=== PATIENT | female | born 1970 | race Two or more races ===

== ENCOUNTER 2022-11-01 13:39 | Outpatient (REF) | payer MEDICAID, SELFPAY ==
[2022-11-01 14:39] LABS: MANUAL DIFF FLAG NO
[2022-11-01 15:02] LABS: Basophils Percent Auto 0.6 % (0-2); Eosinophils Absolute Auto 0.1 X10*3/uL (0.0-0.4); Eosinophils Percent Auto 2.6 % (0-4); Hematocrit 37.8 % (37.0-47.0); Hemoglobin 11.5 g/dl (12.0-16.0); Imm Gran Abs Auto 0.02 X10*3/uL (0.00-0.03); Imm Gran Pct Auto 0.4 % (0.0-0.4); Lymphocytes Absolute Auto 1.9 X10*3/uL (1.2-4.9); Lymphocytes Percent Auto 35.4 % (20-40); Mean Corpuscular HGB Conc 30.4 g/dl (31.0-35.0); Mean Corpuscular Hemoglobin 26.3 pg (27.0-33.0); Mean Corpuscular Volume 86.3 fL (80.0-98.0); Mean Platelet Volume 10.5 fL (9.4-12.3); Monocytes Absolute Auto 0.3 X10*3/uL (0.1-1.2); Platelet Count 256 X10*3/uL (160-400); Red Blood Count 4.38 X10*6/uL (4.20-5.50); Red Cell Distribution Width 14.9 % (11.0-16.0); White Blood Count 5.4 X10*3/uL (4.8-10.8)
[2022-11-01 15:54] LABS: Alanine Aminotransferase 14 U/L (0-31); Albumin Level 3.7 g/dL (3.5-5.0); Alkaline Phosphatase 109 U/L (39-117); Aspartate Amino Transferase 13 U/L (5-31); Bilirubin Direct 0.2 mg/dL (0.0-0.5); Bilirubin Total 0.5 mg/dL (0.0-1.0); Free T4 (Free Thyroxine) 1.01 ng/dL (0.71-1.85); Thyroid Stimulating Hormone 1.59 uIU/mL (0.32-4.0); Total Protein 7.8 g/dL (6.5-8.0)
[2022-11-02 22:43] LABS: Triiodothyronine T3 Free 2.9 pg/mL (2.3-4.2)
[2022-11-09 13:14] LABS: Thyrotropin Receptor Antibody <1.00 IU/L (<=2.00)
== END 2022-11-01 13:40 | disposition home or self-care (01) ==
LOC: HO.LAB 13:39
PROVIDERS: PCP Internal Medicine Geriatric Medicine; Visit Provider Internal Medicine Endocrinology, Diabetes & Metabolism
DX: E05.90 Thyrotoxicosis, unspecified without thyrotoxic crisis or storm (principal)
CPT/HCPCS: 36415; 80076; 83520; 84439; 84443; 84481; 85025; 99202

== ENCOUNTER 2022-12-11 13:19 | Outpatient (REF) | payer MEDICAID, SELFPAY ==
[2022-12-11 14:44] LABS: Thyroid Stimulating Hormone 1.01 uIU/mL (0.32-4.0)
[2022-12-12 22:28] LABS: Triiodothyronine T3 Free 2.5 pg/mL (2.3-4.2)
== END 2022-12-11 13:20 | disposition home or self-care (01) ==
LOC: HO.LAB 13:19
PROVIDERS: PCP Internal Medicine Geriatric Medicine; Visit Provider Internal Medicine Endocrinology, Diabetes & Metabolism
DX: E05.90 Thyrotoxicosis, unspecified without thyrotoxic crisis or storm (principal)
CPT/HCPCS: 36415; 84439; 84443; 84481; 99211

== ENCOUNTER → 2023-03-05 14:38 | Outpatient (BNVA) | payer MEDICAID, SELFPAY | PROVIDERS: PCP Internal Medicine Geriatric Medicine; Visit Provider Internal Medicine Endocrinology, Diabetes & Metabolism | DX: E05.90 Thyrotoxicosis, unspecified without thyrotoxic crisis or storm (principal) | CPT/HCPCS: 99212 ==

== ENCOUNTER → 2023-03-06 10:30 | Outpatient (BNVA) | payer MEDICAID, SELFPAY | PROVIDERS: PCP Internal Medicine Geriatric Medicine; Visit Provider Physician Assistant | DX: E66.01 Morbid (severe) obesity due to excess calories (principal); G47.30 Sleep apnea, unspecified; E05.90 Thyrotoxicosis, unspecified without thyrotoxic crisis or storm; Z98.84 Bariatric surgery status; Z68.43 Body mass index [BMI] 50.0-59.9, adult | CPT/HCPCS: 99202 ==

== ENCOUNTER → 2023-04-04 13:00 | Outpatient (BNVA) | payer OTHER, MEDICAID, SELFPAY | PROVIDERS: PCP Internal Medicine Geriatric Medicine; Visit Provider Counselor Mental Health ==

== ENCOUNTER 2023-04-16 09:40 | Outpatient (REF) | payer MEDICAID, SELFPAY ==
[2023-04-16 09:53] LABS: MANUAL DIFF FLAG NO
[2023-04-16 10:03] LABS: Basophils Percent Auto 0.6 % (0-2); Eosinophils Absolute Auto 0.1 X10*3/uL (0.0-0.4); Eosinophils Percent Auto 2.7 % (0-4); Hematocrit 41.2 % (37.0-47.0); Hemoglobin 12.3 g/dl (12.0-16.0); Imm Gran Abs Auto 0.01 X10*3/uL (0.00-0.03); Imm Gran Pct Auto 0.2 % (0.0-0.4); Lymphocytes Absolute Auto 1.7 X10*3/uL (1.2-4.9); Lymphocytes Percent Auto 33.2 % (20-40); Mean Corpuscular HGB Conc 29.9 g/dl (31.0-35.0); Mean Corpuscular Volume 83.7 fL (80.0-98.0); Mean Platelet Volume 10.9 fL (9.4-12.3); Monocytes Absolute Auto 0.3 X10*3/uL (0.1-1.2); Monocytes Percent Auto 5.6 % (2-11); Neutrophils Percent Auto 57.7 % (45-73); Platelet Count 216 X10*3/uL (160-400); Red Blood Count 4.92 X10*6/uL (4.20-5.50); Red Cell Distribution Width 16.1 % (11.0-16.0); White Blood Count 5.2 X10*3/uL (4.8-10.8)
[2023-04-16 10:10] LABS: Estimated Average Glucose 117 mg/dL; Hemoglobin A1c % 5.7 %
[2023-04-16 10:36] LABS: Alanine Aminotransferase 27 U/L (0-31); Albumin Level 3.7 g/dL (3.5-5.0); Alkaline Phosphatase 119 U/L (39-117); Anion Gap 10 (12-20); Aspartate Amino Transferase 19 U/L (5-31); Bilirubin Total 0.7 mg/dL (0.0-1.0); Blood Urea Nitrogen 14 mg/dL (9-16); C Reactive Protein 1.98 mg/dL (< or = 0.50); Calcium 9.4 mg/dL (8.4-10.2); Carbon Dioxide 30 mmol/L (22-29); Chloride 105 mmol/L (96-108); Cholesterol 175 mg/dL; Estimated Glomerular Filt Rate > 60; Glucose Random 96 mg/dL (60-115); HDL Cholesterol 49 mg/dL; Iron 36 mcg/dL (30-160); LDL Cholesterol Calculated 112 mg/dl; Percent Iron Saturation 11 % (15-50); Sodium 141 mmol/L (135-145); Total Iron Binding Capacity 340 mcg/dL (228-428); Total Protein 8.3 g/dL (6.5-8.0); Triglycerides 71 mg/dL; Unsaturated Iron Binding 304 ug/dL
[2023-04-16 10:52] LABS: Ferritin 17 ng/mL (10-250); Insulin 12 uU/mL (2-29); Vitamin D 25-OH Total 37.4 ng/mL (>30)
[2023-04-16 11:03] LABS: Folate 7.7 ng/mL (> or = 4.0); Free T4 (Free Thyroxine) 1.05 ng/dL (0.71-1.85); Thyroid Stimulating Hormone 0.83 uIU/mL (0.32-4.0); Vitamin B12 297 pg/mL (200-900)
[2023-04-17 13:04] LABS: PTHI 62 pg/mL (16-77)
[2023-04-17 22:13] LABS: Triiodothyronine T3 Free 3.1 pg/mL (2.3-4.2)
[2023-04-20 01:43] LABS: Zinc 61 mcg/dL (60-130)
[2023-04-20 15:29] LABS: Vitamin A 36 mcg/dL (38-98)
[2023-04-21 06:49] LABS: Vitamin B1 <6 nmol/L (8-30)
== END 2023-04-16 09:41 | disposition home or self-care (01) ==
LOC: HO.LAB 09:40
PROVIDERS: Physician Assistant; PCP Internal Medicine Geriatric Medicine; Visit Provider Internal Medicine Endocrinology, Diabetes & Metabolism
DX: Z01.818 Encounter for other preprocedural examination (principal); E66.01 Morbid (severe) obesity due to excess calories; E05.90 Thyrotoxicosis, unspecified without thyrotoxic crisis or storm; G47.30 Sleep apnea, unspecified; Z98.84 Bariatric surgery status
CPT/HCPCS: 36415; 80053; 80061; 82306; 82607; 82728; 82746; 83036; 83525; 83540; 83970; 84425; 84439; 84443; 84481; 84590; 84630; 85025; 86140; 99212

== ENCOUNTER → 2023-04-30 09:37 | Outpatient (BNVA) | payer MEDICAID, SELFPAY | PROVIDERS: PCP Internal Medicine Geriatric Medicine; Visit Provider Physician Assistant | DX: Z11.0 Encounter for screening for intestinal infectious diseases (principal) | CPT/HCPCS: 99211 ==

== ENCOUNTER 2023-05-01 09:07 | Outpatient (REF) | payer MEDICAID, SELFPAY ==
[2023-05-03 16:58] LABS: H Pylori Breath Test Negative (Negative)
== END 2023-05-01 09:08 | disposition home or self-care (01) ==
LOC: HO.LNP 09:07
PROVIDERS: Visit Provider Physician Assistant
DX: Z01.818 Encounter for other preprocedural examination (principal); E66.01 Morbid (severe) obesity due to excess calories; G47.30 Sleep apnea, unspecified; Z98.84 Bariatric surgery status
CPT/HCPCS: 83013

== ENCOUNTER 2023-05-02 07:34 | Outpatient (REF) | payer MEDICAID, SELFPAY ==
--- NOTE | ~2023-05-02 | FL_ITS ---
EXAMINATION: XR FL UPPER GI WITH AIR CLINICAL INFORMATION: Morbid obesity. COMPARISON: None available. TECHNIQUE: Air-contrast upper GI examination. FINDINGS: There is normal apposition of the vocal cords while saying E. There is normal elevation of the soft palate while saying candy. Patient swallowed thin and thick barium and half-inch diameter barium tablet without difficulty. No nasopharyngeal reflux or tracheal aspiration identified. The esophagus had normal distensibility without mucosal abnormality. No persistent stricture identified. No hiatal hernia. No gastroesophageal reflux elicited including with water siphon test. Patient appears to be status post previous gastric surgery. There is a region of diminished distensibility within the proximal body with some mucosal irregularity and possible ulceration or mass cannot be excluded on this examination. The antrum appears unremarkable. There was no delay in gastric emptying. The duodenal bulb and sweep appeared unremarkable. FLUOROSCOPY TIME: 2.8 minutes. DOSE AREA PRODUCT: 46.624 Gy-cm2 (lopez-centimeter squared). FL/FL upper GI w air IMPRESSION: Status post previous gastric surgery with some irregularity about the proximal body which may be postsurgical in nature. However, possible ulcer or mass cannot be excluded on this study.
--- NOTE | ~2023-05-02 | US_ITS ---
EXAMINATION: US COMPLETE ABDOMEN WITH LIVER ELASTOGRAPHY CLINICAL INFORMATION: Obesity COMPARISON: None available. TECHNIQUE: Real-time imaging of the abdominal viscera. Noninvasive ultrasound liver fibrosis assessment is performed using Malick ElastPQ point quantification shear wave elastography (2D-SWE) with a C5-2 MHz transducer. Multiple elastography samples are obtained. FINDINGS: PANCREAS: Body and tail the pancreas are normal. The head of the pancreas is not well visualized due to bowel gas. ABDOMINAL AORTA: The proximal, middle, and distal aortic segments are normal in caliber. INFERIOR VENA CAVA: Visualized portions are normal. LIVER: Liver echotexture is slightly increased. The liver is normal in size and contour. No focal liver lesion or layering duct dilatation. The right lobe measures 16.7 cm in length. The left lobe measures 11 cm in length. Portal flow is normal/hepatopedal Shear wave liver elastography median stiffness is 1.5 m/s (reference: normal median stiffness is 1.3 m/s or less). IQR/median stiffness to assess sampling precision is 0.14 (reference: good quality data set is IQR/median stiffness of 0.15 or less). GALLBLADDER: Wall echo shadow complex suggestive of gallbladder filled with gallstones. COMMON BILE DUCT: Normal in caliber measuring 0.1 cm in diameter. RIGHT KIDNEY: Normal. No hydronephrosis. No renal calculi or focal parenchymal lesions. The kidney measures 11 cm in maximum dimension. LEFT KIDNEY: Normal. No hydronephrosis. No renal calculi or focal parenchymal lesions. The kidney measures 12 cm in maximum dimension. SPLEEN: Normal. The spleen measures 9 cm in maximum dimension. FREE FLUID: None. US/US abdomen comp w elastography IMPRESSION: 1. Impression: Slightly echogenic liver probably representing mild fatty infiltration. Wall echo shadow complex suggestive of gallbladder filled with gallstones. Limited visualization of the pancreas. 2. Liver elastography: Adequate liver sampling. In the absence of other known clinical signs, rules out compensated advanced chronic liver disease. REFERENCE: Society of Radiologists in Ultrasound Liver Stiffness Thresholds (2020): LIVER STIFFNESS THRESHOLDS: *Liver Stiffness equal or less than 1.3 m/s: High probability of being normal. *Liver Stiffness less than 1.7 m/s: In the absence of other known clinical signs, rules out compensated advanced chronic liver disease. *Liver Stiffness 1.7-2.1 m/s: Suggestive of compensated advanced chronic liver disease but need further test for confirmation. *Liver Stiffness over 2.1 m/s: Rules in compensated advanced chronic liver disease. *Liver Stiffness over 2.4 m/s: Suggestive of clinically significant portal hypertension. QUALITY OF DATA SET: *IQR/Median value equal or less than 0.15 implies a quality data set. *IQR/Median value over 0.15 implies a poor quality data set. SIGNIFICANT CHANGE FROM PRIOR EXAM: Significant change if liver stiffness measurement is 10% or greater from prior exam. OTHER CONSIDERATIONS: The stage of liver fibrosis may be overestimated in the setting of acute hepatitis, liver inflammation, elevated liver function tests, hepatic vascular congestion, obstructive cholestasis, non-fasting state, and infiltrative diseases such as amyloidosis and lymphoma. In some patients with NAFLD, the liver stiffness thresholds for compensated advanced chronic liver disease may be lower. In causes other than viral hepatitis and NAFLD, liver stiffness thresholds are not well established.
== END 2023-05-02 07:35 | disposition home or self-care (01) ==
LOC: HO.US 07:34
PROVIDERS: PCP Internal Medicine Geriatric Medicine; Visit Provider Physician Assistant
DX: Z01.818 Encounter for other preprocedural examination (principal); G47.30 Sleep apnea, unspecified; E66.01 Morbid (severe) obesity due to excess calories; Z98.84 Bariatric surgery status
CPT/HCPCS: 71046; 74246; 76705; 76981

== ENCOUNTER → 2023-05-07 13:13 | Outpatient (BNVA) | payer MEDICAID, SELFPAY | PROVIDERS: PCP Internal Medicine Geriatric Medicine; Visit Provider Dietitian, Registered | DX: E66.01 Morbid (severe) obesity due to excess calories (principal); Z71.3 Dietary counseling and surveillance | CPT/HCPCS: 97802 ==

== ENCOUNTER → 2023-05-15 12:00 | Outpatient (BNVA) | payer MEDICAID, SELFPAY | PROVIDERS: PCP Internal Medicine Geriatric Medicine; Visit Provider Physician Assistant ==

== ENCOUNTER 2023-05-23 13:24 | Emergency (ER) | payer MEDICAID, SELFPAY ==
--- NOTE | ~2023-05-23 | US_ITS ---
EXAMINATION: US ABDOMEN LIMITED, gallbladder and common bile duct CLINICAL INFORMATION: Right upper quadrant pain. COMPARISON: May 02, 2023 TECHNIQUE: Real-time imaging of the gallbladder and common bile duct. FINDINGS: GALLBLADDER: The region of the gallbladder there is seen to be an echogenic rim with significant distal sound shadowing consistent with a contracted gallbladder around calculi. Evaluation is limited. The gallbladder wall appears to be approximately 2 mm in diameter without definite pericholecystic fluid or fluid within the gallbladder wall. There was tenderness to palpation over this region. COMMON BILE DUCT: The common bile duct is not well evaluated and in the region of the common bile duct there is a 5 mm structure likely representing common bile duct. No definite dilated common bile duct is seen. US/US abdomen limited IMPRESSION: In region of gallbladder there is an echogenic curvilinear line with dense distal sound shadowing consistent with contracted gallbladder around calculi. No definite pericholecystic fluid or fluid within the gallbladder wall is appreciated. Common bile duct not well seen but does not appear to be dilated.
--- NOTE | 2023-05-23 13:38 | ED_ITS ---
HPI - General Adult General Chief complaint: Back Pain/Injury Stated complaint: abd chest and back pain Time Seen by Provider: 05/23/23 17:32 Source: patient Mode of arrival: ambulatory Limitations: no limitations History of Present Illness HPI narrative: 52-year-old female came in for evaluation abdominal pain and chest pain. Patient been having mid chest pain radiating to her back for the past 8 months describes the pain as intermittent mid chest pain with no radiation, pain is associated with upper abdominal pain and nausea with no vomiting, patient also been having nonbloody watery diarrhea for the past 2-3 days, no clear aggravating factor, no clear exacerbating factor, no clear relieving factor. Patient had a history of sleeve gastrectomy 6 years ago in the process of revision of the surgery had a recent cardiac workup that was unremarkable, patient also had gallbladder ultrasound that showed gallbladder stones. Related Data Home Medications Medication Instructions Recorded Confirmed epinephrine 0.3 mg/0.3 mL IM DIRECTED 11/01/22 04/16/23 injection, auto-injector lorazepam 1 mg tablet 1 mg PO DAILY PRN anxiety 11/01/22 04/16/23 montelukast 10 mg tablet 10 mg PO DAILY 11/01/22 04/16/23 omeprazole 40 mg capsule,delayed 40 mg PO DAILY 11/01/22 04/16/23 release pravastatin 20 mg tablet 20 mg PO BEDTIME 11/01/22 04/16/23 prazosin 1 mg capsule 1 mg PO BEDTIME 11/01/22 04/16/23 buspirone 15 mg tablet 7.5 mg PO Q12H 03/06/23 04/16/23 cariprazine 1.5 mg capsule 1.5 mg PO DAILY 03/06/23 04/16/23 (Vraylar) fluticasone propionate 50 2 inh inhalation BID 03/06/23 04/16/23 mcg/actuation blister powder for inhalation (Flovent Diskus) ketotifen fumarate 0.025 % (0.035 1 drp ophthalmic (eye) BID 03/06/23 04/16/23 %) eye drops cetirizine 10 mg tablet 0 mg PO 04/16/23 04/16/23 Previous Rx's Medication Instructions Recorded thiamine HCl (vitamin B1) 50 mg 50 mg PO DAILY #30 tabs 04/22/23 tablet vitamin A palmitate 3,000 mcg 3,000 mcg PO DAILY #14 caps 04/22/23 (10,000 unit) capsule Allergies Allergy/AdvReac Type Severity Reaction Status Date / Time grape Allergy other Verified 04/30/23 09:52 latex Allergy Unknown Verified 05/23/23 13:40 celecoxib AdvReac Severe Anaphylaxis Verified 04/30/23 09:52 shellfish derived AdvReac Severe Anaphylaxis Verified 04/30/23 09:52 Iodinated Contrast Media AdvReac other Verified 04/30/23 09:52 Review of Systems Review of Systems: All other systems are reviewed and are negative Constitutional: Reports as per HPI and Reports no additional constitutional comp laints Eyes: Reports as per HPI and Reports no additional eye complaints Reports system reviewed and no additional complaints, except as documented Cardiovascular: Reports as per HPI and Reports no additional cardiovascular complaints Respiratory: Reports as per HPI and Reports no additional respiratory complaints Gastrointestinal: Reports as per HPI and Reports no additional gastrointestinal complaints Genitourinary: Reports no additional female genitourinary complaints Musculoskeletal: Reports no additional musculoskeletal complaints Skin/Breast: Reports system reviewed and no additional complaints, except as docu Psychiatric: Reports no additional psychiatric complaints Endocrine: Reports no additional endocrine complaints Hematologic/Lymphatic: Reports no additional hematologic/lymphatic complaints Allergic/Immunologic: Reports no additional allergic/immunologic complaints Reports system reviewed and no additional complaints, except as documented and Reports Abnormal speech present [facility] Past Medical History Medical History Hyperthyroidism Surgical History History of partial hysterectomy History of surgery Hx of section Hx of mastectomy Family History Family History Mother No problems noted. Father No known health problems Maternal Grandmother Diabetes Other Cancer Social History Social History Household Members: Spouse Alcohol intake: current Alcohol intake frequency: other Alcohol type: wine Patient Tobacco Use Status: Former Tobacco user Quit Date: >17 years ago Physical Exam ED Vital Signs: Vital Signs - 24 hr 05/23/23 13:41 05/23/23 18:09 Temperature 98.0 F 99.2 F Pulse Rate 71 53 Respiratory Rate 20 16 Blood Pressure 152/86 H 137/73 Pulse Oximetry 98 98 Oxygen Delivery Method Room Air Room Air BMI result Body Mass Index 47.0 Vital signs have been reviewed as appeared to be correct. Blood pressure normal. Heart rate normal. Respiration rate normal. Temperature normal. Oxygen saturation normal. Appearance: Alert. Oriented X3. No acute distress. Head: Normal external exam. Normocephalic. Atraumatic. No Roe signs noted. No raccoon eyes noted Eyes: PERRLA. EOMI. Conjunctiva and sclera normal. Eyelids normal. ENT: TM's Normal. Pharynx normal. Uvula midline. Moist mucous membranes. No trismus noted. No drooling noted. No muffled voice noted. Neck: Normal inspection. Neck supple. FROM. No adenopathy. Thyroid Normal. No meningeal signs. No neck mass noted. CVS: Normal heart rate and rhythm. Heart sound normal. No murmurs noted. Pulses normal throughout. Respiratory: No respiratory distress. Painless inspiration. Breath sounds normal. No wheezes/rales/rhonchi noted. Chest nontender. No accessory muscle usage noted or decreased air movement noted. Abdomen: Soft, mild epigastric tenderness, no rebound tenderness, no guarding. Bowel sounds normal in all 4 quadrants. No distention noted. No organomegaly noted. No visible injury noted. Back: No CVA tenderness. Full range of motion noted. Skin: Skin warm and dry. Normal skin color. Normal skin turgor. No rashes/lesions/lacerations noted. Extremities: No lower extremity edema. Extremities exhibit normal range of motion. Extremities nontender. Neuro: Oriented X 3. Cranial nerve exam: II-XII are grossly intact No motor deficit. No sensory deficit. Reflexes normal. Course Course Course Narrative: This is a rapid medical exam: Additional HPI, ROS, PE not included below will be deferred to primary provider. Patient is a 52-year-old female with history of hyperthyroid presenting to the emergency department with complaint of chest pain, abdominal pain, and back pain intermittently for 8 months. 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 After further evaluation she was found to have gallstones. Reports today pain was worse, had nausea, vomiting, diarrhea. Plan: EKG, labs, RUQ U/S Reevaluation(s) Reevaluation #1: A 52-year-old female follow-up with Dr. Mansfield for possible revision of sleeve gastrectomy, came in with abdominal pain and chest pain patient had outpatient Cardiology clearance, gallbladder is showing possible cholelithiasis without evidence of acute cholecystitis normal WBCs, normal LFTs. To follow-up with Dr. Mansfield. Time: 18:59 Medications Administered Discontinued Medications Generic Name Dose Route Start Last Admin Trade Name Freq PRN Reason Stop Dose Admin Acetaminophen 650 mg 05/23/23 15:40 05/23/23 16:15 Acetaminophen 325 Mg Tablet PO 05/23/23 15:41 650 mg ONCE ONE Administration Ondansetron HCl 4 mg 05/23/23 17:09 05/23/23 17:51 Ondansetron Odt 4 Mg Tab.Rapdis TRANSLINGU 05/23/23 17:10 4 mg ONCE ONE Administration Medical Decision Making Differential Diagnosis Differential Diagnoses: The differential diagnosis associated with the presentation includes (ACS, cholelithiasis, acute cholecystitis, pancreatitis, electrolyte abnormality, severe anemia.) Admission/Observation Consideration of admission/observation: Escalation of care including admission/observation considered Lab Data MDM Lab Attestation statement: I reviewed the patient's lab results. 05/23/23 13:55 05/23/23 13:55 Labs: Lab Results 05/23/23 05/23/23 05/23/23 Range/Units 13:55 13:55 13:55 WBC 5.0 (4.8-10.8) X10*3/uL RBC 5.18 (4.20-5.50) X10*6/uL Hgb 13.4 (12.0-16.0) g/dl Hct 44.4 (37.0-47.0) % MCV 85.7 (80.0-98.0) fL MCH 25.9 L (27.0-33.0) pg MCHC 30.2 L (31.0-35.0) g/dl RDW 16.3 H (11.0-16.0) % Plt Count 194 (160-400) X10*3/uL MPV 11.5 (9.4-12.3) fL Immature Gran % (Auto) 0.0 (0.0-0.4) % Neut % (Auto) 59.9 (45-73) % Lymph % (Auto) 31.7 (20-40) % Aurora % (Auto) 5.6 (2-11) % Eos % (Auto) 2.2 (0-4) % Baso % (Auto) 0.6 (0-2) % Lymph # (Auto) 1.6 (1.2-4.9) X10*3/uL Aurora # (Auto) 0.3 (0.1-1.2) X10*3/uL Eos # (Auto) 0.1 (0.0-0.4) X10*3/uL Baso # (Auto) 0.0 (0.0-0.2) X10*3/uL Abs Immat Gran (auto) 0.00 (0.00-0.03) X10*3/uL Absolute Neuts (auto) 3.0 (2.0-8.3) x10*3/uL Absolute Nucleated RBC 0.000 (0.0-0.012) X10*3/uL Nucleated RBC % (auto) 0.0 (0.0-0.2) /100WBC Sodium 141 (135-145) mmol/L Potassium 3.9 (3.3-5.1) mmol/L Chloride 106 (96-108) mmol/L Carbon Dioxide 26 (22-29) mmol/L Anion Gap 13 (12-20) BUN 11 (9-16) mg/dL Creatinine 0.84 (0.5-1.4) mg/dL Estim Creat Clear Calc 138.9 Estimated GFR > 60 Random Glucose 87 (60-115) mg/dL Calcium 9.7 (8.4-10.2) mg/dL Total Bilirubin 0.8 (0.0-1.0) mg/dL AST 20 (5-31) U/L ALT 24 (0-31) U/L Alkaline Phosphatase 118 H (39-117) U/L Troponin I High Sens < 2.7 (<3.5-17.0) ng/L Total Protein 8.4 H (6.5-8.0) g/dL Albumin 3.7 (3.5-5.0) g/dL Independent Interpretation I performed an independent interpretation of an: EKG (Normal sinus rhythm at 70 beats per minute, normal axis deviation, normal intervals, no ST-T changes.) and Ultrasound (Gallbladder:In region of gallbladder there is an echogenic cu rvilinear line with dense distal sound shadowing consistent with contracted gallbladder around calculi. No definite pericholecystic fluid or fluid within the gallbladder wall is appreciated. Common bile duct not well seen but does not appe) Radiology Impression Discussion of test interpretation with radiology: I have reviewed the radiologist's reading. Discharge Plan Discharge Clinical Impression: Chest pain, Cholelithiasis Patient Disposition: Home, Self-Care Instructions: Gallstones (ED) Prescriptions: No Action vitamin A palmitate 3,000 mcg (10,000 unit) capsule 3,000 mcg PO DAILY Qty: 14 0RF thiamine HCl (vitamin B1) 50 mg tablet 50 mg PO DAILY Qty: 30 4RF montelukast 10 mg tablet 10 mg PO DAILY lorazepam 1 mg tablet 1 mg PO DAILY PRN (Reason: anxiety) prazosin 1 mg capsule 1 mg PO BEDTIME pravastatin 20 mg tablet 20 mg PO BEDTIME omeprazole 40 mg capsule,delayed release(DR/EC) 40 mg PO DAILY epinephrine 0.3 mg/0.3 mL auto-injector IM DIRECTED ketotifen fumarate 0.025 % (0.035 %) drops 1 drp ophthalmic (eye) BID buspirone 15 mg tablet 7.5 mg PO Q12H Vraylar 1.5 mg capsule 1.5 mg PO DAILY Flovent Diskus 50 mcg/actuation blister with device 2 inh inhalation BID cetirizine 10 mg tablet 0 mg PO Referrals: Name,MD Kayden [Primary Care Provider] - Jeff Mansfield MD [Physician] -
--- NOTE | 2023-05-23 13:38 | ECG_ITS ---
Test Reason : cp Blood Pressure : / mmHG Vent. Rate : 070 BPM Atrial Rate : 070 BPM P-R Int : 172 ms QRS Dur : 076 ms QT Int : 404 ms P-R-T Axes : 057 025 051 degrees QTc Int : 436 ms Normal sinus rhythm Normal ECG No previous ECGs available Referred By: Mariah Guerra Electronically Signed By:JOHNNY GAUTAM MD
[2023-05-23 13:41] VITALS: BP 152/86; PULSE 71; RESP 20; TEMP 36.7; O2SAT 98; BMI 47.0
[2023-05-23 14:19] LABS: MANUAL DIFF FLAG NO
[2023-05-23 14:26] LABS: Basophils Percent Auto 0.6 % (0-2); Eosinophils Absolute Auto 0.1 X10*3/uL (0.0-0.4); Eosinophils Percent Auto 2.2 % (0-4); Hematocrit 44.4 % (37.0-47.0); Hemoglobin 13.4 g/dl (12.0-16.0); Lymphocytes Absolute Auto 1.6 X10*3/uL (1.2-4.9); Lymphocytes Percent Auto 31.7 % (20-40); Mean Corpuscular HGB Conc 30.2 g/dl (31.0-35.0); Mean Corpuscular Hemoglobin 25.9 pg (27.0-33.0); Mean Corpuscular Volume 85.7 fL (80.0-98.0); Mean Platelet Volume 11.5 fL (9.4-12.3); Monocytes Absolute Auto 0.3 X10*3/uL (0.1-1.2); Monocytes Percent Auto 5.6 % (2-11); Neutrophils Percent Auto 59.9 % (45-73); Platelet Count 194 X10*3/uL (160-400); Red Blood Count 5.18 X10*6/uL (4.20-5.50); Red Cell Distribution Width 16.3 % (11.0-16.0)
[2023-05-23 14:35] LABS: Alanine Aminotransferase 24 U/L (0-31); Albumin Level 3.7 g/dL (3.5-5.0); Alkaline Phosphatase 118 U/L (39-117); Anion Gap 13 (12-20); Aspartate Amino Transferase 20 U/L (5-31); Bilirubin Total 0.8 mg/dL (0.0-1.0); Blood Urea Nitrogen 11 mg/dL (9-16); Calcium 9.7 mg/dL (8.4-10.2); Carbon Dioxide 26 mmol/L (22-29); Chloride 106 mmol/L (96-108); Creatinine Clr Calc Pharmacy 138.9; Estimated Glomerular Filt Rate > 60; Glucose Random 87 mg/dL (60-115); Potassium 3.9 mmol/L (3.3-5.1); Sodium 141 mmol/L (135-145); Total Protein 8.4 g/dL (6.5-8.0)
[2023-05-23 14:45] LABS: Troponin-I High Sensitivity < 2.7 ng/L (<3.5-17.0)
[2023-05-23] MEDS: Acetaminophen 325 MG TABLET 650 MG PO (16:15)
[2023-05-23] MEDS: Ondansetron ODT 4 MG TAB.RAPDIS TRANSLINGU (17:51)
[2023-05-23 18:09] VITALS: BP 137/73; PULSE 53; RESP 16; TEMP 37.3; O2SAT 98
--- NOTE | 2023-05-23 18:14 | PC.NURSE ---
pt alert and oriented, vss, pt states that she's had pain for the past 8 months due to gallstones, pt states the pain level decreased post tylenol administration.
[2023-05-23 19:08] LABS: Appearance Urine Clear; Color Urine Yellow; Glucose Urine UA Negative (Negative); Leukocyte Esterase Urine Negative (Negative); Nitrite Urine Negative (Negative); PH 5.5 (5.0-9.0); Specific Gravity - Urine >= 1.030 (1.005-1.025); Urine Blood Negative (Negative); Urine Ketones Negative (Negative); Urine Protein Trace mg/dL (Neg-Trace)
== END 2023-05-23 19:43 | disposition home or self-care (01) ==
PROVIDERS: Registered Nurse Emergency; Emergency Provider Emergency Medicine; PCP Internal Medicine Geriatric Medicine
DX: M54.50 Low back pain, unspecified (principal); R10.2 Pelvic and perineal pain; K80.20 Calculus of gallbladder without cholecystitis without obstruction; R07.89 Other chest pain; R10.11 Right upper quadrant pain; Z79.899 Other long term (current) drug therapy
CPT/HCPCS: 36415; 76705; 80053; 81003; 84484; 85025; 93005; 99284; 99285

== ENCOUNTER → 2023-05-23 13:38 | Outpatient (BNV) | payer MEDICAID, SELFPAY | PROVIDERS: Emergency Provider Emergency Medicine; PCP Internal Medicine Geriatric Medicine; Visit Provider Internal Medicine Cardiovascular Disease | DX: R07.9 Chest pain, unspecified (principal) | CPT/HCPCS: 93010 ==

== ENCOUNTER 2023-06-03 10:39 | Outpatient (AMB) | payer MEDICAID, SELFPAY ==
--- NOTE | 2023-06-03 10:42 | A.OFFVIS_ITS ---
Intake Vital Signs 06/03/23 10:46 Height 6 ft 1 in BP 124/72 Blood Pressure Location Rt brachial Position Sitting Pulse 79 Intake Visit Reasons: gallstones Intake Note: [place] [facility] [place]. Patient c/o; chest and back pain onset of symptoms, experienced nausea and vomiting this past week, diarrhea. Region Manager Required: No Accompanied by: Self / Same As Patient Allergies grape Allergy (Verified 06/03/23 10:47) other latex Allergy (Verified 06/03/23 10:47) Unknown celecoxib Adverse Reaction (Severe, Verified 06/03/23 10:47) Anaphylaxis shellfish derived Adverse Reaction (Severe, Verified 06/03/23 10:47) Anaphylaxis Iodinated Contrast Media Adverse Reaction (Verified 06/03/23 10:47) other Medication List - Last Reconciled 06/03/23 by Jimi Gordon MD buspirone 7.5 mg PO Q12H cariprazine (Vraylar) 1.5 mg PO DAILY cetirizine 0 mg PO epinephrine IM DIRECTED fluticasone propionate 50 mcg/actuation (Flovent Diskus) 2 inhalations inhalation BID ketotifen fumarate 0.025%(0.035%) 1 drp ophthalmic (eye) BID lorazepam 1 mg PO DAILY PRN montelukast 10 mg PO DAILY omeprazole 40 mg PO DAILY ondansetron 4 mg PO Q8-12H PRN pravastatin 20 mg PO BEDTIME prazosin 1 mg PO BEDTIME thiamine HCl (vitamin B1) 50 mg PO DAILY vitamin A palmitate 3,000 mcg PO DAILY HPI gallstones HPI Details 52-year-old female with morbid obesity, referred for gallstones. She went to the ER last May 27, 2023 because of right-sided abdominal pain. She was noted to have gallstones on ultrasound. She does state that she has has had some episodic pain abdomen for about a year now. She had a liver elastographyas part of her workup for repeat sleeve gastrectomy last 06/01/2023 and this had shown gallstones as well. She is being followed by the Bariatric Department because of her morbid obesity. She had as sleeve gastrectomy about 6 years ago in [facility]. She says she is scheduled to have repeat bariatric surgery because of her current weight. She otherwise has good oral intake. [facility] Medical History (Updated 06/12/23 @ 09:52 by Sarai Tubbs PA-C) Gallstones Hyperthyroidism Surgical History History of partial hysterectomy History of surgery Hx of section Hx of mastectomy Family History Mother No problems noted. Father No known health problems Maternal Grandmother Diabetes Other Cancer Social History Household Members: Spouse Alcohol intake: current Alcohol intake frequency: other Alcohol type: wine Patient Tobacco Use Status: Former Tobacco user Quit Date: >17 years ago Review of Systems Const Denies chills and Denies fever(s) Card Denies chest pain, Denies dyspnea and Denies dyspnea on exertion Resp Denies cough, Denies dyspnea and Denies dyspnea on exertion GI Denies hematochezia and Denies change in bowel habits Denies hematuria Musc Denies back pain and Denies limited range of motion Neuro Denies focal weakness and Denies convulsions Psych Denies depression and Denies mood swings Physical Exam Vital Signs: Last Vital Signs Pulse 79 06/03/23 10:46 BP 124/72 06/03/23 10:46 Const Other: morbidly obese General: comfortable and no acute distress Orientation/consciousness: patient oriented x3 Neck Neck: Yes no lymphadenopathy Resp Auscultation: clear to auscultation bilaterally Cardio Rhythm: regular rhythm GI Palpation (GI): Soft to palpation, nontender and no guarding Neuro General: patient oriented x3 Assessment & Plan Assessment & Plan (1) Gallstones: Code(s): K80.20 - Calculus of gallbladder without cholecystitis without obstruction Plan: She has gallstones which seem to be symptomatic. I did explain to her the option of proceeding with laparosopic choleycstectomy. She does have a high BMI and her perioperative risks may be higher becuse of this. I explained the technique of laparoscopic cholecystectomy poss. open, and the risks of bleeding, infections, injury to other organs ( liver, bile duct, intestines) bile leak, retained stones, inherent risks of anesthesia, as well as the benefits and altnernatives. I did explain that this can be done at the same time as the laparoscopic sleeve gastrectomy and she stated that she was aware of this and that she had preferred her cholecystectomy to be done during her sleeve gastrectomy. She says that she was not scheduled to have her sleeve gastrectomy until November and that she had wanted this to be done much earlier than that. I will reach out to the Bariatric Service with regards to the above. (2) Morbid obesity: Code(s): E66.01 - Morbid (severe) obesity due to excess calories Coding Level of Care Code New Pt Level 3 (52630) Diagnoses Gallstones K80.20 Morbid obesity E66.01
[2023-06-03 10:46] VITALS: BP 124/72; PULSE 79
== END 2023-06-03 11:16 | disposition home or self-care (01) ==
PROVIDERS: PCP Internal Medicine Geriatric Medicine; Visit Provider Surgery
DX: K80.20 Calculus of gallbladder without cholecystitis without obstruction (principal); E66.01 Morbid (severe) obesity due to excess calories
CPT/HCPCS: 99203

== ENCOUNTER → 2023-06-03 10:39 | Outpatient (BNVA) | payer MEDICAID, SELFPAY | PROVIDERS: PCP Internal Medicine Geriatric Medicine; Visit Provider Surgery | DX: K80.20 Calculus of gallbladder without cholecystitis without obstruction (principal); E66.01 Morbid (severe) obesity due to excess calories | CPT/HCPCS: 99202 ==

== ENCOUNTER 2023-06-12 09:52 | Outpatient (AMB) | payer MEDICAID, SELFPAY ==
--- NOTE | 2023-06-12 09:28 | A.OFFVIS_ITS ---
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 TBWL 28 lbs or 8%. Pthas been seen in ED twice in May for abdomianl pain had RUQ ULS which showed mild acute cholecystitis, she continues with RUQ and back pain, nausea with ocassional emesis about 3d/ week - symptoms all after she eats any of her meals. She saw Dr Gordon in Ed who suggested she wait and have lap cristiano concurrent with LSG. Pt states she is in continued pain and does not want to wait for LSG. She has already stated she wants LSG in September after she returns from her cruise vacation. Has CT chest scheduled for 06/17 due to lung nodule found on CXR. Meal plan: 9am - shake 12pm - shake 3pm - yogurt 5pm - meal of vegetable sand meat or has 2 eggs. 8pm -protein bar Exercise - limited due to RUQ pain. Pre op work up completed as follows: SWL classes - 06/18 appts? - cleared? ? ? RD appts? - missed initial, needs reschedule, next on 06/13 H pylori - negative Labs- vitamin defic, no anemia CXR - 1.8 cm left lung nodule - CT chest ordered- scheduled for 06/17 ECG - 05/23 (ED) - normal ULS - mild steatosis UGI - 05/02 - patient was not aware. Status post previous gastric surgery with some irregularity about the proximal body which may be postsurgical in nature. However, possible ulcer or mass cannot be excluded on this study.? [facility] Medical History (Updated 06/12/23 @ 09:52 by Sarai Tubbs PA-C) Gallstones Hyperthyroidism Surgical History History of partial hysterectomy History of surgery Hx of section Hx of mastectomy Family History Mother No problems noted. Father No known health problems Maternal Grandmother Diabetes Other Cancer Social History Household Members: Spouse Alcohol intake: current Alcohol intake frequency: other Alcohol type: wine Patient Tobacco Use Status: Former Tobacco user Quit Date: >17 years ago Assessment & Plan Assessment & Plan (1) Morbid obesity: Code(s): E66.01 - Morbid (severe) obesity due to excess calories Plan: SWL program for revision of previous LSG. TBWL 24 lbs or 8%. Pt has beeen progressing slowly due to not wanting to have her revison surgery until September. She will continue with current meal plan, has appt with Altagracia tomorrow. Has completed all other pre operative wrok up. Exercise - is limited due to gall bladder pain. Next appt with me in 3 weeks. Patient is still morbidly obese and is not considered stable at this time. I spent 30 minutes in total speaking with the patient via video conference counseling , reviewing records and charting in patients chart. . (2) Cholecystitis: Code(s): K81.9 - Cholecystitis, unspecified Plan: Patient will be scheduled to see Dr Moser this week to discuss surgical treatment for RUQ pain. (3) Lung nodule seen on imaging study: Code(s): R91.1 - Solitary pulmonary nodule Plan: Patient has CT chest scheduled for . (4) S/P laparoscopic sleeve gastrectomy: Comment: 2014 [facility] Code(s): Z98.84 - Bariatric surgery status Telehealth Telehealth Location of provider rendering services: practice address Location of patient: address on file Patient Identification confirmed using: Name, : Yes Telehealth method: video Patient verbally consented to treatment: Yes Patient verbally consented to billing insurance company: Yes Patient informed of any privacy concerns related to visit: Yes Coding Level of Care Code Tele Est Pt Level 4 (62828) Diagnoses Morbid obesity E66.01 Cholecystitis K81.9 Lung nodule seen on imaging study R91.1 S/P laparoscopic sleeve gastrectomy Z98.84
[2023-06-12 09:36] VITALS: BMI 47.1
== END 2023-06-12 09:55 | disposition home or self-care (01) ==
LOC: HO.HBS 09:52
PROVIDERS: PCP Internal Medicine Geriatric Medicine; Visit Provider Physician Assistant
DX: E66.01 Morbid (severe) obesity due to excess calories (principal); K81.9 Cholecystitis, unspecified; R91.1 Solitary pulmonary nodule; Z98.84 Bariatric surgery status
CPT/HCPCS: 99214

== ENCOUNTER → 2023-06-12 09:52 | Outpatient (BNVA) | payer MEDICAID, SELFPAY | PROVIDERS: PCP Internal Medicine Geriatric Medicine; Visit Provider Physician Assistant | DX: E66.01 Morbid (severe) obesity due to excess calories (principal); R91.1 Solitary pulmonary nodule; Z98.84 Bariatric surgery status ==

== ENCOUNTER 2023-06-13 13:05 | Outpatient (AMB) | payer MEDICAID, SELFPAY ==
--- NOTE | 2023-06-13 13:16 | A.OFFVIS_ITS ---
Intake VS Expanded 06/13/23 13:17 Height 5 ft 10 in Weight 346 lb 2.012 oz BMI 49.7 BP 128/64 Blood Pressure Location Lt brachial Blood Pressure Position Sitting Pulse 72 Pulse Source Pulse Oximeter Temp 97.2 F Temperature Source Tympanic Intake Visit Reasons: (OV) Cholecystitis (RANDI) Intake Note: Pt c/o: upper right quadruant pain radiates to chest and around to back x 3 yrs Senior Staff Consultant Required: No Avionic Technician: Avionic Technician offered & declined Accompanied by: Self / Same As Patient Allergies grape Allergy (Verified 06/13/23 13:21) other latex Allergy (Verified 06/13/23 13:21) Unknown celecoxib Adverse Reaction (Severe, Verified 06/13/23 13:21) Anaphylaxis shellfish derived Adverse Reaction (Severe, Verified 06/13/23 13:21) Anaphylaxis Iodinated Contrast Media Adverse Reaction (Verified 06/13/23 13:21) other Medication List - Last Reconciled 06/13/23 by Omega Moser MD buspirone 7.5 mg PO Q12H cariprazine (Vraylar) 1.5 mg PO DAILY cetirizine 0 mg PO epinephrine IM DIRECTED fluticasone propionate 50 mcg/actuation (Flovent Diskus) 2 inhalations inhal ation BID ketotifen fumarate 0.025%(0.035%) 1 drp ophthalmic (eye) BID lorazepam 1 mg PO DAILY PRN montelukast 10 mg PO DAILY omeprazole 40 mg PO DAILY ondansetron 4 mg PO Q8-12H PRN pravastatin 20 mg PO BEDTIME thiamine HCl (vitamin B1) 50 mg PO DAILY vitamin A palmitate 3,000 mcg PO DAILY HPI HPI Comments History of Present Illness Details The patient is a 52-year-old woman who is BRCA1 positive status post bilateral mastectomies and oophorectomy who has a history of a previous laparoscopic sleeve gastrectomy done at [facility]. She is enrolled in the surgical weight loss program here for revision surgery and has suffered several episodes of biliary colic, the last 05/23/23 in the ER note here at [facility] is reviewed. The patient is been reporting fairly typical biliary colic and some diarrhea over the past 8 months. Patient was seen by Dr. Gordon who deferred cholecystectomy until the time of sleeve gastrectomy. I was asked to evaluate the patient and help facilitate her care. Today she reports epigastric and right upper quadrant pain that is cramping shortly after eating. She gets nauseated and denies any vomiting. She reports this squeezing that tends to resolve in several hours involving her lower chest and upper abdomen. GERD 9 SONYA 2 QOL 100 ESS 7 Per hospital record, the patient underwent sleeve gastrectomy previously at [facility] June, and reports her heaviest weight was 489 lb. She lost weight down to 399 lb and then regained weight and is being considered and evaluated for revision with Dr. Mansfield. THE PATIENT NOTES THAT SHE IS A JUDAISM AND REFUSES BLOOD TRANSFUSION The patient also notes some issues with constipation on her current diet. We reviewed the use of stool softeners and plan to follow-up to be sure that this is being addressed. PFSH Medical History Gallstones Hyperthyroidism Surgical History History of partial hysterectomy History of surgery Hx of section Hx of mastectomy Family History Mother No problems noted. Father No known health problems Maternal Grandmother Diabetes Other Cancer Social History Household Members: Spouse Alcohol intake: current Alcohol intake frequency: other Alcohol type: wine Patient Tobacco Use Status: Former Tobacco user Quit Date: >17 years ago Review of Systems Const All systems reviewed & are unremarkable except as noted in HPI and below Reports as per HPI Physical Exam On exam, she is nontoxic Mallampati class 4 She is anicteric Her heart is regular, normal S1-S2 Lungs are clear and equal anteriorly Abd obese & NT Results Reviewed Results Reviewed: Abd U/S 05/23/23 + cholelithiasis; NAFLD, ?CBD ill-defined, it appears to be 0.5cm with no intrahepatic ductal dilation Labs from 05/23/2023 White blood cell count 5.0 with normal differential; hemoglobin 13.4 with normal indices; platelet count 194k Alkaline phosphatase elevated at 118, LFTs otherwise normal BUN 11, creatinine 0.84, electrolytes within normal parameters Prior bariatric workup included a chest x-ray that demonstrated some nodularity and a chest CT is scheduled for 06/17/2023 Assessment & Plan Assessment & Plan (1) Cholecystitis: Code(s): K81.9 - Cholecystitis, unspecified (2) Gallstones: Code(s): K80.20 - Calculus of gallbladder without cholecystitis without obstruction (3) S/P laparoscopic sleeve gastrectomy: Comment: 2014 [facility] Code(s): Z98.84 - Bariatric surgery status (4) Morbid obesity: Code(s): E66.01 - Morbid (severe) obesity due to excess calories (5) Hyperthyroidism: Code(s): E05.90 - Thyrotoxicosis, unspecified without thyrotoxic crisis or storm (6) Sleep apnea: Code(s): G47.30 - Sleep apnea, unspecified Plan Using a teaching delivery mgr, I reviewed typical symptoms of biliary colic in the patient confirmed that she is experiencing these symptoms. The quicker onset of pain from eating after sleeve gastrectomy is fairly typical due to increased emptying of the stomach and stimulation of the gallbladder. I have recommended cholecystectomy and explained to the patient that the preponderance of bariatric data do not support cholecystectomy and revision bariatric surgery at the same time. Patient can discuss this with Dr. Mansfield, since he will review performing her revision surgery, but she declined and stated that she is having pain often enough that she would prefer to do that he operation sooner rather than later. I reviewed the option of continued observation and 2nd opinion which was declined. I also reviewed the inherent risks to surgery which include, but are not limited to: Bleeding that could require another operation or blood transfusion--THE PATIENT NOTES SHE IS A JUDAISM AND REFUSES TRANSFUSION, the possible need for conversion to open surgery was reviewed, the unlikely but possible issue of bile leak or retained common duct stone that could require an ERCP, the risk of common bile duct injury roughly 11/999 cases which would require transfer to a larger institution for another operation. Patient seemed to understand her options, declined an legal administrative assistant or 2nd opinion and wants to proceed. Instructions regarding diet and activity reviewed and apparently understood. The patient is advised to avoid rich fatty foods postoperatively to avoid GI distres s/diarrhea and advised to not lift more than 20 lb for medical reasons to minimize the risk of hernia postoperatively. I recommended that she discuss these restrictions with her employer and that she is not disabled during this time frame but can perform light duty. The patient's questions seemed to be satisfactorily answered. It regarding the patient's constipation, I wrote out instructions to take docusate, 100 mg, 2 tablets in the morning and 2 tablets with her evening meal or evening snack and that it will take roughly 3-7 days for this medication to address her constipation. If she has diarrhea or problems, she will reach out to me. Patient is advised to go to the emergency room if she has another episode before surgery; I should be notified if this occurs. Patient will void her urinary bladder client development consultant, have SCDs in place and received Ancef, 3 g IV on-call. She will make arrangements regarding transportation. The possible need for postoperative narcotic and the related constipation was also reviewed and apparently understood. Patient's questions seemed to be satisfactorily answered. Coding Level of Care Code Est Pt Level 4 (53744) Diagnoses Cholecystitis K81.9 Gallstones K80.20 S/P laparoscopic sleeve gastrectomy Z98.84 Morbid obesity E66.01 Hyperthyroidism E05.90 Sleep apnea G47.30
[2023-06-13 13:17] VITALS: BP 128/64; PULSE 72; TEMP 36.2; BMI 49.7
== END 2023-06-13 14:07 | disposition home or self-care (01) ==
PROVIDERS: PCP Internal Medicine Geriatric Medicine; Visit Provider Surgery
DX: K81.9 Cholecystitis, unspecified (principal); Z98.84 Bariatric surgery status; E66.01 Morbid (severe) obesity due to excess calories; E05.90 Thyrotoxicosis, unspecified without thyrotoxic crisis or storm; G47.30 Sleep apnea, unspecified
CPT/HCPCS: 99214

== ENCOUNTER → 2023-06-13 13:05 | Outpatient (BNVA) | payer MEDICAID, SELFPAY | PROVIDERS: PCP Internal Medicine Geriatric Medicine; Visit Provider Surgery | DX: E66.01 Morbid (severe) obesity due to excess calories (principal); K81.9 Cholecystitis, unspecified; K80.20 Calculus of gallbladder without cholecystitis without obstruction; E05.90 Thyrotoxicosis, unspecified without thyrotoxic crisis or storm; G47.30 Sleep apnea, unspecified; Z98.84 Bariatric surgery status; Z68.42 Body mass index [BMI] 45.0-49.9, adult | CPT/HCPCS: 99212 ==

== ENCOUNTER 2023-06-19 06:24 | Day surgery (SDC) | payer MEDICAID, SELFPAY ==
[2023-06-14 12:51] VITALS: BMI 47.3
--- NOTE | 2023-06-18 09:59 | HO.ANESPROP2 ---
Documented by User: Halle Rae NP 06/18/23 10:06 HPI - Anesthesia Eval Consult details Narrative: 52yo F for Cholecystectomy Laparoscopic PMFSH Active Problems Active Problems: All Active Problems (Updated 06/14/23 @ 12:37 by Laurel Levy RN) Morbid obesity (Acute) S/P laparoscopic sleeve gastrectomy (Acute) Pre-op evaluation (Acute) Sleep apnea (Acute) Post traumatic stress disorder (PTSD) (Acute) Lung nodule seen on imaging study (Acute) Cholecystitis (Acute) Gallstones (Acute) Hyperthyroidism (Acute) Past Medical History Medical History Anxiety Bipolar 1 disorder Depression Fibromyalgia Gallstones GERD (gastroesophageal reflux disease) Hyperthyroidism PTSD (post-traumatic stress disorder) Rheumatoid arthritis Sleep apnea Family History Family History Mother No problems noted. Father No known health problems Maternal Grandmother Diabetes Other Cancer Surgical History Surgical History H/O colonoscopy History of partial hysterectomy History of surgery Hx of bariatric surgery Hx of section Hx of mastectomy Social History Social History Household Members: Spouse Are you a primary certified social workers in health care to a significant other at home: Yes Do you presently have visiting nurse or other home services: Yes (THROUGH OPERATOR) Alcohol intake: current Alcohol intake frequency: a few times a month Alcohol type: wine Patient Tobacco Use Status: Former Tobacco user Quit Date: 2004 Use of substances other than those prescribed or required for medical reasons: No Have you been hit, kicked, punched, or otherwise hurt by someone within the past year? If so, by whom?: No Advance Directives: No Advance Directives Information Provided: Yes Advance Directives on File: No Recently lost weight without trying: No Eating poorly because of decreased appetite: No Nutrition Risks: No Nutritional Risk Patient : No : No Poor oral hygiene: Yes (bridge) Meds Allergies Allergy/AdvReac Type Severity Reaction Status Date / Time grape Allergy other Verified 06/13/23 13:21 latex Allergy Unknown Verified 06/13/23 13:21 celecoxib AdvReac Severe Anaphylaxis Verified 06/13/23 13:21 shellfish derived AdvReac Severe Anaphylaxis Verified 06/13/23 13:21 Iodinated Contrast Media AdvReac other Verified 06/13/23 13:21 Home Medications Medication Instructions Recorded Confirmed Last Taken Type epinephrine 0.3 mg/0.3 mL IM DIRECTED 11/01/22 06/13/23 Unknown History injection, auto-injector lorazepam 1 mg tablet 1 mg PO DAILY PRN anxiety 11/01/22 06/14/23 Unknown History montelukast 10 mg tablet 10 mg PO BEDTIME 11/01/22 06/14/23 Unknown History omeprazole 40 mg capsule,delayed 40 mg PO DAILY 11/01/22 06/14/23 Unknown History release buspirone 15 mg tablet 7.5 mg PO Q12H 03/06/23 06/14/23 Unknown History cariprazine 1.5 mg capsule 1.5 mg PO DAILY 03/06/23 06/14/23 Unknown History (Vraylar) fluticasone propionate 50 2 inh inhalation BID 03/06/23 06/14/23 Unknown History mcg/actuation blister powder for inhalation (Flovent Diskus) ketotifen fumarate 0.025 % (0.035 1 drp ophthalmic (eye) BID 03/06/23 06/14/23 Unknown History %) eye drops cetirizine 10 mg tablet 10 mg PO BID 04/16/23 06/14/23 Unknown History albuterol sulfate 0.63 mg/3 mL 0.63 mg inhalation Q6H PRN dyspnea 06/14/23 06/14/23 Unknown History solution for nebulization fluticasone propionate 115 2 puff inhalation BID PRN 06/14/23 06/14/23 Unknown History mcg-salmeterol 21 mcg/actuation Shortness Of Breath HFA inhaler (Advair HFA) Exam Exam Date and Time: June 18, 2023 0959 Height,Weight and Vital Signs: Height 6 ft Weight 158.304 kg Pertinent Lab Results Pertinent Lab Results: Laboratory Tests 05/23/23 05/23/23 13:55 13:55 WBC 5.0 Hgb 13.4 Hct 44.4 Plt Count 194 Sodium 141 Potassium 3.9 Chloride 106 Carbon Dioxide 26 BUN 11 Creatinine 0.84 Narrative Narrative: EKG 05/2023 Vent. Rate : 070 BPM ? ? Atrial Rate : 070 BPM ?? P-R Int : 172 ms? QRS Dur : 076 ms ? ? QT Int : 404 ms ? ? ? P-R-T Axes : 057 025 051 degrees ?? QTc Int : 436 ms ? Normal sinus rhythm Normal ECG No previous ECGs available Assessment and Plan Assessment Anesthesia Assessment: Chart Reviewed Documented by User: Criss Angela MD 06/19/23 07:40 PMFSH Past Medical History Medical History Anxiety Bipolar 1 disorder Depression Fibromyalgia Gallstones GERD (gastroesophageal reflux disease) Hyperthyroidism PTSD (post-traumatic stress disorder) Rheumatoid arthritis Sleep apnea Family History Family History Mother No problems noted. Father No known health problems Maternal Grandmother Diabetes Other Cancer Family history of problems with anesthesia: No Surgical History Surgical History H/O colonoscopy History of partial hysterectomy History of surgery Hx of bariatric surgery Hx of section Hx of mastectomy History of Problems with Anesthesia: No Social History Social History Household Members: Spouse Are you a primary certified social workers in health care to a significant other at home: Yes Do you presently have visiting nurse or other home services: Yes (THROUGH OPERATOR) Alcohol intake: current Alcohol intake frequency: a few times a month Alcohol type: wine Patient Tobacco Use Status: Former Tobacco user Quit Date: 2004 Use of substances other than those prescribed or required for medical reasons: No Have you been hit, kicked, punched, or otherwise hurt by someone within the past year? If so, by whom?: No Advance Directives: No Advance Directives Information Provided: Yes Advance Directives on File: No Recently lost weight without trying: No Eating poorly because of decreased appetite: No Nutrition Risks: No Nutritional Risk Patient : No : No Poor oral hygiene: Yes (bridge) Meds Allergies Allergy/AdvReac Type Severity Reaction Status Date / Time grape Allergy other Verified 06/13/23 13:21 latex Allergy Unknown Verified 06/13/23 13:21 celecoxib AdvReac Severe Anaphylaxis Verified 06/13/23 13:21 shellfish derived AdvReac Severe Anaphylaxis Verified 06/13/23 13:21 Iodinated Contrast Media AdvReac other Verified 06/13/23 13:21 Home Medications Medication Instructions Recorded Confirmed Last Taken Type epinephrine 0.3 mg/0.3 mL IM DIRECTED 11/01/22 06/13/23 Unknown History injection, auto-injector lorazepam 1 mg tablet 1 mg PO DAILY PRN anxiety 11/01/22 06/14/23 Unknown History montelukast 10 mg tablet 10 mg PO BEDTIME 11/01/22 06/14/23 Unknown History omeprazole 40 mg capsule,delayed 40 mg PO DAILY 11/01/22 06/14/23 Unknown History release buspirone 15 mg tablet 7.5 mg PO Q12H 03/06/23 06/14/23 Unknown History cariprazine 1.5 mg capsule 1.5 mg PO DAILY 03/06/23 06/14/23 Unknown History (Vraylar) fluticasone propionate 50 2 inh inhalation BID 03/06/23 06/14/23 Unknown History mcg/actuation blister powder for inhalation (Flovent Diskus) ketotifen fumarate 0.025 % (0.035 1 drp ophthalmic (eye) BID 03/06/23 06/14/23 Unknown History %) eye drops cetirizine 10 mg tablet 10 mg PO BID 04/16/23 06/14/23 Unknown History albuterol sulfate 0.63 mg/3 mL 0.63 mg inhalation Q6H PRN dyspnea 06/14/23 06/14/23 Unknown History solution for nebulization fluticasone propionate 115 2 puff inhalation BID PRN 06/14/23 06/14/23 Unknown History mcg-salmeterol 21 mcg/actuation Shortness Of Breath HFA inhaler (Advair HFA) Exam Airway Mallampati Class: III TM Dist: >3cm Neck ROM: Limited Partial: Upper Heart: rrr Lungs: cta Assessment and Plan Assessment Anesthesia Assessment: Anesthesia Plan Discussed Final Anesthetic Review Family History of Problems with Anesthesia: No History of Problems with Anesthesia: No NPO: Yes ASA Class: III Final Preanesthetic Review: No Changes in Pt Med Stat, Meds/Allgs Chart Reviewed, Consent Obtained/Reviewed and Anes Risks/Benef Reviewed Patient Risk: Intermediate Procedure Risk: Intermediate Anesthetic Plan Anesthetic Plan: GA Disposition: Standard PACU
--- NOTE | 2023-06-18 16:12 | MHC.SHP ---
Pre-Procedural Eval Section A Date of Service: 06/18/23 The patient is an INPATIENT: No The History & Physical has been completed within 30 days and I have reviewed it.: Yes Section B Chief Complaint: Cholecystitis, unspecified Allergies: Allergies Allergy/AdvReac Type Severity Reaction Status Date / Time grape Allergy other Verified 06/13/23 13:21 latex Allergy Unknown Verified 06/13/23 13:21 celecoxib AdvReac Severe Anaphylaxis Verified 06/13/23 13:21 shellfish derived AdvReac Severe Anaphylaxis Verified 06/13/23 13:21 Iodinated Contrast Media AdvReac other Verified 06/13/23 13:21 Plan I have reviewed the history and physical and performed a pertinent physical examination on my patient. No changes have occurred unless specified. Time Spent With Patient Time: Total time managing care of this patient today ____ minutes.
[2023-06-19] VITALS (11 sets, daily range): BP systolic 111–156; BP diastolic 75–100; PULSE 59–84; RESP 14–21; TEMP 36.3–36.7; O2SAT 97–100
[2023-06-19] MEDS: Lactated Ringers 1,000 ML 100 ML IVCONT (07:23)
--- NOTE | 2023-06-19 07:35 | W.PM.OPN ---
Operative Note Operative Note Date of Service: 06/19/23 Narrative: Preop diagnosis: [Biliary colic] Postop diagnosis: [Same, intra-abdominal adhesions] Procedure: [Laparoscopic cholecystectomy with lysis of adhesions for 31 minute] Surgeon: Omega Moser MD Assist: [Sarai Tubbs PA-C] Anesthesia: [GET] Estimated blood loss: [10cc] Specimen: [Gallbladder with contents] Intraoperative findings: [Cystic duct was 5 mm containing some gallstones; cystic artery was in the usual location in 3 mm in size. Adhesions of the omentum to the fundus and neck of the gallbladder as well as duodenum to the neck of the gallbladder were encountered; omentum to anterior abdominal wall adhesions were noted from the patient's prior operation and required laparoscopic lysis of adhesions.] Indications: [The patient is a 52-year-old woman enrolled in the surgical weight loss program who has known gallstones and symptoms consistent with biliary colic and chronic calculous cholecystitis. She has presented twice with symptoms to the emergency department and would like to have these symptoms addressed before bariatric surgery. We discussed the data confirming the increased risk of cholecystectomy with any bariatric procedure and the patient would like the procedures done separately. The patient was offered interpretive services and declined. I explained the symptoms of biliary colic and recommended laparoscopic cholecystectomy. I reviewed the option of continued observation and 2nd opinion which was declined. I also reviewed the inherent risks to surgery which include, but are not limited to: Bleeding that could require another operation or blood transfusion, the need for open surgery, the unlikely but possible issue of bile leak that could require an ERCP, the risk of retained common duct stones that could require an ERCP, the risk of common bile duct injury which would require transfer to a larger institution for another operation. Patient seemed to understand her options. The patient also acknowledged that she is a Zoroastrianism. We did discuss the unlikely issue regarding postoperative bleeding which would be addressed aggressively with reoperation rather than transfusion.] Procedure: [The patient was identified in preoperative holding and again in the operating room and placed supine on the table. An appropriate time-out was performed and preemptive local used at all trocar insertion sites. I began at the patient's supraumbilical midline and placed a Veress needle through a transverse supraumbilical incision. An appropriate drop test was performed, but opening pressures varied between 6-20 mmHg, suggesting needle was in the omentum. I again attempted via the left upper quadrant and had the same issue with pressures, consequently, on Jason 12mm open technique was used in the supraumbilical midline. pneumoperitoneum of 15 mmHg was then obtained using carbon dioxide. After the laparoscoped was inserted, it became apparent that multiple drapes of the patient's omentum were adherent and the periumbilical and upper abdomen area. I accessed the patient's left upper quadrant and infraumbilical abdomen through the supraumbilical midline incision using a 5 mm Optiview trocar and 30 degree/5 mm laparoscopic without incident. Next a a 5 mm epigastric and two 5 mm right subcostal ports were placed with preemptive analgesia under direct laparoscopic vision without incident and the supraumbilical trocar upsized to a 12 mm trocar under direct laparoscopic vision. In examining both the omentum and underlying bowel, there was no evidence of injury and a lysis of adhesions requiring 31 minutes was required. The gallbladder was clearly identified and grasped by its fundus and additional adhesions of the omentum and duodenum to the fundus and neck of the gallbladder or identified. This also required additional careful dissection taking care to preserve the duodenum, liver and then the gallbladder was retracted cranially and anteriorly and dissection began in the lateral cystic triangle. The cystic duct was identified at its junction on the gallbladder and dissection carried medially, then circumferentially using the [place] dissector and hook. The cystic artery was then carefully identified and circumferentially dissected. Once dissection of both structures was complete and the critical view of safety demonstrated, the duct and artery were double clipped proximally and once distally and sharply divided. Electrocautery was used to remove the gallbladder from its fossa on the liver. Liver bed was inspected for hemostasis and the clips were noted to be on the respective structures. The gallbladder was placed in an Endo-Catch bag and delivered through the umbilicus under direct laparoscopic vision. The abdomen was again inspected with the laparoscoped and a abdomen deflated to assess for hemostasis. The patient was returned to neutral position, the abdomen deflated and the fascia of the supraumbilical incision closed with interrupted Vicryl sutures. Skin was closed with 4-0 Monocryl subcuticular sutures. Mastisol and Steri-Strips were applied followed by Band-Aids. The patient tolerated the procedure well and was extubated recovered in stable condition. All sponge instrument counts were correct. At the patient's request I called [place] at [[phone]] and apprised her of the operation and post-op plan, activity restrictions, pain management & bowel regime. Questions seemed to be satisfactorily answered.]
[2023-06-19] MEDS: ondansetron HCL 4 MG/2 ML VIAL IVPUSH (10:22)
[2023-06-19] MEDS: oxyCODONE HCl Immed Release 5 MG TABLET PO (10:22)
[2023-06-19] MEDS: fentaNYL citrate/PF 100 MCG/2 ML VIAL 25 MCG IVPUSH ×4 (10:23→10:55)
== END 2023-06-19 11:57 | disposition home or self-care (01) ==
LOC: HO.SSS 06:25
PROVIDERS: PCP Internal Medicine Geriatric Medicine; Visit Provider Surgery
PROC: 0FT44ZZ Resection of Gallbladder, Percutaneous Endoscopic Approach (ICD-10-PCS; CPT 47562; principal; 2023-06-19 08:20)
DX: K80.10 Calculus of gallbladder with chronic cholecystitis without obstruction (principal); K82.8 Other specified diseases of gallbladder; K66.0 Peritoneal adhesions (postprocedural) (postinfection); G47.30 Sleep apnea, unspecified; E05.90 Thyrotoxicosis, unspecified without thyrotoxic crisis or storm; E66.01 Morbid (severe) obesity due to excess calories; Z68.42 Body mass index [BMI] 45.0-49.9, adult; Z79.51 Long term (current) use of inhaled steroids; Z79.899 Other long term (current) drug therapy; Z91.040 Latex allergy status; Z91.041 Radiographic dye allergy status; Z88.8 Allergy status to other drugs, medicaments and biological substances; Z98.84 Bariatric surgery status; Z98.890 Other specified postprocedural states; Z87.891 Personal history of nicotine dependence
CPT/HCPCS: 47562; 49329; 88304; C1713; J0690; J1100; J2250; J2371; J2405; J2795; J3010

== ENCOUNTER → 2023-06-19 06:24 | Outpatient (BNV) | payer MEDICAID, SELFPAY | PROVIDERS: PCP Internal Medicine Geriatric Medicine; Visit Provider Surgery | DX: K80.51 Calculus of bile duct without cholangitis or cholecystitis with obstruction (principal) | CPT/HCPCS: 47562 ==

== ENCOUNTER 2023-06-26 07:59 | Outpatient (AMB) | payer MEDICAID, SELFPAY ==
--- NOTE | 2023-06-26 08:14 | MHC.OFFVIS ---
Intake Vital Signs 06/26/23 08:18 Height 6 ft Weight 343 lb 7.683 oz BMI 46.6 BP 128/69 Blood Pressure Location Lt brachial Position Sitting Pulse 80 Intake Visit Reasons: s/p Lap Trudy 06/20/23 Intake Note: Patient is seen in office for post op assessment post laparoscopic cholecystectomy. 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 Required: No Accompanied by: Self / Same As Patient Allergies grape Allergy (Verified 06/26/23 08:22) other latex Allergy (Verified 06/26/23 08:22) Unknown celecoxib Adverse Reaction (Severe, Verified 06/26/23 08:22) Anaphylaxis shellfish derived Adverse Reaction (Severe, Verified 06/26/23 08:22) Anaphylaxis Iodinated Contrast Media Adverse Reaction (Verified 06/26/23 08:22) other Medication List - Last Reconciled 06/26/23 by Omega Moser MD albuterol sulfate 0.63 mg inhalation Q6H PRN buspirone 7.5 mg PO Q12H cariprazine (Vraylar) 1.5 mg PO DAILY cetirizine 10 mg PO BID diphenhydramine HCl (Allergy (diphenhydramine)) 50 mg (2 x 25 mg) PO Q6H epinephrine IM DIRECTED fluticasone propion-salmeterol 115-21 mcg/actuation (Advair HFA) 2 puffs inhalation BID PRN fluticasone propionate 50 mcg/actuation (Flovent Diskus) 2 inhalations inhalation BID ketotifen fumarate 0.025%(0.035%) 1 drp ophthalmic (eye) BID lorazepam 1 mg PO DAILY PRN montelukast 10 mg PO BEDTIME omeprazole 40 mg PO DAILY ondansetron 4 mg PO Q8-12H PRN ondansetron HCl 4 mg PO Q6H PRN oxycodone 5 mg PO Q4H PRN prednisone 50 mg PO Q6H 3 doses thiamine HCl (vitamin B1) 50 mg PO DAILY vitamin A palmitate 3,000 mcg PO DAILY HPI HPI Comments History of Present Illness Details Patient returns for routine follow-up after a laparoscopic cholecystectomy for chronic calculous cholecystitis. Intraoperatively, she had a surprising amount of adhesions suggestive of prior attacks of biliary colic and pathology confirmed the diagnosis. Patient continues to report left upper quadrant pain and has an EGD scheduled with Dr. Mansfield before a revision of her gastric sleeve. Patient has a personal history of BRCA1 and is status post bilateral prophylactic mastectomy and bilateral oophorectomy; during her workup for revision surgery, she was noted to have an abnormal chest x-ray that requires CT of the chest with IV contrast. The patient notes that approximately 25 years ago in [place] she had an anaphylactic reaction to IV contrast. The option of discussion with Dr. Mansfield verses premedication with prednisone and Benadryl per radiology protocol verses MR of the chest with IV gadolinium was discussed at length. Patient notes that she is extremely apprehensive about an MRI and ultimately decided that she would prefer to be premedicated and have the CT of the chest with IV contrast; premedication of prednisone, 50 mg x3 doses as directed and Benadryl, 50 mg, 1 hour before the procedure/IV contrast was ordered at to her pharmacy. [facility] Medical History Anxiety Bipolar 1 disorder Depression Fibromyalgia Gallstones GERD (gastroesophageal reflux disease) Hyperthyroidism PTSD (post-traumatic stress disorder) Rheumatoid arthritis Sleep apnea Surgical History H/O colonoscopy History of partial hysterectomy History of surgery Hx of bariatric surgery Hx of section Hx of mastectomy Family History Mother No problems noted. 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) Alcohol intake: current Alcohol intake frequency: a few times a month Alcohol type: wine Patient Tobacco Use Status: Former Tobacco user Quit Date: 2004 Review of Systems Const All systems reviewed & are unremarkable except as noted in HPI and below Physical Exam Vital Signs: Last Vital Signs Pulse 80 06/26/23 08:18 BP 128/69 06/26/23 08:18 BMI result Body Mass Index 46.6 On exam, the patient is anicteric and nontoxic She is in no acute respiratory distress Her abdomen is obese, her incisions are healing well with expected ecchymosis surrounding them but no evidence of infection nor early hernia. She does endorse some localized left upper quadrant discomfort with no peritoneal sign Results Reviewed Results Reviewed: Pathology was reviewed with the patient which demonstrated chronic calculous cholecystitis. Assessment & Plan Assessment & Plan (1) Lung nodule seen on imaging study: Code(s): R91.1 - Solitary pulmonary nodule (2) BRCA1 gene mutation positive: Code(s): Z15.01 - Genetic susceptibility to malignant neoplasm of breast; Z15.09 - Genetic susceptibility to other malignant neoplasm (3) Morbid obesity: Code(s): E66.01 - Morbid (severe) obesity due to excess calories (4) S/P laparoscopic sleeve gastrectomy: Comment: 2014 [facility] Code(s): Z98.84 - Bariatric surgery status (5) Sleep apnea: Code(s): G47.30 - Sleep apnea, unspecified (6) Post traumatic stress disorder (PTSD): Code(s): F43.10 - Post-traumatic stress disorder, unspecified Plan Regarding the laparoscopic cholecystectomy: Instructions regarding diet and activity reviewed and apparently understood. The patient will refrain from lifting more than 20 lb or core tightening exercises for the next month. She is also advised to avoid high fat foods for both bariatric reasons and due to GI distress post cholecystectomy. Patient has an EGD scheduled for next week with Dr. Mansfield to assess her prior sleeve gastrectomy in revision surgery. Her history of BRCA1 positive and abnormal chest x-ray was discussed at length and the options of discussion with Dr. Mansfield, premedicated CT with IV contrast verses MRI with gadolinium was discussed and the patient requested that I proceed with a CT of the chest with IV contrast. Prednisone, 50 mg was ordered as per ACR guidelines and [facility] [place] LCM143.35 with diphenhydramine, 50mg PO 1 hour pre-CT. The patient will contact us if there are any questions, otherwise she will follow-up with the surgical weight loss program. Orders: Orders CT chest w IV con Today R91.1 - Solitary pulmonary nodule, Z15.01 - Genetic susceptibility to malignant neoplasm of breast, Z15.09 - Genetic susceptibility to other malignant neoplasm Medications: New prednisone administer 13 hr, 7 hr, and 1 hr before time of procedure 50 mg PO Q6H [address] contrast reaction diphenhydramine HCl (Allergy (diphenhydramine)) Take 2 tablets [address] scan 50 mg (2 x 25 mg) PO Q6H [address] premedication Coding Level of Care Code Global (99203) Diagnoses Lung nodule seen on imaging study R91.1 BRCA1 gene mutation positive Z15.01; Z15.09 Morbid obesity E66.01 S/P laparoscopic sleeve gastrectomy Z98.84 Sleep apnea G47.30 Post traumatic stress disorder (PTSD) F43.10
[2023-06-26 08:18] VITALS: BP 128/69; PULSE 80; BMI 46.6
== END 2023-06-26 08:58 | disposition home or self-care (01) ==
PROVIDERS: PCP Internal Medicine Geriatric Medicine; Visit Provider Surgery
DX: K80.51 Calculus of bile duct without cholangitis or cholecystitis with obstruction (principal); E66.01 Morbid (severe) obesity due to excess calories; Z68.42 Body mass index [BMI] 45.0-49.9, adult; Z98.84 Bariatric surgery status; F43.10 Post-traumatic stress disorder, unspecified; R91.1 Solitary pulmonary nodule; Z15.01 Genetic susceptibility to malignant neoplasm of breast; Z15.09 Genetic susceptibility to other malignant neoplasm; G47.30 Sleep apnea, unspecified
CPT/HCPCS: 99024

== ENCOUNTER → 2023-06-26 07:59 | Outpatient (BNVA) | payer MEDICAID, SELFPAY | PROVIDERS: PCP Internal Medicine Geriatric Medicine; Visit Provider Surgery ==

== ENCOUNTER 2023-07-02 06:00 | Day surgery (SDC) | payer MEDICAID, SELFPAY ==
--- NOTE | 2023-06-28 21:44 | MHC.SHP ---
Pre-Procedural Eval Section A Date of Service: 06/28/23 The patient is an INPATIENT: No The History & Physical has been completed within 30 days and I have reviewed it.: Yes Section B Chief Complaint: GERD Relevant Social History: None Present Medications: None Medical History: No relevant PMH History of Previous Operations: Relevant previous surgery/procedure and date(s) (laparoscopic sleeve gastrectomy) Allergies: Allergies Allergy/AdvReac Type Severity Reaction Status Date / Time grape Allergy other Verified 06/26/23 08:22 latex Allergy Unknown Verified 06/26/23 08:22 celecoxib AdvReac Severe Anaphylaxis Verified 06/26/23 08:22 shellfish derived AdvReac Severe Anaphylaxis Verified 06/26/23 08:22 Iodinated Contrast Media AdvReac other Verified 06/26/23 08:22 Review of Systems Sugical H&P ROS: Negative: Constitution, Cardiovascular, Respiratory, Neurological, Psychiatric, Hem-Onc, Allergic/Immunologic, Gastrointestinal, Genitourinary, Musculoskeletal, Integumentary, Endocrine and Eyes/Ears/Nose/Throat Exam Surgical H&P Exam: Normal: HEENT, Normal: Heart, Normal: Lungs, Normal: Extremities, Normal: Abdomen, Normal: Skin and Normal: Neurological Plan Diagnosis/Plan: Unchanged (EGD to assess for esphagitis. Risks for perforation and bleeding were discussed with patient. She is in agreement with the plan) I have reviewed the history and physical and performed a pertinent physical examination on my patient. No changes have occurred unless specified. Time Spent With Patient Time: Total time managing care of this patient today ____ minutes.
--- NOTE | 2023-07-01 17:40 | HO.ANESPROP2 ---
HPI - Anesthesia Eval Consult details Narrative: egd PMFSH Active Problems Active Problems: All Active Problems (Updated 06/27/23 @ 14:10 by Sarai Tubbs PA-C) Pre-procedure lab exam (Acute) BRCA1 gene mutation positive (Acute) Morbid obesity (Acute) S/P laparoscopic sleeve gastrectomy (Acute) Pre-op evaluation (Acute) Sleep apnea (Acute) Post traumatic stress disorder (PTSD) (Acute) Lung nodule seen on imaging study (Acute) Cholecystitis (Acute) Gallstones (Acute) Hyperthyroidism (Acute) Past Medical History Medical History Anxiety Bipolar 1 disorder Depression Fibromyalgia Gallstones GERD (gastroesophageal reflux disease) Hyperthyroidism PTSD (post-traumatic stress disorder) Rheumatoid arthritis Sleep apnea Family History Family History Mother No problems noted. 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) Alcohol intake: current Alcohol intake frequency: a few times a month Alcohol type: wine Patient Tobacco Use Status: Former Tobacco user Quit Date: 2004 Use of substances other than those prescribed or required for medical reasons: No Are you DNR?: No Advance Directives: No Advance Directives Information Provided: Yes Meds Allergies Allergy/AdvReac Type Severity Reaction Status Date / Time grape Allergy Severe Anaphylaxis Verified 07/02/23 06:23 latex Allergy Severe Anaphylaxis Verified 07/02/23 06:22 celecoxib AdvReac Severe Anaphylaxis Verified 06/26/23 08:22 Iodinated Contrast Media AdvReac Severe Anaphylaxis Verified 07/02/23 06:23 shellfish derived AdvReac Severe Anaphylaxis Verified 06/26/23 08:22 Home Medications Medication Instructions Recorded Confirmed Last Taken Type epinephrine 0.3 mg/0.3 mL IM DIRECTED 11/01/22 06/26/23 Unknown History injection, auto-injector lorazepam 1 mg tablet 1 mg PO DAILY PRN anxiety 11/01/22 06/26/23 Unknown History montelukast 10 mg tablet 10 mg PO BEDTIME 11/01/22 06/26/23 Unknown History omeprazole 40 mg capsule,delayed 40 mg PO DAILY 11/01/22 07/02/23 07/02/23 History release buspirone 15 mg tablet 7.5 mg PO Q12H 03/06/23 06/26/23 Unknown History cariprazine 1.5 mg capsule 1.5 mg PO DAILY 03/06/23 06/26/23 Unknown History (Vraylar) fluticasone propionate 50 2 inh inhalation BID 03/06/23 06/26/23 Unknown History mcg/actuation blister powder for inhalation (Flovent Diskus) ketotifen fumarate 0.025 % (0.035 1 drp ophthalmic (eye) BID 03/06/23 06/26/23 Unknown History %) eye drops cetirizine 10 mg tablet 10 mg PO BID 04/16/23 06/26/23 Unknown History albuterol sulfate 0.63 mg/3 mL 0.63 mg inhalation Q6H PRN dyspnea 06/14/23 06/26/23 Unknown History solution for nebulization fluticasone propionate 115 2 puff inhalation BID PRN 06/14/23 06/26/23 Unknown History mcg-salmeterol 21 mcg/actuation Shortness Of Breath HFA inhaler (Advair HFA) Exam Exam Date and Time: July 01, [id number] Airway Mallampati Class: II TM Dist: >3cm Neck ROM: Full Heart: rrr Lungs: cta Assessment and Plan Assessment Anesthesia Assessment: Anesthesia Plan Discussed and Chart Reviewed Final Anesthetic Review Family History of Problems with Anesthesia: No History of Problems with Anesthesia: No NPO: Yes ASA Class: III Final Preanesthetic Review: No Changes in Pt Med Stat, Meds/Allgs Chart Reviewed, Consent Obtained/Reviewed and Anes Risks/Benef Reviewed Patient Risk: Intermediate Procedure Risk: Intermediate Anesthetic Plan Anesthetic Plan: MAC: Disposition: Standard PACU
[2023-07-02 06:23] VITALS: BMI 46.8
[2023-07-02 06:29] VITALS: BP 112/60; PULSE 73; RESP 16; TEMP 36.4; O2SAT 100
[2023-07-02] MEDS: Lactated Ringers 1,000 ML 80 ML IVCONT (06:43)
--- NOTE | 2023-07-02 07:50 | P.BOP_ITS ---
Brief Operative Note Date of Service: 07/02/23 Pre-op diagnosis: GERD, s/p sleeve gastrectomy Post-op diagnosis: same (& redundant proximal sleeve) Procedure: PROCEDURE DATE: 07/02/2023 PREOPERATIVE DIAGNOSIS: GERD, s/p sleeve gastrectomy POSTOPERATIVE DIAGNOSIS: ?Same as above. 1) redundant proximal sleeve, 2) tortuous sleeve PROCEDURE: [id number] with biopsies Surgeon: ?Jb Mansfield M.D.. Ph.D. Sap Payroll Consultant: None ? Anesthesia: IV sedation Estimated blood loss: ?Minimal FINDINGS AND PROCEDURE: ? OPERATIVE INDICATIONS: ?The patient is a 52 year old female who underwent a laparoscopic sleeve gastrectomy elsewhere. The patient had inadequate weight loss so far and has persistent GERD.? Based on this information I recommended an upper endoscopy to evaluate the patient's symptoms. Risks and complications of the surgery were discussed with the patient in advance particularly the possibility of perforation or bleeding that may require surgical intervention. The patient understood the risks and was in agreement with the plan. ? PROCEDURE: After informed consent was obtained by the patient, the patient was ?transferred to the Operating Room and was placed in the supine position.? After successful induction of IV sedation, a mouth block was inserted and the patient was placed in the left lateral decubitus position. An upper endoscopy was performed next, the oropharynx and esophagus appeared within the normal limits. There was no hiatal hernia. The z-line was smooth. Two biopsies were obtained from the distal esohagus 2-3 cm proximal to the GE junction and two additional biopsies from the GE junction. The sleeve was entered. There was retained food in the proximal sleeve. There was mild to moderate redundancy of the proximal sleeve suggestive of incomplete fundal resection at the original operation. The sleeve was very tortuous with sharp turns and its caliber was larger than expected throughout. There was no stricture or ulcer. Biopsies were obtained from the proximal sleeve as well as the distal antrum. No significant bleeding was noted from any of the biopsy sites. The scope was then advanced into the duodenum which appeared to be normal as well. At that point the duodenum ?and the sleeve were decompressed and the scope was withdrawn from the patient's mouth. The patient was awaken and was transferred in stable condition to the Recovery Room for further care. I was present and performed all steps of the procedure. There were no residents to assist with this case. Jb Mansfield M.D., Ph.D. Surgeon: Jeff Mansfield MD Anesthesia: MAC Was an Sap Payroll Consultant used for this Procedure?: No Estimated blood loss (mL): 0 IV fluids (mL): 400 Urine output (mL): 0 (No Jackson to record output) Pathology: other (1) antrum x1, 2) proximal sleeve/gastric fundus x1, 3) EGJ x2, 4) distal esophagus x2) Condition: stable Disposition: PACU
[2023-07-02 07:54] VITALS: BP 136/80; PULSE 72; RESP 16; TEMP 36.1; O2SAT 99
[2023-07-02 08:09] VITALS: BP 114/67; PULSE 68; RESP 20; TEMP 36.2; O2SAT 100
== END 2023-07-02 08:15 | disposition home or self-care (01) ==
PROVIDERS: PCP Internal Medicine Geriatric Medicine; Visit Provider Surgery
PROC: 0DJ08ZZ Inspection of Upper Intestinal Tract, Via Natural or Artificial Opening Endoscopic (ICD-10-PCS; CPT 43235; principal; 2023-07-02 07:30)
DX: K95.89 Other complications of other bariatric procedure (principal); K21.9 Gastro-esophageal reflux disease without esophagitis; K29.50 Unspecified chronic gastritis without bleeding; Z90.3 Acquired absence of stomach [part of]; Z98.84 Bariatric surgery status; G47.33 Obstructive sleep apnea (adult) (pediatric)
CPT/HCPCS: 43239; 88305; 88342; J2250; J3010

== ENCOUNTER → 2023-07-02 06:00 | Outpatient (BNV) | payer MEDICAID, SELFPAY | PROVIDERS: PCP Internal Medicine Geriatric Medicine; Visit Provider Surgery | DX: K21.9 Gastro-esophageal reflux disease without esophagitis (principal); Z90.3 Acquired absence of stomach [part of]; Z98.84 Bariatric surgery status | CPT/HCPCS: 43239 ==

== ENCOUNTER 2023-07-22 10:27 | Outpatient (REF) | payer MEDICAID, SELFPAY ==
--- NOTE | ~2023-07-22 | CT_ITS ---
EXAMINATION: CT CHEST WITH CONTRAST CLINICAL INFORMATION: Solitary pulmonary nodule. COMPARISON: 05/02/2023 chest radiograph or a TECHNIQUE: Multidetector volumetric CT imaging of the chest was obtained after the administration of 65 mL of Omnipaque 350 intravenous contrast without immediate adverse reactions. Patient was premedicated with 50 mg prednisone her IV contrast premedication policy. Axial MIP volume rendering provided. Sagittal and coronal reformatted images were obtained. This CT examination was performed using dose optimization techniques as appropriate, variously including the following: *Automated exposure control *Adjustment of mA and/or kV according to patient size (this includes techniques or standardized protocols for targeted exams where dose is matched to indication/reason for exam; i.e. 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 Dependent bilateral lower lobe atelectasis, right greater than left. Multiple varying sized bilateral pulmonary nodules. Largest on the right, in the lower lobe, measures 6 mm, 4:29, largest in the right apex measuring 4 mm has slightly irregular borders, 4:9. Largest pulmonary nodule in the left lower lobe measures 6 mm, 4:33, largest in the left apex measures 6 mm with slightly irregular borders. 4 mm left upper lobe granuloma. MEDIASTINUM: Thyroid nodule visualized. 1.8 cm calcified focus identified in the anterior mediastinum. No pathologic mediastinal or hilar lymphadenopathy. Nonenlarged heart. No pericardial effusion. Degree of coronary calcifications: None. Nonaneurysmal aorta. Nonenlarged pulmonary arteries. PLEURA: There is no pleural effusion. No pleural mass or thickening. AXILLA AND SOFT TISSUES: Multiple bilateral axillary lymph nodes, largest on the left measures 1.8 cm. Absent breast shadows with surgical clips right chest wall UPPER ABDOMEN: Diffuse hypoattenuation to liver parenchyma. Status post cholecystectomy. Post gastric bypass. OSSEOUS STRUCTURES: No suspicious osseous lesions. Probable benign mid thoracic bone island. CT/CT chest w IV con IMPRESSION: 1.8 cm anterior mediastinal/right focus, question lymph node. Multiple bilateral pulmonary nodules, largest measuring 6 mm. Per Fleischner criteria, 3-[address] follow-up recommended. In low-risk patient, consider CT follow-up in 18-24 months. In unknown and high risk patients, CT follow-up in 06/30/2024 months recommended thereafter. Hepatic steatosis. Axillary lymph nodes. Patient with apparent bilateral mastectomies. Clinical correlation advised.
[2023-07-22] MEDS: iohexoL 350 MG/ML 100 ML INFUS..BTL 65 ML IV (11:07)
[2023-07-22 13:28] LABS: Creatinine POC 0.6 mg/dL (0.5-1.4); GFR POC > 60
== END 2023-07-22 10:28 | disposition home or self-care (01) ==
LOC: HO.CT 10:27
PROVIDERS: PCP Internal Medicine Geriatric Medicine; Visit Provider Physician Assistant
DX: R91.1 Solitary pulmonary nodule (principal); Z15.01 Genetic susceptibility to malignant neoplasm of breast; Z15.09 Genetic susceptibility to other malignant neoplasm
CPT/HCPCS: 71260; 82565; Q9967

== ENCOUNTER 2023-07-29 13:00 | Outpatient (AMB) | payer MEDICAID, SELFPAY ==
--- NOTE | 2023-07-29 13:09 | A.OFFVIS_ITS ---
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 Meal plan - 2 shakes, 1 meal an d 1 yogurt and 1 b ar per day. Exerc ise - can not when humidity high aff ects her asthma. 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 PT states h as cancer DR sterling , Dr Mera on Aug 26 CT chest - ------ cc: Name,Omar dang MD; Jeff Barahona MD; Omega Gerard MD~ EXAMINATION: CT C HEST WITH CONTRAST CLINICAL INFORMA TION: Solitary pu lmonary nodule. COMPARISON: chest radi ograph or a TECHN IQUE: Multidetect or volumetric CT i maging of the ches t was obtained aft er the administrat ion of 65 mL of Om nipaque 350 intrav enous contrast wit hout immediate adv erse reactions. Tae tovar was premedic ated with 50 mg pr ednisone her IV co ntrast premedicati on policy. Axial M IP volume renderin g provided. Sagitt al and coronal ref ormatted images we re obtained. This CT examination wa s performed using dose optimization techniques as appr opriate, variously including the fol lowing: *Automated exposure control *Adjustment of mA and/or kV accordin g to patient size (this includes braydon hniques or standar dized protocols fo r targeted exams w here dose is match ed to indication/r diann for exam; i. e. 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 Dependen t bilateral lower lobe atelectasis, right greater than left. Multiple va rying sized bilate ral pulmonary nodu les. Largest on th e right, in the lo wer lobe, measures 6 mm, 4:29, large st in the right ap ex measuring 4 mm has slightly irreg ular borders, 4:9. Largest pulmonary nodule in the lef t lower lobe measu res 6 mm, 4:33, la rgest in the left apex measures 6 mm with slightly irr egular borders. 4 mm left upper lob e granuloma. MED IASTINUM: Thyroid nodule visualized. 1.8 cm calcified focus identified i n the anterior med iastinum. No patho logic mediastinal or hilar lymphaden opathy. Nonenlarge d heart. No perica rdial effusion. De gree of coronary c alcifications: Non e. Nonaneurysmal aorta. Nonenlarged pulmonary arterie s. PLEURA: There is no pleural eff usion. No pleural mass or thickening . AXILLA AND SO FT TISSUES: Multip le bilateral axill jimena lymph nodes, l argest on the left measures 1.8 cm. Absent breast shad ows with surgical clips right chest wall UPPER ABDOME N: Diffuse hypoatt enuation to liver parenchyma. Status post cholecystect nanette. Post gastric bypass. OSSEOUS S TRUCTURES: No susp icious osseous les ions. Probable erik ign mid thoracic b [place]. ORD ER #: [id number] CT /CT chest w IV con IMPRESSION: 1.8 cm anterior media stinal/right focus , question lymph n ode. Multiple bila teral pulmonary no dules, largest nimco suring 6 mm. Per Fleischner criteri a, 3-[address] fo llow-up recommende d. In low-risk pa tient, consider CT follow-up in 18-2 4 months. In unkno wn and high risk p atients, CT follow -up in 06/30/2024 months recommended thereafter. Hepat ic steatosis. Axil ryan lymph nodes. Patient with appar ent bilateral mast ectomies. Clinical correlation advis ed. Pre op work up completed as fo llows: SWL classes - 06/18 appts? - cleared? ? ? RD a ppts? - missed ini tial, needs resche dule, next on 06/13 H pylori - negativ e Labs- vitamin de fic, no anemia CXR - 1.8 cm left konrad g nodule - CT ches t ordered- schedul ed for 06/17 ECG - (ED) - normal ULS - mild steatos is UGI - 05/02 - pa tient was not awar e. Status post pre vious gastric surg fer with some irre gularity about the proximal body whi ch may be postsurg ical in nature. Ho wever, possible ul cer or mass cannot be excluded on is study.? PFSH Medical History Anxiety Bipolar 1 disorder Depression Fibromyalgia Gallstones GERD (gastroesophageal reflux disease) Hyperthyroidism PTSD (post-traumatic stress disorder) Rheumatoid arthritis Sleep apnea Surgical History H/O colonoscopy History of partial hysterectomy History of surgery Hx of bariatric surgery Hx of section Hx of mastectomy Family History Mother No problems noted. 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 Dr Moser has reviewed her CT and will call her today with recommendations. (2) Morbid obesity: Code(s): E66.01 - Morbid (severe) obesity due to excess calories Plan: Patient wants to continue her meal and exercise plans for now, but understands that she is putting revision bariatric surgery on hold while her lung nodules are being evaluated and treated. She will follow up with Dr Mera and her PCP Dr Muller - per Dr Moser's conversation with her. No appt with us has been made for follow up at this time. I will contact her Sanjuanita dent for this. Patient is still morbidly obese and is not considered stable at this time. I spent 20 minutes in total speaking with the patient via video conference counseling , reviewing records and charting in patients chart. . (3) BRCA1 gene mutation positive: Code(s): Z15.01 - Genetic susceptibility to malignant neoplasm of breast; Z15.09 - Genetic susceptibility to other malignant neoplasm Telehealth Telehealth Location of provider rendering services: practice address Location of patient: address on file Patient Identification confirmed using: Name, : Yes Telehealth method: video Patient verbally consented to treatment: Yes Patient verbally consented to billing insurance company: Yes Patient informed of any privacy concerns related to visit: Yes Coding Level of Care Code Tele Est Pt Level 3 (86409) Diagnoses Pulmonary nodules/lesions, multiple R91.8 Morbid obesity E66.01 BRCA1 gene mutation positive Z15.01; Z15.09
[2023-07-29 13:11] VITALS: BMI 46.2
== END 2023-07-29 13:30 | disposition home or self-care (01) ==
LOC: HO.HBS 14:32
PROVIDERS: PCP Internal Medicine Geriatric Medicine; Visit Provider Physician Assistant
DX: R91.8 Other nonspecific abnormal finding of lung field (principal); E66.01 Morbid (severe) obesity due to excess calories; Z15.01 Genetic susceptibility to malignant neoplasm of breast; Z15.09 Genetic susceptibility to other malignant neoplasm
CPT/HCPCS: 99024

== ENCOUNTER → 2023-07-29 13:00 | Outpatient (BNVA) | payer MEDICAID, SELFPAY | PROVIDERS: PCP Internal Medicine Geriatric Medicine; Visit Provider Physician Assistant | DX: R91.8 Other nonspecific abnormal finding of lung field (principal); E66.01 Morbid (severe) obesity due to excess calories; Z15.01 Genetic susceptibility to malignant neoplasm of breast; Z15.09 Genetic susceptibility to other malignant neoplasm; Z68.42 Body mass index [BMI] 45.0-49.9, adult | CPT/HCPCS: 99212 ==

== ENCOUNTER 2023-10-22 12:32 | Outpatient (AMB) | payer MEDICAID, SELFPAY ==
--- NOTE | 2023-10-22 13:08 | A.OFFVIS_ITS ---
Intake Vital Signs 10/22/23 13:19 Height 6 ft Weight 349 lb 2 oz BMI 47.3 BP 186/95 H Blood Pressure Location Lt brachial Position Sitting Pulse 77 Intake Visit Reasons: Axillary Lymphadenopathy-HX jerome mast-BRCA (+) Intake Note: Patient is seen in office for evaluation and treatment of axillary lymphadenopathy. 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: No Accompanied by: Self / Same As Patient Allergies grape Allergy (Severe, Verified 10/22/23 13:17) Anaphylaxis latex Allergy (Severe, Verified 10/22/23 13:17) Anaphylaxis celecoxib Adverse Reaction (Severe, Verified 10/22/23 13:17) Anaphylaxis Iodinated Contrast Media Adverse Reaction (Severe, Verified 10/22/23 13:17) Anaphylaxis shellfish derived Adverse Reaction (Severe, Verified 10/22/23 13:17) Anaphylaxis Medication List - Last Reconciled 10/22/23 by Iban Mendez MD albuterol sulfate 0.63 mg inhalation Q6H PRN buspirone 7.5 mg PO Q12H cariprazine (Vraylar) 1.5 mg PO DAILY cetirizine 10 mg PO BID diphenhydramine HCl (Allergy (diphenhydramine)) 50 mg (2 x 25 mg) PO Q6H epinephrine IM DIRECTED fluticasone propion-salmeterol 115-21 mcg/actuation (Advair HFA) 2 puffs inhalation BID PRN fluticasone propionate 50 mcg/actuation (Flovent Diskus) 2 inhalations inhalation BID ketotifen fumarate 0.025%(0.035%) 1 drp ophthalmic (eye) BID lorazepam 1 mg PO DAILY PRN montelukast 10 mg PO BEDTIME omeprazole 40 mg PO DAILY ondansetron 4 mg PO Q8-12H PRN ondansetron HCl 4 mg PO Q6H PRN thiamine HCl (vitamin B1) 50 mg PO DAILY vitamin A palmitate 3,000 mcg PO DAILY HPI HPI Comments History of Present Illness Details 52-year-old female patient presenting for evaluation of bilateral axillary lymphadenopathy. She reports a strong family history of cancer and was determined to be BRCA positive approximately 5 years ago she subsequently underwent bilateral prophylactic mastectomies [facility] 5 years ago. She was also found to have a nodule in the chest which is being followed with chest CT. A recent chest CT performed on 07/22/2023 revealed increased lymphadenopathy in the axilla left greater than right. She presents today to discuss possible biopsy. She denies any palpable mass in the chest wall or axilla. She denies any symptoms in the arm or chest. [facility] Medical History GERD (gastroesophageal reflux disease) Anxiety Bipolar 1 disorder PTSD (post-traumatic stress disorder) Depression Rheumatoid arthritis Fibromyalgia Sleep apnea Gallstones Hyperthyroidism Surgical History Hx of bariatric surgery H/O colonoscopy History of surgery History of partial hysterectomy Hx of mastectomy Hx of section Family History Mother No problems noted. 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) Alcohol intake: current Alcohol intake frequency: a few times a month Alcohol type: wine Patient Tobacco Use Status: Former Tobacco user Quit Date: 2004 Review of Systems Const All systems reviewed & are unremarkable except as noted in HPI and below Denies chills, Denies fever(s), Denies headache(s), Denies poor appetite and Denies weakness ENT Denies headache(s) Card Denies chest pain, Denies irregular heart rhythm, Denies palpitations and Denies dyspnea Resp Denies cough, Denies excessive phlegm production and Denies dyspnea GI Denies abdominal pain, Denies bloating, Denies change in bowel habits, Denies constipation, Denies heartburn, Denies diarrhea, Denies nausea and Denies vomiting Denies urinary frequency Musc Denies back pain, Denies muscle weakness and Denies numbness Skin/Breast Denies changing lesions and Denies unusual bruising Neuro Denies headache(s), Denies numbness, Denies paresthesias and Denies weakness Psych Denies anxiety and Denies depression Endo Denies palpitations Haider/Lymph Denies lymphadenopathy Physical Exam Vital Signs: Last Vital Signs Pulse 77 10/22/23 13:19 BP 186/95 H 10/22/23 13:19 BMI result Body Mass Index 47.3 Const General: cooperative and no acute distress Nutritional Appearance: well nourished Orientation/consciousness: patient oriented x3 Limitations: no limitations HEENT Head: Yes normocephalic and Yes atraumatic Ears: hearing grossly normal bilaterally Chest Other: Bilateral mastectomy Incisions. Examination of the bilateral axilla however reveals no definite enlarged lymph nodes a no tenderness to palpation. No chest wall lesions are appreciated as well. Resp Effort & Inspection: normal respiratory effort, no audible wheezes, no cough and no respiratory distress Cardio Jugular venous distension: no JVD GI Inspection: Yes normal to inspection Skin Other: Warm, dry, no rash Neuro General: patient oriented x3 Extrem General: Yes no clubbing, cyanosis or edema Assessment & Plan Assessment & Plan (1) BRCA1 gene mutation positive: Code(s): Z15.01 - Genetic susceptibility to malignant neoplasm of breast; Z15.09 - Genetic susceptibility to other malignant neoplasm (2) Axillary lymphadenopathy: Code(s): R59.0 - Localized enlarged lymph nodes Plan 52-year-old female patient with strong family history of breast cancer and a genetic susceptibility to breast cancer found to have enlarged axillary lymph nodes on recent chest CT. Examination today reveals no definite palpable lymphadenopathy on either side. I therefore suggested obtaining an ultrasound- guided core biopsy of the axillary lymphadenopathy. I explained the procedure and discussed possible next steps after the biopsy. She will return to the office approximately 1 week following the procedure to discuss treatment options. She expressed understanding and agrees with the plan. Orders: Orders US biopsy lymph node Today R59.0 - Localized enlarged lymph nodes, Z15.01 - Genetic susceptibility to malignant neoplasm of breast, Z15.09 - Genetic susceptibility to other malignant neoplasm Coding Level of Care Code New Pt Level 4 (05994) Diagnoses BRCA1 gene mutation positive Z15.01; Z15.09 Axillary lymphadenopathy R59.0
[2023-10-22 13:19] VITALS: BP 186/95; PULSE 77; BMI 47.3
== END 2023-10-22 13:31 | disposition home or self-care (01) ==
PROVIDERS: PCP Internal Medicine Geriatric Medicine; Referring Provider Internal Medicine Geriatric Medicine; Visit Provider Surgery
DX: R59.0 Localized enlarged lymph nodes (principal); Z15.01 Genetic susceptibility to malignant neoplasm of breast; Z15.09 Genetic susceptibility to other malignant neoplasm
CPT/HCPCS: 99204

== ENCOUNTER → 2023-10-22 12:32 | Outpatient (BNVA) | payer MEDICAID, SELFPAY | PROVIDERS: PCP Internal Medicine Geriatric Medicine; Referring Provider Internal Medicine Geriatric Medicine; Visit Provider Surgery | DX: Z15.01 Genetic susceptibility to malignant neoplasm of breast (principal); Z15.09 Genetic susceptibility to other malignant neoplasm; R59.0 Localized enlarged lymph nodes | CPT/HCPCS: 99202 ==

== ENCOUNTER 2023-11-12 08:25 | Outpatient (REF) | payer MEDICAID, SELFPAY ==
[2023-11-12 09:56] LABS: Anion Gap 10 (12-20); Blood Urea Nitrogen 8 mg/dL (9-16); Calcium 9.4 mg/dL (8.4-10.2); Carbon Dioxide 32 mmol/L (22-29); Chloride 106 mmol/L (96-108); Estimated Glomerular Filt Rate > 60; Glucose Random 95 mg/dL (60-115); Potassium 3.8 mmol/L (3.3-5.1); Sodium 144 mmol/L (135-145)
[2023-11-12 09:58] LABS: Cholesterol 186 mg/dL (<200); HDL Cholesterol 57 mg/dL (>40); LDL Cholesterol Calculated 113 mg/dL (<100); Triglycerides 82 mg/dL (<150)
[2023-11-12 10:14] LABS: TSH reflex Free T4 0.37 uIU/mL (0.32-4.0)
[2023-11-12 11:37] LABS: Reflex LDLD? No
== END 2023-11-12 08:26 | disposition home or self-care (01) ==
LOC: HO.LAB 08:25
PROVIDERS: PCP Internal Medicine; Visit Provider Internal Medicine
DX: I10 Essential (primary) hypertension (principal)
CPT/HCPCS: 36415; 80048; 80061; 84443

== ENCOUNTER → 2023-11-14 19:30 | Outpatient (REF) | payer MEDICAID, SELFPAY | LOC: HO.SL 19:30 | PROVIDERS: PCP Internal Medicine Geriatric Medicine; Visit Provider Internal Medicine | DX: Z13.89 Encounter for screening for other disorder (principal) ==

== ENCOUNTER 2023-11-19 07:38 | Outpatient (REF) | payer MEDICAID, SELFPAY ==
--- NOTE | ~2023-11-19 | US_ITS ---
PROCEDURE: US GUIDED AXILLARY LYMPH NODE BIOPSY, LEFT CLINICAL INFORMATION: 53-year-old female with BRCA1 mutation, strong family history of breast CA, status post bilateral mastectomies, with mildly prominent bilateral axillary lymph nodes observed on CT chest 07/22/2023, and also observed on 11/19/2023 diagnostic ultrasound. Lymph nodes demonstrated normal morphology, with preserved fatty angelica, however thickened cortex up to 4-5 mm on both sides. Recommended for sampling/biopsy by Dr. Mendez. COMPARISON: As above. PROCEDURAL DETAILS: The details of the procedure, as well as the risks, benefits, and alternatives to the procedure were explained to the patient in detail and all of her questions were answered, after which written informed consent was obtained. Site and side were confirmed. Prior to the procedure, sonography revealed a left axillary lymph node with cortex thickened up to 5 mm. A time-out was performed, the lesion intended for biopsy was targeted, and the skin of the left axilla was then marked, prepped and draped in the usual sterile fashion. Using sonographic guidance, sterile technique, and 1% lidocaine without epinephrine for local anesthesia, multiple core biopsies were obtained through the inferior margin of the lymph node with a 14G spring loaded Tasqeera core biopsy device. There was real-time confirmation of appropriate needle passage. Sampling was documented. At the completion of tissue sampling, a single butterfly-shaped metallic clip was deposited at the biopsy site. There was no evidence of immediate complication. SPECIMEN: An appropriate sample was obtained. Core sample was also sent for flow cytometry. Postprocedure mammography was not necessary due to axillary position of the clip. The patient tolerated the procedure well and, after assuring adequate hemostasis, was discharged in good condition after reviewing postbiopsy care instructions. Final pathology results are pending. US/US biopsy lymph node IMPRESSION: 1. No immediate complication from ultrasound-guided percutaneous biopsy LEFT axillary lymph node. 2. Ultrasound was used to localize and guide marker clip placement. Butterfly shaped clip was placed within the lower pole of the biopsied lymph node. 3. Postprocedure mammography was not performed. 4. Final pathology results are pending. A separate report with final recommendations will be issued once these results are made available.
--- NOTE | ~2023-11-19 | US_ITS ---
PROCEDURE: US GUIDED AXILLARY LYMPH NODE BIOPSY, RIGHT CLINICAL INFORMATION: 53-year-old female with BRCA1 mutation, strong family history of breast CA, status post bilateral mastectomies, with mildly prominent bilateral axillary lymph nodes observed on CT chest 07/22/2023, and also observed on 11/19/2023 diagnostic ultrasound. Lymph nodes demonstrated normal morphology, with preserved fatty angelica, however thickened cortex up to 4-5 mm on both sides. Recommended for sampling/biopsy by Dr. Mendez. COMPARISON: As above. PROCEDURAL DETAILS: The details of the procedure, as well as the risks, benefits, and alternatives to the procedure were explained to the patient in detail and all of her questions were answered, after which written informed consent was obtained. Site and side were confirmed. Prior to the procedure, sonography revealed a right axillary lymph node with cortex thickened up to 5 mm. A time-out was performed, the lesion intended for biopsy was targeted, and the skin of the right axilla was then marked, prepped and draped in the usual sterile fashion. Using sonographic guidance, sterile technique, and 1% lidocaine without epinephrine for local anesthesia, multiple core biopsies were obtained through the inferior margin of the lymph node with a 14G spring loaded Heckylera core biopsy device. There was real-time confirmation of appropriate needle passage. Sampling was documented. At the completion of tissue sampling, a single open coil-shaped metallic clip was deposited at the biopsy site. There was no evidence of immediate complication. SPECIMEN: An appropriate sample was obtained. Core sample was also sent for flow cytometry. Postprocedure mammography was not necessary due to axillary position of the clip. The patient tolerated the procedure well and, after assuring adequate hemostasis, was discharged in good condition after reviewing postbiopsy care instructions. Final pathology results are pending. US/US biopsy lymph node IMPRESSION: 1. No immediate complication from ultrasound-guided percutaneous biopsy right axillary lymph node. 2. Ultrasound was used to localize and guide marker clip placement. Open coil clip was placed within the lower pole of the biopsied lymph node. 3. Postprocedure mammography was not performed. 4. Final pathology results are pending. A separate report with final recommendations will be issued once these results are made available.
--- NOTE | ~2023-11-19 | US_ITS ---
EXAMINATION: US DIAGNOSTIC ULTRASOUND BREAST, BILATERAL CLINICAL INFORMATION: 53-year-old female with BRCA1 mutation, strong family history of breast CA, status post bilateral mastectomies, with mildly prominent bilateral axillary lymph nodes observed on CT chest 07/22/2023. Evaluate lymph nodes in both axillary regions. COMPARISON: No prior ultrasound. CT chest 07/22/2023 TECHNIQUE: Ultrasound of the right and left axilla was performed with real-time lopez scale imaging and color Doppler. FINDINGS: RIGHT AXILLA: -There is a mid axillary lymph node measuring 0.8 x 0.8 x 1.3 cm, with borderline thickened cortex of 4 mm, however preserved fatty central hilum, and normal normal morphology. There is normal color Doppler flow within the hilum. -There is a slightly lower axillary lymph node measuring 1.5 x 0.7 cm with a cortex measuring 0.4 cm. There is preserved central fatty hilum, and normal leland morphology. There is normal color Doppler flow within the hilum. LEFT AXILLA: -There is a mid axillary lymph node present measuring 1.4 x 0.9 x 1.8 cm, with borderline thickened cortex 4 mm, however preserved central fatty hilum and normal leland morphology. There is normal color Doppler flow within the hilum. -There is a second slightly lower axillary node measuring 0.9 x 0.7 x 1.0 cm, with borderline thickened cortex 4 mm, however preserved central fatty hilum and normal leland morphology. There is normal color Doppler flow within the hilum. US/US breast BI limited mamm only IMPRESSION: Bilateral axillary lymph nodes with mildly thickened cortices, however otherwise normal morphology and preserved fatty angelica. See above for details. Patient's surgeon requests biopsy bilaterally. ASSESSMENT: BI-RADS 4: Suspicious RECOMMENDATION: Ultrasound-guided biopsy bilateral lymph nodes. This patient's information was entered into a reminder system with a target due date for their next mammogram.
[2023-11-19] MEDS: Lidocaine HCl 1 % 20 ML VIAL 18 ML SUBCUT (10:15)
[2023-11-19] MEDS: Sodium Bicarbonate 8.4% 50 MEQ/50 ML VIAL SUBCUT (10:16)
== END 2023-11-19 07:39 | disposition home or self-care (01) ==
LOC: HO.MAMMO 07:38
PROVIDERS: Radiology Diagnostic Radiology; PCP Internal Medicine Geriatric Medicine; Visit Provider Surgery
DX: R59.0 Localized enlarged lymph nodes (principal); Z90.13 Acquired absence of bilateral breasts and nipples; Z80.3 Family history of malignant neoplasm of breast; Z15.01 Genetic susceptibility to malignant neoplasm of breast; Z15.09 Genetic susceptibility to other malignant neoplasm
CPT/HCPCS: 36415; 38505; 76642; 76942; 88184; 88185; 88300; 88305; A4648; C1894

== ENCOUNTER → 2023-11-19 08:00 | Outpatient (BNV) | payer MEDICAID, SELFPAY | PROVIDERS: PCP Internal Medicine Geriatric Medicine; Visit Provider Radiology Diagnostic Radiology | DX: R59.0 Localized enlarged lymph nodes (principal); Z15.01 Genetic susceptibility to malignant neoplasm of breast; Z90.13 Acquired absence of bilateral breasts and nipples | CPT/HCPCS: 19285; 38505; 76642; 76882; 76942 ==

== ENCOUNTER 2024-02-17 09:50 | Outpatient (REF) | payer MEDICAID, SELFPAY ==
[2024-02-17 11:37] LABS: MANUAL DIFF FLAG NO
[2024-02-17 11:49] LABS: Basophils Percent Auto 0.3 % (0-2); Eosinophils Absolute Auto 0.2 X10*3/uL (0.0-0.4); Hematocrit 39.9 % (37.0-47.0); Hemoglobin 12.4 g/dl (12.0-16.0); Imm Gran Abs Auto 0.01 X10*3/uL (0.00-0.03); Imm Gran Pct Auto 0.2 % (0.0-0.4); Lymphocytes Absolute Auto 2.1 X10*3/uL (1.2-4.9); Mean Corpuscular HGB Conc 31.1 g/dl (31.0-35.0); Mean Corpuscular Hemoglobin 26.2 pg (27.0-33.0); Mean Corpuscular Volume 84.2 fL (80.0-98.0); Mean Platelet Volume 10.7 fL (9.4-12.3); Monocytes Absolute Auto 0.4 X10*3/uL (0.1-1.2); Monocytes Percent Auto 6.2 % (2-11); Neutrophils Percent Auto 52.3 % (45-73); Platelet Count 260 X10*3/uL (160-400); Red Blood Count 4.74 X10*6/uL (4.20-5.50); Red Cell Distribution Width 15.5 % (11.0-16.0); White Blood Count 5.8 X10*3/uL (4.8-10.8)
[2024-02-17 12:33] LABS: Alanine Aminotransferase 16 U/L (0-31); Albumin Level 3.8 g/dL (3.5-5.0); Alkaline Phosphatase 112 U/L (39-117); Anion Gap 9 (12-20); Aspartate Amino Transferase 18 U/L (5-31); Bilirubin Total 0.4 mg/dL (0.0-1.0); Blood Urea Nitrogen 9 mg/dL (9-16); Calcium 9.3 mg/dL (8.4-10.2); Carbon Dioxide 33 mmol/L (22-29); Chloride 104 mmol/L (96-108); Estimated Glomerular Filt Rate > 60; Glucose Random 94 mg/dL (60-115); Lipase 13 U/L (8-78); Potassium 4.1 mmol/L (3.3-5.1); Sodium 142 mmol/L (135-145); Total Protein 8.8 g/dL (6.5-8.0)
== END 2024-02-17 09:51 | disposition home or self-care (01) ==
LOC: HO.10HDLNP 09:50
PROVIDERS: Visit Provider Internal Medicine Geriatric Medicine
DX: R10.13 Epigastric pain (principal)
CPT/HCPCS: 80053; 83690; 85025

== ENCOUNTER 2024-02-27 07:39 | Outpatient (REF) | payer MEDICAID, SELFPAY ==
--- NOTE | ~2024-02-27 | US_ITS ---
EXAMINATION: US ABDOMEN COMPLETE CLINICAL INFORMATION: Intermittent epigastric pain radiating to the back of 3 months' duration. COMPARISON: Ultrasound abdomen limited 05/23/2023. TECHNIQUE: Real-time imaging of the abdominal viscera. FINDINGS: PANCREAS: Normal. ABDOMINAL AORTA: The proximal and distal segments are normal in caliber. The mid segment is obscured by overlapping bowel gas. INFERIOR VENA CAVA: Visualized portions are normal. LIVER: Normal. The liver is normal in size. The liver contour is normal. Parenchymal echogenicity is normal. No focal hepatic lesion. There is no intrahepatic biliary duct dilatation seen. GALLBLADDER: Surgically absent. COMMON BILE DUCT: Normal in caliber measuring 0.3 cm in diameter. RIGHT KIDNEY: Normal. No hydronephrosis. No renal calculi or focal parenchymal lesions. The kidney measures 12.2 cm in maximum dimension. LEFT KIDNEY: Normal. No hydronephrosis. No renal calculi or focal parenchymal lesions. The kidney measures 11.4 cm in maximum dimension. SPLEEN: Normal. The spleen measures 9.7 cm in maximum dimension. FREE FLUID: None. US/US abdomen complete IMPRESSION: Unremarkable examination, with imaging of the abdominal great vessels technically limited.
== END 2024-02-27 07:40 | disposition home or self-care (01) ==
LOC: HO.US 07:39
PROVIDERS: PCP Internal Medicine Geriatric Medicine; Visit Provider Internal Medicine Geriatric Medicine
DX: R10.13 Epigastric pain (principal)
CPT/HCPCS: 76700

== ENCOUNTER 2024-05-05 07:48 | Outpatient (REF) | payer MEDICAID, SELFPAY ==
[2024-05-05 17:57] LABS: Bacterial Vaginosis PCR NEGATIVE (Negative); Candida Group PCR DETECTED (Not Detect); Candida glab krusei PCR NOT DETECTED (Not Detect); Trichomonas vaginalis PCR NOT DETECTED (Not Detect)
== END 2024-05-05 07:49 | disposition home or self-care (01) ==
LOC: HO.LNP 07:48
PROVIDERS: PCP Internal Medicine Geriatric Medicine; Visit Provider Obstetrics & Gynecology
DX: L29.2 Pruritus vulvae (principal)
CPT/HCPCS: 0352U; 99202

== ENCOUNTER 2024-05-05 07:48 | Outpatient (AMB) | payer MEDICAID, SELFPAY ==
[2024-05-05 07:54] VITALS: BP 122/74; BMI 49.5
--- NOTE | 2024-05-05 07:54 | MHC.OFFVIS ---
Vital Signs 05/05/24 07:54 Height 6 ft Weight 365 lb BMI 49.5 BP 122/74 Intake Visit Reasons: lichen sclerosus vulva/referral Waxer Floor Required: No Information Interpreted: non-clinical & clinical Rf Test Engineer: Rf Test Engineer Present (Tory Ayden SALINAS) Accompanied by: Self / Same As Patient Allergies grape Allergy (Severe, Verified 05/05/24 07:58) Anaphylaxis latex Allergy (Severe, Verified 05/05/24 07:58) Anaphylaxis celecoxib Adverse Reaction (Severe, Verified 05/05/24 07:58) Anaphylaxis Iodinated Contrast Media Adverse Reaction (Severe, Verified 05/05/24 07:58) Anaphylaxis shellfish derived Adverse Reaction (Severe, Verified 05/05/24 07:58) Anaphylaxis Post menopausal: Yes HPI Comments Details: Presenting complaining of bilateral vulvar itching associated with vaginal discharge and no foul odor. The patient had bilateral laparoscopic oophorectomy with mastectomy for BRCA1 positive. PFS Medical History GERD (gastroesophageal reflux disease) Anxiety Bipolar 1 disorder PTSD (post-traumatic stress disorder) Depression Rheumatoid arthritis Fibromyalgia Sleep apnea Gallstones Hyperthyroidism Surgical History Hx of bariatric surgery H/O colonoscopy History of surgery History of partial hysterectomy Hx of mastectomy Hx of section Family History Mother No problems noted. Father Cancer Maternal Grandmother Diabetes Social History Household Members: Spouse Are you a primary care nurse rn to a significant other at home: Yes Do you presently have visiting nurse or other home services: Yes (ANSWERING SERVICE AGENT) Alcohol intake: current Alcohol intake frequency: a few times a month Alcohol type: wine Patient Tobacco Use Status: Former Tobacco user Female Reproductive History Menstrual Menopause type: surgical Total pregnancies: 4 Full term: 3 Number of Living Children: 0 Ab spontaneous: 1 Review of Systems Const All systems reviewed & are unremarkable except as noted in HPI and below Reports as per HPI Physical Exam Vital Signs: Last Vital Signs BP 122/74 05/05/24 07:54 BMI result Body Mass Index 49.5 Const General: cooperative, healthy appearing and comfortable General: Yes bladder normal to palpation External Female Exam: No normal external appearance (Eczematous changes bilaterally , no leukoplakia) and No lesion Speculum Exam - Vagina: normal appearance of the vagina, normal vaginal discharge and not erythematous Speculum Exam - Cervix: Cervix absent Bimanual exam- vagina & uterus: bladder normal to palpation and uterus absent Bimanual Exam- Adnexa, other: Other (No masses detected) Assessment & Plan Assessment & Plan (1) Vulvar itching: Code(s): L29.2 - Pruritus vulvae Category: Medical Plan: GC/CT, Bacterial Vaginosis panel taken, Terazol 0.8% q.h.s. for 3 days was sent to the patient's pharmacy. The patient was instructed to call if symptoms don't improve in 48 hours and to schedule a 2 week follow-up appointment if vulvar skin changes are not improved will proceed with vulvar biopsy . Medications: New terconazole 0.8% 1 appful vaginal BEDTIME 3 days 20 grams 0RF Coding Level of Care Code New Pt Level 3 (39225) Diagnoses Vulvar itching L29.2
== END 2024-05-05 08:21 | disposition home or self-care (01) ==
PROVIDERS: PCP Internal Medicine Geriatric Medicine; Referring Provider Internal Medicine Geriatric Medicine; Visit Provider Obstetrics & Gynecology
DX: L29.2 Pruritus vulvae (principal)
CPT/HCPCS: 99203

== ENCOUNTER 2024-05-27 07:58 | Outpatient (AMB) | payer MEDICAID, SELFPAY ==
[2024-05-27 08:51] VITALS: BMI 49.3
--- NOTE | 2024-05-27 08:51 | A.OFFVIS_ITS ---
Vital Signs 05/27/24 08:51 Height 6 ft Weight 363 lb 12.203 oz BMI 49.3 Intake Visit Reasons: Vulva Biopsy Supply Chain Consultant Required: Yes Supply Chain Consultant Language: Contract Loader Services: Supply Chain Consultant Present (in person) Supply Chain Consultant Name: Tory SALINAS Information Interpreted: non-clinical & clinical It Operations Specialist: It Operations Specialist Present (Tory SALINAS) Accompanied by: Self / Same As Patient Allergies grape Allergy (Severe, Verified 05/27/24 08:53) Anaphylaxis latex Allergy (Severe, Verified 05/27/24 08:53) Anaphylaxis celecoxib Adverse Reaction (Severe, Verified 05/27/24 08:53) Anaphylaxis Iodinated Contrast Media Adverse Reaction (Severe, Verified 05/27/24 08:53) Anaphylaxis shellfish derived Adverse Reaction (Severe, Verified 05/27/24 08:53) Anaphylaxis Post menopausal: Yes HPI Comments Details: Presenting for follow-up for vulvovaginal candidiasis, the patient took Terazol 0.8% q.h.s. with Lotrisone b.i.d. for 5 days has improved markedly since then her symptoms have resolved PFSH Medical History GERD (gastroesophageal reflux disease) Anxiety Bipolar 1 disorder PTSD (post-traumatic stress disorder) Depression Rheumatoid arthritis Fibromyalgia Sleep apnea Gallstones Hyperthyroidism Surgical History Hx of bariatric surgery H/O colonoscopy History of surgery History of partial hysterectomy Hx of mastectomy Hx of section Family History Mother No problems noted. Father Cancer Maternal Grandmother Diabetes Social History Household Members: Spouse Are you a primary skin care specialist to a significant other at home: Yes Do you presently have visiting nurse or other home services: Yes (EARLY CHILDHOOD EDUCATION SPECIALIST) Alcohol intake: current Alcohol intake frequency: a few times a month Alcohol type: wine Patient Tobacco Use Status: Former Tobacco user Review of Systems Const All systems reviewed & are unremarkable except as noted in HPI and below Physical Exam Vital Signs: BMI result Body Mass Index 49.3 General: Yes no CVA tenderness External Female Exam: normal external appearance and normal appearance of the urethra Speculum Exam - Vagina: normal appearance of the vagina, normal palpation, no lesions and no masses Speculum Exam - Cervix: normal appearance of the cervix, normal palpation, no lesions, no masses and nontender Bimanual exam- vagina & uterus: normal bimanual exam, normal palpation, uterine size normal, normal palpation, uterine shape normal, No Cervical tenderness present and non-tender Bimanual Exam- Adnexa, other: normal adnexae Back/Spine/Pelvis Back: no CVA tenderness Assessment & Plan Assessment & Plan (1) Vulvar itching: Code(s): L29.2 - Pruritus vulvae Category: Medical Plan: Discussed with the patient the normal finding on pelvic exam with no evidence of any abnormalities on the bilateral labia, no leukoplakia. Instructions given the patient to call in case of recurrence of her vulvovaginal itching will treat accordingly. All questions answered, the patient verbalized understanding Coding Level of Care Code Est Pt Level 3 (14963) Diagnoses Vulvar itching L29.2
== END 2024-05-27 09:45 | disposition home or self-care (01) ==
PROVIDERS: PCP Internal Medicine Geriatric Medicine; Visit Provider Obstetrics & Gynecology
DX: L29.2 Pruritus vulvae (principal)
CPT/HCPCS: 99213

== ENCOUNTER → 2024-05-27 07:58 | Outpatient (BNVA) | payer MEDICAID, SELFPAY | PROVIDERS: PCP Internal Medicine Geriatric Medicine; Visit Provider Obstetrics & Gynecology | DX: L29.2 Pruritus vulvae (principal) | CPT/HCPCS: 99212 ==

== ENCOUNTER 2024-10-14 09:03 | Outpatient (REF) | payer MEDICAID, SELFPAY ==
[2024-10-14 14:49] LABS: Bacterial Vaginosis PCR NEGATIVE (Negative); Candida Group PCR DETECTED (Not Detect); Candida glab krusei PCR NOT DETECTED (Not Detect); Trichomonas vaginalis PCR NOT DETECTED (Not Detect)
== END 2024-10-14 09:04 | disposition home or self-care (01) ==
LOC: HO.LNP 09:03
PROVIDERS: PCP Internal Medicine Geriatric Medicine; Visit Provider Obstetrics & Gynecology
DX: N76.0 Acute vaginitis (principal)
CPT/HCPCS: 0352U; 56605; 88304; 88305; 99212

== ENCOUNTER 2024-10-14 09:53 | Outpatient (AMB) | payer MEDICAID, SELFPAY ==
[2024-10-14 09:13] VITALS: BP 124/76; BMI 48.8
--- NOTE | 2024-10-14 09:13 | A.OFFVIS_ITS ---
Vital Signs 10/14/24 09:13 Height 6 ft Weight 360 lb BMI 48.8 BP 124/76 Intake Visit Reasons: annual/DO NOT RS Fitness Supervisor Required: Yes Fitness Supervisor Language: Complex Case Manager Services: Fitness Supervisor Present (in person) Fitness Supervisor Name: Tory SALINAS Information Interpreted: non-clinical & clinical Spray Painter: Spray Painter Present (Tory SALINAS) Accompanied by: Self / Same As Patient Allergies grape Allergy (Severe, Verified 10/14/24 09:26) Anaphylaxis latex Allergy (Severe, Verified 10/14/24 09:26) Anaphylaxis celecoxib Adverse Reaction (Severe, Verified 10/14/24 09:26) Anaphylaxis Iodinated Contrast Media Adverse Reaction (Severe, Verified 10/14/24 09:26) Anaphylaxis shellfish derived Adverse Reaction (Severe, Verified 10/14/24 09:26) Anaphylaxis Post menopausal: Yes HPI Comments Details: Presenting complaining of vulvovaginal itching and a right vulvar lesion that is tender no associated vulvovaginal discharge or foul odor PFSH Medical History GERD (gastroesophageal reflux disease) Anxiety Bipolar 1 disorder PTSD (post-traumatic stress disorder) Depression Rheumatoid arthritis Fibromyalgia Sleep apnea Gallstones Hyperthyroidism Surgical History Hx of bariatric surgery H/O colonoscopy History of surgery History of partial hysterectomy Hx of mastectomy Hx of section Family History Mother No problems noted. Father Cancer Maternal Grandmother Diabetes Social History Household Members: Spouse Are you a primary healthcare economics consultant to a significant other at home: Yes Do you presently have visiting nurse or other home services: Yes (TROLLEY COLLECTOR) Alcohol intake: current Alcohol intake frequency: a few times a month Alcohol type: wine Patient Tobacco Use Status: Former Tobacco user Review of Systems Const All systems reviewed & are unremarkable except as noted in HPI and below Card Reports as per HPI and Reports no additional complaints Resp Reports as per HPI and Reports no additional complaints GI Reports as per HPI and Reports no additional complaints Reports as per HPI Physical Exam Vital Signs: Last Vital Signs BP 124/76 10/14/24 09:13 BMI result Body Mass Index 48.8 Const General: cooperative, healthy appearing and comfortable External Female Exam: lesion (Right labia minora lesion 0.5 cm) Speculum Exam - Vagina: normal appearance of the vagina, normal vaginal discharge and not erythematous Bimanual Exam- Adnexa, other: Other (No masses detected) Office Procedures RESIDENTIAL INTERIOR DESIGNER Biopsy Before the procedure was started d/w patient the procedure, alternatives ( do nothing, medical rx), & all the risks associated with the procedure ( bleeding , infection, vulvar scarring, painful intercourse, injury to vessels, possible need for transfusion with all its risks) then patient signed the consent. Preop dx: Right labia minora lesion 0.5 cm Op: Right labia minora lesion excision Post op: Same Anesthesia: Lidocaine 1% 3cc used Procedure: Using betadine the area was scrubbed and draped in the usual manner. 3 cc of lidocaine was used for anesthesia at the Right labia minora lesion area ; using scissors and pickup the Right labia minora lesionwas excised, Vicryl was used to approximate the edges. Pressure was used for hemostasis. The patient tolerated the procedure well. Discharge Instructions: The patient was instructed to schedule an appointment in 2 weeks for follow-up and to call if temp>100.4, area of the biopsy redness or pain, nausea/vomiting. This note was generated with a voice recognition program. Some errors may have been overlooked during the review of this note. Sometimes these errors may affect the content or meaning of a given sentence. 59283-Vedpiv of Vulva/Perineum Procedure code (CPT) selection complete Assessment & Plan Assessment & Plan (1) Vulvovaginitis: Code(s): N76.0 - Acute vaginitis Category: Medical Plan: GC/CT, Bacterial Vaginosis panel taken, Terazol 0.8% q.h.s. for 3 days was sent to the patient's pharmacy. The patient was instructed to call if symptoms don't improve in 48 hours. (2) Vulvar lesion: Comment: Right labia minora Code(s): N90.89 - Other specified noninflammatory disorders of vulva and perineum Category: Medical Plan: Discussed with the patient the finding on pelvic exam right labia minora dark lesion 0.5 cm, recommended excisional biopsy, the patient verbalized agreed with the plan, procedure done, see procedure note Orders: Orders AMB RESIDENTIAL INTERIOR DESIGNER Biopsy Today N90.89 - Other specified noninflammatory disorders of vulva and perineum Medications: New terconazole 0.8% 1 appful vaginal BEDTIME 3 days 20 grams 0RF Coding Level of Care Code Est Pt Level 3 (65807) Procedure Only Diagnoses Vulvovaginitis N76.0 Vulvar lesion N90.89 CPT Codes RESIDENTIAL INTERIOR DESIGNER Biopsy - CPT: 02384-Dqdosv of Vulva/Perineum ([id number])
== END 2024-10-14 10:18 | disposition home or self-care (01) ==
PROVIDERS: PCP Internal Medicine Geriatric Medicine; Visit Provider Obstetrics & Gynecology
DX: N90.89 Other specified noninflammatory disorders of vulva and perineum (principal)
CPT/HCPCS: 56605; 99213

== ENCOUNTER 2024-11-12 13:03 | Outpatient (AMB) | payer MEDICAID, SELFPAY ==
--- NOTE | 2024-11-12 13:04 | A.OFFVIS_ITS ---
Intake Visit Reasons: TV Biopsy results Account Retention Representative Required: Yes Account Retention Representative Language: Kiln Firer Services: Account Retention Representative Present (in person) Account Retention Representative Name: Tory SALINAS Information Interpreted: non-clinical & clinical Allergies grape Allergy (Severe, Verified 10/14/24 09:26) Anaphylaxis latex Allergy (Severe, Verified 10/14/24 09:26) Anaphylaxis celecoxib Adverse Reaction (Severe, Verified 10/14/24 09:26) Anaphylaxis Iodinated Contrast Media Adverse Reaction (Severe, Verified 10/14/24 09:26) Anaphylaxis shellfish derived Adverse Reaction (Severe, Verified 10/14/24 09:26) Anaphylaxis HPI Comments Details: The patient is scheduled telehealth visit after vulvar biopsy. Doing well with no complaints. The pathology showed the following: Cellular blue nevus, extending to tissue edge; negative for malignancy PFSH Medical History GERD (gastroesophageal reflux disease) Anxiety Bipolar 1 disorder PTSD (post-traumatic stress disorder) Depression Rheumatoid arthritis Fibromyalgia Sleep apnea Gallstones Hyperthyroidism Surgical History Hx of bariatric surgery H/O colonoscopy History of surgery History of partial hysterectomy Hx of mastectomy Hx of section Family History Mother No problems noted. Father Cancer Maternal Grandmother Diabetes Social History Household Members: Spouse Are you a primary lawn care professional to a significant other at home: Yes Do you presently have visiting nurse or other home services: Yes (TAIL END RIDER) Alcohol intake: current Alcohol intake frequency: a few times a month Alcohol type: wine Patient Tobacco Use Status: Former Tobacco user Review of Systems Const All systems reviewed & are unremarkable except as noted in HPI and below Reports as per HPI and Reports no additional complaints GI Reports no additional complaints Reports no additional complaints Telehealth Telehealth Telehealth Platform: Telephone Location of provider rendering services: practice address Location of patient: address on file Patient Identification confirmed using: Name, : Yes Telehealth method: video Patient verbally consented to treatment: Yes Patient verbally consented to billing insurance company: Yes Patient informed of any privacy concerns related to visit: Yes Assessment & Plan Assessment & Plan (1) Vulvar lesion: Comment: Right labia minora Code(s): N90.89 - Other specified noninflammatory disorders of vulva and perineum Category: Medical Plan: Discussed with the patient the results the pathology, positive margins. Its sensitivity, specificity, false-positive and false-negative rate of detecting malignancy/atypia were discussed with the patient. Instructions given the patient to call in case of recurrence of the lesion, current as of hard areas or nonhealing ulcers. All questions answered, the patient verbalized understanding. I spent a total of 20 minutes reviewing the chart, talking to the patient via video and documenting in the medical record. Coding Level of Care Code Tele Est Pt Level 3 (81424) Diagnoses Vulvar lesion N90.89
== END 2024-11-12 13:09 | disposition home or self-care (01) ==
LOC: HO.HWS 13:03
PROVIDERS: PCP Internal Medicine Geriatric Medicine; Visit Provider Obstetrics & Gynecology
DX: N90.89 Other specified noninflammatory disorders of vulva and perineum (principal)
CPT/HCPCS: 99213

== ENCOUNTER 2024-12-23 08:36 | Outpatient (REF) | payer MEDICAID, SELFPAY ==
--- OUTSIDE RECORDS SUMMARY | 2024-12-23 09:21 | XMS_ITS | Encounter Summary ---
[facility] Address [address] [place] [address] Care Team Providers Care Plant Anatomy Teacher Name Role Phone Aaron Steele MD Primary Care Provider [phone] Anupama, Pcp Primary Care Provider Unavailabl e Encounter Details Date Type Department Care Team Description 01/15/2021 Refill Adult Medicine [address] [address] Alexus Del Toro PA-C [id number] [place] [address] Social History Tobacco Use Types Packs/Day Years Used Date Smoking Tobacco: Former Cigarettes 1 6 - 2004 Smokeless Tobacco: Never Comments:quit 15 years ago Alcohol Use Standard Drinks/Week Comments Yes 0 (1 standard drink = 0.6 oz pur e alcohol) social Sex Assigned at Date Recorded Not on file Job Start Date Occupation Industry Not on file Not on file Not on file documented as of this encounter Plan of Treatment Not on file documented as of this encounter Visit Diagnoses Not on filedocumented in this encounter Care Teams Plant Anatomy Teacher Relationship Specialty Start Date End Date Aaron Steele MD [address] [place] [address] PCP - General Internal Medicine 08/27/19 03/18/23 Claire Altman [address] [place] [id number] PCP - General Internal Medicine 03/19/23 documented as of this encounter
--- OUTSIDE RECORDS SUMMARY | 2024-12-23 09:21 | XMS_ITS | Encounter Summary ---
Author Organization [facility] Address [facility] [place] [address] Care Team Providers Care Vendor Quality Supervisor Name Role Phone Aaron Steele MD Primary Care Provider [phone] [facility], Pcp Primary Care Provider [facility] Encounter Details Date Type Department Care Team Description 04/11/2021 [facility] [address] [place] [address] Abstract, Provider Social History Tobacco Use Types Packs/Day Years Used Date Smoking Tobacco: Former Cigarettes 2004 Smokeless Tobacco: Never Comments:quit 15 years ago Alcohol Use Standard Drinks/Week Comments Yes 0 (1 standard drink = 0.6 oz pur e alcohol) social Sex Assigned at Date Recorded Not on file Job Start Date Occupation Industry Not on file Not on file Not on file COVID-19 Exposure Response Date Recorded In the last month, have you been in contact with someone who was confirmed or suspected to have Coronavirus / COVID-19? No / Unsure 04/04/2021 12:45 PM EDT documented as of this encounter Plan of Treatment Not on file documented as of this encounter Visit Diagnoses Not on filedocumented in this encounter Care Teams Vendor Quality Supervisor Relationship Specialty Start Date End Date Aaron Steele MD [address] [place] [id number] PCP - General Internal Medicine 08/27/19 03/18/23 [facility], Pcp [address] [place] [id number] PCP - General Internal Medicine 03/19/23 documented as of this encounter
--- OUTSIDE RECORDS SUMMARY | 2024-12-23 09:22 | XMS_ITS | Encounter Summary ---
Author Organization [employer] Address [address] [place] [address] 7 [place] [address] Care Team Providers Care Recreational Counselor Name Role Phone Name, Kayden MONDRAGON Primary Care Provider [phone] Pritesh Torres Unavailable Unavailable Reason for Visit * Reason Comments Follow-up Encounter Details Date Type Department Care Team ([facility] st Contact Info) Description 12/16/2024 11:15 AM EST Office Visit [facility] MEDICINE [address] [place], [place] [phone] Name, MD Kayden [address] [place] [address] Hypertension, unspecified type (Primary Dx); History of COVID-19 Social History Tobacco Use Types Packs/Day Years Used Date Smoking Tobacco: Never Smokeless Tobacco: Never Alcohol Use Standard Drinks/Week Comments Not Currently 0 (1 standard drink = 0.6 oz pur e alcohol) occassional Depression Answer Date Recorded Patient Health Questionnaire-9 Score 10 03/05/2024 Patient Health Questionnaire-9 Score 10 03/05/2024 Last PHQ-9: Questionnaire Data Not on file 0 03/05/2024 Housing Stability Answer Date Recorded What is your housing situation today? I have cristiano lloyd 02/17/[address] you li ve. Do you have problems with any of the following? None of the above 02/17/2024 Food Insecurity Answer Date Recorded Within the past 12 months, y ou worried that your food would run out before you got money to buy more: Never True 02/17/2024 Within the past 12 months,th e food you bought just didn't last and you didn't have enough money to get more: Never True 06/2024 Transportation Answer Date Recorded In the past 12 months, has l ack of transportation kept you from medical appts, meetings, work or from getting things needed for daily living? No 02/17/2024 Utilities Answer Date Recorded In the past 12 months, has t he electric, gas, oil or water company threatened to shut off services in your home? No 02/17/2024 Depression Answer Date Recorded Patient Health Questionnaire-2 Score 0 03/05/2024 Comments Unknown Sex and Gender Information Value Date Recorded Sex Assigned at Female 09/10/2022 10:32 AM EDT Legal Sex Female 10:32 AM EDT Gender Identity Female 09/10/2022 10:32 AM EDT Sexual Orientation Straight 09/10/2022 10 :32 AM EDT documented as of this encounter Last Filed Vital Signs Vital Sign Reading Time Taken Comments Blood Pressure 144/93 12/16/2024 11:41 AM EST Pulse 82 12/16/2024 11:41 AM EST Temperature 36.8 ??C (98.2 ??F) 12/16/2024 11:[address] Respiratory Rate 20 12/16/2024 11:41 AM EST Oxygen Saturation 98% 12/16/2024 11:41 AM EST Inhaled Oxygen Concentration - - Weight 167 kg (367 lb 9.6 oz) 12/16/2024 11:41 A M EST Height 185.4 cm (6' 1 ) 12/16/2024 11:41 AM EST Body Mass Index 48.5 12/16/2024 11:41 AM EST documented in this encounter Progress Notes * Kayden Muller MD - 12/16/2024 11:15 AM EST Subjective Patient ID: Saritha Healy is a 54 y.o. female who presents for Follow-up. Patient comes for a follow-up visit. She tells me she had COVID last month. She tells me she does not feel 100% healthy still. She describes sensation of shortness of breath. Today her respiratory rate is normal, oxygen saturation is normal, she speaks in full sentences, she is not coughing or wheezing. Blood pressure is elevated today. The patient is anxious and she did not use her HCTZ. She describes anxiety because her has been anxious lately. Review of Systems Constitutional: Negative for chills and fever. HENT: Negative for sore throat. Respiratory: Negative for cough, shortness of breath and wheezing. Cardiovascular: Negative for chest pain, palpitations and leg swelling. Gastrointestinal: Negative for abdominal pain. Visit Vitals BP (!) 144/93 (BP Location: Left arm, Patient Position: Sitting, BP Cuff Size: Large adult) Pulse 82 Temp 98.2 ??F (36.8 ??C) (Oral) Resp 20 Ht 6' 1 (1.854 m) Wt 367 lb 9.6 oz (167 kg) SpO2 98% BMI 48.50 kg/m?? Smoking Status Never BSA 2.93 m?? Objective Physical Exam Constitutional: Appearance: Normal appearance. Cardiovascular: Rate and Rhythm: Normal rate and regular rhythm. Heart sounds: No murmur heard. No gallop. Pulmonary: Effort: Pulmonary effort is normal. No respiratory distress. Breath sounds: Normal breath sounds. No wheezing. Musculoskeletal: Right lower leg: No edema. Left lower leg: No edema. Neurological: Mental Status: She is alert. Current Outpatient Medications on File Prior to Visit Medication Sig Dispense Refill Acetaminophen Extra Strength 500 MG tablet TAKE 1 TABLET BY MOUTH EVERY 8 HOURS IF NEEDED FOR MODERATE PAIN. 90 tablet 0 albuterol 0.63 MG/3ML nebulizer solution Take 3 mL (0.63 mg) by nebulization every 6 (six) hours ifneeded for shortness of breath. 75 mL 3 albuterol 108 (90 Base) MCG/ACT inhaler Inhale 2 puffs every 4 (four) hours. 18 g 3 busPIRone (Buspar) 15 MG tablet Take 0.5 tablets (7.5 mg) by mouth every 12 (twelve) hours. 90 tablet 3 Cariprazine HCl (Vraylar) 1.5 MG capsule Take 1 capsule by mouth Once per day. 90 capsule 3 cetirizine (ZyrTEC) 10 MG tablet Take 1 tablet (10 mg) by mouth Once per day. 30 tablet 11 clobetasol (Temovate) 0.05 % ointment Apply a small amount to affected area each night for 4 weeks.Then apply every other night for 4 week. Then 2 nights a week for 4 weeks. 45 g 0 EPINEPHrine (Epipen) 0.3 MG/0.3ML injection syringe Inject 0.3 mL into the shoulder, thigh, or buttocks. ferrous sulfate 324 MG EC tablet Take 324 mg by mouth. fluticasone (Flovent) 110 MCG/ACT inhaler Inhale 1 puff every 12 (twelve) hours. fluticasone (Flovent) 110 MCG/ACT inhaler Inhale 1 puff in the morning and at bedtime. Rinse mouth with water after use to reduce aftertaste and incidence of candidiasis. Do not swallow. gabapentin (Neurontin) 100 MG capsule Take 1 capsule by mouth every 8 (eight) hours. hydroCHLOROthiazide 12.5 MG tablet Take 1 tablet (12.5 mg) by mouth Once per day. TAKE 1 TABLET BY MOUTH EVERY DAY IN THE MORNING (12.5 MG) 90 tablet 3 lactulose (Chronulac) 10 GM/15ML solution TAKE 15 ML BY MOUTH EVERY MORNING 473 mL 3 lidocaine (Lidoderm) 5 % patch apply 1 patch by transdermal route every day (May wear up to 12hours.) - as needed for back pain LORazepam (Ativan) 1 MG tablet Take 1 tablet (1 mg) by mouth if needed each day for anxiety for up to 28 days. 28 tablet 0 montelukast (Singulair) 10 MG tablet Take 1 tablet (10 mg) by mouth at bedtime. 30 tablet 11 omeprazole (PriLOSEC) [address] capsule TAKE 1 CAPSULE (40 MG) BY MOUTH BEFORE BREAKFAST 90 capsule 1 prazosin (Minipress) 1 MG capsule Take 1 capsule (1 mg) by mouth at bedtime. 90 capsule 3 [DISCONTINUED] hydroCHLOROthiazide 12.5 MG tablet Take 1 tablet (12.5 mg) by mouth Once per day. TAKE 1 TABLET BY MOUTH EVERY DAY IN THE MORNING (12.5 MG) 90 tablet 3 [DISCONTINUED] LORazepam (Ativan) 1 MG tablet Take 1 tablet (1 mg) by mouth if needed each day for anxiety for up to 28 days. 28 tablet 0 No current facility-administered medications on file prior to visit. Assessment/Plan Diagnoses and all orders for this visit: Hypertension, unspecified type Comments: I recommended to use HCTZ daily, check blood pressure at home, follow-up televisit with team nursesin about a week, check fasting blood work listed below. Orders: - Comprehensive Metabolic Panel; Future - Lipid Panel, Standard; Future - Albumin, Random Urine W/Creatinine; Future History of COVID-19 Comments: I suspect he has some residual symptoms of COVID. Lungs are clear to auscultation and oxygen is normal. I did not recommend any specific intervention just observation for now. * Kat Swanson RN - 12/16/2024 11:15 AM EST Outgoing fax sent to [facility] Medical Records Department requesting colonoscopy resultsbe faxed to [phone] ATTN: Blue Team Nurses / . documented in this encounter Plan of Treatment Upcoming Encounters Date Type Department Care Team (Late st Contact Info) Description 12/29/2024 10:00 AM EST Telemedicine [facility] MEDICINE [address] [place] [address] Scheduled Orders Name Type Priority Associated Diagnoses Orde r Schedule Comprehensive Metabolic Panel Lab Routine Hypertension, unspecified type Expected: 12/16/2024 (Approximate), Expires: 12/16/2025 Lipid Panel, Standard Lab Routine Hypertension, unspecified type Expected: 12/16/2024 (Approximate), Expires: 12/16/2025 Albumin, Random Urine W/Creatinine Lab Routine Hypertension, unspecified type Expected: 12/16/2024 (Approximate), Expires: 12/16/2025 documented as of this encounter Visit Diagnoses Diagnosis Hypertension, unspecified type- Primary History of COVID-19 documented in this encounter Additional Health Concerns Assessment Noted Time PHQ-9 Depression Total Score: 10 024 3:44 PM EDT documented as of this encounter Care Teams Recreational Counselor Relationship Specialty Start Date End Date Name, MD Kayden [address] [place] [address] PCP - General Family Medicine 02/02/22 Pritesh Torres FNP [address] [place] [address] Nurse Practitioner Family Medicine 10/15/23 documented as of this encounter
--- OUTSIDE RECORDS SUMMARY | 2024-12-23 09:22 | XMS_ITS | Encounter Summary ---
Author Organization [facility] Address [address] [place] [address] Care Team Providers Care Forest Firefighter Name Role Phone Aaron Steele MD Primary Care Provider Count Includes [facility], [facility] Encounter Details Date Type Department Care Team Description 12/31/2020 Pt. Non Urgent Medical Question Rheumatology - [address] [address] Grant Hooker PA Social History Tobacco Use Types Packs/Day Years [...] have Coronavirus / COVID-19? No / Unsure 12/08/2020 8:52 AM EST documented as of this encounter Miscellaneous Notes * Telephone Encounter - Christy Dean L.P.N. - 01/02/2021 8:43 AM EST From: Saritha Healy To: Grant Hooker PA-C Sent: 12/31/2020 10:30 PM EST Subject: vaccine thinks I should get the covid 19 vaccine documented in this encounter Plan of Treatment Not on file documented as of this encounter Visit Diagnoses Not on filedocumented in this encounter Care Teams Forest Firefighter Relationship Specialty Start Date End Date Aaron Steele MD [address] [place] [address] PCP - General Internal Medicine 08/27/19 03/18/23 Count Includes [facility], [facility] [address] [place] [address] PCP - General Internal Medicine 03/19/23 documented as of this encounter
--- OUTSIDE RECORDS SUMMARY | 2024-12-23 09:22 | XMS_ITS | Encounter Summary ---
Author Organization [employer] Address [address] [facility] 7t [place] [address] Care Team Providers Care Net Application Architect Name Role Phone Name, Kayden MONDRAGON Primary Care Provider [phone] Pritesh Torres Unavailable Unavailable Encounter Details Date Type Department Care Team (Latest Contact Info) Description 12/14/2024 Travel Social History Tobacco Use Types Packs/Day Years [...] AM EDT documented as of this encounter Plan of Treatment Upcoming Encounters Date Type Department Care Team (Late st Contact Info) Description 12/29/2024 10:00 AM EST Telemedicine [facility] MEDICINE [address] [place] [address] documented as of this encounter Visit Diagnoses Not on filedocumented in this encounter Additional Health Concerns Assessment Noted Time PHQ-9 Depression Total Score: 10 024 3:44 PM EDT documented as of this encounter Care Teams Net Application Architect Relationship Specialty Start Date End Date Name, MD Kayden [address] [place] [address] PCP - General Family Medicine 02/02/22 Pritesh Torres FNP [address] [place] [address] Nurse Practitioner Family Medicine 10/15/23 documented as of this encounter
--- OUTSIDE RECORDS SUMMARY | 2024-12-23 09:22 | XMS_ITS | Encounter Summary ---
Author Organization [facility] Address [facility] [place] [address] Care Team Providers Care Induction Heating Equipment Setter Name Role Phone Alanna Go MD Primary Care Provider Un available Aaron Steele MD Primary Care Provider [phone] [facility], Pcp Primary Care Provider Unavailabl e Encounter Details Date Type Department Care Team Description 05/08/2019 [facility] Medical Records [address] [place] [address] Abstract, Provider Social History Tobacco Use Types Packs/Day Years Used Date Smoking Tobacco: Former Cigarettes 1 986 - 2004 Smokeless Tobacco: Never Comments:quit 15 [...] on filedocumented in this encounter Care Teams Induction Heating Equipment Setter Relationship Specialty Start Date End Date Alanna Go MD PCP - General Internal Medicine 06/13/1808/26 Aaron Steele MD [address] [place] [address] PCP - General Internal Medicine 08/27/19 03/18/23 [facility], Pcp [address] [place] [address] PCP - General Internal Medicine 03/19/23 documented as of this encounter
--- OUTSIDE RECORDS SUMMARY | 2024-12-23 09:22 | XMS_ITS | Encounter Summary ---
Author Organization [facility] Address [facility] [place] [address] Care Team Providers Care Advertising Columnist Name Role Phone Aaron Steele MD Primary Care Provider [phone] [facility], [facility] Primary Care Provider Unavailabl e Reason for Visit * Reason Onset Date Comments Mychart Rx Refill 09/12/2020 Encounter Details Date Type Department Care Team Description 09/12/2020 Refill Adult Medicine [address] [address] Alanna Go MD Mychart Rx Refill Social History Tobacco Use Types Packs/Day Years [...] have Coronavirus / COVID-19? No / Unsure 08/24/2020 12:33 PM EDT documented as of this encounter Miscellaneous Notes * Telephone Encounter - Aaron Steele MD - 09/14/2020 8:20 AM EST pls schedule appt with Endocrinology since meds were refused due to no follow up * Telephone Encounter - Robe Garcia MD - 09/13/2020 1:01 PM EST No follow-up with me defer to PCP * Telephone Encounter - Karo Jesus PA-C - 09/13/2020 8:54 AM EST Never seen patient. Please send to Dr. Garcia. She needs follow up * Telephone Encounter - Janeen Rao M.A. - 09/12/2020 2:33 PM EST Last office visit 08.17.20 Lab Results Component Value Date TSH 1.46 08/18/2020 documented in this encounter Plan of Treatment Not on file documented as of this encounter Visit Diagnoses Not on filedocumented in this encounter Care Teams Advertising Columnist Relationship Specialty Start Date End Date Aaron Steele MD [address] [place] [address] PCP - General Internal Medicine 08/27/19 03/18/23 [facility], Pcp [address] [place] [address] PCP - General Internal Medicine 03/19/23 documented as of this encounter
--- OUTSIDE RECORDS SUMMARY | 2024-12-23 09:22 | XMS_ITS | Encounter Summary ---
Author Organization [facility] Address [facility] [place] [address] Care Team Providers Care Nurse Companion Name Role Phone Aaron Steele MD Primary Care Provider [phone] [facility], Pcp [facility] Encounter Details Date Type Department Care Team Description 08/30/2020 [facility] Medical Records [address] [place] [address] Abstract, Provider Social History Tobacco Use Types [...] on filedocumented in this encounter Care Teams Nurse Companion Relationship Specialty Start Date End Date Aaron Steele MD [address] [place] [address] PCP - General Internal Medicine 08/27/19 03/18/23 [facility], Pcp [address] [place] [address] PCP - General Internal Medicine 03/19/23 documented as of this encounter
--- OUTSIDE RECORDS SUMMARY | 2024-12-23 09:22 | XMS_ITS | Encounter Summary ---
Author Organization [facility] Address [facility] [place] [address] Care Team Providers Care Woods Laborer Name Role Phone Alanna Go MD Primary Care Provider Un available Aaron Steele MD Primary Care Provider [phone] [facility], Pcp Primary Care Provider Unavailabl e Encounter Details Date Type Department Care Team Description 06/18/2018 Release of Information Medical Records [address] [place] [address] Abstract, Provider Social History Tobacco Use Types Packs/Day Years Used Date Smoking Tobacco: Never Smokeless Tobacco: Never Sex Assigned at Date Recorded Not on file Job Start Date Occupation Industry Not on file Not on file Not on file documented as of this encounter Plan of Treatment Not on file documented as of this encounter Visit Diagnoses Not on filedocumented in this encounter Care Teams Woods Laborer Relationship Specialty Start Date End Date Alanna Go MD PCP - General Internal Medicine 06/13/1808/26 Aaron Steele MD [address] [place] [address] PCP - General Internal Medicine 08/27/19 03/18/23 Claire Altman [address] [place] [address] PCP - General Internal Medicine 03/19/23 documented as of this encounter
--- OUTSIDE RECORDS SUMMARY | 2024-12-23 09:22 | XMS_ITS | Encounter Summary ---
Author Organization [employer] Address [address] [place] [address] 7 [place] [address] Care Team Providers Care Engineer And Geologist Name Role Phone Name, Kayden MONDRAGON Primary Care Provider [phone] Pritesh Torres Unavailable Unavailable Reason for Visit * Reason Onset Date Comments Med Refill 12/12/2024 Encounter Details Date Type Department Care Team (Late st Contact Info) Description 12/12/2024 Refill [facility] MEDICINE [address] [place], [place] [phone] Name, MD Kayden [address] [place] [address] Posttraumatic stress disorder Social History Tobacco Use Types Packs/Day Years [...] Info) Description 12/29/2024 10:00 AM EST Telemedicine [facility] MEDICINE [address] [place] [address] documented as of this encounter Visit Diagnoses Diagnosis Posttraumatic stress disorder documented in this encounter Additional Health Concerns Assessment Noted Time PHQ-9 Depression Total Score: 10 024 3:44 PM EDT documented as of this encounter Care Teams Engineer And Geologist Relationship Specialty Start Date End Date Name, MD Kayden [address] [place] [address] PCP - General Family Medicine 02/02/22 Pritesh Torres FNP [address] [place] [address] Nurse Practitioner Family Medicine 10/15/23 documented as of this encounter
--- OUTSIDE RECORDS SUMMARY | 2024-12-23 09:22 | XMS_ITS | Encounter Summary ---
Author Organization [employer] Address [address] [facility] 7t [place] [address] Care Team Providers Care Parts Washer Name Role Phone Name, Kayden MONDRAGON Primary Care Provider [phone] Pritesh Torres Unavailable Unavailable Encounter Details Date Type Department Care Team ([facility] Contact Info) Description 12/16/2024 Telephone [facility] MEDICINE [address] [place], [place] [id number] Kat Swanson, [place] Social History Tobacco Use Types Packs/Day Years [...] AM EDT documented as of this encounter Miscellaneous Notes * Telephone Encounter - Kat Swanson RN - 12/16/2024 2:05 PM EST Outgoing fax sent to [facility] Department (FAX: [phone]) requesting results from colonoscopy in 2020 be faxed to [phone] ATTN: Satnam Chicas Nurses / . Received an E-2 Dimitris-3 error message for a response. TC placed to [facility] Department to get accurate fax number. Staff provided fax number for [facility] Medical Records: [phone]. Confirmation received and placed in medical records bin. documented in this encounter Plan of Treatment Upcoming Encounters Date Type Department Care Team (Late st Contact Info) Description 12/29/2024 10:00 AM EST Telemedicine [facility] MEDICINE [address] [place] [address] documented as of this encounter Visit Diagnoses Not on filedocumented in this encounter Additional Health Concerns Assessment Noted Time PHQ-9 Depression Total Score: 10 024 3:44 PM EDT documented as of this encounter Care Teams Parts Washer Relationship Specialty Start Date End Date Name, MD Kayden [address] [place] [address] PCP - General Family Medicine 02/02/22 Pritesh Torres FNP [address] [place] [address] Nurse Practitioner Family Medicine 10/15/23 documented as of this encounter
--- OUTSIDE RECORDS SUMMARY | 2024-12-23 09:22 | XMS_ITS | Encounter Summary ---
Author Organization [employer] Address [address] [place] [address] 7 [place] [address] Care Team Providers Care Warehouse Receiving Supervisor Name Role Phone Name, Kayden MONDRAGON Primary Care Provider [phone] Pritesh Torres Unavailable Unavailable Reason for Visit * Reason Comments Med Refill Encounter Details Date Type Department Care Team ([facility] st Contact Info) Description 12/21/2024 Refill [facility] MEDICINE [address] [place], [place] [phone] Name, MD Kayden [address] [place] [address] Social History Tobacco Use Types Packs/Day Years [...] Info) Description 12/29/2024 10:00 AM EST Telemedicine [facility] MEDICINE [address] [place] [address] documented as of this encounter Visit Diagnoses Not on filedocumented in this encounter Additional Health Concerns Assessment Noted Time PHQ-9 Depression Total Score: 10 024 3:44 PM EDT documented as of this encounter Care Teams Warehouse Receiving Supervisor Relationship Specialty Start Date End Date Name, MD Kayden [address] [place] [address] PCP - General Family Medicine 02/02/22 Pritesh Torres FNP [address] [place] [address] Nurse Practitioner Family Medicine 10/15/23 documented as of this encounter
--- OUTSIDE RECORDS SUMMARY | 2024-12-23 09:22 | XMS_ITS | Encounter Summary ---
Author Organization [facility] Address [facility] [place] [address] Care Team Providers Care Customer Support Consultant Name Role Phone Aaron Steele MD Primary Care Provider [phone] [facility], Pcp Primary Care Provider [facility] e Encounter Details Date Type Department Care Team Description 09/26/2020 [facility] Medical Records [address] [place] [address] Abstract, Provider Social History Tobacco Use Types [...] on filedocumented in this encounter Care Teams Customer Support Consultant Relationship Specialty Start Date End Date Aaron Steele MD [address] [place] [address] PCP - General Internal Medicine 08/27/19 03/18/23 [facility], Pcp [address] [place] [address] PCP - General Internal Medicine 03/19/23 documented as of this encounter
--- OUTSIDE RECORDS SUMMARY | 2024-12-23 09:22 | XMS_ITS | Encounter Summary ---
Author Organization [employer] Address [address] [facility] 7t [place] [address] Care Team Providers Care On Site Services Specialist Name Role Phone Name, Kayden MONDRAGON Primary Care Provider [phone] Pritesh Torres Unavailable Unavailable Encounter Details Date Type Department Care Team (Late st Contact Info) Description 12/22/2024 Orders Only [facility] [address] [place], [place] [phone] ProviderUvaldo MD Social History Tobacco Use Types Packs/Day Years [...] Info) Description 12/29/2024 10:00 AM EST Telemedicine [facility] MED[facility]INE [address] [place] [address] documented as of this encounter Procedures Procedure Name Priority Date/Time Associated Diagnosis Comments COLONOSCOPY Routine 09/14/2021 3:30 PM EDT documented in this encounter Results * Colonoscopy (09/14/2021 3:30 PM EDT) Anatomical Region Laterality Modality Endoscopy us Historical Provider ENDOSCOPY PROCEDURE ORDER KAYLYN Final Result documented in this encounter Visit Diagnoses Not on filedocumented in this encounter Additional Health Concerns Assessment Noted Time PHQ-9 Depression Total Score: 10 024 3:44 PM EDT documented as of this encounter Care Teams On Site Services Specialist Relationship Specialty Start Date End Date Name, MD Kayden [address] [place] [address] PCP - General Family Medicine 02/02/22 Pritesh Torres FNP [address] [place] [address] Nurse Practitioner Family Medicine 10/15/23 documented as of this encounter
--- OUTSIDE RECORDS SUMMARY | 2024-12-23 09:22 | XMS_ITS | Encounter Summary ---
Author Organization [employer] Address [address] [place] [address] 7 [place] [address] Care Team Providers Care Elementary School Professional Name Role Phone Name, Kayden MONDRAGON Primary Care Provider [phone] Pritesh Torres Unavailable Unavailable Reason for Visit * Reason Onset Date Comments Med Refill 12/12/2024 Encounter Details Date Type Department Care Team (Late st Contact Info) Description 12/12/2024 Refill [facility] [address] [place], [place] [phone] Name, MD Kayden [address] [place] [address] Primary hypertension Social History Tobacco Use Types Packs/Day Years [...] Info) Description 12/29/2024 10:00 AM EST Telemedicine [facility]INE [address] [place] [address] documented as of this encounter Visit Diagnoses Diagnosis Primary hypertension Unspecified essential hypertension documented in this encounter Additional Health Concerns Assessment Noted Time PHQ-9 Depression Total Score: 10 024 3:44 PM EDT documented as of this encounter Care Teams Elementary School Professional Relationship Specialty Start Date End Date Name, MD Kayden [address] [place] [address] PCP - General Family Medicine 02/02/22 Pritesh Torres FNP [address] [place] [address] Nurse Practitioner Family Medicine 10/15/23 documented as of this encounter
--- OUTSIDE RECORDS SUMMARY | 2024-12-23 09:22 | XMS_ITS | Encounter Summary ---
Author Organization [facility] Address [address] [place] [address] Care Team Providers Care Print Inspector Name Role Phone Community, Pcp Primary Care Provider Unavaildagoberto e Alanna Go MD Primary Care Provider Un available Aaron Steele MD Primary Care Provider [phone] [facility], Pcp Primary Care Provider Unavaildagoberto e Encounter Details Date Type Department Care Team Description 01/30/2018 Release of Information Medical Records [address] [place] [address] Abstract, Provider Social History Tobacco Use Types Packs/Day Years Used Date Smoking Tobacco: Never Assessed Sex Assigned at Date Recorded Not on file Job Start Date Occupation Industry Not on file Not on file Not on file documented as of this encounter Plan of Treatment Not on file documented as of this encounter Visit Diagnoses Not on filedocumented in this encounter Care Teams Print Inspector Relationship Specialty Start Date End Date Community, Pcp PCP - General Internal Medicine 12/16/17 06/12/18 Alanna Go MD PCP - General Internal Medicine 06/13/1808/26 Aaron Steele MD [address] [place] [address] PCP - General Internal Medicine 08/27/19 03/18/23 [facility], Pcp PCP - General Internal Medicine 03/19/23 documented as of this encounter
--- OUTSIDE RECORDS SUMMARY | 2024-12-23 09:22 | XMS_ITS | Encounter Summary ---
Author Organization [employer] Address [address] [facility] 7t [place] [address] Care Team Providers Care Instrument Adjuster Name Role Phone Name, Kayden MONDRAGON Primary Care Provider [phone] Pritesh Torres Unavailable Unavailable Encounter Details Date Type Department Care Team (Latest Contact Info) Description 12/16/2024 Travel Social History Tobacco Use Types Packs/Day [...] Info) Description 12/29/2024 10:00 AM EST Telemedicine [facility] MEDICINE [address] [place] [address] documented as of this encounter Visit Diagnoses Not on filedocumented in this encounter Additional Health Concerns Assessment Noted Time PHQ-9 Depression Total Score: 10 024 3:44 PM EDT documented as of this encounter Care Teams Instrument Adjuster Relationship Specialty Start Date End Date Name, MD Kayden [address] [place] [address] PCP - General Family Medicine 02/02/22 Pritesh Torres FNP [address] [place] [address] Nurse Practitioner Family Medicine 10/15/23 documented as of this encounter
--- OUTSIDE RECORDS SUMMARY | 2024-12-23 09:23 | XMS_ITS | Encounter Summary ---
Author Organization [facility] Address [address] [place] [address] Care Team Providers Care Fulfillment Mail Clerk Name Role Phone Alanna Go MD Primary Care Provider Un available Aaron Steele MD Primary Care Provider [phone] Community, Pcp Primary Care Provider Unavailabl e Encounter Details Date Type Department Care Team Description 04/15/2019 Home Health Certification Medical Records [address] [place] [address] Home, [facility] [address] [place] [address] Social History Tobacco Use Types Packs/Day Years Used Date Smoking Tobacco: Former Cigarettes 1 2004 Smokeless Tobacco: Never Comments:quit 15 years [...] on filedocumented in this encounter Care Teams Fulfillment Mail Clerk Relationship Specialty Start Date End Date Alanna Go MD PCP - General Internal Medicine 06/13/1808/26 Aaron Steele MD [address] [place] [address] PCP - General Internal Medicine 08/27/19 03/18/23 Community, [address] [address] PCP - General Internal Medicine 03/19/23 documented as of this encounter
--- OUTSIDE RECORDS SUMMARY | 2024-12-23 09:23 | XMS_ITS | Encounter Summary ---
Author Organization [facility] Address [address] [place] [address] Care Team Providers Care Short Order Fry Cook Name Role Phone Alanna Go MD Primary Care Provider Un available Aaron Steele MD Primary Care Provider [phone] [facility], Pcp Primary Care Provider Unavailabl e Reason for Visit * Reason Onset Date Comments Faxed Order 04/14/2019 [facility] Encounter Details Date Type Department Care Team Description 04/14/2019 Telephone Adult Medicine [address] [address] Alanna Go MD Faxed Order ([facility]) Social History Tobacco Use Types Packs/Day Years [...] on file documented as of this encounter Miscellaneous Notes * Telephone Encounter - Sandra Rodriguez - 04/30/2019 11:55 AM EDT Faxed order received from [facility] please sign , date and fax back to [phone] * Telephone Encounter - Alix De La O - 04/24/2019 2:55 PM EDT Faxed order received from [facility] please sign , date and fax back to [phone] * Telephone Encounter - Mago Dolankatiana - 04/14/2019 10:33 AM EDT Faxed order received from [facility]. Please review, sign, and fax back to [phone]. documented in this encounter Plan of Treatment Not on file documented as of this encounter Visit Diagnoses Not on filedocumented in this encounter Care Teams Short Order Fry Cook Relationship Specialty Start Date End Date Alanna Go MD PCP - General Internal Medicine 06/13/1808/26 Aaron Steele MD [address] [place] [address] PCP - General Internal Medicine 08/27/19 03/18/23 [facility], Pcp [address] [place] [address] PCP - General Internal Medicine 03/19/23 documented as of this encounter
--- OUTSIDE RECORDS SUMMARY | 2024-12-23 09:23 | XMS_ITS | Encounter Summary ---
Author Organization [employer] Address [address] [place] [address] 7 [place] [address] Care Team Providers Care Supervising Editor Trailer Name Role Phone Name, Kayden MONDRAGON Primary Care Provider [phone] Pritesh Torres Unavailable Unavailable Reason for Visit * Reason Onset Date Comments Med Refill 04/16/2024 Encounter Details Date Type Department Care Team (Late st Contact Info) Description 04/16/2024 Refill [facility] MEDICINE [address] [place], [place] [phone] Name, MD Kayden [address] [place] [address] Gastroesophageal reflux disease, unspecified whether esophagitis present Social History Tobacco Use Types Packs/Day Years [...] Info) Description 12/29/2024 10:00 AM EST Telemedicine [facility] MEDICINE [address] [place] [address] documented as of this encounter Visit Diagnoses Diagnosis Gastroesophageal reflux disease, unspecified whether esophagitis present documented in this encounter Additional Health Concerns Assessment Noted Time PHQ-9 Depression Total Score: 10 024 3:44 PM EDT documented as of this encounter Care Teams Supervising Editor Trailer Relationship Specialty Start Date End Date Name, MD Kayden [address] [place] [address] PCP - General Family Medicine 02/02/22 Pritesh Torres FNP [address] [place] [address] Nurse Practitioner Family Medicine 10/15/23 documented as of this encounter
--- OUTSIDE RECORDS SUMMARY | 2024-12-23 09:23 | XMS_ITS | Encounter Summary ---
Author Organization [facility] Address [facility] [place] [address] Care Team Providers Care Construction Executive Name Role Phone Alanna Go MD Primary Care Provider Un available Aaron Steele MD Primary Care Provider [phone] [facility], Pcp Primary Care Provider Unavailabl e Encounter Details Date Type Department Care Team Description 04/28/2019 Rigging Engineer Report Medical Records [address] [place] [address] Social History Tobacco Use Types Packs/Day Years [...] on filedocumented in this encounter Care Teams Construction Executive Relationship Specialty Start Date End Date Alanna Go MD PCP - General Internal Medicine 06/13/1808/26 Aaron Steele MD [address] [place] [address] PCP - General Internal Medicine 08/27/19 03/18/23 [facility], Pcp [address] [place] [address] PCP - General Internal Medicine 03/19/23 documented as of this encounter
--- OUTSIDE RECORDS SUMMARY | 2024-12-23 09:24 | XMS_ITS | Encounter Summary ---
Author Organization [facility] Address [address] [place] [address] Care Team Providers Care Retirement Plan Specialist Name Role Phone Alanna Go MD Primary Care Provider Un available Aaron Steele MD Primary Care Provider [phone] [facility], Pcp Primary Care Provider Unavailabl e Encounter Details Date Type Department Care Team Description 12/24/2018 Telephone Adult Medicine [address] [address] Robe Garcia MD Social History Tobacco Use Types Packs/Day [...] encounter Miscellaneous Notes * Telephone Encounter - Robe Garcia MD - 12/31/2018 9:40 AM EST Spoke with pt. Now takes methimazole on an empty stomach & feels mech better- stay on meds, rechk labs 3 months documented in this encounter Plan of Treatment Not on file documented as of this encounter Results * TRIDOTHYRONINE,FREE (FT-3) (08/04/2019 9:55 AM EDT) FREE T3 280 230 - 420 pg/dl 08/04/2019 1:55 PM EDT [facility] 08/04/2019 9:55 AM EDT 08/04/2019 9:56 AM EDT Robe Garcia MD LAB Performing Organization Address [facility] Co de Phone Number [facility] * FREE THYROXINE (T4) (08/04/2019 9:55 AM EDT) FREE T4 (FREE THYROXINE) 1.00 0.70 - 1.80 ng/dL 08/04/2019 1:52 PM EDT [facility] 08/04/2019 9:55 AM EDT 08/04/2019 9:56 AM EDT Robe Garcia MD LAB Performing Organization Address [facility] de Phone Number [facility] * TSH (08/04/2019 9:55 AM EDT) TSH 0.71 0.40 - 4.00 uIU/ml 08/04/2019 1:52 PM EDT [facility] 08/04/2019 9:55 AM EDT 08/04/2019 9:56 AM EDT Robe Garcia MD LAB Performing Organization Address [facility] Co de Phone Number [facility] documented in this encounter Visit Diagnoses Diagnosis Graves disease- Primary Toxic diffuse goiter without mention of thyrotoxic crisis or storm documented in this encounter Care Teams Retirement Plan Specialist Relationship Specialty Start Date End Date Alanna Go MD PCP - General Internal Medicine 06/13/1808/26 Aaron Steele MD [address] [place] [address] PCP - General Internal Medicine 08/27/19 03/18/23 [facility], Pcp [address] [place] [address] PCP - General Internal Medicine 03/19/23 documented as of this encounter
--- OUTSIDE RECORDS SUMMARY | 2024-12-23 09:24 | XMS_ITS | Encounter Summary ---
Author Organization [facility] Address [address] [place] [address] Care Team Providers Care Flying Ii Instructor Name Role Phone Alanna Go MD Primary Care Provider Un available Aaron Steele MD Primary Care Provider [phone] [facility], Pcp Primary Care Provider Unavailabl e Encounter Details Date Type Department Care Team Description 12/29/2018 Pt. Non Urgent Medical Question Adult Urgent Care - [address] [address] Robe Garcia MD Social History Tobacco Use Types Packs/Day Years Used Date Smoking Tobacco: Former Cigarettes - 2004 Smokeless Tobacco: Never Comments:quit 15 years ago Alcohol Use Standard Drinks/Week Comments Yes 0 (1 standard drink = 0.6 oz pur e alcohol) social Sex Assigned at Date Recorded Not on file Job Start Date Occupation Industry Not on file Not on file Not on file documented as of this encounter Progress Notes * Edelmira Landeros M.A. - 12/30/2018 8:45 AM ESTFrom: Saritha Healy To: Robe Garcia MD Sent: 12/29/2018 8:16 PM EST Subject: medication Hi DrNancy I wanted to say that since I am taking the medicine Tapazole I have upset stomach and a lot of headache tell me if I should continue taking the medication or if it is possible to change it thanks documented in this encounter Plan of Treatment Not on file documented as of this encounter Visit Diagnoses Not on filedocumented in this encounter Care Teams Flying Ii Instructor Relationship Specialty Start Date End Date Alanna Go MD PCP - General Internal Medicine 06/13/1808/26 Aaron Steele MD [address] [place] [address] PCP - General Internal Medicine 08/27/19 03/18/23 [facility], [address] [address] PCP - General Internal Medicine 03/19/23 documented as of this encounter
--- OUTSIDE RECORDS SUMMARY | 2024-12-23 09:24 | XMS_ITS | Encounter Summary ---
Author Organization [facility] Address [facility] [place] [address] Care Team Providers Care Cement Finishing Supervisor Name Role Phone Alanna Go MD Primary Care Provider Un available Aaron Steele MD Primary Care Provider [phone] [facility], Pcp Primary Care Provider Unavailabl e Reason for Visit * Reason Onset Date Comments Advice 12/29/2018 Encounter Details Date Type Department Care Team Description 12/29/2018 Pt. Non Urgent Medical Question Adult Urgent Care - [address] [address] Robe Garcia MD Social History Tobacco Use Types Packs/Day Years Used Date Smoking Tobacco: Former Cigarettes 1 - 2004 Smokeless Tobacco: Never Comments:quit 15 [...] Healy To: Robe Garcia MD Sent: 12/29/2018 8:14 PM EST Subject: me medication Hi I wanted to say that since I [...] on filedocumented in this encounter Care Teams Cement Finishing Supervisor Relationship Specialty Start Date End Date Alanna Go MD PCP - General Internal Medicine 06/13/1808/26 Aaron Steele MD [address] [place] [address] PCP - General Internal Medicine 08/27/19 03/18/[address] [address] PCP - General Internal Medicine 03/19/23 documented as of this encounter
--- OUTSIDE RECORDS SUMMARY | 2024-12-23 09:24 | XMS_ITS | Encounter Summary ---
Author Organization [facility] Address [facility] [place] [address] Care Team Providers Care Freezer Unloader Name Role Phone Alanna Go MD Primary Care Provider Un available Aaron Steele MD Primary Care Provider [facility], Pcp Primary Care Provider Unavailabl e Encounter Details Date Type Department Care Team Description 02/17/2019 Release of Information Medical Records [address] [place] [address] Abstract, Provider Social History Tobacco Use Types [...] on filedocumented in this encounter Care Teams Freezer Unloader Relationship Specialty Start Date End Date Alanna Go MD PCP - General Internal Medicine 06/13/1808/26 Aaron Steele MD [address] [place] [address] PCP - General Internal Medicine 08/27/19 03/18/23 [facility], Pcp [address] [place] [address] PCP - General Internal Medicine 03/19/23 documented as of this encounter
--- OUTSIDE RECORDS SUMMARY | 2024-12-23 09:24 | XMS_ITS | Encounter Summary ---
Author Organization [employer] [facility] Address [address] [place] [address] [address], [place] [address] Care Team Providers Care Rn Trauma Name Role Phone Name, Kayden MONDRAGON Primary Care Provider [phone] Pritesh Torres Unavailable Unavailable Reason for Visit * Reason Comments Med Refill Encounter Details Date Type Department Care Team (Late st Contact Info) Description 02/17/2023 Refill [facility] MEDICINE [address] [place] [phone] Name, MD Kayden [address] [place] [address] Gastroesophageal reflux disease, unspecified whether esophagitis present Social History Tobacco Use Types Packs/Day Years Used Date Smoking Tobacco: Never Smokeless Tobacco: Never Comments Unknown Sex and Gender Information Value Date Recorded Sex Assigned at Female 09/10/2022 10:32 AM EDT Legal Sex Female 10:32 AM EDT Gender Identity Female 09/10/2022 10:32 AM EDT Sexual Orientation Straight 09/10/2022 10 :32 AM EDT COVID-19 Exposure Response Date Recorded In the last 10 days, have yo u been in contact with someone who was confirmed or suspected to have Coronavirus/COVID-19? No / Unsure 02/18/2023 1:24 PM EDT documented as of this encounter Plan of Treatment Upcoming Encounters Date Type Department Care Team (Late st Contact Info) Description 12/29/2024 10:00 AM EST Telemedicine [facility] MEDICINE [address] [place] [phone] documented as of this encounter Visit Diagnoses Diagnosis Gastroesophageal reflux disease, unspecified whether esophagitis present documented in this encounter Additional Health Concerns Assessment Noted Time PHQ-9 Depression Total Score: 7 02/08/20 23 9:28 AM EDT documented as of this encounter Care Teams Rn Trauma Relationship Specialty Start Date End Date Name, MD Kayden [address] [place] [address] PCP - General Family Medicine 02/02/22 Pritesh Torres FNP [address] [place] [address] Nurse Practitioner Family Medicine 10/15/23 documented as of this encounter
--- OUTSIDE RECORDS SUMMARY | 2024-12-23 09:24 | XMS_ITS | Encounter Summary ---
Author Organization [facility] Address [facility] [place] [address] Care Team Providers Care Sport Internship Name Role Phone Alanna Go MD Primary Care Provider Un available Aaron Steele MD Primary Care Provider [phone] [facility], Pcp Primary Care Provider Unavailabl e Encounter Details Date Type Department Care Team Description 03/14/2019 Night Triage Doc Medical Records [address] [place] [address] Abstract, Provider Social History Tobacco Use Types [...] on filedocumented in this encounter Care Teams Sport Internship Relationship Specialty Start Date End Date Alanna Go MD PCP - General Internal Medicine 06/13/1808/26 Aaron Steele MD [address] [place] [address] PCP - General Internal Medicine 08/27/19 03/18/23 Community, Pcp [address] [place] [address] PCP - General Internal Medicine 03/19/23 documented as of this encounter
--- OUTSIDE RECORDS SUMMARY | 2024-12-23 09:24 | XMS_ITS | Encounter Summary ---
Author Organization [facility] Address [address] [place] [address] Care Team Providers Care Mapping Supervisor Name Role Phone Aaron Steele MD Primary Care Provider [phone] [facility], Pcp Primary Care Provider Unavailabl e Encounter Details Date Type Department Care Team Description 02/01/2020 Pt. Non Urgent Medical Question Adult Medicine [address] [address] Aaron Steele MD [address] [place] [address] Social History Tobacco Use Types Packs/Day Years [...] as of this encounter Progress Notes * Sole Howell M.A. - 02/01/2020 11:05 AM EDTFrom: Saritha Healy To: Aaron Steele MD Sent: 02/01/2020 4:04 AM EDT Subject: medicine Albuterol for me machine documented in this encounter Plan of Treatment Not on file documented as of this encounter Visit Diagnoses Not on filedocumented in this encounter Care Teams Mapping Supervisor Relationship Specialty Start Date End Date Aaron Steele MD [address] [place] [address] PCP - General Internal Medicine 08/27/19 03/18/23 [facility], Pcp [address] [place] [address] PCP - General Internal Medicine 03/19/23 documented as of this encounter
--- OUTSIDE RECORDS SUMMARY | 2024-12-23 09:24 | XMS_ITS | Encounter Summary ---
Author Organization [facility] Address [address] [place] [address] Care Team Providers Care Leasing Professional Name Role Phone Alanna Go MD Primary Care Provider Un available Aaron Steele MD Primary Care Provider [phone] [facility], Pcp Primary Care Provider Unavailabl e Encounter Details Date Type Department Care Team Description 02/04/2019 Pt. Non Urgent Medic al Question Adult Medicine [address] [address] Alanna Go MD Social History Tobacco Use Types Packs/Day [...] as of this encounter Progress Notes * Elisa Roldan M.A. - 02/04/2019 2:44 PM EDTFrom: Saritha Healy To: Alanna Go MD Sent: 02/04/2019 1:11 PM EDT Subject: Cirug??a Wisam Bridgette. Nesecito hugh carta para q me den mas horas d PASSENGER CAR INSPECTOR pues las necesito por mi cirugia adem??scomo usted ya sabe mi esposo es ciego y nesecito que la persona que nos ayuda katiana m??s tiempo puessolo tengo hugh hora al marie cassandra por shelley atenci??n Hello Dr. I need a letter to give me more hours PASSENGER CAR INSPECTOR because I need them for my surgery as well as you know my is blind and I need the person who helps us this longer because I only have one hour a day thanks for your Attention documented in this encounter Plan of Treatment Not on file documented as of this encounter Visit Diagnoses Not on filedocumented in this encounter Care Teams Leasing Professional Relationship Specialty Start Date End Date Alanna Go MD PCP - General Internal Medicine 06/13/1808/26 Aaron Steele MD [address] [place] [address] PCP - General Internal Medicine 08/27/19 03/18/23 [facility], [address] [address] PCP - General Internal Medicine 03/19/23 documented as of this encounter
--- OUTSIDE RECORDS SUMMARY | 2024-12-23 09:24 | XMS_ITS | Encounter Summary ---
Author Organization [employer] Address [address] [place] [address] 7 [place] [address] Care Team Providers Care Rn Discharge Name Role Phone Name, Kayden MONDRAGON Primary Care Provider [phone] Pritesh Torres Unavailable Unavailable Reason for Visit * Reason Onset Date Comments Appointment Request 12/03/2022 [employer]PLE MEAT CUT[employer] Hours 12/03/2022 The patient is r equesting a letter, so that her TEMPLE MEAT CUTTER hours could be increased. She currently receives 14.5 hours a week through [employer]. She stated that she needs assistance with bathing, getting dressed, housekeeping, and laundry. She stated that 14.5 hours a week is not enough time, for the TEMPLE MEAT CUTTER to do everything that needs to be done during the week. She also stated that she is , but her is blind, therefore, he is unable to help her. Encounter Details Date Type Department Care Team (Late st Contact Info) Description 12/03/2022 Telephone [facility] [address] [place] [address] Name, MD Kayden [address] [place] [address] Appointment Request; TEMPLE ME[employer] CUTTER Hours (The patient is requesting a letter, so that her TEMPLE MEAT CUTTER hours could be increased. She currently receives 14.5 hours a week through [facility]. She stated that she needs assistance with bathing, getting dressed, housekeeping, and laundry. She stated that 14.5 hours a week is not enough time, for the TEMPLE MEAT CUTTER to do everything that needs to be done during the week. She also stated that she is , but her is blind, therefore, he is unable to help her.) Social History Tobacco Use Types Packs/Day Years Used Date Smoking Tobacco: Never Assessed Depression Answer Date Recorded Patient Health Questionnaire-9 [...] suspected to have Coronavirus/COVID-19? No / Unsure 05/16/2023 8:31 AM EDT documented as of this encounter Miscellaneous Notes * Telephone Encounter - Timoteo Babb - 12/03/2022 9:44 AM EST Tc from pt requesting to schedule RECALL appt for December, Tanker Serviceman attempted to schedule however zero availability, pt is upset and stated they can not wait until January too see PCP due to being scheduled for oncology and stated needs to discuss with PCP urgently , no other details given. Please contact at [phone] documented in this encounter Plan of Treatment Upcoming Encounters Date Type Department Care Team (Late st Contact Info) Description 12/29/2024 10:00 AM EST Telemedicine [facility] [address] [place] [address] documented as of this encounter Visit Diagnoses Not on filedocumented in this encounter Care Teams Rn Discharge Relationship Specialty Start Date End Date Name, MD Kayden [address] [place] [address] PCP - General Family Medicine 02/02/22 Pritesh Torres FNP [address] [place] [address] Nurse Practitioner Family Medicine 10/15/23 documented as of this encounter
--- OUTSIDE RECORDS SUMMARY | 2024-12-23 09:24 | XMS_ITS | Encounter Summary ---
Author Organization [facility] Address [address] [place] [address] Care Team Providers Care Boat Pilot Name Role Phone Aaron Steele MD Primary Care Provider [phone] [facility] Primary Care Provider Unavailabl e Reason for Visit * Reason Onset Date Comments refill request 08/13/2020 Encounter Details Date Type Department Care Team Description 08/13/2020 Refill Adult Medicine [facility] [address] [place] [address] Alexus Del Toro PA-C [facility] [address] [place] [address] refill request Social History Tobacco Use Types Packs/Day Years [...] have Coronavirus / COVID-19? No / Unsure 08/08/2020 10:05 AM EDT documented as of this encounter Miscellaneous Notes * Telephone Encounter - Alexus Del Toro PA-C - 08/16/2020 4:37 PM EDT Approved * Telephone Encounter - Diana Dangelo C.M.A. - 08/15/2020 4:51 PM EDT Pt mesha for appt for 08/17/[address] john CHURCH * Telephone Encounter - Alexus Del Toro PA-C - 08/15/2020 4:38 PM EDT Patient needs a face to face appt prior to further refills. * Telephone Encounter - Edelmira Landeros M.A. - 08/15/2020 9:26 AM EDT Date of last office visit was 02/18/20. Pt has not scheduled a follow up. Lab Results Component Value Date NA 140 02/18/2020 K 3.5 02/18/2020 CO2 33 02/18/2020 CL 102 02/18/2020 BUN 4 02/18/2020 CREAT 1.00 02/18/2020 GLU 98 02/18/2020 CA 9.7 02/18/2020 GFR 59 02/18/2020 documented in this encounter Plan of Treatment Not on file documented as of this encounter Visit Diagnoses Not on filedocumented in this encounter Care Teams Boat Pilot Relationship Specialty Start Date End Date Aaron Steele MD [address] [place] [address] PCP - General Internal Medicine 08/27/19 03/18/23 [facility], Pcp [address] [place] [address] PCP - General Internal Medicine 03/19/23 documented as of this encounter
--- OUTSIDE RECORDS SUMMARY | 2024-12-23 09:24 | XMS_ITS | Encounter Summary ---
Author Organization [facility] Address [facility] [place] [address] Care Team Providers Care Windmill Mechanic Name Role Phone Aaron Steele MD Primary Care Provider [phone] [facility], Pcp [facility] Encounter Details Date Type Department Care Team Description 04/26/2020 [facility] Medical Records [address] [place] [address] Abstract, Provider Social History Tobacco Use Types [...] on filedocumented in this encounter Care Teams Windmill Mechanic Relationship Specialty Start Date End Date Aaron Steele MD [address] [place] [address] PCP - General Internal Medicine 08/27/19 03/18/23 [facility], Pcp [address] [place] [address] PCP - General Internal Medicine 03/19/23 documented as of this encounter
--- OUTSIDE RECORDS SUMMARY | 2024-12-23 09:24 | XMS_ITS | Encounter Summary ---
Author Organization [facility] Address [address] [place] [address] Care Team Providers Care Concrete Worker Name Role Phone Alanna Go MD Primary Care Provider Un available Aaron Steele MD Primary Care Provider [phone] [facility], Pcp [facility] Encounter Details Date Type Department Care Team Description 03/10/2019 Orders Only Medical Records [address] [place] [address] Trell Hart MD [address] [place] [address] Social History Tobacco Use Types Packs/Day Years [...] on file documented as of this encounter Procedures Procedure Name Priority Date/Time Associated Diagnosis Comments OUTSIDE PATHOLOGY Routine 03/06/2019 documented in this encounter Results * OUTSIDE PATHOLOGY (03/06/2019) Trell Hart MD OUTSIDE LAB documented in this encounter Visit Diagnoses Not on filedocumented in this encounter Care Teams Concrete Worker Relationship Specialty Start Date End Date Alanna Go MD PCP - General Internal Medicine 06/13/1808/26 Aaron Steele MD [address] [place] [address] PCP - General Internal Medicine 08/27/19 03/18/23 [facility], Pcp [address] [place] [address] PCP - General Internal Medicine 03/19/23 documented as of this encounter
--- OUTSIDE RECORDS SUMMARY | 2024-12-23 09:24 | XMS_ITS | Encounter Summary ---
Author Organization [facility] Address [address] [place] [address] Care Team Providers Care Cap Parts Cutter Name Role Phone Aaron Steele MD Primary Care Provider [phone] [facility], [facility], Pcp Primary Care Provider Unavailabl e Reason for Visit * Reason Onset Date Comments Faxed Refill 05/31/2020 Triamcinolone 0. 1% Ointment Encounter Details Date Type Department Care Team Description 05/31/2020 Refill Dermatology - [address] [phone] Chrissy Swartz PA-C Faxed Refill (Triamcinolone 0.1% Ointment) Social History Tobacco Use Types Packs/Day Years [...] encounter Miscellaneous Notes * Telephone Encounter - hCrissy Swartz - 05/31/2020 11:06 AM EDT Approved refill triamcinolone cream 0.1%/CeraVe mix * Telephone Encounter - Matilde Kumar M.A. - 05/31/2020 8:57 AM EDT TANO 12/03/19 No follow up * Telephone Encounter - Chrissy العلي - 05/31/2020 8:46 AM EDT Patient would like script to be: E-PRESCRIBED/FAXED TO PHARMACY WHEN WAS THE PATIENT'S LAST APPOINTMENT IN ADULT MEDICINE? 12/03/2019 WHEN WAS THE LAST TIME THE PATIENT SAW THEIR PCP? Same as above Does patient have an upcoming appointment? No (THE MEDICATION REQUESTED IS ON THE MED LIST ABOVE) All of the medications requested were on the CURRENT MEDS list Did you check the Pharmacy information above?: YES Patient wants: 30 -day supply Is this a mail order prescription request ? NO If the refill is from a FAXED refill request what is the RX # listed on the fax? N/A Patients current insurance carrier is: Payor: [employer] / Plan: [employer] [facility] / Product Type: MEDICAID RISK documented in this encounter Plan of Treatment Not on file documented as of this encounter Visit Diagnoses Not on filedocumented in this encounter Care Teams Cap Parts Cutter Relationship Specialty Start Date End Date Aaron Steele MD [address] [place] [address] PCP - General Internal Medicine 08/27/19 03/18/[address] [address] PCP - General Internal Medicine 03/19/23 documented as of this encounter
--- OUTSIDE RECORDS SUMMARY | 2024-12-23 09:24 | XMS_ITS | Encounter Summary ---
Author Organization [facility] Address [address] [place] [address] Care Team Providers Care Automatic Presser Name Role Phone Alanna Go MD Primary Care Provider Un available Aaron Steele MD Primary Care Provider [phone] [facility], Pcp Primary Care Provider Unavailabl e Encounter Details Date Type Department Care Team Description 03/07/2019 Hospital Medical Records [address] [place] [address] Morris Stephenson MD [address] [place] [phone] Social History Tobacco Use Types Packs/Day Years Used Date Smoking Tobacco: Former Cigarettes - 2004 Smokeless Tobacco: Never Comments:quit 15 years ago Alcohol Use Standard Drinks/Week Comments Not Currently 0 (1 standard drink = 0.6 oz pur e alcohol) Sex Assigned at Date Recorded Not on file Job Start Date Occupation Industry Not on file Not on file Not on file documented as of this encounter Plan of Treatment Not on file documented as of this encounter Visit Diagnoses Not on filedocumented in this encounter Care Teams Automatic Presser Relationship Specialty Start Date End Date Alanna Go MD PCP - General Internal Medicine 06/13/1808/26 Aaron Steele MD [address] [place] [address] PCP - General Internal Medicine 08/27/19 03/18/23 [facility], Pcp [address] [place] [address] PCP - General Internal Medicine 03/19/23 documented as of this encounter
--- OUTSIDE RECORDS SUMMARY | 2024-12-23 09:24 | XMS_ITS | Encounter Summary ---
Author Organization [facility] Address [facility] [place] [address] Care Team Providers Care Machine Woodworking Sander Name Role Phone Aaron Steele MD Primary Care Provider [phone] [facility], Pcp Primary Care Provider Unavailabl e Reason for Visit * Reason Onset Date Comments refill request 04/21/2020 Encounter Details Date Type Department Care Team Description 04/21/2020 Refill Respiratory and Diabetes Medicaid/[employer] Pharmacist [address] [place] [address] Alanna Go MD refill request Social History Tobacco Use Types [...] Encounter - Alexus Del Toro PA-C - 04/21/2020 11:04 AM EDT Approved * Telephone Encounter - Edelmira Landeros M.A. - 04/21/2020 10:54 AM EDT Date of last office visit was 02/18/20 Lab Results Component Value Date NA 140 02/18/2020 K 3.5 02/18/2020 CO2 33 02/18/2020 CL 102 02/18/2020 BUN 4 02/18/2020 CREAT 1.00 02/18/2020 GLU 98 02/18/2020 CA 9.7 02/18/2020 GFR 59 02/18/2020 documented in this encounter Plan of Treatment Not on file documented as of this encounter Visit Diagnoses Not on filedocumented in this encounter Care Teams Machine Woodworking Sander Relationship Specialty Start Date End Date Aaron Steele MD [address] [place] [address] PCP - General Internal Medicine 08/27/19 03/18/23 [facility], Pcp [address] [place] [address] PCP - General Internal Medicine 03/19/23 documented as of this encounter
--- OUTSIDE RECORDS SUMMARY | 2024-12-23 09:24 | XMS_ITS | Encounter Summary ---
Author Organization [facility] Address [address] [place] [address] Care Team Providers Care Fashion Photographer Name Role Phone Alanna Go MD Primary Care Provider Un available Aaron Steele MD Primary Care Provider [phone] [facility], Pcp Primary Care Provider [facility] Encounter Details Date Type Department Care Team Description 04/09/2019 Inspector Pawnshop Detail Report Medical Records [address] [place] [address] Rehab., [place] Social History Tobacco Use Types Packs/Day Years [...] on filedocumented in this encounter Care Teams Fashion Photographer Relationship Specialty Start Date End Date Alanna Go MD PCP - General Internal Medicine 06/13/1808/26 Aaron Steele MD [address] [place] [address] PCP - General Internal Medicine 08/27/19 03/18/23 [facility], Pcp [address] [place] [address] PCP - General Internal Medicine 03/19/23 documented as of this encounter
--- OUTSIDE RECORDS SUMMARY | 2024-12-23 09:24 | XMS_ITS | Encounter Summary ---
Author Organization [facility] Address [address] [place] [address] Care Team Providers Care Data Processing Specialist Name Role Phone Alanna Go MD Primary Care Provider Un available Aarno Steele MD Primary Care Provider [phone] [facility], Pcp Primary Care Provider Unavailabl e Encounter Details Date Type Department Care Team Description 03/06/2019 Hospital Medical Records [address] [place] [address] Trell Hart MD [address] [place] [address] Social History Tobacco Use Types Packs/Day Years [...] on filedocumented in this encounter Care Teams Data Processing Specialist Relationship Specialty Start Date End Date Alanna Go MD PCP - General Internal Medicine 06/13/1808/26 Aaron Steele MD [address] [place] [address] PCP - General Internal Medicine 08/27/19 03/18/23 [facility], [address] [address] PCP - General Internal Medicine 03/19/23 documented as of this encounter
--- OUTSIDE RECORDS SUMMARY | 2024-12-23 09:24 | XMS_ITS | Encounter Summary ---
Author Organization [facility] Address [facility] [place] [address] Care Team Providers Care Health Companion Name Role Phone Alanna Go MD Primary Care Provider Un available Aaron Steele MD Primary Care Provider [phone] [facility], Pcp Primary Care Provider Unavailabl e Encounter Details Date Type Department Care Team Description 12/25/2018 Transfer Records Medical Records [address] [place] [id number] Abstract, Provider Social History Tobacco Use Types [...] on filedocumented in this encounter Care Teams Health Companion Relationship Specialty Start Date End Date Alanna Go MD PCP - General Internal Medicine 06/13/1808/26 Aaron Steele MD [address] [place] [address] PCP - General Internal Medicine 08/27/19 03/18/23 [facility], Pcp [address] [place] [address] PCP - General Internal Medicine 03/19/23 documented as of this encounter
--- OUTSIDE RECORDS SUMMARY | 2024-12-23 09:24 | XMS_ITS | Encounter Summary ---
Author Organization [facility] Address [address] [place] [address] Care Team Providers Care Swimming Teacher Name Role Phone Aaron Steele MD Primary Care Provider [phone] [facility], Pcp Primary Care Provider Unavailabl e Encounter Details Date Type Department Care Team Description 04/19/2020 Orders Only Medical Records [address] [place] [address] Brandon Uribe MD [address] [place] [address] Social History Tobacco Use Types Packs/Day Years [...] as of this encounter Progress Notes * Barndon Uribe MD - 04/20/2020 4:49 PM EDT I reviewed findings with Ms. Lozano Which showed benign tissue with chronic endometritis and antibiotic therapy for this is controversial. We will monitor her symptoms. She is currently just experiencing light bleeding but was expecting her cycle. She has a diagnosis of BRCA1 and will proceed with a BSO. I will place an order to havethis procedure scheduled. 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 The option would be to complete a hysterectomy BSO at this time . She desires to proceed with BSO as previously planned. documented in this encounter Plan of Treatment Not on file documented as of this encounter Procedures Procedure Name Priority Date/Time Associated Diagnosis Comments OUTSIDE PATHOLOGY Routine 04/15/2020 documented in this encounter Results * OUTSIDE PATHOLOGY (04/15/2020) Brandon Uribe MD OUTSIDE LAB documented in this encounter Visit Diagnoses Not on filedocumented in this encounter Care Teams Swimming Teacher Relationship Specialty Start Date End Date Aaron Steele MD [address] [place] [address] PCP - General Internal Medicine 08/27/19 03/18/23 [facility], [address] [address] PCP - General Internal Medicine 03/19/23 documented as of this encounter
--- OUTSIDE RECORDS SUMMARY | 2024-12-23 09:24 | XMS_ITS | Encounter Summary ---
Author Organization [facility] Address [address] [place] [address] Care Team Providers Care Apartment House Manager Name Role Phone Aaron Steele MD Primary Care Provider [phone] [facility], [facility] Primary Care Provider Unavailabl e Encounter Details Date Type Department Care Team Description 06/13/2020 Telephone OBGYN - [facility] [address] [place], [place] [phone] Brandon Uribe MD [address] [place], [place] [id number] Social History Tobacco Use Types Packs/Day Years [...] encounter Miscellaneous Notes * Telephone Encounter - Jessica Dhillon - 08/05/2020 10:59 AM EDT Laparoscopic bilateral salpingo-oophorectomy has been scheduled on 09/09/2020 at [facility] with Dr. Uribe. Patient has been notified by phone and a letter has been sent to her. calendar has been updated and schedulers have been notified. AM * Telephone Encounter - Jessica Dhillon - 06/13/2020 2:53 PM EDT Pt wants to R. S her surgery from June till August. I offer a surgical date of 09/09/2020. Pt accepted. Will forward info to Leigh. AM documented in this encounter Plan of Treatment Not on file documented as of this encounter Visit Diagnoses Not on filedocumented in this encounter Care Teams Apartment House Manager Relationship Specialty Start Date End Date Aaron Steele MD [address] [place] [address] PCP - General Internal Medicine 08/27/19 03/18/23 [facility], [address] [address] PCP - General Internal Medicine 03/19/23 documented as of this encounter
--- OUTSIDE RECORDS SUMMARY | 2024-12-23 09:25 | XMS_ITS | Encounter Summary ---
Author Organization [facility] Address [address] [place] [address] Care Team Providers Care Drug Department Worker Name Role Phone Aaron Steele MD Primary Care Provider [phone] [facility], [facility] Primary Care Provider Unavailabl e Reason for Visit * Reason Onset Date Comments Medication 01/05/2020 Encounter Details Date Type Department Care Team Description 01/05/2020 Telephone Adult Medicine [address] [address] Aaron Steele MD [address] [place] [address] Medication Social History Tobacco Use Types Packs/Day Years [...] encounter Miscellaneous Notes * Telephone Encounter - Sole Howell M.A. - 01/05/2020 10:55 AM EST Spoke with pt, she shows me a prescription bottle dated yesterday, given by her dentist for #8 hydrocodone 5/325mg. Pt is doing a UDS today for contracted lorazepam and wanted to make pcp aware of the added medication due to dental problems. * Telephone Encounter - Mayte Marhs M.A - 01/05/2020 10:51 AM EST fyi to pcp * Telephone Encounter - Simi Graf - 01/05/2020 10:42 AM EST Patient in office now for drug test to receive lorazepam refill. Patient said had surgery and is currently taking Percocet. Questioning if that will cause issues? documented in this encounter Plan of Treatment Not on file documented as of this encounter Visit Diagnoses Not on filedocumented in this encounter Care Teams Drug Department Worker Relationship Specialty Start Date End Date Aaron Steele MD [address] [place] [address] PCP - General Internal Medicine 08/27/19 03/18/23 [facility], [address] [address] PCP - General Internal Medicine 03/19/23 documented as of this encounter
--- OUTSIDE RECORDS SUMMARY | 2024-12-23 09:25 | XMS_ITS | Encounter Summary ---
Author Organization [facility] Address [address] [place] [address] [address] [place] [address] Care Team Providers Care Call Center Manager Name Role Phone Name, Kayden MONDRAGON Primary Care Provider [phone] Pritesh Torres Unavailable Unavailable Encounter Details Date Type Department Care Team ([facility] Contact Info) Description 10/08/2022 Abstract [facility] MEDICINE [address] [place] [address] [phone] Provider, MD Uvaldo Social History Tobacco Use Types Packs/Day Years Used Date Smoking Tobacco: Never Assessed Comments Unknown Sex and Gender Information Value [...] suspected to have Coronavirus/COVID-19? No / Unsure 10/11/2022 10:21 AM EST documented as of this encounter Plan of Treatment Upcoming Encounters Date Type Department Care Team (Late st Contact Info) Description 12/29/2024 10:00 AM EST Telemedicine [facility] MEDICINE [address] [place] [address] [phone] documented as of this encounter Visit Diagnoses Not on filedocumented in this encounter Care Teams Call Center Manager Relationship Specialty Start Date End Date Name, MD Kayden [address] [place] [address] PCP - General Family Medicine 02/02/22 Pritesh Torres FNP [address] [place] [address] Nurse Practitioner Family Medicine 10/15/23 documented as of this encounter
--- OUTSIDE RECORDS SUMMARY | 2024-12-23 09:26 | XMS_ITS | Encounter Summary ---
Author Organization [facility] Address [address] [place] [address] Care Team Providers Care Cad Cam Programmer Name Role Phone Aaron Steele MD Primary Care Provider [phone] [facility], [facility] Primary Care Provider Unavailabl e Reason for Visit * Reason Comments E-prescribe Rx Request Encounter Details Date Type Department Care Team Description 02/06/2022 Refill Endocrinology - [address] [address] Karo Jesus PA-C [address] [place] [address] E-prescribe Rx Request Social History Tobacco Use Types Packs/Day Years [...] encounter Miscellaneous Notes * Telephone Encounter - Karo Jesus PA-C - 02/06/2022 5:01 PM EDT I will not refill this medication any further. Have never seen patient. I provided her a month refill already and stated that she needed to follow-up. Seems she canceled the appointment twice. * Telephone Encounter - Edelmira Landeros M.A. - 02/06/2022 2:51 PM EDT Date of last office visit was 09/30/[address] Garcia. Pt cx appt with endo for 01/15/22 Lab Results Component Value Date TSH 0.53 01/23/2021 * Telephone Encounter - Edelmira Landeros M.A. - 02/06/2022 2:37 PM EDT Patient would like script to be: E-PRESCRIBED/FAXED TO PHARMACY WHEN WAS THE PATIENT'S LAST APPOINTMENT IN ADULT MEDICINE? 09/30/20 with endo WHEN WAS THE LAST TIME THE PATIENT SAW THEIR PCP? 06/30/21 Does patient have an upcoming appointment? no (THE MEDICATION REQUESTED IS ON THE MED [...] N/A Patients current insurance carrier is: Payor: [place] / Plan: MEDICAID PCC / Product Type: MEDICAID [id number] documented in this encounter Plan of Treatment Not on file documented as of this encounter Visit Diagnoses Not on filedocumented in this encounter Care Teams Cad Cam Programmer Relationship Specialty Start Date End Date Aaron Steele MD [address] [place] [address] PCP - General Internal Medicine 08/27/19 03/18/23 [facility], Pcp [address] [place] [address] PCP - General Internal Medicine 03/19/23 documented as of this encounter
--- OUTSIDE RECORDS SUMMARY | 2024-12-23 09:26 | XMS_ITS | Encounter Summary ---
Author Organization [facility] Address [address] [place] [address] Care Team Providers Care Aquatic Life Laborer Name Role Phone Aaron Steele MD Primary Care Provider [phone] [facility], Pcp [facility] En[facility] Details Date Type Department Care Team Description 12/02/2019 Pt. Non Urgent Medical Question Rheumatology - [address] [address] Trell Deshpande MD Social History Tobacco Use Types Packs/Day [...] on filedocumented in this encounter Care Teams Aquatic Life Laborer Relationship Specialty Start Date End Date Aaron Steele MD [address] [place] [id number] PCP - General Internal Medicine 08/27/19 03/18/23 [facility] Pcp [address] [place] [id number] PCP - General Internal Medicine 03/19/23 documented as of this encounter
--- OUTSIDE RECORDS SUMMARY | 2024-12-23 09:26 | XMS_ITS | Encounter Summary ---
Author Organization [facility] Address [address] [place] [address] Care Team Providers Care Ammonium Nitrate Crystallizer Name Role Phone Aaron Steele MD Primary Care Provider [phone] [facility], [facility] Primary Care Provider Unavailabl e Reason for Visit * Reason Comments E-prescribe Rx Request Encounter Details Date Type Department Care Team Description 12/26/2021 Refill Adult Urgent Care - [address] [address] Booker Jesus PA-C [address] [place] [address] E-prescribe Rx Request Social History Tobacco Use [...] encounter Miscellaneous Notes * Telephone Encounter - Constance Clarke - 12/27/2021 4:13 PM EST PATIENT HAS APPOINTMENT ON 01/15/2022 AT 2:45 PM WITH BOOKER JESUS.. * Telephone Encounter - Booker Jesus PA-C - 12/26/2021 2:01 PM EST I have never seen this patient. Patient will need appointment before prescription. Please see if primary care will give her a 1 month supply in the meantime. * Telephone Encounter - Aaron Steele MD - 12/26/2021 12:26 PM EST This medication is managed by [facility] * Telephone Encounter - Katie MelgozaP.N. - 12/26/2021 11:56 AM EST Last office visit 06/30/21 Patient was sent a My Chart request to set up an appointment as they are due. Lab Results Component Value Date TSH 0.53 01/23/2021 * Telephone Encounter - Angelina Way - 12/26/2021 11:11 AM EST Patient would like script to be: E-PRESCRIBED/FAXED TO PHARMACY WHEN WAS THE PATIENT'S LAST APPOINTMENT IN ADULT MEDICINE? 06/30/21 WHEN WAS THE LAST TIME THE PATIENT SAW THEIR PCP? Same as above Does patient have an upcoming appointment? Patient was sent a My Chart request to set up an appointment as they are due. (THE MEDICATION REQUESTED IS ON THE MED [...] N/A Patients current insurance carrier is: Payor: [employer] FFS / Plan: [employer]IANCE / Product Type: MEDICAID [id number] documented in this encounter Plan of Treatment Not on file documented as of this encounter Visit Diagnoses Not on filedocumented in this encounter Care Teams Ammonium Nitrate Crystallizer Relationship Specialty Start Date End Date Aaron Steele MD [address] [place] [id number] PCP - General Internal Medicine 08/27/19 03/18/23 [facility], [address] [address] PCP - General Internal Medicine 03/19/23 documented as of this encounter
--- OUTSIDE RECORDS SUMMARY | 2024-12-23 09:26 | XMS_ITS | Encounter Summary ---
Author Organization [facility] Address [facility] [place] [address] Care Team Providers Care Bioinformatics Associate Name Role Phone Alanna Go MD Primary Care Provider Un available Aaron Steele MD Primary Care Provider [phone] [facility], Pcp Primary Care Provider Unavailabl e Encounter Details Date Type Department Care Team Description 10/11/2018 Release of Information Medical Records [address] [place] [id number] Abstract, Provider Social History Tobacco Use Types [...] on filedocumented in this encounter Care Teams Bioinformatics Associate Relationship Specialty Start Date End Date Alanna Go MD PCP - General Internal Medicine 06/13/1808/26 Aaron Steele MD [address] [place] [address] PCP - General Internal Medicine 08/27/19 03/18/23 [facility], Pcp [address] [place] [address] PCP - General Internal Medicine 03/19/23 documented as of this encounter
--- OUTSIDE RECORDS SUMMARY | 2024-12-23 09:26 | XMS_ITS | Encounter Summary ---
Author Organization [facility] [facility] Address [address] [place] [address] 7 [place] [address] Care Team Providers Care Sampling Theory Teacher Name Role Phone Name, Kayden MONDRAGON Primary Care Provider [phone] Pritesh Torres Unavailable Unavailable Reason for Visit * Reason Comments Med Refill Encounter Details Date Type Department Care Team ([facility] st Contact Info) Description 07/27/2024 Refill [facility] [address] [place], [place] [phone] Nahomi Magana, ANP [address] [place] [address] Gastroesophageal reflux disease, unspecified whether esophagitis present [...] Info) Description 12/29/2024 10:00 AM EST Telemedicine [facility] [address] [place] [address] documented as of this encounter Visit Diagnoses Diagnosis Gastroesophageal reflux disease, unspecified whether esophagitis present documented in this encounter Additional Health Concerns Assessment Noted Time PHQ-9 Depression Total Score: 10 024 3:44 PM EDT documented as of this encounter Care Teams Sampling Theory Teacher Relationship Specialty Start Date End Date Name, MD Kayden [address] [place] [address] PCP - General Family Medicine 02/02/22 Pritesh Torres FNP [address] [place] [address] Nurse Practitioner Family Medicine 10/15/23 documented as of this encounter
--- OUTSIDE RECORDS SUMMARY | 2024-12-23 09:26 | XMS_ITS | Encounter Summary ---
Author Organization [employer] Address [address] [place] [address] 7 [place] [address] Care Team Providers Care Design Coordinator Name Role Phone Name, Kayden MONDRAGON Primary Care Provider [phone] Pritesh Torres Unavailable Unavailable Reason for Visit * Reason Onset Date Comments Med Refill 10/13/2024 Encounter Details Date Type Department Care Team (Late st Contact Info) Description 10/13/2024 Refill [facility] [address] [place], [place] [phone] Nahomi Magana, ANP [address] [place], [place] [phone] Gastroesophageal reflux disease, unspecified whether esophagitis present [...] Info) Description 12/29/2024 10:00 AM EST Telemedicine [facility] [address] [place] [address] documented as of this encounter Visit Diagnoses Diagnosis Gastroesophageal reflux disease, unspecified whether esophagitis present documented in this encounter Additional Health Concerns Assessment Noted Time PHQ-9 Depression Total Score: 10 024 3:44 PM EDT documented as of this encounter Care Teams Design Coordinator Relationship Specialty Start Date End Date Name, MD Kayden [address] [place] [address] PCP - General Family Medicine 02/02/22 Pritesh Torres FNP [address] [place] [address] Nurse Practitioner Family Medicine 10/15/23 documented as of this encounter
--- OUTSIDE RECORDS SUMMARY | 2024-12-23 09:26 | XMS_ITS | Clinical Summary ---
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 Action Suggested: > 8.0 %Note: Hemoglobin A1c results are invalid for patients with abnormal amounts of HbF. Blood transfusions may impact the HbA1c concentration in the patient sample. Estimated Average Glucose 117 mg/dL [facility] Comment:eAG = Estimated ave rage glucose which is %A1C expressed asaverage glucose, using the formula of the E8H-CswfxrdYebtikn Glucose study (ADAG), Diabetes Care, Vol.31,#8,Jun. 2007 04/16/2023 9:50 AM EDT 04/16/2023 9:52 AM EDT [facility] External Provider LAB BLO OD ORDERABLES Final Result [facility] [address] [place] [address] [phone] * HEPATITIS C AB W/REFL TO HCV RNA, QN, PCR (07/09/2022 8:40 AM EDT) HEPATITIS C ANTIBODY NON-REACT [facility] NON-REACT [facility] INDEX 0.27 <1.00 [facility] Comment: ?? HCV antibody was non-reactive. There is no laboratory ?? evidence of HCV infection. ?? In most cases, no further action is required. However, if recent HCV exposure is suspected, a test for HCV RNA (test code 65521) is suggested. ?? For additional information please refer to http://education.Ignite100/faq/IBI72l5 (This link is being provided for informational/ educational purposes only.) ?? 07/09/2022 8:40 AM EDT Cherie Wilde BOOKKEEPING CLERKS SUPERVISOR HISTORICAL/NON ORDERABLE LABS Final Result Performing Organization Address [facility] Co de Phone Number [facility] [address] [place] [address], * HIV 1/2 ANTIGEN/ANTIBODY,FOURTH GENERATION W/RFL (07/09/2022 8:40 AM EDT) HIV-1/2 ANTIGEN AND ANTIBODIES, 4TH GENERATION W/ REFLEX NON-REACT ROS[facility] NON-REACT ROSENDO [facility] Comment: HIV-1 antigen and HIV-1/HIV-2 antibodies were not detected. There is no laboratory evidence of HIV infection. ?? PLEASE NOTE: This information has been disclosed to you from records whose confidentiality may be protected by state law. ??If your state requires such protection, then the state law prohibits you from making any further disclosure of the information without the specific written consent of the person to whom it pertains, or as otherwise permitted by law. A general authorization for the release of medical or other information is NOT sufficient for this purpose. ? For additional information please refer to http://education.Ignite100/faq/OKJ811 (This link is being provided for informational/ educational purposes only.) ? The performance of this assay has not been clinically validated in patients less than 2 years old. ?? 07/09/2022 8:40 AM EDT Cherie Wilde BOOKKEEPING CLERKS SUPERVISOR LAB BLOOD ORDERABLES Final Res ult Performing Organization Address [facility] Co de Phone Number [facility] [address] [place] [address], * THINPREP TIS PAP AND HPV mRNA E6/E7 WITH REFLEX TO HPV 16,18/45 (05/17/2022 10:46 AM EDT) Clinical Information: None given [facility] COMMENT SEE COMMENT [facility] Comment: EXPLANATORY NOTE: ? The Pap is a screening test for cervical cancer. It is ?? not a diagnostic test and is subject to false negative ?? and false positive results. It is most reliable when a ?? satisfactory sample, regularly obtained, is submitted ?? with relevant clinical findings and history, and when ?? the Pap result is evaluated along with historic and ?? current clinical information. ?? COMMENT: This Pap test has been evaluated with computer assisted technology. [facility] Cytotechnologis t: SEE COMMENT [facility] Comment: ROYA, CT(ASCP) CT screening location: [address] ??[id number] HPV nRNA E6/E7 Not Detected Not Detected [facility] Comment: Methodology: Tour Driver-Mediated Amplification This assay detects E6/E7 viral messenger RNA (mRNA) from 14 high-risk HPV types (16,18,31,33,35,39,45,51,52,56,58,59,66,68). ? Cervical sources are required for HPV testing. If a vaginal source from a patient who has had a total hysterectomy with removal of cervix was ?? submitted, please contact the testing laboratory for alternative testing options. ?? For additional information, please refer to http://education.Ignite100/faq/HZM769s8 (This link if provided for information/ educational purposes only.) Interpretation/ Result: Negative for intraepithelial lesion or malignancy. [facility] LMP: ??? 2020 [facility] Prev. BX: NONE GIVEN [facility] Prev. PAP: 3Y NIL [facility] SOURCE: None given [facility] Statement Of Adequacy: SEE COMMENT [facility] Comment: Satisfactory for evaluation. Endocervical/transformation zone component absent. 05/17/2022 10:4 6 AM EDT Lina Haynes CNM LAB PATHOLOGY ORDERABLES Final Result [facility] [address] * Colonoscopy (09/14/2021 3:30 PM EDT) Anatomical Region Laterality Modality Endoscopy us Historical Provider MD ENDOSCOPY PROCEDURE ORDER KAYLYN Final Result from Last 3 Months or Most Recently Relevant to Health Maintenance Insurance [facility] C3 Care Teams Experimental Rocketsled Mechanic Relationship Specialty Start Date End Date Name, MD Kayden [address] [place] [address] PCP - General Family Medicine 02/02/22 Pritesh Torres FNP [address] [place] [address] Nurse Practitioner Family Medicine 10/15/23
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
--- OUTSIDE RECORDS SUMMARY | 2024-12-23 09:26 | XMS_ITS | Encounter Summary ---
Author Organization [facility] Address [address] [place] [address] Care Team Providers Care 3Rd Mate Name Role Phone Aaron Steele MD Primary Care Provider [phone] [facility], Pcp Primary Care Provider Unavailabl e Encounter Details Date Type Department Care Team Description 12/01/2019 Pt. Non Urgent Medical Question Adult Medicine - [address] [address] Aaron Steele MD [address] [place] [phone] Social History Tobacco Use Types Packs/Day Years [...] on filedocumented in this encounter Care Teams 3Rd Mate Relationship Specialty Start Date End Date Aaron Steele MD [address] [place] [address] PCP - General Internal Medicine 08/27/19 03/18/23 [facility], Pcp [address] [place] [address] PCP - General Internal Medicine 03/19/23 documented as of this encounter
--- OUTSIDE RECORDS SUMMARY | 2024-12-23 09:26 | XMS_ITS | Encounter Summary ---
Author Organization [facility] Address [facility] [place] [address] Care Team Providers Care Campaign Consultant Name Role Phone Aaron Steele MD Primary Care Provider [phone] [facility], Pcp [facility] En[facility] Details Date Type Department Care Team Description 12/08/2019 Release of Information Medical Records [address] [place] [address] Abstract, Provider Social History Tobacco Use Types [...] on file documented as of this encounter Nursing Notes * Pam Buckley - 12/08/2019 9:50 AM EST AUTHORIZATION TO OBTAIN RECORDS FAXED TO [facility]. documented in this encounter Plan of Treatment Not on file documented as of this encounter Visit Diagnoses Not on filedocumented in this encounter Care Teams Campaign Consultant Relationship Specialty Start Date End Date Aaron Steele MD [address] [place] [address] PCP - General Internal Medicine 08/27/19 03/18/23 [facility], Pcp [address] [place] [address] PCP - General Internal Medicine 03/19/23 documented as of this encounter
--- OUTSIDE RECORDS SUMMARY | 2024-12-23 09:26 | XMS_ITS | Encounter Summary ---
Author Organization [employer] Address [address] [place] [address] [address] [place] [address] Care Team Providers Care Medical Physics Professor Name Role Phone Name, Kayden MONDRAGON Primary Care Provider [phone] Pritesh Torres Unavailable Unavailable Reason for Visit * Reason Comments Med Refill Encounter Details Date Type Department Care Team ([facility] st Contact Info) Description 08/24/2024 Refill [facility] [address] [place], [place] [phone] Name, MD Kayden [address] [place] [address] Lichen sclerosus of vulva Social History Tobacco Use Types Packs/Day Years [...] Info) Description 12/29/2024 10:00 AM EST Telemedicine [facility] [address] [place] [address] documented as of this encounter Visit Diagnoses Diagnosis Lichen sclerosus of vulva documented in this encounter Additional Health Concerns Assessment Noted Time PHQ-9 Depression Total Score: 10 024 3:44 PM EDT documented as of this encounter Care Teams Medical Physics Professor Relationship Specialty Start Date End Date Name, MD Kayden [address] [place] [address] PCP - General Family Medicine 02/02/22 Pritesh Torres FNP [address] [place] [address] Nurse Practitioner Family Medicine 10/15/23 documented as of this encounter
--- OUTSIDE RECORDS SUMMARY | 2024-12-23 09:26 | XMS_ITS | Encounter Summary ---
Author Organization [facility] Address [facility] [place] [address] Care Team Providers Care Dry End Operator Name Role Phone Alanna Go MD Primary Care Provider Un available Aaron Steele MD Primary Care Provider [facility], Pcp Primary Care Provider Unavailabl e Reason for Visit * Reason Onset Date Comments APPOINTMENT 07/30/2019 Encounter Details Date Type Department Care Team Description 07/30/2019 Pt. Non Urgent Medic al Question Adult Medicine [address] [address] Alanna Go MD Social History Tobacco Use [...] encounter Miscellaneous Notes * Telephone Encounter - Bailey Wan M.A. - 07/30/2019 7:49 AM EDTFrom: Saritha Healy To: Alanna Go MD Sent: 07/30/2019 7:49 AM EDT Subject: Appointment I need the appointment at soon is possible documented in this encounter Plan of Treatment Not on file documented as of this encounter Visit Diagnoses Not on filedocumented in this encounter Care Teams Dry End Operator Relationship Specialty Start Date End Date Alanna Go MD PCP - General Internal Medicine 06/13/1808/26 Aaron Steele MD [address] [place] [address] PCP - General Internal Medicine 08/27/19 03/18/23 [facility], [address] [address] PCP - General Internal Medicine 03/19/23 documented as of this encounter
--- OUTSIDE RECORDS SUMMARY | 2024-12-23 09:27 | XMS_ITS | Encounter Summary ---
Author Organization [facility] Address [address] [place] [address] Care Team Providers Care Mortuary Beautician Name Role Phone Aaron Steele MD Primary Care Provider [phone] [facility], [facility] Primary Care Provider Unavailabl e Encounter Details Date Type Department Care Team Description 07/31/2021 Pt. Non Urgent Medical Question Adult Medicine - [address] [address] Tracee Coe PA-C [address] [place] [address] Social History Tobacco Use Types Packs/Day Years [...] have Coronavirus / COVID-19? No / Unsure 07/25/2021 7:06 AM EDT documented as of this encounter Plan of Treatment Not on file documented as of this encounter Visit Diagnoses Not on filedocumented in this encounter Care Teams Mortuary Beautician Relationship Specialty Start Date End Date Aaron Steele MD [address] [place] [id number] PCP - General Internal Medicine 08/27/19 03/18/23 [facility], Pcp [address] [place] [address] PCP - General Internal Medicine 03/19/23 documented as of this encounter
--- OUTSIDE RECORDS SUMMARY | 2024-12-23 09:27 | XMS_ITS | Encounter Summary ---
Author Organization [facility] Address [address] [place] [address] Care Team Providers Care Planned Giving Officer Name Role Phone Aaron Steele MD Primary Care Provider [phone] [facility] Primary Care Provider Unavailabl e Reason for Visit * Reason Onset Date Comments Orders Call 06/16/2021 mri testing. Encounter Details Date Type Department Care Team Description 06/16/2021 Telephone Adult Medicine - [place] [address] [place] [address] Tracee Coe PA-C [address] [place] [address] Orders Call (mri testing.) Social History Tobacco Use Types Packs/Day Years Used Date Smoking Tobacco: Former Cigarettes 1 986 - 2005 Smokeless Tobacco: Never Comments:quit 15 years ago [...] have Coronavirus / COVID-19? No / Unsure 06/15/2021 10:17 AM EDT documented as of this encounter Miscellaneous Notes * Telephone Encounter - Tracee Coe PA-C - 06/19/2021 9:42 AM EDT Order signed though signed for without contrast only as patient has documented contrast dye allergy * Telephone Encounter - Jaky Hamilton M.A. - 06/19/2021 9:32 AM EDT Please see pended External referral for MRI for your review and update per message request below, thank you. * Telephone Encounter - Jr Cornelius - 06/19/2021 9:[address] external mri brain order for Saritha Healy to have her test at [facility]. Thanks you. * Telephone Encounter - Tracee Coe PA-C - 06/19/2021 9:07 AM EDT Order signed. It looks like patient is on CSC for lorazepam through previous PCP (upcoming appointment with PCP (Ivette) on 06/30), she can trial taking medication before her imaging. As stated below, would need transportation to and from appointment if taking medication prior. * Telephone Encounter - Aaron Steele MD - 06/16/2021 2:32 PM EDT Its ok to wait for Saturday * Telephone Encounter - Chelsi Sotelo M.A. - 06/16/2021 1:03 PM EDT Tracee is off today, forward to PCP, order pended. Last seen 06/08/21 * Telephone Encounter - Jr Cornelius - 06/16/2021 11:[address] external mri brain order for Saritha Healy to have her test at [facility], she won't fit in the mri sanner here in [place]. Thanks. Jr, Mri Department. * Telephone Encounter - Deena Parr - 06/16/2021 10:32 AM EDT Left message for pt to call office back. Ext [phone] or route to B side. * Telephone Encounter - Deena Parr - 06/16/2021 10:32 AM EDT ----- Message from Tracee Coe PA-C sent at 06/16/2021 10:27 AM EDT ----- Can provide medication to use before imaging to help relax her, would require someone to drive her to/from appointment given medication causes drowsiness. If not, would recommend consult with Neurology given reported symptoms at visit and CT results. documented in this encounter Plan of Treatment Not on file documented as of this encounter Visit Diagnoses Diagnosis Dizziness- Primary Dizziness and giddiness documented in this encounter Care Teams Planned Giving Officer Relationship Specialty Start Date End Date Aaron Steele MD [address] [place] [address] PCP - General Internal Medicine 08/27/19 03/18/23 [facility] [address] [address] PCP - General Internal Medicine 03/19/23 documented as of this encounter
--- OUTSIDE RECORDS SUMMARY | 2024-12-23 09:27 | XMS_ITS | Encounter Summary ---
Author Organization [facility] Address [facility] [place] [address] Care Team Providers Care Substation Electrician Supervisor Name Role Phone Aaron Steele MD Primary Care Provider [phone] [facility], Pcp Primary Care Provider [facility] Encounter Details Date Type Department Care Team Description 07/11/2021 Mate Fourth Report Medical Records [address] [place] [address] Abstract, Provider Social History Tobacco Use Types [...] have Coronavirus / COVID-19? No / Unsure 07/06/2021 1:04 PM EDT documented as of this encounter Plan of Treatment Not on file documented as of this encounter Visit Diagnoses Not on filedocumented in this encounter Care Teams Substation Electrician Supervisor Relationship Specialty Start Date End Date Aaron Steele MD [address] [place] [address] PCP - General Internal Medicine 08/27/19 03/18/23 [facility], Pcp [address] [place] [address] PCP - General Internal Medicine 03/19/23 documented as of this encounter
[2024-12-24 14:42] LABS: Alanine Aminotransferase 15 U/L (0-31); Albumin Level 3.7 g/dL (3.5-5.0); Alkaline Phosphatase 93 U/L (39-117); Anion Gap 11 (12-20); Aspartate Amino Transferase 20 U/L (5-31); Bilirubin Total 0.6 mg/dL (0.0-1.0); Blood Urea Nitrogen 8 mg/dL (9-16); Calcium 9.2 mg/dL (8.4-10.2); Carbon Dioxide 33 mmol/L (22-29); Chloride 100 mmol/L (96-108); Cholesterol 219 mg/dL (<200); Estimated Glomerular Filt Rate > 60; Glucose Random 87 mg/dL (60-115); HDL Cholesterol 51 mg/dL (>40); LDL Cholesterol Calculated 142 mg/dL (<100); Potassium 3.5 mmol/L (3.3-5.1); Sodium 140 mmol/L (135-145); Triglycerides 130 mg/dL (<150)
[2024-12-24 14:48] LABS: Creatinine Urine 313.85 mg/dL; Microalbum/Creatinine Ratio Ur 2.8 ug/mg cr (<30)
== END 2024-12-23 08:37 | disposition home or self-care (01) ==
LOC: HO.CHCLDS 08:36
PROVIDERS: Visit Provider Internal Medicine Geriatric Medicine
DX: I10 Essential (primary) hypertension (principal)
CPT/HCPCS: 36415; 80053; 80061; 82043; 82570

== ENCOUNTER 2025-01-08 07:59 | Outpatient (AMB) | payer MEDICAID, SELFPAY ==
--- NOTE | 2025-01-08 08:03 | A.OFFVIS_ITS ---
Vital Signs 01/08/25 08:06 Height 6 ft Weight 360 lb BMI 48.8 Intake Visit Reasons: vaginal cyst Floriculture Professor Required: Yes Floriculture Professor Language: Medical Staff Assistant Services: Floriculture Professor Present (in person) Floriculture Professor Name: Tory SALINAS Information Interpreted: non-clinical & clinical Legal Aide: Legal Aide Present (Tory SALINAS) Accompanied by: Self / Same As Patient Allergies grape Allergy (Severe, Verified 01/08/25 08:07) Anaphylaxis latex Allergy (Severe, Verified 01/08/25 08:07) Anaphylaxis celecoxib Adverse Reaction (Severe, Verified 01/08/25 08:07) Anaphylaxis Iodinated Contrast Media Adverse Reaction (Severe, Verified 01/08/25 08:07) Anaphylaxis shellfish derived Adverse Reaction (Severe, Verified 01/08/25 08:07) Anaphylaxis Post menopausal: Yes HPI Comments Details: Presenting complaining of right vulvar swelling and discharge that started 2 days ago PFSH Medical History GERD (gastroesophageal reflux disease) Anxiety Bipolar 1 disorder PTSD (post-traumatic stress disorder) Depression Rheumatoid arthritis Fibromyalgia Sleep apnea Gallstones Hyperthyroidism Surgical History Hx of bariatric surgery H/O colonoscopy History of surgery History of partial hysterectomy Hx of mastectomy Hx of section Family History Mother No problems noted. Father Cancer Maternal Grandmother Diabetes Social History Household Members: Spouse Are you a primary patient care coordinator to a significant other at home: Yes Do you presently have visiting nurse or other home services: Yes (SUPERCHARGE REPAIR SUPERVISOR) Alcohol intake: current Alcohol intake frequency: a few times a month Alcohol type: wine Patient Tobacco Use Status: Former Tobacco user Review of Systems Const All systems reviewed & are unremarkable except as noted in HPI and below Physical Exam Vital Signs: BMI result Body Mass Index 48.8 General: Yes no CVA tenderness External Female Exam: normal appearance of the urethra and other (Right vulvar abscess 1 cm no cellulitis) Speculum Exam - Vagina: normal appearance of the vagina, normal palpation, no lesions and no masses Speculum Exam - Cervix: normal appearance of the cervix, normal palpation, no lesions, no masses and nontender Bimanual exam- vagina & uterus: normal bimanual exam, normal palpation, uterine size normal, normal palpation, uterine shape normal, No Cervical tenderness present and non-tender Bimanual Exam- Adnexa, other: normal adnexae Back/Spine/Pelvis Back: no CVA tenderness Office Procedures Incision/Drainage ELEVATOR EXAMINER Incision/Drainage ELEVATOR EXAMINER Details: Before the procedure was started d/w patient the procedure, alternatives (do nothing, medical rx), & all the risks associated with the procedure ( bleeding , infection, vulvar scarring, painful intercourse, injury to vessels, possible need for transfusion with all its risks) then patient signed the consent. Preoperative diagnosis: Right Vulvar Abscess. Operation: Right Vulvar I & D Post-operative diagnosis: Same Anesthesia: Lidocaine 1% 3cc used Procedure: The skin was prepped with Betadine, palpation was used for guidance, 11-blade was used to incise the skin contiguous with the abscess cavity. This yielded 5 cc of purulent fluid & substantially decompressed the swelling, a clean dressing was used at the end. Culture sent. The patient tolerated the procedure well. The patient was sent home in stable condition. Discharge Instructions: The patient was instructed to call if temp>100.4, abdominal pain, nausea/vomiting. This note was generated with a voice recognition program. Some errors may have been overlooked during the review of this note. Sometimes these errors may affect the content or meaning of a given sentence. 37735-L&D of vulva/perineum All charges added?: Procedure code (CPT) selection complete Assessment & Plan Assessment & Plan (1) Vulvar abscess: Comment: Right sided Code(s): N76.4 - Abscess of vulva Category: Medical Plan: Discussed with the patient the finding on pelvic exam showing right labia majora abscess with no evidence of cellulitis, recommended I&D. I&D done, see procedure Orders: Orders Incision & Drainage ELEVATOR EXAMINER Today N76.4 - Abscess of vulva Coding Level of Care Code Procedure Only Diagnoses Vulvar abscess N76.4 CPT Codes Incision/Drainage ELEVATOR EXAMINER - IDGYN 1: 50104-W&D of vulva/perineum ([id number])
--- OUTSIDE RECORDS SUMMARY | 2025-01-08 08:03 | XMS_ITS | Encounter Summary ---
Author Organization [facility] Address [address] [place] [address] Care Team Providers Care Glass Loading Equipment Tender Name Role Phone Aaron Steele MD Primary Care Provider [phone] [facility], Pcp Primary Care Provider Unavailabl e Encounter Details Date Type Department Care Team Description 09/19/2020 Orders Only Medical Records [address] [place] [address] Brandon Dyer MD [address] [place] [address] Social History Tobacco Use Types Packs/Day Years [...] PM EDT documented as of this encounter Progress Notes * Brandon Dyer MD - 09/20/2020 9:21 AM EST I reviewed the pathology with her via telephone, she states that she is doing well, she is not having any pain incisions are healing well. She denies any vaginal bleeding, she is tolerating p.o. ambulating, voiding and having normal bowel movements. Precautions were discussed and she is aware she may follow-up with me for postop visit with any further concerns. Bleeding precautions have been discussed she is aware that she no longer should be experiencing menstrual cycles and if she does have any irregular vaginal bleeding she needs to follow- up with us immediately. Brandon Dyer MD documented in this encounter Plan of Treatment Not on file documented as of this encounter Procedures Procedure Name Priority Date/Time Associated Diagnosis Comments OUTSIDE PATHOLOGY Routine 09/09/2020 documented in this encounter Results * OUTSIDE PATHOLOGY (09/09/2020) Brandon Dyer MD OUTSIDE LAB documented in this encounter Visit Diagnoses Not on filedocumented in this encounter Care Teams Glass Loading Equipment Tender Relationship Specialty Start Date End Date Aaron Steele MD [address] [place] [address] PCP - General Internal Medicine 08/27/19 03/18/23 [facility], [address] [address] PCP - General Internal Medicine 03/19/23 documented as of this encounter
--- OUTSIDE RECORDS SUMMARY | 2025-01-08 08:03 | XMS_ITS | Encounter Summary ---
Author Organization [facility] Address [facility] [place] [address] Care Team Providers Care Test Baker Name Role Phone Aaron Steele MD Primary Care Provider [phone] [facility], Pcp Primary Care Provider [facility] Encounter Details Date Type Department Care Team Description 09/26/2020 [facility] Medical Records [address] [place] [address] Abstract, Provider Social History Tobacco Use Types [...] on filedocumented in this encounter Care Teams Test Baker Relationship Specialty Start Date End Date Aaron Steele MD [address] [place] [address] PCP - General Internal Medicine 08/27/19 03/18/23 [facility], Pcp [address] [place] [address] PCP - General Internal Medicine 03/19/23 documented as of this encounter
--- OUTSIDE RECORDS SUMMARY | 2025-01-08 08:03 | XMS_ITS | Encounter Summary ---
Author Organization [facility] Address [address] [place] [address] Care Team Providers Care Shirrer Name Role Phone Alanna Go MD Primary Care Provider Un available Aaron Steele MD Primary Care Provider [phone] [facility], Pcp Primary Care Provider Unavailabl e Encounter Details Date Type Department Care Team Description 05/06/2019 Refill Adult Medicine [facility] [address] [place] [address] Nithin [place] MD [address] [place] [address] Social History Tobacco Use Types Packs/Day Years [...] encounter Miscellaneous Notes * Telephone Encounter - Elisa Roldan M.A. - 05/06/2019 11:22 AM EDT Last office visit 02/20/19 Lab Results Component Value Date NA 139 12/23/2018 K 3.8 12/23/2018 CO2 32 12/23/2018 CL 102 12/23/2018 BUN 12 12/23/2018 CREAT 0.84 12/23/2018 GLU 83 12/23/2018 CA 8.9 12/23/2018 GFR > 60 12/23/2018 * Telephone Encounter - Elisa Roldan M.A. - 05/06/2019 11:22 AM EDTFrom: Saritha Healy To: Nithin [place] MD Sent: 05/06/2019 11:15 AM EDT Subject: Medication Renewal Request Original authorizing provider: MD Saritha Rizo would like a refill of the following medications: hydrochlorothiazide (HYDRODIURIL) 12.5 MG tablet [Nithin [place] MD] Preferred pharmacy: [id number] [place], [place] - [address] [place] [address]. AT [facility] Comment: Medication renewals requested in this message routed to other providers: sulfaSALAzine (AZULFIDINE) 500 MG EC tablet [Trell Deshpande MD] Artificial Tear Ointment (REFRESH LACRI-LUBE) Ointment [Trell Deshpande MD] montelukast (SINGULAIR) 10 MG tablet [Alanna Go MD] psyllium (METAMUCIL) 58.6 % powder [Alanna Go MD] ferrous sulfate 325 (65 FE) MG tablet [Alanna Go MD] omeprazole (PRILOSEC) 40 MG capsule [Alanna Go MD] lorazepam (ATIVAN) 1 MG tablet [Alanna Go MD] fluticasone 50 MCG/ACT nasal spray [Alanna Go MD] documented in this encounter Plan of Treatment Not on file documented as of this encounter Visit Diagnoses Not on filedocumented in this encounter Care Teams Shirrer Relationship Specialty Start Date End Date Alanna Go MD PCP - General Internal Medicine 06/13/1808/26 Aaron Steele MD [address] [place] [address] PCP - General Internal Medicine 08/27/19 03/18/23 [facility], Pcp [address] [place] [address] PCP - General Internal Medicine 03/19/23 documented as of this encounter
--- OUTSIDE RECORDS SUMMARY | 2025-01-08 08:03 | XMS_ITS | Encounter Summary ---
Author Organization [employer] Address [address] [place] [address] 7 [place] [address] Care Team Providers Care Research Scholar Name Role Phone Name, Kayden MONDRAGON Primary Care Provider [phone] Pritesh Torres Unavailable Unavailable Reason for Visit * Reason Onset Date Comments Med Refill 04/16/2024 Encounter Details Date Type Department Care Team (Late st Contact Info) Description 04/16/2024 Refill [facility] MEDICINE [address] [place], [place] [phone] Name, MD Kayden [address] [place] [address] Gastroesophageal reflux disease, unspecified whether esophagitis present [...] documented as of this encounter Care Teams Research Scholar Relationship Specialty Start Date End Date Name, MD Kayden [address] [place] [address] PCP - General Family Medicine 02/02/22 Pritesh Torres FNP [address] [place] [address] Nurse Practitioner Family Medicine 10/15/23 documented as of this encounter
--- OUTSIDE RECORDS SUMMARY | 2025-01-08 08:03 | XMS_ITS | Encounter Summary ---
Author Organization [employer] [facility] Address [address] [place] [address] 7 [place] [address] Care Team Providers Care Financial Planning Analyst Name Role Phone Name, Kayden MONDRAGON Primary Care Provider [phone] Pritesh Torres Unavailable Unavailable Reason for Visit * Reason Onset Date Comments Med Refill 12/12/2024 Encounter Details Date Type Department Care Team (Late st Contact Info) Description 12/12/2024 Refill [facility] MEDICINE [address] [place], [place] [phone] Name, MD Kayden [address] [place] [address] Posttraumatic stress disorder Social History Tobacco Use [...] documented as of this encounter Care Teams Financial Planning Analyst Relationship Specialty Start Date End Date Name, MD Kayden [address] [place] [address] PCP - General Family Medicine 02/02/22 Pritesh Torres FNP [address] [place] [address] Nurse Practitioner Family Medicine 10/15/23 documented as of this encounter
--- OUTSIDE RECORDS SUMMARY | 2025-01-08 08:03 | XMS_ITS | Encounter Summary ---
Author Organization [facility] Address [address] [place] [address] Care Team Providers Care Product Line Manager Name Role Phone Aaron Steele MD Primary Care Provider [phone] [facility], Pcp Primary Care Provider Unavailabl e Encounter Details Date Type Department Care Team Description 09/09/2020 Hospital Medical Records [address] [place] [address] Brandon Uribe MD [address] [place] [address] Social History Tobacco Use Types Packs/Day Years [...] on filedocumented in this encounter Care Teams Product Line Manager Relationship Specialty Start Date End Date Aaron Steele MD [address] [place] [address] PCP - General Internal Medicine 08/27/19 03/18/23 [facility], Pcp [address] [place] [address] PCP - General Internal Medicine 03/19/23 documented as of this encounter
--- OUTSIDE RECORDS SUMMARY | 2025-01-08 08:03 | XMS_ITS | Encounter Summary ---
Author Organization [employer] Address [address] [place] [address] 7 [place] [address] Care Team Providers Care Paraplanner Name Role Phone Name, Kayden MONDRAGON Primary Care Provider [phone] Pritesh Torres Unavailable Unavailable Reason for Visit * Reason Comments Med Refill Encounter Details Date Type Department Care Team ([facility] st Contact Info) Description 12/21/2024 Refill [facility] MEDICINE [address] [place], [place] [phone] Name, MD Kayden [address] [place] [address] Social History Tobacco Use Types Packs/Day Years [...] documented as of this encounter Care Teams Paraplanner Relationship Specialty Start Date End Date Name, MD Kayden [address] [place] [address] PCP - General Family Medicine 02/02/22 Pritesh Torres FNP [address] [place] [address] Nurse Practitioner Family Medicine 10/15/23 documented as of this encounter
--- OUTSIDE RECORDS SUMMARY | 2025-01-08 08:03 | XMS_ITS | Encounter Summary ---
Author Organization [facility] Address [address] [place] [address] Care Team Providers Care Desk Assistant Name Role Phone Aaron Steele MD Primary Care Provider [phone] [facility], Pcp Primary Care Provider Unavailabl e Encounter Details Date Type Department Care Team Description 01/15/2021 Refill Adult Medicine [address] [address] Alexus Del Toro PA-C [address] [address] [place] [address] Social History Tobacco Use Types Packs/Day Years [...] on filedocumented in this encounter Care Teams Desk Assistant Relationship Specialty Start Date End Date Aaron Steele MD [address] [place] [address] PCP - General Internal Medicine 08/27/19 03/18/23 Claire Altman [address] [place] [address] PCP - General Internal Medicine 03/19/23 documented as of this encounter
--- OUTSIDE RECORDS SUMMARY | 2025-01-08 08:03 | XMS_ITS | Encounter Summary ---
Author Organization [facility] Address [facility] [place] [address] Care Team Providers Care Cnc Mill Operator Name Role Phone Aaron Steele MD Primary Care Provider [phone] [facility], Pcp Primary Care Provider [facility] e Encounter Details Date Type Department Care Team Description 08/30/2020 [facility] Medical Records [address] [place] [address] Abstract, Provider Social History Tobacco Use Types [...] on filedocumented in this encounter Care Teams Cnc Mill Operator Relationship Specialty Start Date End Date Aaron Steele MD [address] [place] [address] PCP - General Internal Medicine 08/27/19 03/18/23 [facility], Pcp [address] [place] [address] PCP - General Internal Medicine 03/19/23 documented as of this encounter
--- OUTSIDE RECORDS SUMMARY | 2025-01-08 08:03 | XMS_ITS | Encounter Summary ---
Author Organization [employer] Address [address] [facility] 7t [place] [address] Care Team Providers Care Pharmacy Care Coordinator Name Role Phone Name, Kayden MONDRAGON Primary Care Provider [phone] Pritesh Torres Unavailable Unavailable Encounter Details Date [...] documented as of this encounter Care Teams Pharmacy Care Coordinator Relationship Specialty Start Date End Date Name, MD Kayden [address] [place] [address] PCP - General Family Medicine 02/02/22 Pritesh Torres FNP [address] [place] [address] Nurse Practitioner Family Medicine 10/15/23 documented as of this encounter
--- OUTSIDE RECORDS SUMMARY | 2025-01-08 08:03 | XMS_ITS | Encounter Summary ---
Author Organization [facility] Address [address] [place] [address] Care Team Providers Care Nuclear Waste Process Operator Name Role Phone [facility], Pcp Primary Care Provider Unavaildagoberto e Alanna Go MD Primary Care Provider Un available Aaron Steele MD Primary Care Provider [phone] [facility], Pcp Primary Care Provider Unavaildagoberto e Encounter Details Date Type Department Care Team Description 01/30/2018 Release of Information Medical Records [address] [place] [address] Abstract, Provider Social History Tobacco Use Types Packs/Day Years Used Date Smoking Tobacco: Never Assessed Sex Assigned at Date Recorded Not on file Job Start Date Occupation Industry Not on file Not on file Not on file documented as of this encounter Plan of Treatment Not on file documented as of this encounter Visit Diagnoses Not on filedocumented in this encounter Care Teams Nuclear Waste Process Operator Relationship Specialty Start Date End Date [facility], Pcp PCP - General Internal Medicine 12/16/17 06/12/18 Alanna Go MD PCP - General Internal Medicine 06/13/1808/26 Aaron Steele MD [address] [place] [address] PCP - General Internal Medicine 08/27/19 03/18/23 [facility], Pcp PCP - General Internal Medicine 03/19/23 documented as of this encounter
--- OUTSIDE RECORDS SUMMARY | 2025-01-08 08:03 | XMS_ITS | Encounter Summary ---
Author Organization [employer] Address [address] [facility] 7t [place] [address] Care Team Providers Care Pulley Worker Name Role Phone Name, Kayden MONDRAGON Primary Care Provider [phone] Pritesh Torres Unavailable Unavailable Encounter Details Date Type Department Care Team ([facility] st Contact Info) Description 12/23/2024 Orders Only [facility] MEDICINE [address] [place], [place] [phone] Name, MD Kayden [address] [place] [address] Social History Tobacco Use Types Packs/Day Years [...] Procedure Name Priority Date/Time Associated Diagnosis Comments CANCELLED CHEMISTRY Routine 12/23/2024 8 :36 AM EST documented in this encounter Results * Cancelled Chemistry (12/23/2024 8:36 AM EST) Cancelled Chemistry SEE NOTE [facility] Comment:NO SPECIMEN RECEIVED FOR MICRU, CMP, LIPID 12/23/2024 8:36 AM EST 12/23/2024 7:55 PM EST us Kayden Name HISTORICAL/NON ORDERABLE LABS Fi nal Result Performing Organization Address City/State/[facility] Co de Phone Number [facility] [address] [place] [address] [phone] documented in this encounter Visit Diagnoses Not on filedocumented in this encounter Additional Health Concerns Assessment Noted Time PHQ-9 Depression Total Score: 10 024 3:44 PM EDT documented as of this encounter Care Teams Pulley Worker Relationship Specialty Start Date End Date Name, MD Kayden [address] [place] [address] PCP - General Family Medicine 02/02/22 Pritesh Torres FNP [address] [place] [address] Nurse Practitioner Family Medicine 10/15/23 documented as of this encounter
--- OUTSIDE RECORDS SUMMARY | 2025-01-08 08:03 | XMS_ITS | Encounter Summary ---
Author Organization [employer] Address [address] [place] [address] 7 [place] [address] Care Team Providers Care Hand Brush Filler Name Role Phone Name, Kayden MONDRAGON Primary Care Provider [phone] Pritesh Torres Unavailable Unavailable Reason for Visit * Reason Comments Blood Pressure Check Encounter Details Date Type Department Care Team ([facility] st Contact Info) Description 12/29/2024 10:00 AM EST Telemedicine [facility] MEDICINE [address] [place], [place] [phone] Gracie Cohen, YOJANA [address] [place], [place] [phone] Hypertension, unspecified type Social History Tobacco Use Types Packs/Day Years [...] AM EDT documented as of this encounter Progress Notes * Gracie Cohen RN - 12/29/2024 10:00 AM EST S: T/C to pt for nurse televisit for BP Check. Pt reports that she is not exercising currently due to cold weather. Pt states that during nice weather she walks on the track 2-3 times per week. Pt reports that she normally eats rice, beans and meat. Pt states she does not eat canned food. Pt deniessmoking. Pt c/o chronic pain due to fibromyalgia and costochondritis. Pt denies headache, chest pain, sob, dizziness and visual changes today. O: Pt currently rx Hctz 12.5 mg po daily. Pt reports compliance with medication. A: Pt reports the following home BP readings since 12/16/24: 129/94 P 84; 121/86 P 92; 130/87 P 97; 120/87 P 87; 130/86 P 89; 122/90 P 80; 145/87 P 84; 119/83 P 87; 115/80 P 79; 138/85 P 87; 126/85 P 87; 122/83 P 73; 123/83 P 76; 126/88 P 87 (last reading token today). P: Pt advised to take medications as rx. Pt encouraged to adhere to low sodium diet. Pt encouraged to increase amount and frequency of exercise. Encouraged pt to follow up with pcp per recall and to call [facility] prn symptoms. documented in this encounter Plan of Treatment Not on file documented as of this encounter Visit Diagnoses Diagnosis Hypertension, unspecified type documented in this encounter Additional Health Concerns Assessment Noted Time PHQ-9 Depression Total Score: 10 024 3:44 PM EDT documented as of this encounter Care Teams Hand Brush Filler Relationship Specialty Start Date End Date Name, MD Kayden [address] [place] [address] PCP - General Family Medicine 02/02/22 Pritesh Torres FNP [address] [place] [address] Nurse Practitioner Family Medicine 10/15/23 documented as of this encounter
--- OUTSIDE RECORDS SUMMARY | 2025-01-08 08:03 | XMS_ITS | Encounter Summary ---
Author Organization [employer] Address [address] [place] [address] 7 [place] [address] Care Team Providers Care Glaze Wiper Name Role Phone Name, Kayden MONDRAGON Primary Care Provider [phone] Pritesh Torres Unavailable Unavailable Reason for Visit * Reason Onset Date Comments Med Refill 12/12/2024 Encounter Details Date Type Department Care Team (Late st Contact Info) Description 12/12/2024 Refill [facility] MEDICINE [address] [place], [place] [phone] Name, MD Kayden [address] [place] [address] Primary hypertension Social History Tobacco Use Types [...] documented as of this encounter Care Teams Glaze Wiper Relationship Specialty Start Date End Date Name, MD Kayden [address] [place] [address] PCP - General Family Medicine 02/02/22 Pritesh Torres FNP [address] [place] [address] Nurse Practitioner Family Medicine 10/15/23 documented as of this encounter
--- OUTSIDE RECORDS SUMMARY | 2025-01-08 08:03 | XMS_ITS | Encounter Summary ---
Author Organization [facility] Address [address] [place] [address] Care Team Providers Care Loft Worker Apprentice Name Role Phone Alanna Go MD Primary Care Provider Un available Aaron Steele MD Primary Care Provider [phone] [facility], Pcp Primary Care Provider Unavailabl e Encounter Details Date Type Department Care Team Description 04/15/2019 Home Health Certification Medical Records [address] [place] [address] Home, [facility] [address] [facility] [address] [place] [address] Social History Tobacco Use Types Packs/Day Years [...] on filedocumented in this encounter Care Teams Loft Worker Apprentice Relationship Specialty Start Date End Date Alanna Go MD PCP - General Internal Medicine 06/13/1808/26 Aaron Steele MD [address] [place] [address] PCP - General Internal Medicine 08/27/19 03/18/23 Community, [address] [address] PCP - General Internal Medicine 03/19/23 documented as of this encounter
--- OUTSIDE RECORDS SUMMARY | 2025-01-08 08:03 | XMS_ITS | Encounter Summary ---
Author Organization [employer] Address [address] [facility] 7t [place] [address] Care Team Providers Care Loft Worker Head Name Role Phone Name, Kayden MONDRAGON Primary Care Provider [phone] Pritesh Torres Unavailable Unavailable Encounter Details Date Type Department Care Team (Late st Contact Info) Description 12/22/2024 Orders Only [facility] [address] [place], [place] [phone] ProviderUvaldo MD Social History Tobacco Use Types [...] documented as of this encounter Care Teams Loft Worker Head Relationship Specialty Start Date End Date Name, MD Kayden [address] [place] [address] PCP - General Family Medicine 02/02/22 Pritesh Torres FNP [address] [place] [address] Nurse Practitioner Family Medicine 10/15/23 documented as of this encounter
--- OUTSIDE RECORDS SUMMARY | 2025-01-08 08:03 | XMS_ITS | Encounter Summary ---
Author Organization [employer] Address [address] [facility] 7t [place] [address] Care Team Providers Care Marketing Co Op Name Role Phone Name, Kayden MONDRAGON Primary Care Provider [phone] Pritesh Torres Unavailable Unavailable Encounter Details Date Type Department Care Team ([facility] Contact Info) Description 12/16/2024 Telephone [facility] MEDICINE [address] [place], [place] [phone] Kat Swanson, YOJANA Social History Tobacco Use [...] 2:05 PM EST Outgoing fax sent to [facility] Department (FAX: [phone]) requesting results from colonoscopy in 2020 be faxed to [phone] ATTN: Satnam Chicas Nurses / . Received an E-2 Dimitris-3 error message for a response. TC placed to [facility] HIM Department to get accurate fax number. Staff provided fax number for [facility] Medical Records: [phone]. Confirmation received and placed in medical records bin. documented in this encounter Plan of Treatment Not on file documented as of this encounter Visit Diagnoses Not on filedocumented in this encounter Additional Health Concerns Assessment Noted Time PHQ-9 Depression Total Score: 10 024 3:44 PM EDT documented as of this encounter Care Teams Marketing Co Op Relationship Specialty Start Date End Date Name, MD Kayden [address] [place] [address] PCP - General Family Medicine 02/02/22 Pritesh Torres FNP [address] [place] [address] Nurse Practitioner Family Medicine 10/15/23 documented as of this encounter
--- OUTSIDE RECORDS SUMMARY | 2025-01-08 08:03 | XMS_ITS | Encounter Summary ---
Author Organization [facility] Address [address] [place] [address] Care Team Providers Care Armored Car Driver Name Role Phone Alanna Go MD Primary Care Provider Un available Aaron Steele MD Primary Care Provider [phone] [facility], Pcp Primary Care Provider Unavailabl e Reason for Visit * Reason Onset Date Comments Faxed Order 04/14/2019 [facility] Encounter Details Date Type Department Care Team Description 04/14/2019 Telephone Adult Medicine [address] [address] Alanna Go MD Faxed Order ([facility]) Social History Tobacco Use Types Packs/Day Years [...] 11:55 AM EDT Faxed order received from [facility] at Home please sign , date and fax back to [phone] * Telephone Encounter - Alix De La O - 04/24/2019 2:55 PM EDT Faxed order received from [facility] at Home please sign , date and fax back to [phone] * Telephone Encounter - Mago Dolankatiana - 04/14/2019 10:33 AM EDT Faxed order received from [facility]. Please review, sign, and fax back to [phone]. documented in this encounter Plan of Treatment Not on file documented as of this encounter Visit Diagnoses Not on filedocumented in this encounter Care Teams Armored Car Driver Relationship Specialty Start Date End Date Alanna Go MD PCP - General Internal Medicine 06/13/1808/26 Aaron Steele MD [address] [place] [address] PCP - General Internal Medicine 08/27/19 03/18/23 [facility], Pcp [address] [place] [address] PCP - General Internal Medicine 03/19/23 documented as of this encounter
--- OUTSIDE RECORDS SUMMARY | 2025-01-08 08:03 | XMS_ITS | Encounter Summary ---
Author Organization [employer] Address [address] [place] [address] 7 [place] [address] Care Team Providers Care In Classroom Tutor Name Role Phone Name, Kayden MONDRAGON Primary Care Provider [phone] Pritesh Torres Unavailable Unavailable Reason for Visit * Reason Comments Med Refill Encounter Details Date Type Department Care Team ([facility] st Contact Info) Description 12/31/2024 Refill [facility] MEDICINE [address] [place], [place] [phone] Name, MD Kayden [address] [place] [address] Social History Tobacco Use Types Packs/Day Years [...] documented as of this encounter Care Teams In Classroom Tutor Relationship Specialty Start Date End Date Name, MD Kayden [address] [place] [address] PCP - General Family Medicine 02/02/22 Pritesh Torres FNP [address] [place] [address] Nurse Practitioner Family Medicine 10/15/23 documented as of this encounter
--- OUTSIDE RECORDS SUMMARY | 2025-01-08 08:03 | XMS_ITS | Encounter Summary ---
Author Organization [employer] Address [address] 7t [place] [address] Care Team Providers Care Petrophysical Engineer Name Role Phone Name, Kayden MONDRAGON Primary Care Provider [phone] Pritesh Torres Unavailable Unavailable Encounter Details Date [...] documented as of this encounter Care Teams Petrophysical Engineer Relationship Specialty Start Date End Date Name, MD Kayden [address] [place] [address] PCP - General Family Medicine 02/02/22 Pritesh Torres FNP [address] [place] [address] Nurse Practitioner Family Medicine 10/15/23 documented as of this encounter
--- OUTSIDE RECORDS SUMMARY | 2025-01-08 08:03 | XMS_ITS | Encounter Summary ---
Author Organization [employer] Address [address] [place] [address] 7 [place] [address] Care Team Providers Care Edge Burnisher Name Role Phone Name, Kayden MONDRAGON Primary Care Provider [phone] Pritesh Torres Unavailable Unavailable Reason for Visit * Reason Comments Follow-up Encounter Details Date Type Department Care Team ([facility] st Contact Info) Description 12/16/2024 11:15 AM EST Office Visit [facility] MEDICINE [address] [place], [place] [phone] Name, MD Kayden [address] [place] [address] Hypertension, unspecified type (Primary Dx); History of [...] 11:15 AM EST Outgoing fax sent to [facility] Medical Records Department requesting colonoscopy resultsbe faxed to [phone] ATTN: Satnam Team Nurses / . documented in this encounter Plan of Treatment Not on file documented as of this encounter Procedures Procedure Name Priority Date/Time Associated Diagnosis Comments ALBUMIN, RANDOM URINE W/CREATININE Routine 12/23/2024 8:40 AM EST Hypertension, unspecified type LIPID PANEL, STANDARD Routine 12/23/2024 8:40 AM EST Hypertension, unspecified type COMPREHENSIVE METABOLIC PANEL Routine 12/23/2024 8:40 AM EST Hypertension, unspecified type documented in this encounter Results * Albumin, Random Urine W/Creatinine (12/23/2024 8:40 AM EST) Creatinine, Urine 313.85 mg/dL [facility] Microalbumin Urine 9.0 mg/L [facility] Microalbum Creatinine Ratio Ur 2.8 <30 ug/mg cr [facility] Comment:Albumin/Creatinine R atio Reference Ranges: Normal: < 30 ug/mg creatinine Microalbuminuria: 30 - 300 ug/mg creatinineClinical Albuminuria: > 300 ug/mg creatinine Urine (Urine, Random) 12/23/2024 8:40 AM EST 12/24/2024 1:57 PM EST us Kayden Muller MD LAB URINE ORDERABLES Final Resul t [facility] [address] [place] [address] [phone] * (ABNORMAL) Lipid Panel, Standard (12/23/2024 8:40 AM EST) Triglycerides 130 <150 mg/dL [facility] Comment:Desirable Triglyceri de: less than 150 mg/dLBorderline High Triglyceride 150-199 mg/dLHigh Triglyceride: 200-499 mg/dLVery High Triglyceride: greater than or equal to 5OO mg/dL Cholesterol 219(H) <200 mg/dL [facility] Comment:Desirable Cholestero l: less than 200 mg/dLBorderline High Cholesterol: 200-239 mg/dLHigh Cholesterol: greater than 239 mg/dL LDL Cholesterol Calculated 142(H) <100 mg/dL [facility] Comment:Desirable LDL: less than 100 mg/dLNear Optimal/Above Optimal LDL: 110- 129 mg/dLBorderline High LDL: 130-159 mg/dLHigh LDL: 160-189 mg/dLVery High LDL: greater than or equal to 190 mg/dL HDL Cholesterol 51 >40 mg/dL [facility] Comment:Desirable HDL: great er than 40 mg/dL Note: This HDL assay may give artificially low results in patients with liver disease. Blood Venous blood specimen / Unknown 12/23/2024 8:40 AM EST 12/24/2024 2:11 PM EST us Kayden Name LAB BLOOD ORDERABLES Final Resul t [facility] [address] [place] [address] [phone] * (ABNORMAL) Comprehensive Metabolic Panel (12/23/2024 8:40 AM EST) Sodium 140 135 - 145 mmol/L [facility] Potassium 3.5 3.3 - 5.1 mmol/L [facility] Chloride 100 96 - 108 mmol/L [facility] Carbon Dioxide 33(H) 22 - 29 mmol/L [facility] Anion Gap 11(L) 12 - 20 [facility] Urea Nitrogen (BUN) 8(L) 9 - 16 mg/dL [facility] Creatinine, Serum 0.85 0.5 - 1.4 mg/dL [facility] Creatinine Clr Calc Pharmacy TNP [facility] Comment:Unable to calculate eCrCL; all parameters not provided. Estimated Glomerular Filt Rate >60 [facility] Comment:Chronic Kidney Disea se: Estimated GFR < 60 mL/min/1.98r7Zhehhw Kidney Disease: Estimated GFR < 15 mL/min/1.73m2 Glucose 87 60 - 115 mg/dL [facility] Calcium 9.2 8.4 - 10.2 mg/dL [facility] Bilirubin, Total 0.6 0.0 - 1.0 mg/dL [facility] Aspartate Amino Transferase 20 5 - 31 U/L [facility] Alanine Aminotransferase 15 0 - 31 U/L [facility] Total Protein 9.0(H) 6.5 - 8.0 g/dL [facility] Albumin Level 3.7 3.5 - 5.0 g/dL [facility] Alkaline Phosphatase 93 39 - 117 U/L [facility] Blood Venous blood specimen / Unknown 12/23/2024 8:40 AM EST 12/24/2024 2:11 PM EST us Kayden Muller MD LAB BLOOD ORDERABLES Final Resul t [facility] [address] [place] [address] [phone] documented in this encounter Visit Diagnoses Diagnosis Hypertension, unspecified type- Primary History of COVID-19 documented in this encounter Additional Health Concerns Assessment Noted Time PHQ-9 Depression Total Score: 10 024 3:44 PM EDT documented as of this encounter Care Teams Edge Burnisher Relationship Specialty Start Date End Date Name, MD Kayden [address] [place] [address] PCP - General Family Medicine 02/02/22 Pritesh Torres FNP [address] [place] [address] Nurse Practitioner Family Medicine 10/15/23 documented as of this encounter
--- OUTSIDE RECORDS SUMMARY | 2025-01-08 08:04 | XMS_ITS | Encounter Summary ---
Author Organization [facility] Address [address] [place] [address] Care Team Providers Care Ase Certified Technician Name Role Phone Aaron Steele MD Primary Care Provider [facility], [facility] Primary Care [facility] Encounter Details Date Type Department Care Team Description 08/05/2020 Pt. Non Urgent Medical Question Rheumatology - [address] [address] Trell Deshpande MD Social History Tobacco Use [...] on filedocumented in this encounter Care Teams Ase Certified Technician Relationship Specialty Start Date End Date Aaron Steele MD [address] [place] [address] PCP - General Internal Medicine 08/27/19 03/18/23 [facility], [address] [address] PCP - General Internal Medicine 03/19/23 documented as of this encounter
--- OUTSIDE RECORDS SUMMARY | 2025-01-08 08:04 | XMS_ITS | Encounter Summary ---
Author Organization [facility] Address [facility] [place] [address] Care Team Providers Care Apparatus Lineman Name Role Phone Alanna Go MD Primary Care Provider Un available Aaron Steele MD Primary Care Provider [phone] [facility], Pcp Primary Care Provider Unavailabl e Encounter Details Date Type Department Care Team Description 10/11/2018 Release of Information Medical Records [address] [place] [address] Abstract, Provider Social History Tobacco Use Types [...] on filedocumented in this encounter Care Teams Apparatus Lineman Relationship Specialty Start Date End Date Alanna Go MD PCP - General Internal Medicine 06/13/1808/26 Aaron Steele MD [address] [place] [address] PCP - General Internal Medicine 08/27/19 03/18/23 [facility], Pcp [address] [place] [address] PCP - General Internal Medicine 03/19/23 documented as of this encounter
--- OUTSIDE RECORDS SUMMARY | 2025-01-08 08:04 | XMS_ITS | Encounter Summary ---
Author Organization [facility] Address [address] [place] [address] Care Team Providers Care J2Ee Architect Name Role Phone Alanna Go MD Primary Care Provider Un available Aaron Steele MD Primary Care Provider [phone] [facility], Pcp Primary Care Provider Unavailabl e Encounter Details Date Type Department Care Team Description 12/24/2018 Telephone Adult Medicine [address] [address] Robe Garcia MD Social History Tobacco Use [...] Robe Garcia MD LAB Performing Organization Address [facility] Co de Phone Number [facility] * FREE THYROXINE (T4) (08/04/2019 9:55 AM EDT) FREE T4 (FREE THYROXINE) 1.00 0.70 - 1.80 ng/dL 08/04/2019 1:52 PM EDT [facility] 08/04/2019 9:55 AM EDT 08/04/2019 9:56 AM EDT Robe Garcia MD LAB Performing Organization Address [facility] de Phone Number [facility] * TSH (08/04/2019 9:55 AM EDT) TSH 0.71 0.40 - 4.00 uIU/ml 08/04/2019 1:52 PM EDT [facility] 08/04/2019 9:55 AM EDT 08/04/2019 9:56 AM EDT Robe Garcia MD LAB Performing Organization Address [facility] Co de Phone Number [facility] documented in this encounter Visit Diagnoses Diagnosis Graves disease- Primary Toxic diffuse goiter without mention of thyrotoxic crisis or storm documented in this encounter Care Teams J2Ee Architect Relationship Specialty Start Date End Date Alanna Go MD PCP - General Internal Medicine 06/13/1808/26 Aaron Steele MD [address] [place] [address] PCP - General Internal Medicine 08/27/19 03/18/23 [facility], Pcp [address] [place] [address] PCP - General Internal Medicine 03/19/23 documented as of this encounter
--- OUTSIDE RECORDS SUMMARY | 2025-01-08 08:04 | XMS_ITS | Encounter Summary ---
Author Organization [facility] Address [address] [place] [address] Care Team Providers Care Drivematic Machine Operator Name Role Phone Aaron Steele MD Primary Care Provider [phone] [facility], Pcp Primary Care Provider Unavailabl e Encounter Details Date Type Department Care Team Description 04/21/2020 Refill Adult Medicine [address] [address] Alanna Go MD Social History Tobacco Use Types Packs/Day Years Used Date Smoking Tobacco: Former Cigarettes 6 2004 Smokeless Tobacco: Never Comments:quit 15 years [...] - Alexus Del Toro PA-C - 04/21/2020 11:09 AM EDT No, 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 * Telephone Encounter - Elisa Roldan M.A. - 04/21/2020 7:46 AM EDT Last office visit 02/18/20 Has not been filled since 08/04/19 for 90 days, Will you fill? documented in this encounter Plan of Treatment Not on file documented as of this encounter Visit Diagnoses Not on filedocumented in this encounter Care Teams Drivematic Machine Operator Relationship Specialty Start Date End Date Aaron Steele MD [address] [place] [address] PCP - General Internal Medicine 08/27/19 03/18/23 [facility], [address] [address] PCP - General Internal Medicine 03/19/23 documented as of this encounter
--- OUTSIDE RECORDS SUMMARY | 2025-01-08 08:04 | XMS_ITS | Encounter Summary ---
Author Organization [employer] Address [address] [place] [address] 7 [place] [address] Care Team Providers Care Track Broom Operator Name Role Phone Name, Kayden MONDRAGON Primary Care Provider Pritesh Torres Unavailable Unavailable Reason for Visit * Reason Onset Date Comments Med Refill 10/13/2024 Encounter Details Date Type Department Care Team (Late st Contact Info) Description 10/13/2024 Refill [facility] MEDICINE [address] [place], [place] [phone] Nahomi Magana, ANP [address] [place], [place] [phone] Gastroesophageal reflux disease, unspecified whether esophagitis present [...] documented as of this encounter Care Teams Track Broom Operator Relationship Specialty Start Date End Date Name, MD Kayden [address] [place] [address] PCP - General Family Medicine 02/02/22 Pritesh Torres FNP [address] [place] [address] Nurse Practitioner Family Medicine 10/15/23 documented as of this encounter
--- OUTSIDE RECORDS SUMMARY | 2025-01-08 08:04 | XMS_ITS | Encounter Summary ---
Author Organization [facility] Address [address] [place] [address] Care Team Providers Care Pediatric Np Name Role Phone Alanna Go MD Primary Care Provider Un available Aaron Steele MD Primary Care Provider [phone] [facility], Pcp [facility] Encounter Details Date Type Department Care Team Description 03/10/2019 Orders Only Medical Records [address] [place] [address] Trell Hart MD [address] [place] [address] Social History Tobacco Use Types Packs/Day Years [...] on filedocumented in this encounter Care Teams Pediatric Np Relationship Specialty Start Date End Date Alanna Go MD PCP - General Internal Medicine 06/13/1808/26 Aaron Steele MD [address] [place] [address] PCP - General Internal Medicine 08/27/19 03/18/23 [facility], Pcp [address] [place] [address] PCP - General Internal Medicine 03/19/23 documented as of this encounter
--- OUTSIDE RECORDS SUMMARY | 2025-01-08 08:04 | XMS_ITS | Encounter Summary ---
Author Organization [facility] Address [address] [place] [address] Care Team Providers Care Fishing Boat Captain Name Role Phone Aaron Steele MD Primary Care Provider [phone] [facility], Pcp Primary Care Provider Unavailabl e Encounter Details Date Type Department Care Team Description 12/01/2019 Pt. Non Urgent Medical Question Adult Medicine - [address] [address] Aaron Steele MD [address] [place] [address] Social History Tobacco Use Types Packs/Day Years [...] on filedocumented in this encounter Care Teams Fishing Boat Captain Relationship Specialty Start Date End Date Aaron Steele MD [address] [place] [address] PCP - General Internal Medicine 08/27/19 03/18/23 [facility], Pcp [address] [place] [address] PCP - General Internal Medicine 03/19/23 documented as of this encounter
--- OUTSIDE RECORDS SUMMARY | 2025-01-08 08:04 | XMS_ITS | Encounter Summary ---
Author Organization [facility] Address [address] [place] [address] Care Team Providers Care Frit Mixer Name Role Phone Aaron Steele MD Primary Care Provider [phone] [facility], Pcp Primary Care Provider Unavailabl e Encounter Details Date Type Department Care Team Description 12/11/2021 Telephone Adult Medicine [address] [address] Aaron Steele MD [address] [place] [address] Social History Tobacco Use Types Packs/Day Years [...] on filedocumented in this encounter Care Teams Frit Mixer Relationship Specialty Start Date End Date Aaron Steele MD [address] [place] [address] PCP - General Internal Medicine 08/27/19 03/18/23 [facility], Pcp [address] [place] [address] PCP - General Internal Medicine 03/19/23 documented as of this encounter
--- OUTSIDE RECORDS SUMMARY | 2025-01-08 08:04 | XMS_ITS | Encounter Summary ---
Author Organization [employer] Address [address] [place] [address] 7 [place] [address] Care Team Providers Care Solar Tech Name Role Phone Name, Kayden MONDRAGON Primary Care Provider [phone] Pritesh Torres Unavailable Unavailable Reason for Visit * Reason Comments Med Refill Encounter Details Date Type Department Care Team ([facility] st Contact Info) Description 08/24/2024 Refill [facility] MEDICINE [address] [place], [place] [id number] Name, MD Kayden [address] [place] [address] Lichen sclerosus of vulva Social History Tobacco [...] documented as of this encounter Care Teams Solar Tech Relationship Specialty Start Date End Date Name, MD Kayden [address] [place] [address] PCP - General Family Medicine 02/02/22 Pritesh Torres FNP [address] [place] [address] Nurse Practitioner Family Medicine 10/15/23 documented as of this encounter
--- OUTSIDE RECORDS SUMMARY | 2025-01-08 08:04 | XMS_ITS | Encounter Summary ---
Author Organization [facility] Address [address] [place] [address] Care Team Providers Care Wind Energy Technician Name Role Phone Aaron Steele MD Primary Care Provider [phone] [facility], Pcp Primary Care Provider Unavailabl e Reason for Visit * Reason Onset Date Comments Faxed Refill 05/31/2020 Triamcinolone 0. 1% Ointment Encounter Details Date Type Department Care Team Description 05/31/2020 Refill Dermatology - [address] [address] Chrissy Swartz PA-C Faxed Refill (Triamcinolone 0.1% [...] encounter Miscellaneous Notes * Telephone Encounter - Chrissy Swartz - 05/31/2020 11:06 AM EDT Approved [...] N/A Patients current insurance carrier is: Payor: [employer] FFS / Plan: [employer] [facility] [employer] / Product Type: MEDICAID RISK documented in this encounter Plan of Treatment Not on file documented as of this encounter Visit Diagnoses Not on filedocumented in this encounter Care Teams Wind Energy Technician Relationship Specialty Start Date End Date Aaron Steele MD [address] [place] [address] PCP - General Internal Medicine 08/27/19 03/18/[address] [address] PCP - General Internal Medicine 03/19/23 documented as of this encounter
--- OUTSIDE RECORDS SUMMARY | 2025-01-08 08:04 | XMS_ITS | Encounter Summary ---
Author Organization [facility] Address [facility] [place] [address] Care Team Providers Care Plunket Nurse Name Role Phone Aaron Steele MD Primary Care Provider [phone] [facility], Pcp Primary Care [facility] Encounter Details Date Type Department Care Team Description 11/25/2019 Pt. Non Urgent Medical Question Rheumatology - [address] [address] Trell Deshpande MD Social History Tobacco Use [...] Miscellaneous Notes * Telephone Encounter - Sole MelgozaPJose F - 11/25/2019 1:59 PM ESTFrom: Saritha Healy To: Trell Deshpande MD Sent: 11/25/2019 12:51 PM EST Subject: Question regarding THYROID BLOOD TEST (TSH) I have a fibromyalgia documented in this encounter Plan of Treatment Not on file documented as of this encounter Visit Diagnoses Not on filedocumented in this encounter Care Teams Plunket Nurse Relationship Specialty Start Date End Date Aaron Steele MD [address] [place] [address] PCP - General Internal Medicine 08/27/19 03/18/23 [facility], Pcp [address] [place] [address] PCP - General Internal Medicine 03/19/23 documented as of this encounter
--- OUTSIDE RECORDS SUMMARY | 2025-01-08 08:04 | XMS_ITS | Encounter Summary ---
Author Organization [facility] Address [address] [place] [address] Care Team Providers Care Clinical Education Specialist Name Role Phone Alanna Go MD Primary Care Provider Un available Aaron Steele MD Primary Care Provider [phone] [facility], Pcp Primary Care Provider [facility] Encounter Details Date Type Department Care Team Description 08/04/2019 Pt. Non Urgent Medical Question Adult Urgent Care - [address] [address] Robe Garcia MD Social History Tobacco Use [...] as of this encounter Progress Notes * Goldie Montejo - 08/04/2019 4:12 PM EDTFrom: Saritha Healy To: Robe Garcia MD Sent: 08/04/2019 4:07 PM EDT Subject: follow up I need appointment a soon is possible documented in this encounter Plan of Treatment Not on file documented as of this encounter Visit Diagnoses Not on filedocumented in this encounter Care Teams Clinical Education Specialist Relationship Specialty Start Date End Date Alanna Go MD PCP - General Internal Medicine 06/13/1808/26 Aaron Steele MD [address] [place] [address] PCP - General Internal Medicine 08/27/19 03/18/23 [facility], Pcp [address] [place] [address] PCP - General Internal Medicine 03/19/23 documented as of this encounter
--- OUTSIDE RECORDS SUMMARY | 2025-01-08 08:04 | XMS_ITS | Encounter Summary ---
Author Organization [facility] Address [address] [place] [address] Care Team Providers Care Waistline Joiner Overlock Name Role Phone Alanna Go MD Primary Care Provider Un available Aaron Steele MD Primary Care Provider [phone] [facility], Pcp Primary Care Provider Unavailabl e Encounter Details Date Type Department Care Team Description 02/06/2019 Pt. Non Urgent Medic al Question Adult Medicine [address] [address] Alanna Go MD Social History Tobacco Use [...] Progress Notes * Elisa Roldan M.A. - 02/09/2019 8:02 AM EDTFrom: Saritha Healy To: Alanna Go MD Sent: 02/06/2019 8:04 PM EDT Subject: cirug[place] No me has contestado entiendo que no me pueden ayudar cassandra por guerra mal servicio documented in this encounter Plan of Treatment Not on file documented as of this encounter Visit Diagnoses Not on filedocumented in this encounter Care Teams Waistline Joiner Overlock Relationship Specialty Start Date End Date Alanna Go MD PCP - General Internal Medicine 06/13/1808/26 Aaron Steele MD [address] [place] [address] PCP - General Internal Medicine 08/27/19 03/18/23 [facility], [address] [address] PCP - General Internal Medicine 03/19/23 documented as of this encounter
--- OUTSIDE RECORDS SUMMARY | 2025-01-08 08:04 | XMS_ITS | Encounter Summary ---
Author Organization [facility] Address [facility] [place] [address] Care Team Providers Care Dinkey Engine Operator Name Role Phone Alanna Go MD Primary Care Provider Un available Aaron Steele MD Primary Care Provider [phone] [facility], Pcp Primary Care Provider Unavailabl e Reason for Visit * Reason Onset Date Comments Advice 12/29/2018 Encounter Details Date Type Department Care Team Description 12/29/2018 Pt. Non Urgent Medical Question Adult Urgent Care - [address] [address] Robe Garcia MD Social History Tobacco Use [...] on filedocumented in this encounter Care Teams Dinkey Engine Operator Relationship Specialty Start Date End Date Alanna Go MD PCP - General Internal Medicine 06/13/1808/26 Aaron Steele MD [address] [place] [address] PCP - General Internal Medicine 08/27/19 03/18/[address] [address] PCP - General Internal Medicine 03/19/23 documented as of this encounter
--- OUTSIDE RECORDS SUMMARY | 2025-01-08 08:04 | XMS_ITS | Encounter Summary ---
Author Organization [facility] Address [address] [place] [address] Care Team Providers Care Wave Guide Assembler Name Role Phone Alanna Go MD Primary Care Provider Un available Aaron Steele MD Primary Care Provider [phone] [facility], Pcp Primary Care Provider Unavailabl e Encounter Details Date Type Department Care Team Description 09/25/2018 Orders Only Genetic & Disease Counseling - [address] [address] Luda Sarah PA-C Family history of malignant neoplasm of breast; Family history of malignant neoplasm of ovary; Encounter for nonprocreative genetic counseling Social History Tobacco Use Types Packs/Day Years [...] Procedure Name Priority Date/Time Associated Diagnosis Comments BRACANALYSIS Routine 08/19/2018 Family history of malignant neoplasm of breast Family history of malignant neoplasm of ovary Encounter for nonprocreative genetic counseling documented in this encounter Results * BRACANALYSIS (08/19/2018) 08/19/2018 Luda Sarah PA-C LAB documented in this encounter Visit Diagnoses Diagnosis Family history of malignant neoplasm of breast Family history of malignant neoplasm of ovary Encounter for nonprocreative genetic counseling documented in this encounter Care Teams Wave Guide Assembler Relationship Specialty Start Date End Date Alanna Go MD PCP - General Internal Medicine 06/13/1808/26 Aaron Steele MD [address] [place] [address] PCP - General Internal Medicine 08/27/19 03/18/[address] [address] PCP - General Internal Medicine 03/19/23 documented as of this encounter
--- OUTSIDE RECORDS SUMMARY | 2025-01-08 08:04 | XMS_ITS | Encounter Summary ---
Author Organization [facility] Address [address] [place] [address] [address] [place] [address] Care Team Providers Care Commercial Accountant Name Role Phone Name, Kyaden MONDRAGON Primary Care Provider [phone] Pritesh Torres Unavailable Unavailable Encounter Details Date Type Department Care Team ([facility] st Contact Info) Description 10/08/2022 Abstract [facility] MEDICINE [address] [place] [address] Provider, MD Uvaldo Social History Tobacco Use [...] on filedocumented in this encounter Care Teams Commercial Accountant Relationship Specialty Start Date End Date Name, MD Kayden [address] [place] [address] PCP - General Family Medicine 02/02/22 Pritesh Torres FNP [address] [place] [address] Nurse Practitioner Family Medicine 10/15/23 documented as of this encounter
--- OUTSIDE RECORDS SUMMARY | 2025-01-08 08:04 | XMS_ITS | Encounter Summary ---
Author Organization [facility] Address [address] [place] [address] Care Team Providers Care Veterinarian Epidemiologist Name Role Phone Alanna Go MD Primary Care Provider Un available Aaron Steele MD Primary Care Provider [phone] [facility], Pcp Primary Care Provider Unavailabl e Encounter Details Date Type Department Care Team Description 10/17/2018 PNO Controlled Substance Contract Medical Records [address] [place] [address] Abstract, Provider Social History Tobacco Use Types [...] on filedocumented in this encounter Care Teams Veterinarian Epidemiologist Relationship Specialty Start Date End Date Alanna Go MD PCP - General Internal Medicine 06/13/1808/26 Aaron Steele MD [address] [place] [address] PCP - General Internal Medicine 08/27/19 03/18/23 [facility], Pcp [address] [place] [address] PCP - General Internal Medicine 03/19/23 documented as of this encounter
--- OUTSIDE RECORDS SUMMARY | 2025-01-08 08:04 | XMS_ITS | Encounter Summary ---
Author Organization [facility] Address [address] [place] [address] Care Team Providers Care Rn Lvn Name Role Phone Aaron Steele MD Primary Care Provider [phone] [facility], [facility] Primary Care Provider Unavailabl e Reason for Visit * Reason Onset Date Comments Orders Call 06/16/2021 mri testing. Encounter Details Date Type Department Care Team Description 06/16/2021 Telephone Adult Medicine - [place] [address] [place] [address] Tracee Coe PA-C [address] [place] [address] Orders Call (mri testing.) Social History Tobacco [...] Jr Cornelius - 06/19/2021 9:[address] [place] [facility] external mri brain order for Saritha Healy to have her test at [facility]. Thanks you. * Telephone Encounter - Tracee [...] Saritha Healy to have her test at [facility], she won't fit in the mri sanner here in [place]. Thanks. Jr, Mri Department. * Telephone Encounter - Deena Parr - 06/16/2021 10:32 AM EDT Left message for pt to call office back. Ext [phone] or route to B side. * Telephone [...] giddiness documented in this encounter Care Teams Rn Lvn Relationship Specialty Start Date End Date Aaron Steele MD [address] [place] [address] PCP - General Internal Medicine 08/27/19 03/18/23 [facility], [address] [address] PCP - General Internal Medicine 03/19/23 documented as of this encounter
--- OUTSIDE RECORDS SUMMARY | 2025-01-08 08:04 | XMS_ITS | Encounter Summary ---
Author Organization [facility] Address [address] [place] [address] Care Team Providers Care Press Machine Feeder Name Role Phone Aaron Steele MD Primary Care Provider [phone] [facility], Pcp Primary Care Provider Unavailabl e Encounter Details Date Type Department Care Team Description 02/01/2020 Pt. Non Urgent Medical Question Adult Medicine [address] [address] Aaron Steele MD [address] [place] [address] Social History Tobacco Use Types Packs/Day Years [...] on filedocumented in this encounter Care Teams Press Machine Feeder Relationship Specialty Start Date End Date Aaron Steele MD [address] [place] [address] PCP - General Internal Medicine 08/27/19 03/18/23 [facility], Pcp [address] [place] [address] PCP - General Internal Medicine 03/19/23 documented as of this encounter
--- OUTSIDE RECORDS SUMMARY | 2025-01-08 08:04 | XMS_ITS | Encounter Summary ---
Author Organization [facility] Address [facility] [place] [address] Care Team Providers Care Cork Pressing Machine Operator Name Role Phone Alanna Go MD Primary Care Provider Un available Aaron Steele MD Primary Care Provider [phone] [facility], Pcp Primary Care Provider Unavailabl e Reason for Visit * Reason Onset Date Comments Faxed Order 03/20/2019 Encounter Details Date Type Department Care Team Description 03/20/2019 Telephone Adult Medicine [address] [address] Alanna Go MD Faxed Order Social History Tobacco Use Types Packs/Day Years [...] encounter Miscellaneous Notes * Telephone Encounter - Alix De La O - 04/10/2019 1:11 PM EDT Faxed order received from [facility] please sign , date and fax back to [phone] * Telephone Encounter - Irvinsha Henrik - 03/20/2019 2:07 PM EDT Please sign orders for Silvia, placed in Dr. Bassem [place] incoming documented in this encounter Plan of Treatment Not on file documented as of this encounter Visit Diagnoses Not on filedocumented in this encounter Care Teams Cork Pressing Machine Operator Relationship Specialty Start Date End Date Alanna Go MD PCP - General Internal Medicine 06/13/1808/26 Aaron Steele MD [address] [place] [address] PCP - General Internal Medicine 08/27/19 03/18/23 [facility], [address] [address] PCP - General Internal Medicine 03/19/23 documented as of this encounter
--- OUTSIDE RECORDS SUMMARY | 2025-01-08 08:04 | XMS_ITS | Encounter Summary ---
Author Organization [facility] Address [address] [place] [address] Care Team Providers Care Supervisor Capacitor Processing Name Role Phone Aaron Steele MD Primary Care Provider [phone] [facility] Primary Care Provider Unavailabl e Reason for Visit * Reason Comments E-prescribe Rx Request Encounter Details Date Type Department Care Team Description 12/26/2021 Refill Adult Urgent Care - [address] [address] Booker Jesus PA-C [address] [place] [address] E-prescribe Rx Request Social History Tobacco Use [...] Patients current insurance carrier is: Payor: [employer] FFS / Plan: [employer] / Product Type: MEDICAID RISK documented in this encounter Plan of Treatment Not on file documented as of this encounter Visit Diagnoses Not on filedocumented in this encounter Care Teams Supervisor Capacitor Processing Relationship Specialty Start Date End Date Aaron Steele MD [address] [place] [address] PCP - General Internal Medicine 08/27/19 03/18/23 [facility], [address] [address] PCP - General Internal Medicine 03/19/23 documented as of this encounter
--- OUTSIDE RECORDS SUMMARY | 2025-01-08 08:04 | XMS_ITS | Clinical Summary ---
Author Organization [facility] Address [address] [place] [address] 7 [place] [address] Care Team Providers Care Application Software Engineer Name Role Phone Name, Kayden MONDRAGON Primary Care Provider [phone] Pritesh Torres Unavailable Unavailable Allergies Active Allergy [...] mouth Once per day. 90 capsule 3 024 Active busPIRone (Buspar) 15 MG tabletIndicatio ns:Posttraumati c stress disorder Take 0.5 tablets (7.5 mg) by mouth every 12 (twelve) hours. 90 tablet 3 024 Active cetirizine (ZyrTEC) 10 MG tablet Take 1 tablet (10 mg) by mouth Once per day. 30 tablet 11 024 Active montelukast (Singulair) 10 MG tablet Take 1 tablet (10 mg) by mouth at bedtime. 30 tablet 11 024 Active lactulose (Chronulac) 10 GM/15ML solution TAKE 15 ML BY MOUTH EVERY MORNING 473 mL 3 024 Active clobetasol (Temovate) 0.05 % ointmentIndicat ions:Lichen [...] BY MOUTH BEFORE BREAKFAST 90 capsule 1 10/31/2 024 Active LORazepam (Ativan) 1 MG tabletIndicatio ns:Posttraumati [...] NEEDED FOR MODERATE PAIN. 90 tablet Active Ventolin HFA 108 (90 Base) MCG/ACT inhaler INHALE 2 PUFFS EVERY 4 HOURS. 18 g 3 Active albuterol 108 (90 Base) MCG/ACT inhaler Inhale 2 puffs every 4 (four) hours. 18 g 3 024 2024 Discontinued Acetaminophen Extra Strength 500 MG tablet TAKE [...] effects of topical steroid medication -referral to asphalt tile floor layer placed for further evaluation and diagnosis confirmation [...] persistent asthma without complication 07/13 Patient is [place] 03/12/2019 Hyperthyroidism 11/10/2018 Sjogren's syndrome 10/17/2018 Overview (06/24/2023): Dry eyes, dry mouth, positive SSA and SSB antibodies. 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 Call [facility] with any issues or concerns. All her [...] mellitus 12/04/2022 02/18/2023 Bipolar 1 disorder 06/16/2018 Overview (12/04/2022): F/u Gely Encounters Date Type Department Care Team Description 12/31/2024 Refill [facility] [place] [address] Name, MD Kayden 12/29/2024 10:00 AM EST Telemedicine [facility] [address] [place] [address] Gracie Cohen RN Hypertension, unspecified type 12/23/2024 Orders Only [facility] [address] [place] [address] NameKayden MD 12/22/2024 Orders Only [facility] [address] [place] [address] ProviderUvaldo MD 12/21/2024 Refill [facility] [place] [address] Kayden Muller MD 12/16/2024 11:15 AM EST Office Visit [facility] [place] [address] Kayden Muller MD Hypertension, unspecified type (Primary Dx); History of COVID-19 12/16/2024 Telephone [facility] [place] [address] Kat Swanson RN 12/16/2024 Travel 12/14/2024 Travel 12/12/2024 Refill [facility] [address] [place] [address] Kayden Muller MD Primary hypertension 12/12/2024 Refill [facility] [address] [place] [address] NameKayden MD Posttraumatic stress disorder 11/20/2024 Telephone [facility] [address] [place] [address] Kayden Muller MD Covid concerns 11/16/2024 Telephone [facility] [address] [place] [address] Kayden Muller MD Nurse Triage 10/29/2024 2:20 PM EST Office Visit [facility] [address] [place] [address] Faith Bishop NP Acute hemorrhoid (Primary Dx) 10/29/2024 Telephone [facility] [address] [place] [address] Kayden Muller MD Nurse Triage 10/22/2024 Refill [facility] [address] [place] [address] Kayden Muller MD Posttraumatic stress disorder 10/14/2024 Orders Only GENERIC EXTERNAL DATA DEPARTMENT Provider, Generic External Data 10/13/2024 Refill [facility] [address] [place] [address] Nahomi Magana ANP Gastroesophageal reflux disease, unspecified [...] 12/16/2024 11:41 AM EST Plan of Treatment Health Maintenance Due Date Last Done Comments CT Colonography 1972 FIT DNA/Cologuard 1972 FIT 1972 FOBT 1970 Sigmoidoscopy 1970 Family Planning (PISQ) 1987 Diabetes: Hemoglobin A1C 04/16/2024 023, 10/03/2022, 01/26/2022 COVID-19 Vaccine ( season) 2024 08/14/2023, 08/27/2022, 03/28/2022, Additional history exists Depression Monitoring (PHQ-9) 09/04/2024 03/05/2024, 03/05/2024 SDOH Screening 02/16/2025 02/17/2024 Depression Screening 03/05/2025 03/05/2024, 03/05/20 Pap Smear 05/17/2025 05/17/2022 Alcohol/Substance Use Screening 06/01/2025 06/01/2024 Tobacco Screening 12/16/2025 12/16/2024 Cervical Cancer Screening 05/17/2027 HPV/Cotest 05/17/2027 05/17/2022 DTaP/Tdap/Td Vaccines (3 - Td or Tdap) 10/17/2028 10/17/2018, 01/14/2014 Lipid Panel 12/23/2029 12/23/2024, 12/2023, 04/16/2023, Additional history exists Colonoscopy 09/14/2031 09/14/2021 Colorectal [...] 12/23/2024 8:40 AM EST Hypertension, unspecified type CANCELLED CHEMISTRY Routine 12/23/2024 8 :36 AM EST GROSS AND MICROSCOPIC LEVEL 3 Routine 10/14/2024 10:00 AM EST BACTERIAL VAGINOSIS PANEL Routine 10/14/2024 9:03 AM EST HEMOGLOBIN A1C Routine 04/16/2023 9:50 AM EDT [...] Recently Relevant to Health Maintenance Results * Albumin, Random Urine W/Creatinine (12/23/2024 8:40 AM EST) Creatinine, Urine 313.85 mg/dL [facility] Microalbumin Urine 9.0 mg/L [facility] Microalbum Creatinine Ratio Ur 2.8 <30 ug/mg cr [facility] Comment:Albumin/Creatinine R atio Reference Ranges: Normal: < 30 ug/mg creatinine Microalbuminuria: 30 - 300 ug/mg creatinineClinical Albuminuria: > 300 ug/mg creatinine Urine (Urine, Random) 12/23/2024 8:40 AM EST 12/24/2024 1:57 PM EST us Kayden Muller MD LAB URINE ORDERABLES Final Resul t [facility] [address] [place] [phone] * (ABNORMAL) Lipid Panel, Standard (12/23/2024 8:40 AM EST) Triglycerides 130 <150 mg/dL [facility] Comment:Desirable Triglyceri de: less than 150 mg/dLBorderline High Triglyceride 150-199 mg/dLHigh Triglyceride: 200-499 mg/dLVery High Triglyceride: greater than or equal to 5OO mg/dL Cholesterol 219(H) <200 mg/dL [facility] Comment:Desirable Cholestero l: less than 200 mg/dLBorderline High Cholesterol: 200-239 mg/dLHigh Cholesterol: greater than 239 mg/dL LDL Cholesterol Calculated 142(H) <100 mg/dL [facility] Comment:Desirable LDL: less than 100 mg/dLNear Optimal/Above Optimal LDL: 110- 129 mg/dLBorderline High LDL: 130-159 mg/dLHigh LDL: 160-189 mg/dLVery High LDL: greater than or equal to 190 mg/dL HDL Cholesterol 51 >40 mg/dL [facility] Comment:Desirable HDL: great er than 40 mg/dL Note: This HDL assay may give artificially low results in patients with liver disease. Blood Venous blood specimen / Unknown 12/23/2024 8:40 AM EST 12/24/2024 2:11 PM EST us Kayden Name MD LAB BLOOD ORDERABLES Final Resul t [facility] [address] [place] [address] [phone] * (ABNORMAL) Comprehensive Metabolic Panel (12/23/2024 8:40 AM EST) Sodium 140 135 - 145 mmol/L [facility] Potassium 3.5 3.3 - 5.1 mmol/L [facility] Chloride 100 96 - 108 mmol/L [facility] Carbon Dioxide 33(H) 22 - 29 mmol/L [facility] Anion Gap 11(L) 12 - 20 [facility] Urea Nitrogen (BUN) 8(L) 9 - 16 mg/dL [facility] Creatinine, Serum 0.85 0.5 - 1.4 mg/dL [facility] Creatinine Clr Calc Pharmacy TNP [facility] Comment:Unable to calculate eCrCL; all parameters not provided. Estimated Glomerular Filt Rate >60 [facility] Comment:Chronic Kidney Disea se: Estimated GFR < 60 mL/min/1.99y0Cvrfvl Kidney Disease: Estimated GFR < 15 mL/min/1.73m2 Glucose 87 60 - 115 mg/dL [facility] Calcium 9.2 8.4 - 10.2 mg/dL [facility] Bilirubin, Total 0.6 0.0 - 1.0 mg/dL [facility] Aspartate Amino Transferase 20 5 - 31 U/L [facility] Alanine Aminotransferase 15 0 - 31 U/L [facility] Total Protein 9.0(H) 6.5 - 8.0 g/dL [facility] Albumin Level 3.7 3.5 - 5.0 g/dL [facility] Alkaline Phosphatase 93 39 - 117 U/L [facility] Blood Venous blood specimen / Unknown 12/23/2024 8:40 AM EST 12/24/2024 2:11 PM EST us Kayden Muller MD LAB BLOOD ORDERABLES Final Resul t Performing Organization Address City/[facility]/ZIP Co de Phone Number [facility] [address] [place] [phone] * Cancelled Chemistry (12/23/2024 8:36 AM EST) Cancelled Chemistry SEE NOTE [facility] Comment:NO SPECIMEN RECEIVED FOR MICRU, CMP, LIPID 12/23/2024 8:36 AM EST 12/23/2024 7:55 PM EST us Kayden Muller MD HISTORICAL/NON ORDERABLE LABS Fi nal Result Performing Organization Address [facility] Co de Phone Number [facility] [address] [place] [address] [phone] * Gross and Microscopic Level 3 (10/14/2024 10:00 AM EST) 10/14/2024 10:0 0 AM EST 10/14/2024 1:24 PM EST Narrative [facility] - 10/19/2024 5:04 PM EST ----- ------- Name: Saritha Healy ? Age/Sex: 53/F ? : 1970 Unit#: [id number] ?? Attend Dr: Roger Terry MD ?Re10/14/24 ?Status: DEP REF ? Location: HO.LNP ?Disch: ? ----- ------- SPEC : [id number] ? RECD: 10/14/24-1323 ? STATUS: ??SOUT ? REQ NUM: [id number] ? JALEN: 10/14/24-999 ? SUBM DR: Roger Terry MD ? ENTERED: ??10/14/24 ?SP TYPE: Surgical ? OTHR DR: Kayden Muller MD ? ORDERED: ??Gross Micro L3 ? Diagnosis [...] microscopic examination, 2 pieces in cassette A. ??[facility] This case was reviewed intradepartmentally. Copies To: ?? Renzo,Kayden MONDRAGON ?? [address] [facility] ?? [place] [address] ?? [phone] ?? Roger Terry MD ?? [facility] ?? [address] [facility] [address] ?? [place] [address] ?? [phone] ----- ------- Signed (signature on file) Aris Marmolejo MD 10/19/24 1704 ? ----- ------- ? END OF REPORT ? us Generic External Data Provider LAB CYTOLOGY REKHA MCINTOSH Final Result [facility] [address] [place] [phone] * (ABNORMAL) Bacterial Vaginosis (10/14/2024 9:03 AM EST) Pathologist [facility] TRICHOMONAS VAGINALIS DETECTION BY PCR NOT DETECTED Not Detect [facility] BACTERIAL VAGINOSIS DETECTION BY PCR NEGATIVE Negative [facility] Comment:The BV organism targ ets [...] GROUP DETECTION BY PCR DETECTED(A) Not Detect [facility] Ruchi glab krusei PCR NOT DETECTED Not Detect [facility] 10/14/2024 9:03 AM EST 10/14/2024 1:26 PM EST Generic External Data Provider LAB MICROBIOLOGY - GENERAL ORDERABLES Final Result Performing Organization Address [facility] Co de Phone Number [facility] [address] [place] [address] [phone] * Hemoglobin A1c (04/16/2023 9:50 AM EDT) Hemoglobin A1c 5.7 % [facility] Comment:Hemoglobin A1C Refer ence Range Adults: 4.8 - 6.0 % Non diabetic: < 6.0 % Goal: < 7.0 %Additional Action Suggested: > 8.0 %Note: Hemoglobin A1c results are invalid for patients with abnormal amounts of HbF. Blood transfusions may impact the HbA1c concentration in the patient sample. Estimated Average Glucose 117 mg/dL [facility] Comment:eAG = Estimated ave rage glucose which is %A1C expressed asaverage glucose, using the formula of the [id number]-[id number] Glucose study (ADAG), Diabetes Care, Vol.31,#8,Jun. 2007 04/16/2023 9:50 AM EDT 04/16/2023 9:52 AM EDT [facility] External Provider LAB BLO OD ORDERABLES Final Result Performing Organization Address [facility] Co de Phone Number [facility] [address] [place] [phone] * HEPATITIS C AB W/REFL TO [...] a test for HCV RNA (test code 73119) is suggested. ?? For additional information please refer to http://education.BriefMe/faq/BHO48w8 (This link is being provided for informational/ educational purposes only.) ?? 07/09/2022 8:40 AM EDT us Cherie Wilde PRODUCTION MACHINIST HISTORICAL/NON ORDERABLE LABS Final Result Performing Organization Address [facility] de Phone Number [facility] [address] [place] [address], * HIV 1/2 ANTIGEN/ANTIBODY,FOURTH GENERATION W/RFL (07/09/2022 8:40 AM EDT) HIV-1/2 ANTIGEN AND ANTIBODIES, 4TH GENERATION W/ REFLEX NON-REACT ROSENDO NON-REACT ROSENDO [facility] Comment: HIV-1 antigen and HIV-1/HIV-2 [...] ? For additional information please refer to http://education.BriefMe/faq/DTN518 (This link is being provided for informational/ educational purposes only.) ? The performance of this assay has not been clinically validated in patients less than 2 years old. ?? 07/09/2022 8:40 AM EDT Cherie Andry [facility] LAB BLOOD ORDERABLES Final Res ult Performing Organization Address [facility] Co de Phone Number [facility] [address] [place] [address], * THINPREP TIS PAP AND HPV mRNA E6/E7 WITH REFLEX TO HPV 16,18/45 (05/17/2022 10:46 AM EDT) Clinical Information: None given [facility] COMMENT SEE COMMENT [facility] [...] has been evaluated with computer assisted technology. [facility] Cytotechnologis t: SEE COMMENT [facility] Comment: ROYA, CT(ASCP) CT screening location: [address] ??[phone] HPV nRNA E6/E7 Not Detected Not Detected [facility] Comment: Methodology: Paediatric Physiotherapist-Mediated Amplification This assay detects E6/E7 viral messenger RNA (mRNA) from 14 high-risk HPV types (16,18,31,33,35,39,45,51,52,56,58,59,66,68). ? Cervical sources are required for HPV testing. If a vaginal source from a patient who has had a total hysterectomy with removal of cervix was ?? submitted, please contact the testing laboratory for alternative testing options. ?? For additional information, please refer to http://education.BriefMe/faq/QKD326i2 (This link if provided for information/ educational purposes only.) Interpretation/ Result: Negative for intraepithelial lesion or malignancy. [facility] LMP: ??? 2019 [facility] Prev. BX: NONE GIVEN [facility] Prev. PAP: 3Y NIL [facility] SOURCE: None given [facility] Statement Of Adequacy: SEE COMMENT [facility] Comment: Satisfactory for evaluation. Endocervical/transformation zone component absent. 05/17/2022 10:4 6 AM EDT Lina Haynes CNM LAB PATHOLOGY ORDERABLES Final Result [facility] [address] * Colonoscopy (09/14/2021 3:30 PM EDT) Anatomical Region Laterality Modality Endoscopy us Historical Provider MD ENDOSCOPY PROCEDURE ORDER KAYLYN Final Result from Last 3 Months or Most Recently Relevant to Health Maintenance Insurance [facility] C3 Care Teams Application Software Engineer Relationship Specialty Start Date End Date Name, MD Kayden [address] [place] [address] PCP - General Family Medicine 02/02/22 Pritesh Torres FNP [address] [place] [address] Nurse Practitioner Family Medicine 10/15/23
--- OUTSIDE RECORDS SUMMARY | 2025-01-08 08:04 | XMS_ITS | Encounter Summary ---
Author Organization [facility] Address [address] [place] [address] Care Team Providers Care Real Time Operator Name Role Phone Alanna Go MD Primary Care Provider Un available Aaron Steele MD Primary Care Provider [phone] Replaced By [facility], Pcp Primary Care Provider [facility] Encounter Details Date Type Department Care Team Description 01/09/2019 Internal Medicine Physician Assistant Report Medical Records [address] [place] [address] [facility] shawJosh MD Social History Tobacco Use Types Packs/Day [...] on filedocumented in this encounter Care Teams Real Time Operator Relationship Specialty Start Date End Date Alanna Go MD PCP - General Internal Medicine 06/13/1808/26 Aaron Steele MD [address] [place] [address] PCP - General Internal Medicine 08/27/19 03/18/23 Community, Pcp [address] [place] [address] PCP - General Internal Medicine 03/19/23 documented as of this encounter
--- OUTSIDE RECORDS SUMMARY | 2025-01-08 08:04 | XMS_ITS | Encounter Summary ---
Author Organization [facility] Address [address] [place] [address] Care Team Providers Care Center Manager Name Role Phone Aaron Steele MD Primary Care Provider [phone] [facility]ly [facility] Primary Care Provider Unavailabl e Reason for Visit * Reason Comments E-prescribe Rx Request Encounter Details Date Type Department Care Team Description 02/06/2022 Refill Endocrinology - [address] [address] Karo Jesus PA-C [address] [place] [address] E-prescribe Rx Request Social History Tobacco Use [...] N/A Patients current insurance carrier is: Pay[place]: [place] / Plan: MEDICAID PCC / Product Type: MEDICAID [id number] documented in this encounter Plan of Treatment Not on file documented as of this encounter Visit Diagnoses Not on filedocumented in this encounter Care Teams Center Manager Relationship Specialty Start Date End Date Aaron Steele MD [address] [place] [address] PCP - General Internal Medicine 08/27/19 03/18/23 [facility]ly [facility], Pcp [address] [place] [address] PCP - General Internal Medicine 03/19/23 documented as of this encounter
--- OUTSIDE RECORDS SUMMARY | 2025-01-08 08:04 | XMS_ITS | Encounter Summary ---
Author Organization [facility] Address [address] [place] [address] 7 [place] [address] Care Team Providers Care Mill Roll Operator Name Role Phone Name, Kayden MONDRAGON Primary Care Provider [phone] Pritesh Torres Unavailable Unavailable Reason for Visit * Reason Comments Med Refill Encounter Details Date Type Department Care Team ([facility] st Contact Info) Description 07/27/2024 Refill [facility] [address] [place], [place] [phone] Nahomi Magana, ANP [address] [place] [address] Gastroesophageal reflux disease, unspecified whether esophagitis present [...] documented as of this encounter Care Teams Mill Roll Operator Relationship Specialty Start Date End Date Name, MD Kayden [address] [place] [address] PCP - General Family Medicine 02/02/22 Pritesh Torres FNP [address] [place] [address] Nurse Practitioner Family Medicine 10/15/23 documented as of this encounter
--- OUTSIDE RECORDS SUMMARY | 2025-01-08 08:04 | XMS_ITS | Encounter Summary ---
Author Organization [facility] Address [facility] [place] [address] Care Team Providers Care Boat Camp Operator Name Role Phone Alanna Go MD Primary Care Provider Un available Aaron Steele MD Primary Care Provider [phone] [facility]cp Primary Care Provider [facility] e Encounter Details Date Type Department Care Team Description 02/19/2019 Hospital Medical Records [address] [place] [address] Desilets, Josh Gómez MD Social History Tobacco Use Types Packs/Day [...] filedocumented in this encounter Care Teams Boat Camp Operator Relationship Specialty Start Date End Date Alanna Go MD PCP - General Internal Medicine 06/13/1808/26 Aaron Steele MD [address] [place] [address] PCP - General Internal Medicine 08/27/19 03/18/23 Community, Pcp [address] [place] [address] PCP - General Internal Medicine 03/19/23 documented as of this encounter
--- OUTSIDE RECORDS SUMMARY | 2025-01-08 08:04 | XMS_ITS | Encounter Summary ---
Author Organization [facility] Address [facility] [place] [address] Care Team Providers Care Senior Living Advisor Name Role Phone Alanna Go MD Primary Care Provider Un available Aaron Steele MD Primary Care Provider [phone] [facility], Pcp Primary Care Provider Unavailabl e Encounter Details Date Type Department Care Team Description 10/23/2018 [facility] Medical Records [address] [place] [address] Abstract, Provider Social History Tobacco Use Types [...] on filedocumented in this encounter Care Teams Senior Living Advisor Relationship Specialty Start Date End Date Alanna Go MD PCP - General Internal Medicine 06/13/1808/26 Aaron Steele MD [address] [place] [address] PCP - General Internal Medicine 08/27/19 03/18/23 Community, Pcp [address] [place] [address] PCP - General Internal Medicine 03/19/23 documented as of this encounter
--- OUTSIDE RECORDS SUMMARY | 2025-01-08 08:04 | XMS_ITS | Encounter Summary ---
Author Organization [facility] Address [facility] [place] [address] Care Team Providers Care Records Section Supervisor Name Role Phone Alanna Go MD Primary Care Provider Un available Aaron Steele MD Primary Care Provider [phone] [facility], Pcp Primary Care Provider Unavailabl e Encounter Details Date Type Department Care Team Description 01/26/2019 Guitar Technician Report Medical Records [address] [place] [address] Abstract, Provider Social History Tobacco Use Types [...] on filedocumented in this encounter Care Teams Records Section Supervisor Relationship Specialty Start Date End Date Alanna Go MD PCP - General Internal Medicine 06/13/1808/26 Aaron Steele MD [address] [place] [address] PCP - General Internal Medicine 08/27/19 03/18/23 Community, Pcp [address] [place] [address] PCP - General Internal Medicine 03/19/23 documented as of this encounter
--- OUTSIDE RECORDS SUMMARY | 2025-01-08 08:04 | XMS_ITS | Encounter Summary ---
Author Organization [facility] Address [address] [place] [address] Care Team Providers Care Museum Host/Hostess Name Role Phone Aaron Steele MD Primary Care Provider [phone] Replaced By [facility], [facility] Primary Care Provider Unavailabl e Reason for Visit * Reason Onset Date Comments Medication 08/01/2021 Encounter Details Date Type Department Care Team Description 08/01/2021 Refill Gastroenterology [facility] [address] [facility] [address] [place] [phone] Kvng Bravo MD Medication Social History Tobacco Use Types Packs/Day [...] on filedocumented in this encounter Care Teams Museum Host/Hostess Relationship Specialty Start Date End Date Aaron Steele MD [address] [place] [address] PCP - General Internal Medicine 08/27/19 03/18/23 Replaced By [facility], Pcp [address] [place] [address] PCP - General Internal Medicine 03/19/23 documented as of this encounter
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
--- OUTSIDE RECORDS SUMMARY | 2025-01-08 08:04 | XMS_ITS | Encounter Summary ---
Author Organization [facility] Address [facility] [place] [address] Care Team Providers Care Building Construction Estimator Name Role Phone Aaron Steele MD Primary Care Provider [phone] [facility], Pcp Primary Care Provider [facility] e Encounter Details Date Type Department Care Team Description 10/12/2019 Orders Only Medical Records [address] [place] [address] Alanna Go MD Social History Tobacco Use [...] Name Priority Date/Time Associated Diagnosis Comments OUTSIDE SLEEP STUDY Routine 10/06/2019 documented in this encounter Results * OUTSIDE SLEEP STUDY (10/06/2019) Alanna Go MD PULMONOLOGY documented in this encounter Visit Diagnoses Not on filedocumented in this encounter Care Teams Building Construction Estimator Relationship Specialty Start Date End Date Aaron Steele MD [address] [place] [address] PCP - General Internal Medicine 08/27/19 03/18/23 [facility], Pcp [address] [place] [address] PCP - General Internal Medicine 03/19/23 documented as of this encounter
--- OUTSIDE RECORDS SUMMARY | 2025-01-08 08:04 | XMS_ITS | Encounter Summary ---
Author Organization [facility] Address [address] [place] [address] Care Team Providers Care Automatic Winder Operator Name Role Phone Aaron Steele MD Primary Care Provider [phone] [facility] Primary Care Provider Unavailabl e Reason for Visit * Reason Onset Date Comments refill request 08/13/2020 Encounter Details Date Type Department Care Team Description 08/13/2020 Refill Adult Medicine [facility] [address] [place] [address] Alexus Del Toro PA-C [address] [facility] [address] [place] [address] refill request Social History Tobacco Use Types [...] filedocumented in this encounter Care Teams Automatic Winder Operator Relationship Specialty Start Date End Date Aaron Steele MD [address] [place] [address] PCP - General Internal Medicine 08/27/19 03/18/23 [facility]cp [address] [place] [address] PCP - General Internal Medicine 03/19/23 documented as of this encounter
--- OUTSIDE RECORDS SUMMARY | 2025-01-08 08:04 | XMS_ITS | Encounter Summary ---
Author Organization [facility] Address [address] [place] [address] Care Team Providers Care Tipple Oiler Name Role Phone Aaron Steele MD Primary Care Provider [phone] [facility], Pcp Primary Care Provider Unavailabl e Encounter Details Date Type Department Care Team Description 11/06/2019 Telephone General Surgery - [address] [place] [address] Trell Hart MD [address] [place] [address] Social History Tobacco Use Types Packs/Day Years [...] encounter Miscellaneous Notes * Telephone Encounter - Matilde Johnson M.A. - 11/06/2019 9:53 AM EST Appt booked for 11/[address] Hart. * Telephone Encounter - Matilde Johnson M.A. - 11/06/2019 9:53 AM EST Regarding: breast Contact: ----- Message from Cary sent at 11/06/2019 3:31 AM EST ----- Miguel Lopez I need an appointment with you because it took several months with this pain in an area where my left breast was but it is really unbearable and now it is moving to the back and it has me crazy please thank you thank you documented in this encounter Plan of Treatment Not on file documented as of this encounter Visit Diagnoses Not on filedocumented in this encounter Care Teams Tipple Oiler Relationship Specialty Start Date End Date Aaron Steele MD [address] [place] [address] PCP - General Internal Medicine 08/27/19 03/18/23 [facility], Pcp [address] [place] [address] PCP - General Internal Medicine 03/19/23 documented as of this encounter
--- OUTSIDE RECORDS SUMMARY | 2025-01-08 08:04 | XMS_ITS | Encounter Summary ---
Author Organization [facility] Address [address] [place] [address] Care Team Providers Care Knowledge Analyst Name Role Phone Alanna Go MD Primary Care Provider Un available Aaron Steele MD Primary Care Provider [phone] [facility], Pcp Primary Care Provider Unavailabl e Encounter Details Date Type Department Care Team Description 03/06/2019 Hospital Medical Records [address] [place] [address] Trell Hart MD [address] [place] [address] Social History Tobacco Use Types Packs/Day Years [...] on filedocumented in this encounter Care Teams Knowledge Analyst Relationship Specialty Start Date End Date Alanna Go MD PCP - General Internal Medicine 06/13/1808/26 Aaron Steele MD [address] [place] [address] PCP - General Internal Medicine 08/27/19 03/18/23 [facility], [address] [address] PCP - General Internal Medicine 03/19/23 documented as of this encounter
--- OUTSIDE RECORDS SUMMARY | 2025-01-08 08:04 | XMS_ITS | Encounter Summary ---
Author Organization [facility] Address [address] [place] [address] Care Team Providers Care Cashier Checker Name Role Phone Aaron Steele MD Primary Care Provider [phone] [facility], Pcp Primary Care Provider Unavailabl e Reason for Visit * Reason Onset Date Comments Medication 08/31/2021 Encounter Details Date Type Department Care Team Description 08/31/2021 Refill Gastroenterology [facility] [address] [facility] [address] [place] [id number] Kvng Bravo MD Medication Social History Tobacco [...] on filedocumented in this encounter Care Teams Cashier Checker Relationship Specialty Start Date End Date Aaron Steele MD [address] [place] [address] PCP - General Internal Medicine 08/27/19 03/18/23 [facility], Pcp [address] [place] [address] PCP - General Internal Medicine 03/19/23 documented as of this encounter
--- OUTSIDE RECORDS SUMMARY | 2025-01-08 08:04 | XMS_ITS | Encounter Summary ---
Author Organization [facility] Address [facility] [place] [address] Care Team Providers Care Engineering Production Worker Name Role Phone Alanna Go MD Primary Care Provider Un available Aaron Steele MD Primary Care Provider [facility], Pcp Primary Care Provider Unavailabl e Encounter Details Date Type Department Care Team Description 11/14/2018 Pt. Non Urgent Medic al Question Adult Medicine [address] [address] Alanna Go MD Social History Tobacco Use [...] as of this encounter Progress Notes * Bailey Wan M.A. - 11/14/2018 8:07 AM ESTFrom: Saritha Healy To: Alanna Go MD Sent: 11/14/2018 7:52 AM EST Subject: medication No la lion recibido todav??a documented in this encounter Plan of Treatment Not on file documented as of this encounter Visit Diagnoses Not on filedocumented in this encounter Care Teams Engineering Production Worker Relationship Specialty Start Date End Date Alanna Go MD PCP - General Internal Medicine 06/13/1808/26 Aaron Steele MD [address] [place] [address] PCP - General Internal Medicine 08/27/19 03/18/23 [facility], Pcp [address] [place] [address] PCP - General Internal Medicine 03/19/23 documented as of this encounter
--- OUTSIDE RECORDS SUMMARY | 2025-01-08 08:04 | XMS_ITS | Encounter Summary ---
Author Organization [facility] Address [address] [place] [address] Care Team Providers Care Cook Pressure Name Role Phone Aaron Steele MD Primary Care Provider [facility], Pcp Primary Care Provider Unavailabl e Reason for Visit * Reason Onset Date Comments REFERRAL 09/18/2019 Encounter Details Date Type Department Care Team Description 09/18/2019 Telephone Medicine/Pediatrics - [address] [address] Aaron Steele MD [address] [place] [address] REFERRAL Social History Tobacco Use Types Packs/Day Years Used Date Smoking Tobacco: Former Cigarettes 1 6 2004 Smokeless Tobacco: Never Comments:quit 15 years ago Alcohol Use Standard Drinks/Week Comments Yes 0 (1 standard drink = 0.6 oz pur e alcohol) social Sex Assigned at Date Recorded Not on file Job Start Date Occupation Industry Not on file Not on file Not on file documented as of this encounter Miscellaneous Notes * Telephone Encounter - Lyndsey Tobin - 09/18/2019 11:45 AM EST FYI to ordering provider. Re:obstructive sleep apnea ([facility]) All attempts exhausted to reach patient to book appt. KMS. documented in this encounter Plan of Treatment Not on file documented as of this encounter Visit Diagnoses Not on filedocumented in this encounter Care Teams Cook Pressure Relationship Specialty Start Date End Date Aaron Steele MD [address] [place] [address] PCP - General Internal Medicine 08/27/19 03/18/23 [facility], Pcp [address] [place] [address] PCP - General Internal Medicine 03/19/23 documented as of this encounter
--- OUTSIDE RECORDS SUMMARY | 2025-01-08 08:04 | XMS_ITS | Encounter Summary ---
Author Organization [facility] Address [address] [place] [address] [address] [place] [address] Care Team Providers Care Parts Expediter Name Role Phone Name, Kayden MONDRAGON Primary Care Provider [phone] Pritesh Torres Unavailable Unavailable Reason for Visit * Reason Comments Med Refill Encounter Details Date Type Department Care Team (Late st Contact Info) Description 02/17/2023 Refill [facility] [address] [place], [place] [phone] Name, MD Kayden [address] [place] [address] Gastroesophageal reflux disease, unspecified whether esophagitis present [...] as of this encounter Care Teams Parts Expediter Relationship Specialty Start Date End Date Name, MD Kayden [address] [place] [address] PCP - General Family Medicine 02/02/22 Pirtesh Torres FNP [address] [place] [address] Nurse Practitioner Family Medicine 10/15/23 documented as of this encounter
[2025-01-08 08:06] VITALS: BMI 48.8
== END 2025-01-08 08:37 | disposition home or self-care (01) ==
LOC: HO.HWS 07:59
PROVIDERS: PCP Internal Medicine Geriatric Medicine; Visit Provider Obstetrics & Gynecology
DX: N76.4 Abscess of vulva (principal)
CPT/HCPCS: 56405

== ENCOUNTER 2025-01-08 07:59 | Outpatient (REF) | payer MEDICAID, SELFPAY ==
--- OUTSIDE RECORDS SUMMARY | 2025-01-08 08:48 | XMS_ITS | Encounter Summary ---
Author Organization [facility] Address [address] [place] [address] [address] [place] [address] Care Team Providers Care Body Team Member Name Role Phone Name, Kayden MONDRAGON Primary Care Provider [phone] Pritesh Torres Unavailable Unavailable Reason for Visit * Reason Comments Med Refill Encounter Details Date Type Department Care Team ([facility] st Contact Info) Description 12/31/2024 Refill [facility] [address] [place], [place] [phone] Name, MD Kayden [address] [place] [address] Social History Tobacco Use Types Packs/Day Years [...] documented as of this encounter Care Teams Body Team Member Relationship Specialty Start Date End Date Name, MD Kayden [address] [place] [address] PCP - General Family Medicine 02/02/22 Pritesh Torres FNP [address] [place] [address] Nurse Practitioner Family Medicine 10/15/23 documented as of this encounter
--- OUTSIDE RECORDS SUMMARY | 2025-01-08 08:48 | XMS_ITS | Clinical Summary ---
Author Organization [facility] Address [address] [place] [address] Care Team Providers Care Door Liner Helper Name Role Phone Aaron Steele MD Primary Care Provider [phone] Surgical History Surgery Date Site/Laterality Comments TUBAL [...] obesity with BMI of 4 0.0-44.9, adult ([facility]) 06/16/2018 DX:Morbid obesity with BMI o f 40.0-44.9, adult ([facility]) History of bariatric surgery 07/21/2018 DX: History of bariatric surgery; COMMENT: 06/2015 sleeve gastrectomy Depression 07/21/2018 DX:Depression Iron deficiency anemia 07/21/2018 DX:Iron d eficiency anemia Type 2 diabetes mellitus wit hout complication ([facility]) 07/21/2018 DX:Type 2 diabetes mellitus without complication ([facility]) Generalized osteoarthritis o f multiple sites 06/16/2018 DX:Generalized osteoarthriti s of multiple sites Bipolar 1 disorder ([facility]) 06/16/2018 DX: Bipolar 1 disorder (HCC) Family [...] RESULTING AGENCY - 06/26/2018 9:46 AM EDT [id number] THINPREP PAP, IMAGED: NEGATIVE FOR SQUAMOUS INTRAEPITHELIAL [...] Documents on File Type Date Recorded Patient Store Receiver Expl anation Health Care Decision (hx) 09/30/2020 [...] (hx) 03/10/2019 AD BUNN DIRECTIVE Care Teams Door Liner Helper Relationship Specialty Start Date End Date Aaron Steele MD PCP - General Internal Medicine 08/27/19
--- OUTSIDE RECORDS SUMMARY | 2025-01-08 08:48 | XMS_ITS | Encounter Summary ---
Author Organization [facility] [employer] Address [address] [facility] [address] [place] [address] Care Team Providers Care Complex Case Manager Name Role Phone Name, Kayden MONDRAGON Primary Care Provider [phone] Pritesh Torres Unavailable Unavailable Encounter Details Date Type Department Care Team (Late st Contact Info) Description 12/22/2024 Orders Only [facility] [address] [place], [place] [phone] ProviderUvaldo MD Social History Tobacco Use Types [...] documented as of this encounter Care Teams Complex Case Manager Relationship Specialty Start Date End Date Name, MD Kayden [address] [place] [address] PCP - General Family Medicine 02/02/22 Pritesh Torres FNP [address] [place] [address] Nurse Practitioner Family Medicine 10/15/23 documented as of this encounter
--- OUTSIDE RECORDS SUMMARY | 2025-01-08 08:48 | XMS_ITS | Encounter Summary ---
Author Organization [facility] Address [address] [place] [address] [address] [place] [address] Care Team Providers Care Dredge Master Name Role Phone Name, Kayden MONDRAGON Primary Care Provider [phone] Pritesh Torres Unavailable Unavailable Reason for Visit * Reason Comments Med Refill Encounter Details Date Type Department Care Team ([facility] st Contact Info) Description 12/21/2024 Refill [facility]INE [address] [place], [place] [phone] Name, MD Kayden [address] [place] [address] Social History Tobacco Use Types Packs/Day Years [...] documented as of this encounter Care Teams Dredge Master Relationship Specialty Start Date End Date Name, MD Kayden [address] [place] [address] PCP - General Family Medicine 02/02/22 Pritesh Torres FNP [address] [place] [address] Nurse Practitioner Family Medicine 10/15/23 documented as of this encounter
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
--- OUTSIDE RECORDS SUMMARY | 2025-01-08 08:48 | XMS_ITS | Encounter Summary ---
Author Organization [employer] Address [address] [place] [address] 7 [place] [address] Care Team Providers Care Med Surg Nurse Name Role Phone Name, Kayden MONDRAGON Primary Care Provider [phone] Pritesh Torres Unavailable Unavailable Reason for Visit * Reason Comments Med Refill Encounter Details Date Type Department Care Team ([facility] st Contact Info) Description 08/24/2024 Refill [facility] [address] [place], [place] [phone] Name, MD Kayden [address] [place] [address] Lichen sclerosus of vulva Social History Tobacco [...] documented as of this encounter Care Teams Med Surg Nurse Relationship Specialty Start Date End Date Name, MD Kayden [address] [place] [address] PCP - General Family Medicine 02/02/22 Pritesh Torres FNP [address] [place] [address] Nurse Practitioner Family Medicine 10/15/23 documented as of this encounter
--- OUTSIDE RECORDS SUMMARY | 2025-01-08 08:48 | XMS_ITS | Encounter Summary ---
Author Organization [employer] Address [address] [place] [address] 7 [place] [address] Care Team Providers Care Heritage Consultant Name Role Phone Name, Kayden MONDRAGON Primary Care Provider [phone] Pritesh Torres Unavailable Unavailable Reason for Visit * Reason Comments Follow-up Encounter Details Date Type Department Care Team ([facility] st Contact Info) Description 12/16/2024 11:15 AM EST [facility] [address] [place], [place] [phone] Name, MD Kayden [address] [place] [address] Hypertension, unspecified type (Primary Dx); History of [...] 11:15 AM EST Outgoing fax sent to [facility] Medical Records Department requesting colonoscopy resultsbe faxed to [phone] ATTN: Satnam Team Nurses / . documented [...] 8:40 AM EST) Creatinine, Urine 313.85 mg/dL [facility] Microalbumin Urine 9.0 mg/L [facility] Microalbum Creatinine Ratio Ur 2.8 <30 ug/mg cr [facility] Comment:Albumin/Creatinine R atio Reference Ranges: Normal: < 30 ug/mg creatinine Microalbuminuria: 30 - 300 ug/mg creatinineClinical Albuminuria: > 300 ug/mg creatinine Urine (Urine, Random) 12/23/2024 8:40 AM EST 12/24/2024 1:57 PM EST us Kayden Muller MD LAB URINE ORDERABLES Final Resul t [facility] [address] [place] [address] [phone] * (ABNORMAL) Lipid Panel, Standard (12/23/2024 8:40 AM EST) Triglycerides 130 <150 mg/dL [facility] Comment:Desirable Triglyceri de: less than 150 mg/dLBorderline High Triglyceride 150-199 mg/dLHigh Triglyceride: 200-499 mg/dLVery High Triglyceride: greater than or equal to 5OO mg/dL Cholesterol 219(H) <200 mg/dL [facility] Comment:Desirable Cholestero l: less than 200 mg/dLBorderline High Cholesterol: 200-239 mg/dLHigh Cholesterol: greater than 239 mg/dL LDL Cholesterol Calculated 142(H) <100 mg/dL [facility] Comment:Desirable LDL: less than 100 mg/dLNear Optimal/Above Optimal LDL: 110- 129 mg/dLBorderline High LDL: 130-159 mg/dLHigh LDL: 160-189 mg/dLVery High LDL: greater than or equal to 190 mg/dL HDL Cholesterol 51 >40 mg/dL [facility] Comment:Desirable HDL: great er than 40 mg/dL Note: This HDL assay may give artificially low results in patients with liver disease. Blood Venous blood specimen / Unknown 12/23/2024 8:40 AM EST 12/24/2024 2:11 PM EST us Kayden Name LAB BLOOD ORDERABLES Final Resul t [facility] [address] [place] [address] [phone] * (ABNORMAL) Comprehensive Metabolic Panel (12/23/2024 8:40 AM EST) Sodium 140 135 - 145 mmol/L [facility] Potassium 3.5 3.3 - 5.1 mmol/L [facility] Chloride 100 96 - 108 mmol/L [facility] Carbon Dioxide 33(H) 22 - 29 mmol/L [facility] Anion Gap 11(L) 12 - 20 [facility] Urea Nitrogen (BUN) 8(L) 9 - 16 mg/dL [facility] Creatinine, Serum 0.85 0.5 - 1.4 mg/dL [facility] Creatinine Clr Calc Pharmacy TNP [facility] Comment:Unable to calculate eCrCL; all parameters not provided. Estimated Glomerular Filt Rate >60 [facility] Comment:Chronic Kidney Disea se: Estimated GFR < 60 mL/min/[id number] Kidney Disease: Estimated GFR < 15 mL/min/1.73m2 Glucose 87 60 - 115 mg/dL [facility] Calcium 9.2 8.4 - 10.2 mg/dL [facility] Bilirubin, Total 0.6 0.0 - 1.0 mg/dL [facility] Aspartate Amino Transferase 20 5 - 31 U/L [facility] Alanine Aminotransferase 15 0 - 31 U/L [facility] Total Protein 9.0(H) 6.5 - 8.0 g/dL [facility] Albumin Level 3.7 3.5 - 5.0 g/dL [facility] Alkaline Phosphatase 93 39 - 117 U/L [facility] Blood Venous blood specimen / Unknown 12/23/2024 8:40 AM EST 12/24/2024 2:11 PM EST us Kayden Muller MD LAB BLOOD ORDERABLES Final Resul t [facility] [address] [place] [address] [phone] documented in this encounter Visit Diagnoses Diagnosis Hypertension, unspecified type- Primary History of COVID-19 documented in this encounter Additional Health Concerns Assessment Noted Time PHQ-9 Depression Total Score: 10 024 3:44 PM EDT documented as of this encounter Care Teams Heritage Consultant Relationship Specialty Start Date End Date Name, MD Kayden [address] [place] [address] PCP - General Family Medicine 02/02/22 Pritesh Torres FNP [address] [place] [address] Nurse Practitioner Family Medicine 10/15/23 documented as of this encounter
--- OUTSIDE RECORDS SUMMARY | 2025-01-08 08:48 | XMS_ITS | Encounter Summary ---
Author Organization [employer] [facility] Address [address] [place] [address] [address] [place] [address] Care Team Providers Care Drop Wirer Name Role Phone Name, Kayden MONDRAGON Primary Care Provider [phone] Pritesh Torres Unavailable Unavailable Encounter Details Date Type Department Care Team ([facility] st Contact Info) Description 10/08/2022 Abstract [facility] [address] [place] [address] Provider, MD Uvaldo Social History Tobacco Use [...] on filedocumented in this encounter Care Teams Drop Wirer Relationship Specialty Start Date End Date Name, MD Kayden [address] [place] [address] PCP - General Family Medicine 02/02/22 Pritesh Torres FNP [address] [place] [address] Nurse Practitioner Family Medicine 10/15/23 documented as of this encounter
--- OUTSIDE RECORDS SUMMARY | 2025-01-08 08:48 | XMS_ITS | Encounter Summary ---
Author Organization [employer] Address [address] [place] [address] 7 [place] [address] Care Team Providers Care Captain Assistant Name Role Phone Name, Kayden MONDRAGON Primary Care Provider [phone] Pritesh Torres Unavailable Unavailable Reason for Visit * Reason Onset Date Comments Med Refill 12/12/2024 Encounter Details Date Type Department Care Team (Late st Contact Info) Description 12/12/2024 Refill [facility] [address] [place], [place] [phone] Name, MD Kayden [address] [place] [address] Primary hypertension Social History Tobacco Use Types [...] documented as of this encounter Care Teams Captain Assistant Relationship Specialty Start Date End Date Name, MD Kayden [address] [place] [address] PCP - General Family Medicine 02/02/22 Pritesh Torres FNP [address] [place] [address] Nurse Practitioner Family Medicine 10/15/23 documented as of this encounter
--- OUTSIDE RECORDS SUMMARY | 2025-01-08 08:48 | XMS_ITS | Encounter Summary ---
Author Organization [employer] Address [address] [place] [address] 7 [place] [address] Care Team Providers Care Bingo Floater Name Role Phone Name, Kayden MONDRAGON Primary Care Provider [phone] Pritesh Torres Unavailable Unavailable Reason for Visit * Reason Onset Date Comments Med Refill 10/13/2024 Encounter Details Date Type Department Care Team (Late st Contact Info) Description 10/13/2024 Refill [facility] [address] [place], [place] [phone] Nahomi Magana, ANP [address] [place], [place] [phone] Gastroesophageal reflux disease, unspecified whether esophagitis present [...] documented as of this encounter Care Teams Bingo Floater Relationship Specialty Start Date End Date Name, MD Kayden [address] [place] [address] PCP - General Family Medicine 02/02/22 Pritesh Torres FNP [address] [place] [address] Nurse Practitioner Family Medicine 10/15/23 documented as of this encounter
--- OUTSIDE RECORDS SUMMARY | 2025-01-08 08:48 | XMS_ITS | Encounter Summary ---
Author Organization [employer] Address [address] [facility] [address] [place] [address] Care Team Providers Care Baking Assistant Name Role Phone Name, Kayden MONDRAGON Primary Care Provider [phone] Pritesh Torres Unavailable Unavailable Encounter Details Date [...] documented as of this encounter Care Teams Baking Assistant Relationship Specialty Start Date End Date Name, MD Kayden [address] [place] [address] PCP - General Family Medicine 02/02/22 Pritesh Torres FNP [address] [place] [address] Nurse Practitioner Family Medicine 10/15/23 documented as of this encounter
--- OUTSIDE RECORDS SUMMARY | 2025-01-08 08:48 | XMS_ITS | Encounter Summary ---
Author Organization [employer] Address [address] [place] [address] 7 [place] [address] Care Team Providers Care Power Distributor Name Role Phone Name, Kayden MONDRAGON Primary Care Provider [phone] Pritesh Torres Unavailable Unavailable Reason for Visit * Reason Comments Med Refill Encounter Details Date Type Department Care Team ([facility] st Contact Info) Description 07/27/2024 Refill [facility] MEDICINE [address] [place], [place] [phone] Nahomi Magana, ANP [address] [place] [address] Gastroesophageal reflux disease, unspecified whether esophagitis present [...] documented as of this encounter Care Teams Power Distributor Relationship Specialty Start Date End Date Name, MD Kayden [address] [place] [address] PCP - General Family Medicine 02/02/22 Pritesh Torres FNP [address] [place] [address] Nurse Practitioner Family Medicine 10/15/23 documented as of this encounter
--- OUTSIDE RECORDS SUMMARY | 2025-01-08 08:48 | XMS_ITS | Encounter Summary ---
Author Organization [employer] Address [address] [place] [address] 7 [place] [address] Care Team Providers Care Gem Stone Cutter Name Role Phone Name, Kayden MONDRAGON Primary Care Provider [phone] Pritesh Torres Unavailable Unavailable Reason for Visit * Reason Onset Date Comments Med Refill 04/16/2024 Encounter Details Date Type Department Care Team (Late st Contact Info) Description 04/16/2024 Refill [facility] MEDICINE [address] [place], [place] [phone] Name, MD Kayden [address] [place] [address] Gastroesophageal reflux disease, unspecified whether esophagitis present [...] documented as of this encounter Care Teams Gem Stone Cutter Relationship Specialty Start Date End Date Name, MD Kayden [address] [place] [address] PCP - General Family Medicine 02/02/22 Pritesh Torres FNP [address] [place] [address] Nurse Practitioner Family Medicine 10/15/23 documented as of this encounter
--- OUTSIDE RECORDS SUMMARY | 2025-01-08 08:48 | XMS_ITS | Encounter Summary ---
Author Organization [employer] Address [address] [facility] 7t [place] [address] Care Team Providers Care Junior Programmer Analyst Name Role Phone Name, Kayden MONDRAGON Primary Care Provider [phone] Pritesh Torres Unavailable Unavailable Encounter Details Date [...] documented as of this encounter Care Teams Junior Programmer Analyst Relationship Specialty Start Date End Date Name, MD Kayden [address] [place] [address] PCP - General Family Medicine 02/02/22 Pritesh Torres FNP [address] [place] [address] Nurse Practitioner Family Medicine 10/15/23 documented as of this encounter
--- OUTSIDE RECORDS SUMMARY | 2025-01-08 08:48 | XMS_ITS | Encounter Summary ---
Author Organization [employer] Address [address] [place] [address] 7 [place] [address] Care Team Providers Care Nursing Specialist Name Role Phone Name, Kayden MONDRAGON Primary Care Provider [phone] Pritesh Torres Unavailable Unavailable Reason for Visit * Reason Comments Blood Pressure Check Encounter Details Date Type Department Care Team ([facility] st Contact Info) Description 12/29/2024 10:00 AM EST Telemedicine [facility] MEDICINE 230 [place], [place] [phone] Gracie Cohen, YOJANA [address] [place], [place] [phone] Hypertension, unspecified type Social History Tobacco Use [...] with pcp per recall and to call [facility] prn symptoms. documented in this encounter Plan of Treatment Not on file documented as of this encounter Visit Diagnoses Diagnosis Hypertension, unspecified type documented in this encounter Additional Health Concerns Assessment Noted Time PHQ-9 Depression Total Score: 10 024 3:44 PM EDT documented as of this encounter Care Teams Nursing Specialist Relationship Specialty Start Date End Date Name, MD Kayden [address] [place] [address] PCP - General Family Medicine 02/02/22 Pritesh Torres FNP [address] [place] [address] Nurse Practitioner Family Medicine 10/15/23 documented as of this encounter
--- OUTSIDE RECORDS SUMMARY | 2025-01-08 08:48 | XMS_ITS | Encounter Summary ---
Author Organization [employer] Address 75 [facility] 7t [place] [address] Care Team Providers Care Retirement Village Manager Name Role Phone Name, Kayden MONDRAGON Primary Care Provider [phone] Pritesh Torres Unavailable Unavailable Encounter Details Date Type Department Care Team ([facility] st Contact Info) Description 12/23/2024 Orders Only [facility] MEDICINE 230 [place], [place] [phone] Name, MD Kayden 230 [place] [address] Social History Tobacco Use Types Packs/Day Years [...] AM EST) Cancelled Chemistry SEE NOTE [facility] Comment:NO SPECIMEN RECEIVED FOR MICRU, CMP, LIPID 12/23/2024 8:36 AM EST 12/23/2024 7:55 PM EST us Kayden Name HISTORICAL/NON ORDERABLE LABS Fi nal Result Performing Organization Address City/State/[facility] Co de Phone Number [facility] [address] [place] [address] [phone] documented in this encounter Visit Diagnoses Not on filedocumented in this encounter Additional Health Concerns Assessment Noted Time PHQ-9 Depression Total Score: 10 024 3:44 PM EDT documented as of this encounter Care Teams Retirement Village Manager Relationship Specialty Start Date End Date Name, MD Kayden [address] [place] [address] PCP - General Family Medicine 02/02/22 Pritesh Torres FNP 230 [place] [address] Nurse Practitioner Family Medicine 10/15/23 documented as of this encounter
--- OUTSIDE RECORDS SUMMARY | 2025-01-08 08:48 | XMS_ITS | Encounter Summary ---
Author Organization [facility] Address [address] [place] [address] 7 [place] [address] Care Team Providers Care Bit Sander Name Role Phone Name, Kayden MONDRAGON Primary Care Provider [phone] Pritesh Torres Unavailable Unavailable Reason for Visit * Reason Comments Med Refill Encounter Details Date Type Department Care Team (Late st Contact Info) Description 02/17/2023 Refill [facility] MEDICINE 230 [place], [place] [phone] Name, MD Kayden 230 [place] [address] Gastroesophageal reflux disease, unspecified whether esophagitis present [...] documented as of this encounter Care Teams Bit Sander Relationship Specialty Start Date End Date Name, MD Kayden 230 [place] [address] PCP - General Family Medicine 02/02/22 Pritesh Torres FNP [address] [place] [address] Nurse Practitioner Family Medicine 10/15/23 documented as of this encounter
--- OUTSIDE RECORDS SUMMARY | 2025-01-08 08:48 | XMS_ITS | Encounter Summary ---
Author Organization [employer] Address [address] [place] [address] 7 [place] [address] Care Team Providers Care Kitman Name Role Phone Name, Kayden MONDRAGON Primary Care Provider [phone] Pritesh Torres Unavailable Unavailable Reason for Visit * Reason Onset Date Comments Med Refill 12/12/2024 Encounter Details Date Type Department Care Team (Late st Contact Info) Description 12/12/2024 Refill [facility] MEDICINE 230 [place], [place] [phone] Name, MD Kayden 230 [place] [address] Posttraumatic stress disorder Social History Tobacco Use [...] documented as of this encounter Care Teams Kitman Relationship Specialty Start Date End Date Name, MD Kayden 230 [place] [address] PCP - General Family Medicine 02/02/22 Pritesh Torres FNP 230 [place] [address] Nurse Practitioner Family Medicine 10/15/23 documented as of this encounter
--- OUTSIDE RECORDS SUMMARY | 2025-01-08 08:48 | XMS_ITS | Encounter Summary ---
Author Organization [employer] Address 75 [facility] 7t [place] [address] Care Team Providers Care Electrical Integrator Name Role Phone Name, Kayden MONDRAGON Primary Care Provider [phone] Pritesh Torres Unavailable Unavailable Encounter Details Date Type Department Care Team ([facility] Contact Info) Description 12/16/2024 Telephone [facility] MEDICINE 230 [place], [place] [phone] Kat Swanson, YOJANA Social History Tobacco Use [...] PM EST Outgoing fax sent to [facility] Department (FAX: [phone]) requesting results from colonoscopy in 2020 be faxed to [phone] ATTN: Satnam Chicas Nurses / . Received an E-2 Dimitris-3 error message for a response. TC placed to [facility] HIM Department to get accurate fax number. Staff provided fax number for [facility] Medical Records: [phone]. Confirmation received and placed in medical records bin. documented in this encounter Plan of Treatment Not on file documented as of this encounter Visit Diagnoses Not on filedocumented in this encounter Additional Health Concerns Assessment Noted Time PHQ-9 Depression Total Score: 10 024 3:44 PM EDT documented as of this encounter Care Teams Electrical Integrator Relationship Specialty Start Date End Date Name, MD Kayden 230 [place] [address] PCP - General Family Medicine 02/02/22 Pritesh Torres FNP 230 [place] [address] Nurse Practitioner Family Medicine 10/15/23 documented as of this encounter
== END 2025-01-08 08:00 | disposition home or self-care (01) ==
LOC: HO.LNP 07:59
PROVIDERS: PCP Internal Medicine Geriatric Medicine; Visit Provider Obstetrics & Gynecology
DX: N76.4 Abscess of vulva (principal)
CPT/HCPCS: 56405; 87070; 87205

== ENCOUNTER 2025-07-06 09:53 | Outpatient (REF) | payer MEDICAID, SELFPAY ==
--- OUTSIDE RECORDS SUMMARY | 2025-07-06 10:00 | XMS_ITS | Encounter Summary ---
Author Organization [employer] Address [address] [facility] 7t [place] [address] Care Team Providers Care Automatic Pilot Mechanic Name Role Phone Name, Kayden MONDRAGON Primary Care Provider [phone] Pritesh Torres Unavailable Unavailable Reason for Visit * Reason Comments Blood Pressure Check Encounter Details Date Type Department Care Team (Latest Contact Info) Description 07/06/2025 10:00 AM EDT Clinical Support [facility] MEDICINE 230 [place], [place] [phone] Gracie Cohne, RN 230 [place], [place] [phone] Primary hypertension Social History Tobacco Use Types Packs/Day Years Used Date Smoking Tobacco: Former Cigarettes Q uit: 2004 Smokeless Tobacco: Never Tobacco Cessation:Counseling Given: Not Answered Alcohol Use Standard Drinks/Week Comments Not Currently 0 (1 standard drink = 0.6 oz pur e alcohol) occassional Depression Answer Date Recorded Patient Health Questionnaire-9 Score 12 06/28/2025 Patient Health Questionnaire-9 Score 12 06/28/2025 Last PHQ-9: Questionnaire Data Not on file 0 06/28/2025 Housing Stability Answer Date Recorded What is your housing situation today? I have cristiano lloyd 05/05/[address] you li ve. Do you have problems with any of the following? None of the above 05/05/2025 Food Insecurity Answer Date Recorded Within the past 12 months, y ou worried that your food would run out before you got money to buy more: Never True 05/05/2025 Within the past 12 months,th e food you bought just didn't last and you didn't have enough money to get more: Never True Transportation Answer Date Recorded In the past 12 months, has l ack of transportation kept you from medical appts, meetings, work or from getting things needed for daily living? I am not sure 05/05/2025 Utilities Answer Date Recorded In the past 12 months, has t he electric, gas, oil or water company threatened to shut off services in your home? No 05/05/2025 Depression Answer Date Recorded Patient Health Questionnaire-2 Score 4 06/28/2025 Internet Access Answer Date Recorded Internet Access Q1 No 05/05/2025 Internet Access Q2 Not on file 05/05/2025 Comments No Sex and Gender Information Value Date Recorded Sex Assigned at Female 09/10/2022 10:32 AM EDT Legal Sex Female 10:32 AM EDT Gender Identity Female 09/10/2022 10:32 AM EDT Sexual Orientation Straight 09/10/2022 10 :32 AM EDT documented as of this encounter Last Filed Vital Signs Vital Sign Reading Time Taken Comments Blood Pressure 120/82 07/06/2025 10:03 AM EDT Pulse 84 07/06/2025 9:53 AM EDT Temperature - - Respiratory Rate 18 07/06/2025 9:53 AM EDT Oxygen Saturation - - Inhaled Oxygen Concentration - - Weight 172 kg (378 lb 12.8 oz) 07/06/2025 9:53 A M EDT Height - - Body Mass Index 49.98 06/03/2025 11:06 AM EDT documented in this encounter Progress Notes * Gracie Cohen RN - 07/06/2025 10:00 AM EDT S: Pt here for nurse visit for BP Check. Pt reports that she currently walks 2-3 days per week for one hour. States that she was rx Zepbound by weight management and insurance is going to cover a gymmembership for her. States that she plans to swim [place] Pt reports that she quit smoking 20 years ago. Reports that she only drinks alcohol soc ially and has not had an alcoholic drink in 3 months. States that she normally has coffee and toastin the morning. States that she eats rice with vegetables salad and some meat for lunch and dinner.Reports she eats fish, chicken, ox tail, red meat and white meat. Pt denies headache, chest pain, sob, dizziness and visual changes today. Pt reports that home Bps have improved since addition of losartan. O: Pt currently rx hydrochlorothiazide 25 mg po daily and Losartan potassium 25 mg po daily. Pt reports that she is taking meds daily as rx. A: BP today 118/82 left arm, sitting; 120/82 right arm, sitting; P 84; R18; Wt: 378.8 lb. P: Pt advised to take medications as rx. Pt encouraged to adhere to low sodium diet. Pt encouraged to increase amount and frequency of exercise. Pt agrees to complete ordered lab. Pt provided with home BP log. Pt encouraged to continue to check and record home BP readings and bring to scheduled f/uwith pcp. Advised to call [facility] for any new symptoms. documented in this encounter Plan of Treatment Upcoming Encounters Date Type Department Care Team (Late st Contact Info) Description 09/29/2025 9:45 AM EST Office Visit [facility] MEDICINE [address] [place] [address] Name, MD Kayden [address] [place] [address] documented as of this encounter Visit Diagnoses Diagnosis Primary hypertension Unspecified essential hypertension documented in this encounter Additional Health Concerns Assessment Noted Time PHQ-9 Depression Total Score: 12 025 10:01 AM EDT documented as of this encounter Care Teams Automatic Pilot Mechanic Relationship Specialty Start Date End Date Name, MD Kayden [address] [place] [address] PCP - General Family Medicine 02/02/22 Pritesh Torres FNP [address] [place] [address] Nurse Practitioner Family Medicine 10/15/23 documented as of this encounter
--- OUTSIDE RECORDS SUMMARY | 2025-07-06 10:37 | XMS_ITS | Encounter Summary ---
Author Organization [facility] Address [address] [place] [address] Care Team Providers Care Virtualization Engineer Name Role Phone Aaron Steele MD Primary Care Provider [phone] [facility], Pcp Primary Care Provider Unavailabl e Encounter Details Date Type Department Care Team Description 09/09/2020 Hospital Medical Records [address] [place] [address] Brandon Uribe MD [address] [place] [address] Social History Tobacco Use Types Packs/Day Years [...] on filedocumented in this encounter Care Teams Virtualization Engineer Relationship Specialty Start Date End Date Aaron Steele MD [address] [place] [address] PCP - General Internal Medicine 08/27/19 03/18/23 [facility], Pcp [address] [place] [address] PCP - General Internal Medicine 03/19/23 documented as of this encounter
--- OUTSIDE RECORDS SUMMARY | 2025-07-06 10:37 | XMS_ITS | Encounter Summary ---
Author Organization [facility] Address [address] [place] [address] Care Team Providers Care It Infrastructure Consultant Name Role Phone Aaron Steele MD Primary Care Provider [phone] [facility], [facility] Primary Care Provider Unavailabl e Encounter Details Date Type Department Care Team Description 04/01/2021 Refill Adult Medicine - [address] [address] Aaron Steele MD [address] [place] [address] Social History Tobacco Use Types Packs/Day Years [...] encounter Miscellaneous Notes * Telephone Encounter - Trena Wilder M.A. - 04/07/2021 4:47 PM EDT Script hand faxed * Telephone Encounter - Alexus Del Toro PA-C - 04/07/2021 4:39 PM EDT Approved * Telephone Encounter - Diana Dangelo C.M.A. - 04/04/2021 10:20 AM EDT Due 04/10/2021 * Telephone Encounter - Rossi Montejo - 04/03/2021 10:54 AM EDT Date of last office visit 01/23/21, pended appointment 04/04/21. Controlled substance contract and last issue date of medication reviewed. Patient is due for medication on 04/10/21. Lab Results Component Value Date URBENZO NONE DETECTED 08/18/2020 UROPIATES NONE DETECTED 08/18/2020 URBARBITUATE NONE DETECTED 08/18/2020 PAINAMPHETAM NONE DETECTED 08/18/2020 PAINCOCAINE NONE DETECTED 08/18/2020 PAINCANNABIN NONE DETECTED 08/18/2020 Lab Results Component Value Date NA 141 01/23/2021 K 3.9 01/23/2021 CO2 32 01/23/2021 CL 102 01/23/2021 BUN 8 01/23/2021 CREAT 0.92 01/23/2021 GLU 103 01/23/2021 CA 9.1 01/23/2021 GFR > 60 01/23/2021 documented in this encounter Plan of Treatment Not on file documented as of this encounter Visit Diagnoses Not on filedocumented in this encounter Care Teams It Infrastructure Consultant Relationship Specialty Start Date End Date Aaron Steele MD [address] [place] [address] PCP - General Internal Medicine 08/27/19 03/18/23 [facility], [address] [address] PCP - General Internal Medicine 03/19/23 documented as of this encounter
--- OUTSIDE RECORDS SUMMARY | 2025-07-06 10:37 | XMS_ITS | Encounter Summary ---
Author Organization [facility] Address [facility] [place] [address] Care Team Providers Care Industrial Relations Counselor Name Role Phone Aaron Steele MD Primary Care Provider [phone] [facility], Pcp Primary Care [facility] Encounter Details Date Type Department Care Team Description 04/11/2021 [facility] Medical Records [address] [place] [address] Abstract, Provider Social History Tobacco Use Types [...] on filedocumented in this encounter Care Teams Industrial Relations Counselor Relationship Specialty Start Date End Date Aaron Steele MD [address] [place] [address] PCP - General Internal Medicine 08/27/19 03/18/23 [facility], Pcp [address] [place] [address] PCP - General Internal Medicine 03/19/23 documented as of this encounter
--- OUTSIDE RECORDS SUMMARY | 2025-07-06 10:38 | XMS_ITS | Encounter Summary ---
Author Organization [facility] Address [facility] [place] [address] Care Team Providers Care Teacher Of The Sight Impaired Name Role Phone Alanna Go MD Primary Care Provider Un available Aaron Steele MD Primary Care Provider [phone] [facility], Pcp Primary Care Provider Unavailabl e Encounter Details Date Type Department Care Team Description 05/06/2019 Refill Rheumatology - [address] [address] Trell Deshpande MD Social History Tobacco Use [...] as of this encounter Visit Diagnoses Diagnosis Arthralgia, unspecified joint Sjogren's syndrome with keratoconjunctivitis sicca (HCC) documented in this encounter Care Teams Teacher Of The Sight Impaired Relationship Specialty Start Date End Date Alanna Go MD PCP - General Internal Medicine 06/13/1808/26 Aaron Steele MD [address] [place] [address] PCP - General Internal Medicine 08/27/19 03/18/23 [facility], [address] [address] PCP - General Internal Medicine 03/19/23 documented as of this encounter
--- OUTSIDE RECORDS SUMMARY | 2025-07-06 10:38 | XMS_ITS | Encounter Summary ---
Author Organization [facility] Address [address] [place] [address] Care Team Providers Care Butadiene Compressor Operator Name Role Phone Alanna Go MD Primary Care Provider Un available Aaron Steele MD Primary Care Provider [phone] [facility], Pcp Primary Care Provider Unavailabl e Encounter Details Date Type Department Care Team Description 03/07/2019 Hospital Medical Records [address] [place] [address] Morris Stephenson MD [address] [place] [phone] Social History Tobacco Use Types Packs/Day Years [...] on filedocumented in this encounter Care Teams Butadiene Compressor Operator Relationship Specialty Start Date End Date Alanna Go MD PCP - General Internal Medicine 06/13/1808/26 Aaron Steele MD [address] [place] [address] PCP - General Internal Medicine 08/27/19 03/18/23 [facility], Pcp [address] [place] [address] PCP - General Internal Medicine 03/19/23 documented as of this encounter
--- OUTSIDE RECORDS SUMMARY | 2025-07-06 10:38 | XMS_ITS | Encounter Summary ---
Author Organization [facility] Address [facility] [place] [address] Care Team Providers Care Wrecker Operator Name Role Phone Alanna Go MD Primary Care Provider Un available Aaron Steele MD Primary Care Provider [facility], Pcp Primary Care Provider Unavailabl e Encounter Details Date Type Department Care Team Description 06/18/2018 Release of Information Medical Records [address] [place] [address] Abstract, Provider Social History Tobacco Use Types [...] on filedocumented in this encounter Care Teams Wrecker Operator Relationship Specialty Start Date End Date Alanna Go MD PCP - General Internal Medicine 06/13/1808/26 Aaron Steele MD [address] [place] [address] PCP - General Internal Medicine 08/27/19 03/18/23 Claire Altman [address] [place] [address] PCP - General Internal Medicine 03/19/23 documented as of this encounter
--- OUTSIDE RECORDS SUMMARY | 2025-07-06 10:38 | XMS_ITS | Encounter Summary ---
Author Organization [facility] Address [address] [place] [address] Care Team Providers Care Distance Education Faculty Liaison Name Role Phone [facility], Pcp Primary Care Provider Unavaildagoberto e Alanna Go MD Primary Care Provider Un available Aaron Steele MD Primary Care Provider [phone] [facility], Pcp Primary Care Provider Unavaildagoberto e Encounter Details Date Type Department Care Team Description 01/30/2018 Release of Information Medical Records [address] [place] [address] Abstract, Provider Social History Tobacco Use Types Packs/Day Years Used Date Smoking Tobacco: Never Assessed Sex Assigned at Date Recorded Not on file Job Start Date Occupation Industry Not on file Not on file Not on file documented as of this encounter Plan of Treatment Not on file documented as of this encounter Visit Diagnoses Not on filedocumented in this encounter Care Teams Distance Education Faculty Liaison Relationship Specialty Start Date End Date [facility], Pcp PCP - General Internal Medicine 12/16/17 06/12/18 Alanna Go MD PCP - General Internal Medicine 06/13/1808/26 Aaron Steele MD [address] [place] [address] PCP - General Internal Medicine 08/27/19 03/18/23 [facility], Pcp PCP - General Internal Medicine 03/19/23 documented as of this encounter
--- OUTSIDE RECORDS SUMMARY | 2025-07-06 10:38 | XMS_ITS | Encounter Summary ---
Author Organization [facility] Address [facility] [place] [address] Care Team Providers Care Tissue Packer Name Role Phone Aaron Steele MD Primary Care Provider [facility], Pcp Primary Care Provider Unavailabl e Reason for Visit * Reason Onset Date Comments refill request 04/21/2020 Encounter Details Date Type Department Care Team Description 04/21/2020 Refill Respiratory and Diabetes Medicaid/ACO Pharmacist [address] [place] [address] Alanna Go MD refill request Social History [...] on filedocumented in this encounter Care Teams Tissue Packer Relationship Specialty Start Date End Date Aaron Steele MD [address] [place] [address] 21231 PCP - General Internal Medicine 08/27/19 03/18/23 [facility], Pcp [address] [place] [address] 16137 PCP - General Internal Medicine 03/19/23 documented as of this encounter
--- OUTSIDE RECORDS SUMMARY | 2025-07-06 10:38 | XMS_ITS | Encounter Summary ---
Author Organization [facility] Address [address] [place] [address] Care Team Providers Care Hardware Installation Coordinator Name Role Phone [facility], Pcp Primary Care Provider Unavailabl e Alanna Go MD Primary Care Provider Un available Aaron Steele MD Primary Care Provider [phone] [facility], Pcp Primary Care Provider Unavailabl e Reason for Visit * Reason Onset Date Comments Medical Records 01/20/2018 Encounter Details Date Type Department Care Team Description 01/20/2018 Telephone OBGYN - [place] [address] [place] [address] Pat Ochoa MD Medical Records Social History Tobacco Use Types Packs/Day Years Used Date Smoking Tobacco: Never Assessed Sex Assigned at Date Recorded Not on file Job Start Date Occupation Industry Not on file Not on file Not on file documented as of this encounter Miscellaneous Notes * Telephone Encounter - Khalida Sabillon - 01/20/2018 2:53 PM EDT Pt filled out JOSE to get records from [facility] ; faxed documented in this encounter Plan of Treatment Not on file documented as of this encounter Visit Diagnoses Not on filedocumented in this encounter Care Teams Hardware Installation Coordinator Relationship Specialty Start Date End Date Community, Pcp PCP - General Internal Medicine 12/16/17 06/12/18 Alanna Go MD PCP - General Internal Medicine 06/13/1808/26 Aaron Steele MD [address] [place] [address]653 PCP - General Internal Medicine 08/27/19 03/18/23 [facility], Pcp PCP - General Internal Medicine 03/19/23 documented as of this encounter
--- OUTSIDE RECORDS SUMMARY | 2025-07-06 10:38 | XMS_ITS | Encounter Summary ---
Author Organization [facility] Address [facility] [place] [address] Care Team Providers Care Enzyme Chemist Name Role Phone Alanna Go MD Primary Care Provider Un available Aaron Steele MD Primary Care Provider [phone] [facility], Pcp Primary Care Provider Unavailabl e Encounter Details Date Type Department Care Team Description 05/08/2019 [facility] Medical Records [address] [place] [address] Abstract, Provider Social History Tobacco Use Types [...] on filedocumented in this encounter Care Teams Enzyme Chemist Relationship Specialty Start Date End Date Alanna Go MD PCP - General Internal Medicine 06/13/1808/26 Aaron Steele MD [address] [place] [address] PCP - General Internal Medicine 08/27/19 03/18/23 [facility], Pcp [address] [place] [address] 65651 PCP - General Internal Medicine 03/19/23 documented as of this encounter
--- OUTSIDE RECORDS SUMMARY | 2025-07-06 10:38 | XMS_ITS | Encounter Summary ---
Author Organization [facility] Address [address] [place] [address] Care Team Providers Care Auger Operator Name Role Phone Alanna Go MD Primary Care Provider Un available Aaron Steele MD Primary Care Provider [phone] [facility], Pcp Primary Care Provider Unavailabl e Reason for Visit * Reason Onset Date Comments Faxed Order 04/14/2019 [facility] Encounter Details Date Type Department Care Team Description 04/14/2019 Telephone Adult Medicine [address] [address] Alanna Go MD Faxed Order ([facility]) Social History Tobacco Use Types Packs/Day [...] 11:55 AM EDT Faxed order received from [facility] please sign , date and fax back to [phone] * Telephone Encounter - Alix De La O - 04/24/2019 2:55 PM EDT Faxed order received from [facility] please sign , date and fax back to [phone] * Telephone Encounter - Mago Dolankatiana - 04/14/2019 10:33 AM EDT Faxed order received from [facility]. Please review, sign, and fax back to [phone]. documented in this encounter Plan of Treatment Not on file documented as of this encounter Visit Diagnoses Not on filedocumented in this encounter Care Teams Auger Operator Relationship Specialty Start Date End Date Alanna Go MD PCP - General Internal Medicine 06/13/1808/26 Aaron Steele MD [address] [place] [address] PCP - General Internal Medicine 08/27/19 03/18/23 [facility], Pcp [address] [place] [address]874 PCP - General Internal Medicine 03/19/23 documented as of this encounter
--- OUTSIDE RECORDS SUMMARY | 2025-07-06 10:38 | XMS_ITS | Encounter Summary ---
Author Organization [facility] Address [facility] [place] [address] Care Team Providers Care Trauma Nurse Name Role Phone Alanna Go MD Primary Care Provider Un available Aaron Steele MD Primary Care Provider [facility], Pcp Primary Care Provider Unavailabl e Encounter Details Date Type Department Care Team Description 04/28/2019 [facility] Report Medical Records [address] [place] [address] Social History Tobacco Use Types Packs/Day Years [...] on filedocumented in this encounter Care Teams Trauma Nurse Relationship Specialty Start Date End Date Alanna Go MD PCP - General Internal Medicine 06/13/1808/26 Aaron Steele MD [address] [place] [address] PCP - General Internal Medicine 08/27/19 03/18/23 [facility], Pcp [address] [place] [address] PCP - General Internal Medicine 03/19/23 documented as of this encounter
--- OUTSIDE RECORDS SUMMARY | 2025-07-06 10:38 | XMS_ITS | Encounter Summary ---
Author Organization [facility] Address [address] [place] [address] Care Team Providers Care Glass Production Machine Operator Name Role Phone Alanna Go MD Primary Care Provider Un available Aaron Steele MD Primary Care Provider [phone] Community, Pcp Primary Care Provider Unavailabl e Encounter Details Date Type Department Care Team Description 04/15/2019 Home Health Certification Medical Records [address] [place] [address] Home, [facility] [address] [place] [address] Social History Tobacco Use Types Packs/Day Years [...] filedocumented in this encounter Care Teams Glass Production Machine Operator Relationship Specialty Start Date End Date Alanna Go MD PCP - General Internal Medicine 06/13/1808/26 Aaron Steele MD [address] [place] [address] PCP - General Internal Medicine 08/27/19 03/18/23 Community, [address] [address] PCP - General Internal Medicine 03/19/23 documented as of this encounter
--- OUTSIDE RECORDS SUMMARY | 2025-07-06 10:38 | XMS_ITS | Encounter Summary ---
Author Organization [employer] Address [address] [facility] 7t [place] [address] Care Team Providers Care Distribution Collection Operator Name Role Phone Name, Kayden MONDRAGON Primary Care Provider [phone] Pritesh Torres Unavailable Unavailable Reason for Visit * Reason Comments Med Refill Encounter Details Date Type Department Care Team (Late st Contact Info) Description 02/07/2025 Refill [facility] MEDICINE [address] [place], [place] [phone] Saritha Villatoro MD [address] [place], [place] [phone] Social History Tobacco Use Types Packs/Day Years [...] Patient Health Questionnaire-2 Score 0 03/05/2024 Comments No Sex and Gender Information Value [...] Description 09/29/2025 9:45 AM EST Office Visit [facility] MEDICINE [address] [place] [address] Name, MD Kayden [address] [place] [address] documented as of this encounter Visit Diagnoses Not on filedocumented in this encounter Additional Health Concerns Assessment Noted Time PHQ-9 Depression Total Score: 10 024 3:44 PM EDT documented as of this encounter Care Teams Distribution Collection Operator Relationship Specialty Start Date End Date NameKayden MD [address] [place] [address] PCP - General Family Medicine 02/02/22 Pritesh Torres FNP [address] [place] [address]207 Nurse Practitioner Family Medicine 10/15/23 documented as of this encounter
--- OUTSIDE RECORDS SUMMARY | 2025-07-06 10:38 | XMS_ITS | Encounter Summary ---
Author Organization [employer] Address [address] [facility] 7t [place] [address] Care Team Providers Care Perinatal Nurse Name Role Phone Name, Kayden MONDRAGON Primary Care Provider [phone] Pritesh Torres Unavailable Unavailable Encounter Details Date Type Department Care Team (Late st Contact Info) Description 12/22/2024 Orders Only [facility] [address] [place] [address] Provider, MD Uvaldo Social History Tobacco Use [...] Description 09/29/2025 9:45 AM EST Office Visit [facility] MEDICINE [address] [place] [address] Name, MD Kayden [address] [place] [address] documented as of this encounter Procedures Procedure [...] documented as of this encounter Care Teams Perinatal Nurse Relationship Specialty Start Date End Date Name, MD Kayden [address] [place] [address]18 PCP - General Family Medicine 02/02/22 Pritesh Torres FNP [address] [place] [address] 45194 Nurse Practitioner Family Medicine 10/15/23 documented as of this encounter
--- OUTSIDE RECORDS SUMMARY | 2025-07-06 10:38 | XMS_ITS | Encounter Summary ---
Author Organization [facility] Address [address] [place] [address] Care Team Providers Care Terrazzo Grinder Name Role Phone Alanna Go MD Primary Care Provider Un available Aaron Steele MD Primary Care Provider [phone] [facility], Pcp Primary Care Provider [facility] Encounter Details Date Type Department Care Team Description 04/09/2019 State Tested Nursing Assistant Report Medical Records [address] [place] [address] Rehab., [place] Social History Tobacco Use Types Packs/Day Years [...] on filedocumented in this encounter Care Teams Terrazzo Grinder Relationship Specialty Start Date End Date Alanna Go MD PCP - General Internal Medicine 06/13/1808/26 Aaron Steele MD [address] [place] [address] PCP - General Internal Medicine 08/27/19 03/18/23 [facility], Pcp [address] [place] [address] PCP - General Internal Medicine 03/19/23 documented as of this encounter
--- OUTSIDE RECORDS SUMMARY | 2025-07-06 10:38 | XMS_ITS | Encounter Summary ---
Author Organization [facility] Address [address] [place] [address] Care Team Providers Care Door Fitter Name Role Phone Aaron Steele MD Primary Care Provider [phone] [facility], [facility] Primary Care Provider Unavailabl e Reason for Visit * Reason Onset Date Comments refill request 08/13/2020 Encounter Details Date Type Department Care Team Description 08/13/2020 Refill Adult Medicine [facility] [address] [place] [address] Alexus Del Toro PA-C [address] [facility] [address] [place] [address] refill request Social History Tobacco Use Types [...] on filedocumented in this encounter Care Teams Door Fitter Relationship Specialty Start Date End Date Aaron Steele MD [address] [place] [address] PCP - General Internal Medicine 08/27/19 03/18/23 [facility], Pcp [address] [place] [address] PCP - General Internal Medicine 03/19/23 documented as of this encounter
--- OUTSIDE RECORDS SUMMARY | 2025-07-06 10:38 | XMS_ITS | Encounter Summary ---
Author Organization [employer] Address [address] [facility] 7t [place] [address] Care Team Providers Care County Administrator Name Role Phone Name, Kayden MONDRAGON Primary Care Provider [phone] Pritesh Torres Unavailable Unavailable Reason for Visit * Reason Onset Date Comments ER Follow-up 02/22/2025 Encounter Details Date Type Department Care Team (Late st Contact Info) Description 02/22/2025 Telephone [facility] MEDICINE [address] [place], [place] [phone] Name, MD Kayden [address] [place], [place] [phone] ER Follow-up Social History Tobacco Use Types Packs/Day Years [...] Telephone Encounter - Kat Swanson RN - 02/22/2025 11:49 AM EDT TC placed to pt for status check. Pt in ED on 02/20/25 dx viral URI and cough. Pt reports they are not feeling well. Pt denies fever or chills today. Pt reports chills yesterday. Pt reports they have a productive cough with green mucus that contains some blood. Pt reports they are a little short of breath. Pt reports body aches when coughing. Pt reports the medication prescribed in ED benzonatate is not helping. Pt reports using dayquil and nyquil with limited relief. Per ED notes, chest xray normal, COVID, flu, and RSV negative. Advised pt to go to [facility], urgent care or ED for evaluation. Pt reports they cannot come to [facility] due to transportation and distance. Strongly advised pt to go to ED orurgent care near her for evaluation. Pt verbalized understanding. Message forwarded to PCP as an FYI. ED notes, labs, and diagnostics obtained from [facility] and placed in medical records bin for scanning. * Telephone Encounter - Ayse Yeboah - 02/22/2025 9:02 AM EDT Patient calling to report ED visit on : Date: 02/20 Hospital: [facility] Seen for: Viral Upper Respiratory Illness Symptomatic No *if yes message should go to Triage Patient advised will forward to team nurse for follow up Pt requesting medicine to control cough. documented in this encounter Plan of Treatment Upcoming Encounters Date Type Department Care Team (Late st Contact Info) Description 09/29/2025 9:45 AM EST Office Visit [facility] MEDICINE [address] [place] [address] 510[address] Name, MD Kayden [address] [place] [address] documented as of this encounter Visit Diagnoses Not on filedocumented in this encounter Additional Health Concerns Assessment Noted Time PHQ-9 Depression Total Score: 10 024 3:44 PM EDT documented as of this encounter Care Teams County Administrator Relationship Specialty Start Date End Date Name, MD Kayden [address] [place] [address] PCP - General Family Medicine 02/02/22 Pritesh Torres FNP [address] [place] [address] 23393 Nurse Practitioner Family Medicine 10/15/23 documented as of this encounter
--- OUTSIDE RECORDS SUMMARY | 2025-07-06 10:38 | XMS_ITS | Encounter Summary ---
Author Organization [facility] Address [address] [place] [address] Care Team Providers Care Integration Developer Name Role Phone Aaron Steele MD Primary Care Provider [phone] [facility], [facility] Primary Care Provider Unavailabl e Encounter Details Date Type Department Care Team Description 06/13/2020 Telephone OBGYN - [place] [address] [place], [place] [phone] Brandon Uribe MD [address] [place], [place] [phone] Social History Tobacco Use Types Packs/Day Years [...] salpingo-oophorectomy has been scheduled on 09/09/2020 at [facility] with Dr. Uribe. Patient has been notified [...] on filedocumented in this encounter Care Teams Integration Developer Relationship Specialty Start Date End Date Aaron Steele MD [address] [place] [address] PCP - General Internal Medicine 08/27/19 03/18/23 [facility], [address] [address] PCP - General Internal Medicine 03/19/23 documented as of this encounter
--- OUTSIDE RECORDS SUMMARY | 2025-07-06 10:38 | XMS_ITS | Encounter Summary ---
Author Organization [facility] Address [facility] [place] [address] Care Team Providers Care Tariff Compiling Clerk Name Role Phone Community, Pcp Primary Care Provider Unavaildagoberto e Alanna Go MD Primary Care Provider Un available Aaron Steele MD Primary Care Provider [phone] Community, Pcp Primary Care Provider Unavaildagoberto e Encounter Details Date Type Department Care Team Description 02/10/2018 Transfer Records Medical Records [address] [place] [address] Abstract, Provider Social History Tobacco Use Types Packs/Day Years Used Date Smoking Tobacco: Never Assessed Sex Assigned at Date Recorded Not on file Job Start Date Occupation Industry Not on file Not on file Not on file documented as of this encounter Nursing Notes * Susanna Cardona - 02/10/2018 8:20 AM EDT Transfer Records from Dr. Chandrakant Miller sent to [facility], Hearing Therapy Teacher. documented in this encounter Plan of Treatment Not on file documented as of this encounter Visit Diagnoses Not on filedocumented in this encounter Care Teams Tariff Compiling Clerk Relationship Specialty Start Date End Date Community, Pcp PCP - General Internal Medicine 12/16/17 06/12/18 Alanna Go MD PCP - General Internal Medicine 06/13/1808/26 Aaron Steele MD [address] [place] [address] PCP - General Internal Medicine 08/27/19 03/18/23 [facility], Pcp PCP - General Internal Medicine 03/19/23 documented as of this encounter
--- OUTSIDE RECORDS SUMMARY | 2025-07-06 10:38 | XMS_ITS | Encounter Summary ---
Author Organization [employer] Address [address] [facility] 7t [place] [address] Care Team Providers Care Management Accounts Manager Name Role Phone Name, Kayden MONDRAGON Primary Care Provider [phone] Pritesh Torres Unavailable Unavailable Reason for Visit * Reason Onset Date Comments Med Refill 04/16/2024 Encounter Details Date Type Department Care Team (Late st Contact Info) Description 04/16/2024 Refill [facility] MEDICINE [address] [place], [place] [phone] Name, MD Kayden [address] [place], [place] [phone] Gastroesophageal reflux disease, unspecified whether esophagitis present [...] Description 09/29/2025 9:45 AM EST Office Visit [facility] MEDICINE [address] [place] [address] Name, MD Kayden [address] [place] [address] documented as of this encounter Visit Diagnoses Diagnosis Gastroesophageal reflux disease, unspecified whether esophagitis present documented in this encounter Additional Health Concerns Assessment Noted Time PHQ-9 Depression Total Score: 10 024 3:44 PM EDT documented as of this encounter Care Teams Management Accounts Manager Relationship Specialty Start Date End Date NameKayden MD [address] [place] [address] PCP - General Family Medicine 02/02/22 Pritesh Torres FNP [address] [place] [address] Nurse Practitioner Family Medicine 10/15/23 documented as of this encounter
--- OUTSIDE RECORDS SUMMARY | 2025-07-06 10:38 | XMS_ITS | Encounter Summary ---
Author Organization [employer] Address 75 [facility] 7t [place] [address] Care Team Providers Care Panel Raiser Operator Name Role Phone Name, Kayden MONDRAGON Primary Care Provider [phone] Pritesh Torres Unavailable Unavailable Reason for Visit * Reason Comments Med Refill Encounter Details Date Type Department Care Team (Late st Contact Info) Description 02/21/2025 Refill [facility] MEDICINE [address] [place], [place] [phone] Saritha Villatoro MD [address] [place], [place] [phone] Social History Tobacco Use Types Packs/Day Years [...] Description 09/29/2025 9:45 AM EST Office Visit [facility] MEDICINE [address] [place] [address]953 Name, MD Kayden [address] [place] [address] 17[address] documented as of this encounter Visit Diagnoses Not on filedocumented in this encounter Additional Health Concerns Assessment Noted Time PHQ-9 Depression Total Score: 10 024 3:44 PM EDT documented as of this encounter Care Teams Panel Raiser Operator Relationship Specialty Start Date End Date NameKayden MD [address] [place] [address]651 PCP - General Family Medicine 02/02/22 Pritesh Torres FNP [address] [place] [address] 38944 Nurse Practitioner Family Medicine 10/15/23 documented as of this encounter
--- OUTSIDE RECORDS SUMMARY | 2025-07-06 10:38 | XMS_ITS | Encounter Summary ---
Author Organization [employer] Address 75 [facility] 7t [place] [address] Care Team Providers Care Senior Radiation Therapist Name Role Phone Name, Kayden MONDRAGON Primary Care Provider [phone] Pritesh Torres Unavailable Unavailable Reason for Visit * Reason Comments Med Refill Encounter Details Date Type Department Care Team (Late st Contact Info) Description 03/05/2025 Refill [facility] MEDICINE [address] [place], [place] [phone] Saritha Villatoro MD [address] [place], [place] [phone] Social History Tobacco Use Types Packs/Day Years [...] Description 09/29/2025 9:45 AM EST Office Visit [facility] MEDICINE [address] [place] [address] Name, MD Kayden [address] [place] [address] documented as of this encounter Visit Diagnoses Not on filedocumented in this encounter Additional Health Concerns Assessment Noted Time PHQ-9 Depression Total Score: 10 024 3:44 PM EDT documented as of this encounter Care Teams Senior Radiation Therapist Relationship Specialty Start Date End Date NameKayden MD [address] [place] [address] PCP - General Family Medicine 02/02/22 Pritesh Torres FNP [address] [place] [address] 07689 Nurse Practitioner Family Medicine 10/15/23 documented as of this encounter
--- OUTSIDE RECORDS SUMMARY | 2025-07-06 10:39 | XMS_ITS | Encounter Summary ---
Author Organization [facility] Address [facility] [place] [address] Care Team Providers Care Can Machine Operator Name Role Phone Aaron Steele MD Primary Care Provider [phone] [facility], Pcp Primary Care Provider [facility] e Encounter Details Date Type Department Care Team Description 03/30/2020 [facility] Medical Records [address] [place] [address] Abstract, Provider Social History Tobacco Use Types [...] on filedocumented in this encounter Care Teams Can Machine Operator Relationship Specialty Start Date End Date Aaron Steele MD [address] [place] [address] PCP - General Internal Medicine 08/27/19 03/18/23 [facility], Pcp [address] [place] [address] PCP - General Internal Medicine 03/19/23 documented as of this encounter
--- OUTSIDE RECORDS SUMMARY | 2025-07-06 10:39 | XMS_ITS | Encounter Summary ---
Author Organization [employer] Address [address] [facility] [address] [place] [address] Care Team Providers Care Floor Cleaner Name Role Phone Name, Kayden MONDRAGON Primary Care Provider [phone] Pritesh Torres Unavailable Unavailable Reason for Visit * Reason Comments Med Refill Encounter Details Date Type Department Care Team (Late st Contact Info) Description 04/03/2025 Refill [facility] [address] [place], [place] [phone] Saritha Villatoro MD [address] [place], [place] [phone] Social History Tobacco Use Types Packs/Day Years [...] Description 09/29/2025 9:45 AM EST Office Visit [facility] [address] [place] [phone] Name, MD Kayden [address] [place] [phone] documented as of this encounter Visit Diagnoses Not on filedocumented in this encounter Additional Health Concerns Assessment Noted Time PHQ-9 Depression Total Score: 10 024 3:44 PM EDT documented as of this encounter Care Teams Floor Cleaner Relationship Specialty Start Date End Date NameKayden MD [address] [place] [id number] PCP - General Family Medicine 02/02/22 Pritesh Torres FNP [address] [place] [id number] Nurse Practitioner Family Medicine 10/15/23 documented as of this encounter
--- OUTSIDE RECORDS SUMMARY | 2025-07-06 10:39 | XMS_ITS | Encounter Summary ---
Author Organization [facility] Address [address] [place] [address] Care Team Providers Care Dog Behaviorist Name Role Phone Alanna Go MD Primary Care Provider Un available Aarno Steele MD Primary Care Provider [phone] [facility], Pcp Primary Care Provider Unavailabl e Encounter Details Date Type Department Care Team Description 10/17/2018 [facility] Controlled Substance Contract Medical Records [address] [place] [id number] Abstract, Provider Social History Tobacco Use Types [...] on filedocumented in this encounter Care Teams Dog Behaviorist Relationship Specialty Start Date End Date Alanna Go MD PCP - General Internal Medicine 06/13/1808/26 Aaron Steele MD [address] [place] [address] PCP - General Internal Medicine 08/27/19 03/18/23 [facility], Pcp [address] [place] [id number] PCP - General Internal Medicine 03/19/23 documented as of this encounter
--- OUTSIDE RECORDS SUMMARY | 2025-07-06 10:39 | XMS_ITS | Encounter Summary ---
Author Organization [facility] Address [address] [place] [address] Care Team Providers Care Plant And Equipment Worker Name Role Phone Alanna Go MD Primary Care Provider Un available Aaron Steele MD Primary Care Provider [facility], Pcp Primary Care Provider Unavailabl e Encounter Details Date Type Department Care Team Description 09/25/2018 Orders Only Genetic & Disease Counseling - [address] [address] Luda Sarah PA-C Family history of malignant [...] counseling documented in this encounter Care Teams Plant And Equipment Worker Relationship Specialty Start Date End Date Alanna Go MD PCP - General Internal Medicine 06/13/1808/26 Aaron Steele MD [address] [place] [id number] PCP - General Internal Medicine 08/27/19 03/18/[address] [id number] PCP - General Internal Medicine 03/19/23 documented as of this encounter
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
--- OUTSIDE RECORDS SUMMARY | 2025-07-06 10:39 | XMS_ITS | Encounter Summary ---
Author Organization [facility] Address [address] [place] [address] Care Team Providers Care Software Engineer Advisor Name Role Phone Aaron Steele MD Primary Care Provider [phone] [facility], Pcp Primary Care Provider Unavailabl e Reason for Visit * Reason Onset Date Comments Faxed Refill 05/31/2020 Triamcinolone 0. 1% Ointment Encounter Details Date Type Department Care Team Description 05/31/2020 Refill Dermatology - [address] [phone] Chrissy Swartz PA-C Faxed Refill (Triamcinolone 0.1% [...] N/A Patients current insurance carrier is: Payor: [employer] FFS / Plan: [employer] [facility] / Product Type: MEDICAID RISK documented in this encounter Plan of Treatment Not on file documented as of this encounter Visit Diagnoses Not on filedocumented in this encounter Care Teams Software Engineer Advisor Relationship Specialty Start Date End Date Aaron Steele MD [address] [place] [phone] PCP - General Internal Medicine 08/27/19 03/18/[address] [phone] PCP - General Internal Medicine 03/19/23 documented as of this encounter
--- OUTSIDE RECORDS SUMMARY | 2025-07-06 10:39 | XMS_ITS | Encounter Summary ---
Author Organization [employer] Address [address] [facility] 7t [place] [address] Care Team Providers Care Paraprofessional Education Assistant Name Role Phone Name, Kayden MONDRAGON Primary Care Provider [phone] Pritesh Torres Unavailable Unavailable Reason for Visit * Reason Comments Med Refill Encounter Details Date Type Department Care Team (Late st Contact Info) Description 08/24/2024 Refill [facility] [address] [place], [place] [phone] Name, MD Ky[place] [address] [place], [place] [phone] Lichen sclerosus of vulva Social History Tobacco [...] Description 09/29/2025 9:45 AM EST Office Visit [facility] [address] [place] [address] Name, MD Kayden [address] [place] [address] documented as of this encounter Visit Diagnoses Diagnosis Lichen sclerosus of vulva documented in this encounter Additional Health Concerns Assessment Noted Time PHQ-9 Depression Total Score: 10 024 3:44 PM EDT documented as of this encounter Care Teams Paraprofessional Education Assistant Relationship Specialty Start Date End Date Name, MD Kayden [address] [place] [address] PCP - General Family Medicine 02/02/22 Pritesh Torres FNP [address] [place] [address] Nurse Practitioner Family Medicine 10/15/23 documented as of this encounter
--- OUTSIDE RECORDS SUMMARY | 2025-07-06 10:39 | XMS_ITS | Encounter Summary ---
Author Organization [facility] Address [address] [place] [address] Care Team Providers Care Organizational Development Consultant Name Role Phone Aaron Steele MD Primary Care Provider [phone] [facility], Pcp Primary Care Provider Unavailabl e Encounter Details Date Type Department Care Team Description 12/01/2019 Pt. Non Urgent Medical Question Adult Medicine - [address] [address] Aaron Steele MD [address] [place] [address] Social History Tobacco Use Types Packs/Day Years [...] on filedocumented in this encounter Care Teams Organizational Development Consultant Relationship Specialty Start Date End Date Aaron Steele MD [address] [place] [address] PCP - General Internal Medicine 08/27/19 03/18/23 [facility], Pcp [address] [place] [address] PCP - General Internal Medicine 03/19/23 documented as of this encounter
--- OUTSIDE RECORDS SUMMARY | 2025-07-06 10:39 | XMS_ITS | Encounter Summary ---
Author Organization [facility] Address [address] [place] [address] Care Team Providers Care Asbestos Coverer Name Role Phone Aaron Steele MD Primary Care Provider [phone] [facility], Pcp Primary Care Provider Unavailabl e Encounter Details Date Type Department Care Team Description 12/27/2021 Orders Only Endocrinology - [address] [address] Karo Jesus PA-C [address] [place] [address] Social History Tobacco Use Types Packs/Day Years [...] on filedocumented in this encounter Care Teams Asbestos Coverer Relationship Specialty Start Date End Date Aaron Steele MD [address] [place] [address] PCP - General Internal Medicine 08/27/19 03/18/23 [facility], Pcp [address] [place] [address] PCP - General Internal Medicine 03/19/23 documented as of this encounter
--- OUTSIDE RECORDS SUMMARY | 2025-07-06 10:39 | XMS_ITS | Encounter Summary ---
Author Organization [facility] Address [facility] [place] [address] Care Team Providers Care Senior Hadoop Developer Name Role Phone Aaron Steele MD Primary Care Provider [phone] [facility], Pcp Primary Care Provider Unavailabl e Encounter Details Date Type Department Care Team Description 2019 Refill Adult Medicine [address] [address] Alanna Go MD Social History Tobacco Use [...] Telephone Encounter - Robe Garcia MD - 11/09/2019 4:47 PM EST TO PCP * Telephone Encounter - Janeen Rao M.A. - 11/09/2019 10:08 AM EST Last office visit 08.27.[address] Garcia * Telephone Encounter - Elisa Roldan M.A. - 11/09/2019 9:17 AM EST Pt of Dr Marion's. Old care team is no longer with [facility] documented in this encounter Plan of Treatment Not on file documented as of this encounter Visit Diagnoses Not on filedocumented in this encounter Care Teams Senior Hadoop Developer Relationship Specialty Start Date End Date Aaron Steele MD [address] [place] [address] PCP - General Internal Medicine 08/27/19 03/18/23 [facility], Pcp [address] [place] [address] PCP - General Internal Medicine 03/19/23 documented as of this encounter
--- OUTSIDE RECORDS SUMMARY | 2025-07-06 10:39 | XMS_ITS | Encounter Summary ---
Author Organization [facility] Address [facility] [place] [address] Care Team Providers Care Hospice Rn Name Role Phone Aaron Steele MD Primary Care Provider [phone] [facility], Pcp Primary Care [facility] Encounter Details Date Type Department Care Team Description 04/26/2020 [facility] Medical Records [address] [place] [address] Abstract, Provider Social History Tobacco Use Types [...] on filedocumented in this encounter Care Teams Hospice Rn Relationship Specialty Start Date End Date Aaron Steele MD [address] [place] [address] PCP - General Internal Medicine 08/27/19 03/18/23 [facility], Pcp [address] [place] [address] PCP - General Internal Medicine 03/19/23 documented as of this encounter
--- OUTSIDE RECORDS SUMMARY | 2025-07-06 10:39 | XMS_ITS | Encounter Summary ---
Author Organization [facility] Address [address] [place] [address] Care Team Providers Care Glass Cutter Hand Name Role Phone Alanna Go MD Primary Care Provider Un available Aaron Steele MD Primary Care Provider [phone] [facility], Pcp Primary Care Provider Unavailabl e Encounter Details Date Type Department Care Team Description 02/06/2019 Pt. Non Urgent Medic al Question Adult Medicine [address] [address] Alanna Go MD Social History Tobacco Use [...] filedocumented in this encounter Care Teams Glass Cutter Hand Relationship Specialty Start Date End Date Alanna Go MD PCP - General Internal Medicine 06/13/1808/26 Aaron Steele MD [address] [place] [address] PCP - General Internal Medicine 08/27/19 03/18/23 [facility], [address] [address] PCP - General Internal Medicine 03/19/23 documented as of this encounter
--- OUTSIDE RECORDS SUMMARY | 2025-07-06 10:39 | XMS_ITS | Encounter Summary ---
Author Organization [facility] Address [address] [place] [address] Care Team Providers Care Foxing Painter Name Role Phone Alanna Go MD Primary Care Provider Un available Aaron Steele MD Primary Care Provider [phone] [facility], Pcp Primary [facility] Encounter Details Date Type Department Care Team Description 08/04/2019 Pt. Non Urgent Medical Question Adult Urgent Care - [address] [address] Robe Garcia MD Social History Tobacco Use [...] on filedocumented in this encounter Care Teams Foxing Painter Relationship Specialty Start Date End Date Alanna Go MD PCP - General Internal Medicine 06/13/1808/26 Aaron Steele MD [address] [place] [address] PCP - General Internal Medicine 08/27/19 03/18/23 [facility], Pcp [address] [place] [address] PCP - General Internal Medicine 03/19/23 documented as of this encounter
--- OUTSIDE RECORDS SUMMARY | 2025-07-06 10:39 | XMS_ITS | Encounter Summary ---
Author Organization [facility] Address [address] [place] [address] Care Team Providers Care Steward/Stewardess Smoke Room Name Role Phone Aaron Steele MD Primary Care Provider [phone] [facility], Pcp Primary Care Provider Unavailabl e Encounter Details Date Type Department Care Team Description 04/19/2020 Orders Only Medical Records [address] [place] [address] Brandon Uribe MD [address] [place] [address] Social History Tobacco Use Types Packs/Day Years [...] of this encounter Progress Notes * Brandon Uribe MD - 04/20/2020 4:49 PM EDT [...] on filedocumented in this encounter Care Teams Steward/Stewardess Smoke Room Relationship Specialty Start Date End Date Aaron Steele MD [address] [place] [address] PCP - General Internal Medicine 08/27/19 03/18/23 [facility], [address] [address] PCP - General Internal Medicine 03/19/23 documented as of this encounter
--- OUTSIDE RECORDS SUMMARY | 2025-07-06 10:39 | XMS_ITS | Encounter Summary ---
Author Organization [facility] Address [address] [place] [address] Care Team Providers Care Administrative Services Specialist Name Role Phone Aaron Steele MD Primary Care Provider [phone] [facility], [facility] Primary Care Provider Unavailabl e Encounter Details Date Type Department Care Team Description 07/31/2021 Pt. Non Urgent Medical Question Adult Medicine - [address] [address] Tracee Coe PA-C [address] [place] [address] Social History Tobacco Use Types Packs/Day Years [...] on filedocumented in this encounter Care Teams Administrative Services Specialist Relationship Specialty Start Date End Date Aaron Steele MD [address] [place] [address] PCP - General Internal Medicine 08/27/19 03/18/23 [facility], Pcp [address] [place] [address] PCP - General Internal Medicine 03/19/23 documented as of this encounter
--- OUTSIDE RECORDS SUMMARY | 2025-07-06 10:39 | XMS_ITS | Encounter Summary ---
Author Organization [employer] Address [address] [facility] 7t [place] [address] Care Team Providers Care Director Telecommunications Name Role Phone Name, Kayden MONDRAGON Primary Care Provider [phone] Pritesh Torres Unavailable Unavailable Reason for Visit * Reason Comments Med Refill Encounter Details Date Type Department Care Team (Late st Contact Info) Description 07/27/2024 Refill [facility] [address] [place], [place] [phone] Nahomi Magana, ANP [address] [place], [place] [phone] Gastroesophageal reflux disease, unspecified whether esophagitis present [...] your housing situation today? I have cristiano gabino 02/17/[address] you li [...] Description 09/29/2025 9:45 AM EST Office Visit [facility] [address] [place] [address] Name, MD Kayden [address] [place] [address] documented as of this encounter Visit Diagnoses Diagnosis Gastroesophageal reflux disease, unspecified whether esophagitis present documented in this encounter Additional Health Concerns Assessment Noted Time PHQ-9 Depression Total Score: 10 024 3:44 PM EDT documented as of this encounter Care Teams Director Telecommunications Relationship Specialty Start Date End Date Name, MD Kayden [address] [place] [address] PCP - General Family Medicine 02/02/22 Pritesh Torres FNP [address] [place] [address] Nurse Practitioner Family Medicine 10/15/23 documented as of this encounter
--- OUTSIDE RECORDS SUMMARY | 2025-07-06 10:39 | XMS_ITS | Encounter Summary ---
Author Organization [facility] Address [address] [place] [address] Care Team Providers Care Corporate Executive Name Role Phone Name, Kayden MONDRAGON Primary Care Provider [phone] Reason for Visit * Reason Onset Date Comments prior authorization 07/02/2025 Zepbound 2.5 Encounter Details Date Type Department Care Team ([facility] Contact Info) Description 07/02/2025 Telephone Bariatric Surgery [address] [address] Avinash Rolle MD [address] [place] [address] Social History Tobacco Use Types Packs/Day Years [...] on file Sexual Orientation Not on file documented as of this encounter Progress Notes * Chelsi Espinosa - 07/02/2025 12:18 PM EDT Patient requesting PA for Zepbound 2.5 mg documented in this encounter Plan of Treatment Upcoming Encounters Date Type Department Care Team (Late Contact Info) Description 12/23/2025 3:15 PM EST Office Visit Bariatric Surgery [address] [phone] Avinash Rolle MD [address] [place] [address] documented as of this encounter Visit Diagnoses Not on filedocumented in this encounter Care Teams Corporate Executive Relationship Specialty Start Date End Date Name, MD Kayden [address] [place] [address] PCP - General Internal Medicine 03/22/25 documented as of this encounter
--- OUTSIDE RECORDS SUMMARY | 2025-07-06 10:39 | XMS_ITS | Encounter Summary ---
Author Organization [facility] Address [address] [facility] 7t [place] [address] Care Team Providers Care Commercial Sewing Instructor Name Role Phone Name, Kayden MONDRAGON Primary Care Provider [phone] Pritesh Torres Unavailable Unavailable Reason for Visit * Reason Comments Med Refill Encounter Details Date Type Department Care Team ([facility] Contact Info) Description 02/17/2023 Refill [facility] [address] [place] [address] Kayden Muller MD [address] [place] [address] [phone] Gastroesophageal reflux disease, unspecified whether esophagitis present [...] Department Care Team (Late Contact Info) Description 09/29/2025 9:45 AM EST Office Visit [facility] [address] [place] [address] [phone] [place] [address] documented as of this encounter Visit Diagnoses Diagnosis Gastroesophageal reflux disease, unspecified whether esophagitis present documented in this encounter Additional Health Concerns Assessment Noted Time PHQ-9 Depression Total Score: 7 02/08/20 23 9:28 AM EDT documented as of this encounter Care Teams Commercial Sewing Instructor Relationship Specialty Start Date End Date Name, MD Kayden [address] [place] [address] PCP - General Family Medicine 02/02/22 Pritesh Torres FNP [address] [place] [address] Nurse Practitioner Family Medicine 10/15/23 documented as of this encounter
--- OUTSIDE RECORDS SUMMARY | 2025-07-06 10:39 | XMS_ITS | Encounter Summary ---
Author Organization [employer] Address [address] [facility] 7t [place] [address] Care Team Providers Care Office Services Associate Name Role Phone Name, Kayden MONDRAGON Primary Care Provider Pritesh Torres Unavailable Unavailable Reason for Visit * Reason Onset Date Comments Med Refill 10/13/2024 Encounter Details Date Type Department Care Team (Late st Contact Info) Description 10/13/2024 Refill [facility] [address] [place], [place] [phone] Nahomi Magana, ANP [address] [place], [place] [phone] Gastroesophageal reflux disease, unspecified whether esophagitis present [...] 9:45 AM EST Office Visit [facility] [address] [place] [address] Name, MD Kayden [address] [place] [address] documented as of this encounter Visit Diagnoses Diagnosis Gastroesophageal reflux disease, unspecified whether esophagitis present documented in this encounter Additional Health Concerns Assessment Noted Time PHQ-9 Depression Total Score: 10 024 3:44 PM EDT documented as of this encounter Care Teams Office Services Associate Relationship Specialty Start Date End Date NameKayden MD [address] [place] [address] PCP - General Family Medicine 02/02/22 Pritesh Torres FNP [address] [place] [address] Nurse Practitioner Family Medicine 10/15/23 documented as of this encounter
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
--- OUTSIDE RECORDS SUMMARY | 2025-07-06 10:39 | XMS_ITS | Encounter Summary ---
Author Organization [employer] Address [address] [place] [address] Care Team Providers Care Boilerhouse Mechanic Name Role Phone Name, Kayden MONDRAGON Primary Care Provider [phone] Pritesh Torres Unavailable Unavailable Encounter Details Date Type Department Care Team (Latest Contact Info) Description 07/06/2025 Travel Social History Tobacco Use Types Packs/Day Years Used Date Smoking Tobacco: Former Cigarettes Q uit: 2005 Smokeless Tobacco: Never Alcohol Use Standard Drinks/Week [...] Description 09/29/2025 9:45 AM EST Office Visit [facility] [address] [place] [address] Name, MD Kayden [address] [place] [address] documented as of this encounter Visit Diagnoses Not on filedocumented in this encounter Additional Health Concerns Assessment Noted Time PHQ-9 Depression Total Score: 12 025 10:01 AM EDT documented as of this encounter Care Teams Boilerhouse Mechanic Relationship Specialty Start Date End Date Name, MD Kayden [address] [place] [address] PCP - General Family Medicine 02/02/22 Pritesh Torres FNP [address] [place] [address] Nurse Practitioner Family Medicine 10/15/23 documented as of this encounter
--- OUTSIDE RECORDS SUMMARY | 2025-07-06 10:39 | XMS_ITS | Encounter Summary ---
Author Organization [employer] Address [address] [facility] 7t [place] [address] Care Team Providers Care Business Intelligence Analyst Name Role Phone Name, Kayden MONDRAGON Primary Care Provider [phone] Pritesh Torres Unavailable Unavailable Encounter Details Date Type Department Care Team ([facility] st Contact Info) Description 07/05/2025 Telephone [facility] MEDICINE [address] [place], [place] [phone] Name, MD Kayden [address] [place], [place] [phone] Social History Tobacco Use Types Packs/Day Years [...] encounter Miscellaneous Notes * Telephone Encounter - Gracie Cohen RN - 07/05/2025 4:34 PM EDT T/C to pt. Asked pt to bring home Bp readings to scheduled nurse visit tomorrow. Pt states she doesnot have a list but home BP readings have been great. Agrees to complete ordered lab tomorrow. documented in this encounter Plan of Treatment Upcoming Encounters Date Type Department Care Team (Late st Contact Info) Description 09/29/2025 9:45 AM EST Office Visit [facility] MEDICINE [address] [place] [address] Name, MD Kayden [address] [place] [address] documented as of this encounter Visit Diagnoses Not on filedocumented in this encounter Additional Health Concerns Assessment Noted Time PHQ-9 Depression Total Score: 12 025 10:01 AM EDT documented as of this encounter Care Teams Business Intelligence Analyst Relationship Specialty Start Date End Date NameKayden MD [address] [place] [address] PCP - General Family Medicine 02/02/22 Pritesh Torres FNP [address] [place] [address] Nurse Practitioner Family Medicine 10/15/23 documented as of this encounter
--- OUTSIDE RECORDS SUMMARY | 2025-07-06 10:39 | XMS_ITS | Encounter Summary ---
Author Organization [employer] Address [address] [facility] 7t [place] [address] Care Team Providers Care Electric Meter Technician Name Role Phone Name, Kayden MONDRAGON Primary Care Provider [phone] Pritesh Torres Unavailable Unavailable Encounter Details Date Type Department Care Team ([facility] st Contact Info) Description 10/08/2022 Abstract [facility] MEDICINE [address] [place], [place] [phone] Provider, MD Uvaldo Social History Tobacco Use [...] AM EST documented as of this encounter Functional Status * Over the past 2 weeks, how often have you been bothered by any of the following problems? Question Answer Date of Assessment Author Little interest or pleasure in doing things Not at all 10/11/2022 10:28 AM Jung Thurston [place] Feeling down, depressed, or hopeless Several days 10/11/2022 10:28 AM Koko Thurston MA Patient Health Questionnaire-2 Score 1 10/11/2022 10:28 AM Destiney Thurston [place] * Question Answer Date of Assessment Author Trouble falling or staying asleep, or sleeping too much Several days 10/11/2022 10:28 AM Sandra Thurston [place] Feeling tired or having little energy Several days 10/11/2022 10:28 AM Sandra Thurston [place] Trouble concentrating on things, such as reading the newspaper or watching television More than half the days 10/11/2022 10:28 AM Sandra Thurston [place] * If you checked off any problems on this questionnaire so far, Question Answer Date of Assessment Author How difficult have these problems made it for you to do your work, take care of things at home, or get along with other people? Somewhat difficult 10/11/2022 10:28 AM Koko Thurston [place] documented as of this encounter Plan of Treatment Upcoming Encounters Date Type Department Care Team (Late st Contact Info) Description 09/29/2025 9:45 AM EST Office Visit [facility] [address] [place] [address] Name, MD Kayden [address] [place] [address] documented as of this encounter Visit Diagnoses Not on filedocumented in this encounter Care Teams Electric Meter Technician Relationship Specialty Start Date End Date Name, MD Kayden [address] [place] [address] PCP - General Family Medicine 02/02/22 Pritesh Torres FNP [address] [place] [address] Nurse Practitioner Family Medicine 10/15/23 documented as of this encounter
--- OUTSIDE RECORDS SUMMARY | 2025-07-06 10:39 | XMS_ITS | Encounter Summary ---
Author Organization [facility] Address [facility] [place] [address] Care Team Providers Care Sports Official Name Role Phone Alanna Go MD Primary Care Provider Un available Aaron Steele MD Primary Care Provider [phone] [facility], Pcp Primary Care Provider Unavailabl e Encounter Details Date Type Department Care Team Description 11/14/2018 Pt. Non Urgent Medic al Question Adult Medicine [address] [address] Alanna Go MD Social History Tobacco Use [...] on filedocumented in this encounter Care Teams Sports Official Relationship Specialty Start Date End Date Alanna Go MD PCP - General Internal Medicine 06/13/1808/26 Aaron Steele MD [address] [place] [address] PCP - General Internal Medicine 08/27/19 03/18/23 [facility], Pcp [address] [place] [address] PCP - General Internal Medicine 03/19/23 documented as of this encounter
--- OUTSIDE RECORDS SUMMARY | 2025-07-06 10:39 | XMS_ITS | Encounter Summary ---
Author Organization [facility] Address [facility] [place] [address] Care Team Providers Care Pediatric Audiologist Name Role Phone Aaron Steele MD Primary Care Provider [phone] [facility], Pcp Primary Care [facility] Encounter Details Date Type Department Care Team Description 07/11/2021 Manager Lab Report Medical Records [address] [place] [address] Abstract, Provider Social History Tobacco Use Types [...] filedocumented in this encounter Care Teams Pediatric Audiologist Relationship Specialty Start Date End Date Aaron Steele MD [address] [place] [address] PCP - General Internal Medicine 08/27/19 03/18/23 [facility], Pcp [address] [place] [address] PCP - General Internal Medicine 03/19/23 documented as of this encounter
--- OUTSIDE RECORDS SUMMARY | 2025-07-06 10:39 | XMS_ITS | Encounter Summary ---
Author Organization [facility] Address [facility] [place] [address] Care Team Providers Care Management Aide Name Role Phone Alanna Go MD Primary Care Provider Un available Aaron Steele MD Primary Care Provider [phone] [facility], [facility]cp Primary Care Provider Unavailabl e Reason for Visit * Reason Onset Date Comments APPOINTMENT 07/30/2019 Encounter Details Date Type Department Care Team Description 07/30/2019 Pt. Non Urgent Medic al Question Adult Medicine [address] [address] Alanna Go MD Social History Tobacco Use [...] on filedocumented in this encounter Care Teams Management Aide Relationship Specialty Start Date End Date Alanna Go MD PCP - General Internal Medicine 06/13/1808/26 Aaron Steele MD [address] [place] [address] PCP - General Internal Medicine 08/27/19 03/18/23 [facility], [address] [address] PCP - General Internal Medicine 03/19/23 documented as of this encounter
--- OUTSIDE RECORDS SUMMARY | 2025-07-06 10:39 | XMS_ITS | Encounter Summary ---
Author Organization [facility] Address [address] [place] [address] Care Team Providers Care Line Person Name Role Phone Aaron Steele MD Primary Care Provider [phone] [facility], [facility] Primary Care Provider Unavailabl e Reason for Visit * Reason Onset Date Comments Orders Call 06/16/2021 mri testing. Encounter Details Date Type Department Care Team Description 06/16/2021 Telephone Adult Medicine - [place] [address] [place] [address] Tracee Coe PA-C [address] [place] [address] Orders Call (mri testing.) Social History Tobacco [...] Jr Cornelius - 06/19/2021 9:[address] external mri brain order for Saritha Healy to have her test at [facility]. Thanks you. * Telephone Encounter - Tracee [...] Saritha Healy to have her test at [facility], she won't fit in the mri sanner here in [place]. Thanks. Jr, Mri Department. * Telephone Encounter - Deena Parr - 06/16/2021 10:32 AM EDT Left message for pt to call office back. Ext [phone] or route to B side. * Telephone [...] giddiness documented in this encounter Care Teams Line Person Relationship Specialty Start Date End Date Aaron Steele MD [address] [place] [address] PCP - General Internal Medicine 08/27/19 03/18/23 [facility], [address] [address] PCP - General Internal Medicine 03/19/23 documented as of this encounter
--- OUTSIDE RECORDS SUMMARY | 2025-07-06 10:39 | XMS_ITS | Encounter Summary ---
Author Organization [employer] Address [address] [facility] [address] [place] [address] Care Team Providers Care Plastics Fabrication Supervisor Name Role Phone Name, Kayden MONDRAGON Primary Care Provider [phone] Pritesh Torres Unavailable Unavailable Reason for Visit * Reason Onset Date Comments oct recalls 07/02/2025 Encounter Details Date Type Department Care Team (Late st Contact Info) Description 07/02/2025 Telephone [facility] MEDICINE [address] [place], [place] [phone] Yaritza Pierce [place] oct recalls Social History Tobacco Use Types Packs/Day Years [...] encounter Miscellaneous Notes * Telephone Encounter - Yaritza Pierce [place] - 07/02/2025 2:41 PM EDT Telephone call to patient to schedule the following recall: Visit type: Follow up Appointment notes: HTN Patient agree to appointment on 09/29/25 at 9;45 AM with Name. documented in this encounter Plan of Treatment Upcoming Encounters Date Type Department Care Team (Late st Contact Info) Description 09/29/2025 9:45 AM EST Office Visit [facility] MEDICINE [address] [place] [address] Name, MD Kayden [address] [place] [address] documented as of this encounter Visit Diagnoses Not on filedocumented in this encounter Additional Health Concerns Assessment Noted Time PHQ-9 Depression Total Score: 12 025 10:01 AM EDT documented as of this encounter Care Teams Plastics Fabrication Supervisor Relationship Specialty Start Date End Date Name, MD Kayden [address] [place] [address] PCP - General Family Medicine 02/02/22 Pritesh Torres FNP [address] [place] [address] Nurse Practitioner Family Medicine 10/15/23 documented as of this encounter
--- OUTSIDE RECORDS SUMMARY | 2025-07-06 10:39 | XMS_ITS | Encounter Summary ---
Author Organization [facility] Address [address] [place] [address] Care Team Providers Care Drawer In Hand Name Role Phone Aaron Steele MD Primary Care Provider [phone] [facility], Pcp Primary Care Provider Unavailabl e Encounter Details Date Type Department Care Team Description 11/06/2019 Telephone General Surgery - [address] [place] [address] Trell Hart MD [address] [place] [address] Social History Tobacco Use Types Packs/Day Years [...] on filedocumented in this encounter Care Teams Drawer In Hand Relationship Specialty Start Date End Date Aaron Steele MD [address] [place] [address] PCP - General Internal Medicine 08/27/19 03/18/23 [facility], Pcp [address] [place] [address] PCP - General Internal Medicine 03/19/23 documented as of this encounter
--- OUTSIDE RECORDS SUMMARY | 2025-07-06 10:39 | XMS_ITS | Encounter Summary ---
Author Organization [facility] Address [facility] [place] [address] Care Team Providers Care Jumpbasting Lining Baster Name Role Phone Alanna Go MD Primary Care Provider Un available Aaron Steele MD Primary Care Provider [phone] [facility], Pcp Primary Care Provider Unavailabl e Encounter Details Date Type Department Care Team Description 10/23/2018 [facility] Medical Records [address] [place] [address] Abstract, Provider Social History Tobacco Use Types [...] on filedocumented in this encounter Care Teams Jumpbasting Lining Baster Relationship Specialty Start Date End Date Alanna Go MD PCP - General Internal Medicine 06/13/1808/26 Aaron Steele MD [address] [place] [address] PCP - General Internal Medicine 08/27/19 03/18/23 [facility], Pcp [address] [place] [address] PCP - General Internal Medicine 03/19/23 documented as of this encounter
--- OUTSIDE RECORDS SUMMARY | 2025-07-06 10:39 | XMS_ITS | Encounter Summary ---
Author Organization [facility] Address [address] [place] [address] Care Team Providers Care Buzzle Buffer Name Role Phone Aaron Steele MD Primary Care Provider [phone] [facility], Pcp Primary Care Provider Unavailabl e Reason for Visit * Reason Onset Date Comments Medication 08/31/2021 Encounter Details Date Type Department Care Team Description 08/31/2021 Refill Gastroenterology [facility] [address] [facility] [address] [place] [phone] Kvng Bravo MD Medication Social History Tobacco [...] on filedocumented in this encounter Care Teams Buzzle Buffer Relationship Specialty Start Date End Date Aaron Steele MD [address] [place] [address] PCP - General Internal Medicine 08/27/19 03/18/23 [facility], Pcp [address] [place] [address] PCP - General Internal Medicine 03/19/23 documented as of this encounter
--- OUTSIDE RECORDS SUMMARY | 2025-07-06 10:39 | XMS_ITS | Encounter Summary ---
Author Organization [facility] Address [address] [place] [address] Care Team Providers Care Lead Nurse Name Role Phone Aaron Steele MD Primary Care Provider [phone] [facility], [facility] Primary Care Provider Unavailabl e Reason for Visit * Reason Onset Date Comments Medication 01/05/2020 Encounter Details Date Type Department Care Team Description 01/05/2020 Telephone Adult Medicine [address] [address] Aaron Steele MD [address] [place] [address] Medication Social History Tobacco Use Types Packs/Day [...] dental problems. * Telephone Encounter - Mayte Marsh M.A - 01/05/2020 10:51 AM EST fyi [...] on filedocumented in this encounter Care Teams Lead Nurse Relationship Specialty Start Date End Date Aaron Steele MD [address] [place] [address] PCP - General Internal Medicine 08/27/19 03/18/23 [facility], [address] [address] PCP - General Internal Medicine 03/19/23 documented as of this encounter
--- OUTSIDE RECORDS SUMMARY | 2025-07-06 10:39 | XMS_ITS | Encounter Summary ---
Author Organization [employer] Address 75 [facility] 7t [place] [address] Care Team Providers Care Multiple Slide Operator Name Role Phone Name, Kayden MONDRAGON Primary Care Provider [phone] Pritesh Torres Unavailable Unavailable Reason for Visit * Reason Comments Med Refill Encounter Details Date Type Department Care Team (Late st Contact Info) Description 03/19/2025 Refill [facility] [address] [place], [place] [phone] Saritha Villatoro MD 230 [place], [place] [phone] Social History Tobacco Use Types Packs/Day Years [...] Description 09/29/2025 9:45 AM EST Office Visit [facility] [address] [place] [address] Name, MD Kayden [address] [place] [address] documented as of this encounter Visit Diagnoses Not on filedocumented in this encounter Additional Health Concerns Assessment Noted Time PHQ-9 Depression Total Score: 10 024 3:44 PM EDT documented as of this encounter Care Teams Multiple Slide Operator Relationship Specialty Start Date End Date NameKayden MD [address] [place] [address] PCP - General Family Medicine 02/02/22 Pritesh Torres FNP [address] [place] [address] Nurse Practitioner Family Medicine 10/15/23 documented as of this encounter
[2025-07-06 11:50] LABS: Anion Gap 10 (12-20); Blood Urea Nitrogen 13 mg/dL (9-16); Calcium 8.9 mg/dL (8.4-10.2); Carbon Dioxide 34 mmol/L (22-29); Chloride 101 mmol/L (96-108); Estimated Glomerular Filt Rate > 60; Potassium 3.3 mmol/L (3.3-5.1); Sodium 142 mmol/L (135-145)
== END 2025-07-06 09:54 | disposition home or self-care (01) ==
LOC: HO.HHCL 09:53
PROVIDERS: PCP Internal Medicine Geriatric Medicine; Visit Provider Family Medicine
DX: I10 Essential (primary) hypertension (principal)
CPT/HCPCS: 36415; 80048

== ENCOUNTER 2025-07-15 13:06 | Outpatient (REF) | payer MEDICAID, SELFPAY ==
--- NOTE | ~2025-07-15 | CT_ITS ---
EXAMINATION: CT ABDOMEN AND PELVIS WITH CONTRAST CLINICAL INFORMATION: Abdominal pain COMPARISON: CT chest 07/22/2023 and abdomen ultrasound February 27, 2024 TECHNIQUE: Multidetector volumetric images were obtained from the superior aspect of the liver through the pubic symphysis following administration 85 mL of Omnipaque 350 intravenous contrast. Sagittal and coronal reformatted images were obtained on the technologist's workstation. Oral contrast: Present This CT examination was performed using dose optimization techniques as appropriate, variously including the following: *Automated exposure control *Adjustment of mA and/or kV according to patient size (this includes techniques or standardized protocols for targeted exams where dose is matched to indication/reason for exam; i.e. extremities or head) *Use of iterative reconstruction technique DLP: 1497 mGY*cm FINDINGS: LUNG BASES: There is a bilobed nodule in the medial base of the left lower lobe with a central calcification in the posterior nodular component that measures 9 x 14 mm, previously 9 x 13 mm. Small septal lines are noted between the nodule and pleura. There is a 4 mm calcified nodule in the anterior segment of the right lower lobe. No change. LIVER, GALLBLADDER, AND BILIARY TREE: There is a single punctate calcification in the right hepatic lobe, probably calcified granuloma. The gallbladder is surgically absent. There are clips in the gallbladder fossa. PANCREAS: Unremarkable. SPLEEN: Unremarkable. ADRENAL GLANDS: Unremarkable. KIDNEYS AND URETERS: Punctate 1 mm stone is present in the lower pole right kidney as well as the left kidney. BLADDER: Decompressed and grossly normal. GASTROINTESTINAL TRACT: Postsurgical changes are present in the lower body and gastric antrum of the stomach. The appendix is within normal limits. ABDOMINAL WALL: Supraumbilical hernia passes through the dehiscence in the medial on the 3 cm wide. The hernia sac contains adipose tissue. Hernia sac measured 2.8 x 4.5 cm (AP by cc). LYMPH NODES: External iliac lymph nodes measure 10-11 mm, one on each side. There are shotty inguinal nodes. VASCULAR: Unremarkable. PELVIC VISCERA: There is minimal elongated uterus. It measures 14 cm long axis. Ovaries are not clearly identified. OSSEOUS STRUCTURES: There is moderate degenerative change at L4-5 with vacuum phenomenon, mild disc space narrowing, degenerative endplate irregularity, sclerosis anteriorly where there are osteophytes. CT/CT abdomen pelvis w IV con IMPRESSION: Stable pulmonary nodules are probably related to granulomatous disease. There is also evidence for granuloma in the right hepatic lobe. Borderline external iliac lymph nodes and shotty inguinal nodes are probably reactive in nature. Supraumbilical hernia contains adipose tissue. Hernia sac measures 2.8 x 4.5 cm. Punctate lower pole 1 mm stones are present, one in each kidney. Fleischner guidelines were followed. Electronically signed by: Suman Hensley MD 07/15/2025 04:34 PM EDT RP
--- OUTSIDE RECORDS SUMMARY | 2025-07-15 14:21 | XMS_ITS | Encounter Summary ---
Author Organization [employer] Address [address] [facility] 7t [place] [address] Care Team Providers Care Network Developer Name Role Phone Name, Kayden MONDRAGON Primary Care Provider [phone] Pritesh Torres Unavailable Unavailable Reason for Visit * Reason Comments Med Refill Encounter Details Date Type Department Care Team (Late st Contact Info) Description 02/07/2025 Refill [facility] 230 [place], [place] [phone] Saritha Villatoro MD 230 [place], [place] [phone] Social History Tobacco Use Types Packs/Day Years [...] Description 09/29/2025 9:45 AM EST Office Visit [facility] [address] [place] [address] Name, MD Kayden [address] [place] [address] documented as of this encounter Visit Diagnoses Not on filedocumented in this encounter Additional Health Concerns Assessment Noted Time PHQ-9 Depression Total Score: 10 024 3:44 PM EDT documented as of this encounter Care Teams Network Developer Relationship Specialty Start Date End Date NameKayden MD [address] [place] [address] PCP - General Family Medicine 02/02/22 Pritesh Torres FNP [address] [place] [address] Nurse Practitioner Family Medicine 10/15/23 documented as of this encounter
--- OUTSIDE RECORDS SUMMARY | 2025-07-15 14:21 | XMS_ITS | Encounter Summary ---
Author Organization [employer] Address 75 [facility] 7t [place] [address] Care Team Providers Care Perishable Fruit Inspector Name Role Phone Name, Kayden MONDRAGON Primary Care Provider Pritesh Torres Unavailable Unavailable Reason for Visit * Reason Comments Med Refill Encounter Details Date Type Department Care Team (Late st Contact Info) Description 03/05/2025 Refill [facility] 230 [place], [place] [phone] Saritha Villatoro MD 230 [place], [place] [phone] Social History Tobacco Use Types Packs/Day Years [...] 9:45 AM EST Office Visit [facility] [address] [place] [address] Name, MD Kayden [address] [place] [address] documented as of this encounter Visit Diagnoses Not on filedocumented in this encounter Additional Health Concerns Assessment Noted Time PHQ-9 Depression Total Score: 10 024 3:44 PM EDT documented as of this encounter Care Teams Perishable Fruit Inspector Relationship Specialty Start Date End Date NameKayden MD [address] [place] [address] PCP - General Family Medicine 02/02/22 Pritesh Torres FNP [address] [place] [address] Nurse Practitioner Family Medicine 10/15/23 documented as of this encounter
--- OUTSIDE RECORDS SUMMARY | 2025-07-15 14:21 | XMS_ITS | Encounter Summary ---
Author Organization [employer] Address 75 [facility] 7t [place] [address] Care Team Providers Care Utilities Manager Name Role Phone Name, Kayden MONDRAGON Primary Care Provider [phone] Pritesh Torres Unavailable Unavailable Reason for Visit * Reason Comments Med Refill Encounter Details Date Type Department Care Team (Late st Contact Info) Description 02/21/2025 Refill [facility] 230 [place], [place] [phone] Saritha Villatoro MD 230 [place], [place] [phone] Social History Tobacco Use Types Packs/Day Years [...] Description 09/29/2025 9:45 AM EST Office Visit [facility] [address] [place] [address] Name, MD Kayden [address] [place] [address] documented as of this encounter Visit Diagnoses Not on filedocumented in this encounter Additional Health Concerns Assessment Noted Time PHQ-9 Depression Total Score: 10 024 3:44 PM EDT documented as of this encounter Care Teams Utilities Manager Relationship Specialty Start Date End Date NameKayden MD [address] [place] [address] PCP - General Family Medicine 02/02/22 Pritesh Torres FNP [address] [place] [address] Nurse Practitioner Family Medicine 10/15/23 documented as of this encounter
--- OUTSIDE RECORDS SUMMARY | 2025-07-15 14:21 | XMS_ITS | Encounter Summary ---
Author Organization [facility] [facility] Address 75 [facility] 7t [place] [address] Care Team Providers Care Harbor Boat Pilot Name Role Phone Name, Kayden MONDRAGON Primary Care Provider Pritesh Torres Unavailable Unavailable Reason for Visit * Reason Comments Med Refill Encounter Details Date Type Department Care Team ([facility] Contact Info) Description 02/17/2023 Refill [facility] [address] [place] [address] Kayden Muller MD [address] [place] [address] [phone] Gastroesophageal reflux disease, unspecified whether esophagitis present [...] 9:45 AM EST Office Visit [facility] [address] [place] [address] [phone] [place] [address] documented as of this encounter Visit Diagnoses Diagnosis Gastroesophageal reflux disease, unspecified whether esophagitis present documented in this encounter Additional Health Concerns Assessment Noted Time PHQ-9 Depression Total Score: 7 02/08/20 23 9:28 AM EDT documented as of this encounter Care Teams Harbor Boat Pilot Relationship Specialty Start Date End Date Name, MD Kayden [address] [place] [address] PCP - General Family Medicine 02/02/22 Pritesh Torres FNP [address] [place] [address] Nurse Practitioner Family Medicine 10/15/23 documented as of this encounter
--- OUTSIDE RECORDS SUMMARY | 2025-07-15 14:21 | XMS_ITS | Encounter Summary ---
Author Organization [employer] Address [address] [facility] 7t [place] [address] Care Team Providers Care Vendor Specialist Name Role Phone Name, Kayden MONDRAGON Primary Care Provider Pritesh Torres Unavailable Unavailable Reason for Visit * Reason Onset Date Comments Med Refill 10/13/2024 Encounter Details Date Type Department Care Team (Late st Contact Info) Description 10/13/2024 Refill [facility] 230 [place], [place] [phone] Nahomi Magana, ANP 230 [place], [place] [phone] Gastroesophageal reflux disease, unspecified whether esophagitis present [...] 09/29/2025 9:45 AM EST Office Visit [facility] [address] [place] [address] Name, MD Kayden [address] [place] [address] documented as of this encounter Visit Diagnoses Diagnosis Gastroesophageal reflux disease, unspecified whether esophagitis present documented in this encounter Additional Health Concerns Assessment Noted Time PHQ-9 Depression Total Score: 10 024 3:44 PM EDT documented as of this encounter Care Teams Vendor Specialist Relationship Specialty Start Date End Date NameKayden MD [address] [place] [address] PCP - General Family Medicine 02/02/22 Pritesh Torres FNP [address] [place] [address] Nurse Practitioner Family Medicine 10/15/23 documented as of this encounter
--- OUTSIDE RECORDS SUMMARY | 2025-07-15 14:21 | XMS_ITS | Encounter Summary ---
Author Organization [employer] Address 75 [facility] 7t [place] [address] Care Team Providers Care Retail Client Solutions Analyst Name Role Phone Name, Kayden MONDRAGON Primary Care Provider [phone] Pritesh Torres Unavailable Unavailable Reason for Visit * Reason Comments Med Refill Encounter Details Date Type Department Care Team (Late st Contact Info) Description 07/14/2025 Refill [facility] 230 [place], [place] [phone] Faith Bishop NP 230 [place], [place] [phone] Social History Tobacco Use Types Packs/Day Years Used Date Smoking Tobacco: Former Cigarettes Q uit: 2004 Smokeless Tobacco: Never Alcohol Use Standard Drinks/Week [...] [facility] [address] [place] [address] Name, MD Kayden [address] [place] [address] documented as of this encounter Visit Diagnoses Not on filedocumented in this encounter Additional Health Concerns Assessment Noted Time PHQ-9 Depression Total Score: 12 025 10:01 AM EDT documented as of this encounter Care Teams Retail Client Solutions Analyst Relationship Specialty Start Date End Date Name, MD Kayden [address] [place] [address] PCP - General Family Medicine 02/02/22 Pritesh Torres FNP [address] [place] [address] Nurse Practitioner Family Medicine 10/15/23 documented as of this encounter
--- OUTSIDE RECORDS SUMMARY | 2025-07-15 14:21 | XMS_ITS | Encounter Summary ---
Author Organization [employer] Address 75 [facility] 7t [place] [address] Care Team Providers Care Workers Compensation Claims Analyst Name Role Phone Name, Kayden MONDRAGON Primary Care Provider Pritesh Torres Unavailable Unavailable Reason for Visit * Reason Comments Med Refill Encounter Details Date Type Department Care Team (Late st Contact Info) Description 03/19/2025 Refill [facility] 230 [place], [place] [phone] Saritha Villatoro MD 230 [place], [place] [phone] Social History Tobacco Use Types Packs/Day Years [...] Description 09/29/2025 9:45 AM EST Office Visit [facility] [address] [place] [address] Name, MD Kayden [address] [place] [address] documented as of this encounter Visit Diagnoses Not on filedocumented in this encounter Additional Health Concerns Assessment Noted Time PHQ-9 Depression Total Score: 10 024 3:44 PM EDT documented as of this encounter Care Teams Workers Compensation Claims Analyst Relationship Specialty Start Date End Date NameKayden MD [address] [place] [address] PCP - General Family Medicine 02/02/22 Pritesh Torres FNP [address] [place] [address] Nurse Practitioner Family Medicine 10/15/23 documented as of this encounter
--- OUTSIDE RECORDS SUMMARY | 2025-07-15 14:21 | XMS_ITS | Encounter Summary ---
Author Organization [employer] Address 75 [facility] 7t [place] [address] Care Team Providers Care Complaint Evaluation Officer Name Role Phone Name, Kayden MONDRAGON Primary Care Provider [phone] Pritesh Torres Unavailable Unavailable Encounter Details Date Type Department Care Team ([facility] st Contact Info) Description 10/08/2022 Abstract [facility] 230 [place], [place] [phone] Provider, MD Uvaldo Social History Tobacco Use [...] 09/29/2025 9:45 AM EST Office Visit [facility] 230 [place] [address] Name, MD Kayden 230 [place] [address] documented as of this encounter Visit Diagnoses Not on filedocumented in this encounter Care Teams Complaint Evaluation Officer Relationship Specialty Start Date End Date Name, MD Kayden 230 [place] [address] PCP - General Family Medicine 02/02/22 Pritesh Torres FNP 230 [place] [address] Nurse Practitioner Family Medicine 10/15/23 documented as of this encounter
--- OUTSIDE RECORDS SUMMARY | 2025-07-15 14:21 | XMS_ITS | Encounter Summary ---
Author Organization [employer] Address 75 [facility] 7t [place] [address] Care Team Providers Care Toolroom Checker Name Role Phone Name, Kayden MONDRAGON Primary Care Provider [phone] Pritesh Torres Unavailable Unavailable Reason for Visit * Reason Comments Med Refill Encounter Details Date Type Department Care Team (Late st Contact Info) Description 04/03/2025 Refill [facility] 230 [place], [place] [phone] Saritha Villatoro MD 230 [place], [place] [phone] Social History Tobacco Use Types Packs/Day Years [...] Description 09/29/2025 9:45 AM EST Office Visit [facility] [address] [place] [address] Name, MD Kayden [address] [place] [address] documented as of this encounter Visit Diagnoses Not on filedocumented in this encounter Additional Health Concerns Assessment Noted Time PHQ-9 Depression Total Score: 10 024 3:44 PM EDT documented as of this encounter Care Teams Toolroom Checker Relationship Specialty Start Date End Date NameKayden MD [address] [place] [address] PCP - General Family Medicine 02/02/22 Pritesh Torres FNP [address] [place] [address]51 Nurse Practitioner Family Medicine 10/15/23 documented as of this encounter
--- OUTSIDE RECORDS SUMMARY | 2025-07-15 14:21 | XMS_ITS | Encounter Summary ---
Author Organization [employer] Address 75 [facility] 7t [place] [address] Care Team Providers Care Stock Order Lister Name Role Phone Name, Kayden MONDRAGON Primary Care Provider [phone] Pritesh Torres Unavailable Unavailable Reason for Visit * Reason Comments Med Refill Encounter Details Date Type Department Care Team (Late st Contact Info) Description 08/24/2024 Refill [facility] 230 [place], [place] [phone] Name, MD Kayden 230 [place], [place] [phone] Lichen sclerosus of vulva Social History Tobacco [...] Description 09/29/2025 9:45 AM EST Office Visit [facility] [address] [place] [address] Name, MD Kayden [address] [place] [address] documented as of this encounter Visit Diagnoses Diagnosis Lichen sclerosus of vulva documented in this encounter Additional Health Concerns Assessment Noted Time PHQ-9 Depression Total Score: 10 024 3:44 PM EDT documented as of this encounter Care Teams Stock Order Lister Relationship Specialty Start Date End Date Name, MD Kayden [address] [place] [address] PCP - General Family Medicine 02/02/22 Pritesh Torres FNP [address] [place] [address] 6[address] Nurse Practitioner Family Medicine 10/15/23 documented as of this encounter
--- OUTSIDE RECORDS SUMMARY | 2025-07-15 14:21 | XMS_ITS | Encounter Summary ---
Author Organization [email or web address] Address 75 [facility] 7t [place] [address] Care Team Providers Care Founder And President Name Role Phone Name, Kayden MONDRAGON Primary Care Provider [phone] Pritesh Torres Unavailable Unavailable Reason for Visit * Reason Comments Med Refill Encounter Details Date Type Department Care Team (Late st Contact Info) Description 07/27/2024 Refill [facility] 230 [place], [place] [phone] Nahomi Magana, ANP 230 [place], [place] [phone] Gastroesophageal reflux disease, unspecified whether esophagitis present [...] 09/29/2025 9:45 AM EST Office Visit [facility] [address] [place] [address] Name, MD Kayden [address] [place] [address] documented as of this encounter Visit Diagnoses Diagnosis Gastroesophageal reflux disease, unspecified whether esophagitis present documented in this encounter Additional Health Concerns Assessment Noted Time PHQ-9 Depression Total Score: 10 024 3:44 PM EDT documented as of this encounter Care Teams Founder And President Relationship Specialty Start Date End Date Name, MD Kayden [address] [place] [address] PCP - General Family Medicine 02/02/22 Pritesh Torres FNP [address] [place] [address]74 Nurse Practitioner Family Medicine 10/15/23 documented as of this encounter
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
--- OUTSIDE RECORDS SUMMARY | 2025-07-15 14:21 | XMS_ITS | Encounter Summary ---
Author Organization [employer] Address [address] [facility] 7t [place] [address] Care Team Providers Care [facility]keeper [facility] Name Role Phone Name, Kayden MONDRAGON Primary Care Provider [phone] Pritesh Torres Unavailable Unavailable Reason for Visit * Reason Onset Date Comments Med Refill 04/16/2024 Encounter Details Date Type Department Care Team (Late st Contact Info) Description 04/16/2024 Refill [facility] [address] [place], [place] [phone] Name, MD Kayden [address] [place], [place] [phone] Gastroesophageal reflux disease, unspecified whether esophagitis present [...] Description 09/29/2025 9:45 AM EST Office Visit [facility] [address] [place] [phone] Name, MD Kayden [address] [place] [phone] documented as of this encounter Visit Diagnoses Diagnosis Gastroesophageal reflux disease, unspecified whether esophagitis present documented in this encounter Additional Health Concerns Assessment Noted Time PHQ-9 Depression Total Score: 10 024 3:44 PM EDT documented as of this encounter Care Teams [facility]keeper [facility] Relationship Specialty Start Date End Date NameKayden MD [address] [place] [phone] PCP - General Family Medicine 02/02/22 Pritesh Torres FNP [address] [place] [phone] Nurse Practitioner Family Medicine 10/15/23 documented as of this encounter
--- OUTSIDE RECORDS SUMMARY | 2025-07-15 14:21 | XMS_ITS | Encounter Summary ---
Author Organization [employer] Address [address] [facility] 7t [place] [address] Care Team Providers Care Cook Fast [employer] Name Role Phone Name, Kayden MONDRAGON Primary Care Provider [phone] Pritesh Torres Unavailable Unavailable Encounter Details Date Type Department Care Team (Late st Contact Info) Description 12/22/2024 Orders Only [facility] [address] [place] [address] Provider, MD Uvaldo Social History Tobacco Use [...] Description 09/29/2025 9:45 AM EST Office Visit [facility] [address] [place] [phone] Name, MD Kayden [address] [place] [phone] documented as of this encounter Procedures Procedure [...] documented as of this encounter Care Teams Cook [employer] Relationship Specialty Start Date End Date Name, MD Kayden [address] [place] [phone] PCP - General Family Medicine 02/02/22 Pritesh Torres FNP [address] [place] [phone] Nurse Practitioner Family Medicine 10/15/23 documented as of this encounter
--- OUTSIDE RECORDS SUMMARY | 2025-07-15 14:21 | XMS_ITS | Encounter Summary ---
Author Organization [employer] Address [address] [facility] 7t [place] [address] Care Team Providers Care Roll Table Operator Name Role Phone Name, Kayden MONDRAGON Primary Care Provider [phone] Pritesh Torres Unavailable Unavailable Reason for Visit * Reason Onset Date Comments ER Follow-up 02/22/2025 Encounter Details Date Type Department Care Team (Late st Contact Info) Description 02/22/2025 Telephone [facility] [address] [place], [place] [phone] Name, MD Kayden [address] [place], [place] [phone] ER Follow-up Social History Tobacco Use Types [...] RSV negative. Advised pt to go to [facility], urgent care or ED for evaluation. Pt reports they cannot come to [facility] due to transportation and distance. Strongly advised pt to go to ED orurgent care near her for evaluation. Pt verbalized understanding. Message forwarded to PCP as an FYI. ED notes, labs, and diagnostics obtained from [facility] and placed in medical records bin for scanning. * Telephone Encounter - Ayse Yeboah - 02/22/2025 9:02 AM EDT Patient calling to report ED visit on : Date: 02/20 Hospital: [facility] Seen for: Viral Upper Respiratory Illness Symptomatic No *if yes message should go to Triage Patient advised will forward to team nurse for follow up Pt requesting medicine to control cough. documented in this encounter Plan of Treatment Upcoming Encounters Date Type Department Care Team (Late st Contact Info) Description 09/29/2025 9:45 AM EST Office Visit [facility] [address] [place] [phone] Name, MD Kayden [address] [place] [phone] documented as of this encounter Visit Diagnoses Not on filedocumented in this encounter Additional Health Concerns Assessment Noted Time PHQ-9 Depression Total Score: 10 024 3:44 PM EDT documented as of this encounter Care Teams Roll Table Operator Relationship Specialty Start Date End Date Name, MD Kayden [address] [place] [phone] PCP - General Family Medicine 02/02/22 Pritesh Torres FNP [address] [place] [address] Nurse Practitioner Family Medicine 10/15/23 documented as of this encounter
[2025-07-15] MEDS: iohexoL 350 MG/ML 100 ML INFUS..BTL IV (16:08)
[2025-07-15] MEDS: Barium Sulfate Oral (Vanilla) 450 ML ORAL.SUSP 900 ML PO (16:09)
== END 2025-07-15 13:07 | disposition home or self-care (01) ==
LOC: HO.CT 13:06
PROVIDERS: PCP Internal Medicine Geriatric Medicine; Visit Provider Internal Medicine
DX: R10.13 Epigastric pain (principal); G89.29 Other chronic pain
CPT/HCPCS: 74177; Q9967

== ENCOUNTER → 2025-07-15 13:08 | Outpatient (BNV) | payer MEDICAID, SELFPAY | PROVIDERS: PCP Internal Medicine Geriatric Medicine; Visit Provider Radiology Diagnostic Radiology | DX: K42.9 Umbilical hernia without obstruction or gangrene (principal); R91.8 Other nonspecific abnormal finding of lung field | CPT/HCPCS: 74177 ==

== ENCOUNTER 2025-07-30 07:43 | Outpatient (AMB) | payer MEDICAID, SELFPAY ==
--- OUTSIDE RECORDS SUMMARY | 2025-07-30 07:45 | XMS_ITS | Encounter Summary ---
Author Organization [employer] Address 75 [facility] 7t [place] [address] Care Team Providers Care Major Assembly Inspector Name Role Phone Name, Kayden MONDRAGON Primary Care Provider [phone] Pritesh Torres Unavailable Unavailable Reason for Visit * Reason Comments Med Refill Encounter Details Date Type Department Care Team (Late st Contact Info) Description 02/07/2025 Refill [facility] 230 [place], [place] [phone] Saritha Villatoro MD 230 [place], [place] [phone] Social History Tobacco Use Types Packs/Day Years [...] Description 09/29/2025 9:45 AM EST Office Visit [facility] [address] [place] [address] Name, MD Kayden [address] [place] [address] 517[address] documented as of this encounter Visit Diagnoses Not on filedocumented in this encounter Additional Health Concerns Assessment Noted Time PHQ-9 Depression Total Score: 10 024 3:44 PM EDT documented as of this encounter Care Teams Major Assembly Inspector Relationship Specialty Start Date End Date NameKayden MD [address] [place] [address] 26993 PCP - General Family Medicine 02/02/22 Pritesh Torres FNP [address] [place] [address] 14451 Nurse Practitioner Family Medicine 10/15/23 documented as of this encounter
--- OUTSIDE RECORDS SUMMARY | 2025-07-30 07:45 | XMS_ITS | Encounter Summary ---
Author Organization [employer] Address 75 [facility] 7t [place] [address] Care Team Providers Care Patrol Lady Name Role Phone Name, Kayden MONDRAGON Primary Care Provider [phone] Pritesh Torres Unavailable Unavailable Encounter Details Date Type Department Care Team (Late st Contact Info) Description 12/22/2024 Orders Only [facility] [address] [place] [address] Provider, MD Uvaldo Social History Tobacco Use [...] Description 09/29/2025 9:45 AM EST Office Visit [facility] [address] [place] [address] 36965 Name, MD Kayden [address] [place] [address] documented as of this encounter Procedures Procedure [...] documented as of this encounter Care Teams Patrol Lady Relationship Specialty Start Date End Date Name, MD Kayden [address] [place] [address] 21717 PCP - General Family Medicine 02/02/22 Pritesh Torres FNP [address] [place] [address] 04400 Nurse Practitioner Family Medicine 10/15/23 documented as of this encounter
--- OUTSIDE RECORDS SUMMARY | 2025-07-30 07:45 | XMS_ITS | Encounter Summary ---
Author Organization [employer] Address 75 [facility] 7t [place] [address] Care Team Providers Care Sheet Combining Operator Name Role Phone Name, Kayden MONDRAGON Primary Care Provider [phone] Pritesh Torres Unavailable Unavailable Encounter Details Date Type Department Care Team ([facility] st Contact Info) Description 10/08/2022 Abstract [facility] 230 [place], [place] [phone] Provider, MD Uvaldo Social History Tobacco Use [...] Description 09/29/2025 9:45 AM EST Office Visit [facility] [address] [place] [address] Name, MD Kayden 230 [place] [address] documented as of this encounter Visit Diagnoses Not on filedocumented in this encounter Care Teams Sheet Combining Operator Relationship Specialty Start Date End Date Name, MD Kayden 230 [place] [address] PCP - General Family Medicine 02/02/22 Pritesh Torres FNP 230 [place] [address] Nurse Practitioner Family Medicine 10/15/23 documented as of this encounter
--- OUTSIDE RECORDS SUMMARY | 2025-07-30 07:45 | XMS_ITS | Encounter Summary ---
Author Organization [employer] Address 75 [facility] 7t [place] [address] Care Team Providers Care Antenna Rigger Name Role Phone Name, Kayden MONDRAGON Primary Care Provider [phone] Pritesh Torres Unavailable Unavailable Reason for Visit * Reason Comments Med Refill Encounter Details Date Type Department Care Team (Late st Contact Info) Description 04/03/2025 Refill [facility] 230 [place], [place] [phone] Saritha Villatoro MD 230 [place], [place] [phone] Social History Tobacco Use Types Packs/Day Years [...] 09/29/2025 9:45 AM EST Office Visit [facility] [address] [place] [address] 68248 Name, MD Kayden [address] [place] [address] 47[address] documented as of this encounter Visit Diagnoses Not on filedocumented in this encounter Additional Health Concerns Assessment Noted Time PHQ-9 Depression Total Score: 10 024 3:44 PM EDT documented as of this encounter Care Teams Antenna Rigger Relationship Specialty Start Date End Date NameKayden MD [address] [place] [address] 14702 PCP - General Family Medicine 02/02/22 Pritesh Torres FNP [address] [place] [address] 90893 Nurse Practitioner Family Medicine 10/15/23 documented as of this encounter
--- OUTSIDE RECORDS SUMMARY | 2025-07-30 07:45 | XMS_ITS | Encounter Summary ---
Author Organization [employer] Address 75 [facility] 7t [place] [address] Care Team Providers Care Pilot Boat Operator Name Role Phone Name, Kayden MONDRAGON Primary Care Provider [phone] Pritesh Torres Unavailable Unavailable Reason for Visit * Reason Onset Date Comments Med Refill 04/16/2024 Encounter Details Date Type Department Care Team (Late st Contact Info) Description 04/16/2024 Refill [facility] 230 [place], [place] [phone] Name, MD Kayden 230 [place], [place] [phone] Gastroesophageal reflux disease, unspecified whether esophagitis present [...] 9:45 AM EST Office Visit [facility] [address] [place] [address] Name, MD Kayden [address] [place] [address] 20328 documented as of this encounter Visit Diagnoses Diagnosis Gastroesophageal reflux disease, unspecified whether esophagitis present documented in this encounter Additional Health Concerns Assessment Noted Time PHQ-9 Depression Total Score: 10 024 3:44 PM EDT documented as of this encounter Care Teams Pilot Boat Operator Relationship Specialty Start Date End Date NameKayden MD [address] [place] [address] 18556 PCP - General Family Medicine 02/02/22 Pritesh Torres FNP [address] [place] [address] 79414 Nurse Practitioner Family Medicine 10/15/23 documented as of this encounter
--- OUTSIDE RECORDS SUMMARY | 2025-07-30 07:45 | XMS_ITS | Encounter Summary ---
Author Organization [employer] Address 75 [facility] 7t [place] [address] Care Team Providers Care Plain Goods Hemmer Name Role Phone Name, Kayden MONDRAGON Primary Care Provider [phone] Pritesh Torres Unavailable Unavailable Reason for Visit * Reason Comments Med Refill Encounter Details Date Type Department Care Team (Late st Contact Info) Description 02/21/2025 Refill [facility] 230 [place], [place] [phone] Saritha Villatoro MD 230 [place], [place] [phone] Social History Tobacco Use Types Packs/Day Years [...] 09/29/2025 9:45 AM EST Office Visit [facility] [address] [place] [address] 09672 Name, MD Kayden [address] [place] [address] 66740 documented as of this encounter Visit Diagnoses Not on filedocumented in this encounter Additional Health Concerns Assessment Noted Time PHQ-9 Depression Total Score: 10 024 3:44 PM EDT documented as of this encounter Care Teams Plain Goods Hemmer Relationship Specialty Start Date End Date NameKayden MD [address] [place] [address] 17135 PCP - General Family Medicine 02/02/22 Pritesh Torres FNP [address] [place] [address] 35283 Nurse Practitioner Family Medicine 10/15/23 documented as of this encounter
--- OUTSIDE RECORDS SUMMARY | 2025-07-30 07:45 | XMS_ITS | Encounter Summary ---
Author Organization [employer] Address 75 [facility] 7t [place] [address] Care Team Providers Care Centrifugal Drier Operator Name Role Phone Name, Kayden MONDRAGON Primary Care Provider [phone] Pritesh Torres Unavailable Unavailable Reason for Visit * Reason Comments Med Refill Encounter Details Date Type Department Care Team (Late st Contact Info) Description 03/05/2025 Refill [facility] 230 [place], [place] [phone] Saritha Villatoro MD 230 [place], [place] [phone] Social History Tobacco Use Types Packs/Day Years [...] Description 09/29/2025 9:45 AM EST Office Visit [facility] [address] [place] [address] 20027 Name, MD Kayden [address] [place] [address] 23310 documented as of this encounter Visit Diagnoses Not on filedocumented in this encounter Additional Health Concerns Assessment Noted Time PHQ-9 Depression Total Score: 10 024 3:44 PM EDT documented as of this encounter Care Teams Centrifugal Drier Operator Relationship Specialty Start Date End Date NameKayden MD [address] [place] [address] 06238 PCP - General Family Medicine 02/02/22 Pritesh Torres FNP [address] [place] [address] 60972 Nurse Practitioner Family Medicine 10/15/23 documented as of this encounter
--- OUTSIDE RECORDS SUMMARY | 2025-07-30 07:45 | XMS_ITS | Encounter Summary ---
Author Organization [employer] Address 75 [facility] 7t [place] [address] Care Team Providers Care Supervisor Metal Placing Name Role Phone Name, Kayden MONDRAGON Primary Care Provider [phone] Pritesh Torres Unavailable Unavailable Reason for Visit * Reason Comments Med Refill Encounter Details Date Type Department Care Team (Late st Contact Info) Description 03/19/2025 Refill [facility] 230 [place], [place] [phone] Saritha Villatoro MD 230 [place], [place] [phone] Social History Tobacco Use Types Packs/Day Years [...] Description 09/29/2025 9:45 AM EST Office Visit [facility] [address] [place] [address] 14710 Name, MD Kayden [address] [place] [address] 0[address]30 documented as of this encounter Visit Diagnoses Not on filedocumented in this encounter Additional Health Concerns Assessment Noted Time PHQ-9 Depression Total Score: 10 024 3:44 PM EDT documented as of this encounter Care Teams Supervisor Metal Placing Relationship Specialty Start Date End Date NameKayden MD [address] [place] [address] 38964 PCP - General Family Medicine 02/02/22 Pritesh Torres FNP [address] [place] [address] 83380 Nurse Practitioner Family Medicine 10/15/23 documented as of this encounter
--- OUTSIDE RECORDS SUMMARY | 2025-07-30 07:45 | XMS_ITS | Encounter Summary ---
Author Organization [facility] Address 75 [facility] 7t [place] [address] Care Team Providers Care Nutrition Partner Name Role Phone Name, Kayden MONDRAGON Primary Care Provider [phone] Pritesh Torres Unavailable Unavailable Reason for Visit * Reason Comments Med Refill Encounter Details Date Type Department Care Team ([facility] Contact Info) Description 02/17/2023 Refill [facility] [address] [place] [address] 9[address]63 Kayden Muller MD [address] [place] [address] [phone] Gastroesophageal reflux disease, unspecified whether esophagitis present [...] Description 09/29/2025 9:45 AM EST Office Visit [facility] [address] [place] [address] [phone] [place] [address] documented as of this encounter Visit Diagnoses Diagnosis Gastroesophageal reflux disease, unspecified whether esophagitis present documented in this encounter Additional Health Concerns Assessment Noted Time PHQ-9 Depression Total Score: 7 02/08/20 23 9:28 AM EDT documented as of this encounter Care Teams Nutrition Partner Relationship Specialty Start Date End Date Name, MD Kayden [address] [place] [address] 84935 PCP - General Family Medicine 02/02/22 Pritesh Torres FNP [address] [place] [address] 93215 Nurse Practitioner Family Medicine 10/15/23 documented as of this encounter
--- OUTSIDE RECORDS SUMMARY | 2025-07-30 07:45 | XMS_ITS | Encounter Summary ---
Author Organization [employer] Address 75 [facility] 7t [place] [address] Care Team Providers Care Marketing Performance Analyst Name Role Phone Name, Kayden MONDRAGON Primary Care Provider [phone] Pritesh Torres Unavailable Unavailable Reason for Visit * Reason Onset Date Comments ER Follow-up 02/22/2025 Encounter Details Date Type Department Care Team (Late st Contact Info) Description 02/22/2025 Telephone [facility] 230 [place], [place] [phone] Name, MD Kayden 230 [place], [place] [phone] ER Follow-up Social History Tobacco Use Types [...] RSV negative. Advised pt to go to [facility], urgent care or ED for evaluation. Pt reports they cannot come to [facility] due to transportation and distance. Strongly advised pt to go to ED orurgent care near her for evaluation. Pt verbalized understanding. Message forwarded to PCP as an FYI. ED notes, labs, and diagnostics obtained from [facility] and placed in medical records bin for scanning. * Telephone Encounter - Ayse Yeboah - 02/22/2025 9:02 AM EDT Patient calling to report ED visit on : Date: 02/20 Hospital: [facility] Seen for: Viral Upper Respiratory Illness Symptomatic No *if yes message should go to Triage Patient advised will forward to team nurse for follow up Pt requesting medicine to control cough. documented in this encounter Plan of Treatment Upcoming Encounters Date Type Department Care Team (Late st Contact Info) Description 09/29/2025 9:45 AM EST Office Visit [facility] [address] [place] [address] 25536 Name, MD Kayden [address] [place] [address] 55955 documented as of this encounter Visit Diagnoses Not on filedocumented in this encounter Additional Health Concerns Assessment Noted Time PHQ-9 Depression Total Score: 10 024 3:44 PM EDT documented as of this encounter Care Teams Marketing Performance Analyst Relationship Specialty Start Date End Date Name, MD Kayden [address] [place] [address] 92362 PCP - General Family Medicine 02/02/22 Pritesh Torres FNP [address] [place] [address] 73942 Nurse Practitioner Family Medicine 10/15/23 documented as of this encounter
--- OUTSIDE RECORDS SUMMARY | 2025-07-30 07:45 | XMS_ITS | Encounter Summary ---
Author Organization [employer] Address 75 [facility] 7t [place] [address] Care Team Providers Care Networking Administrator Name Role Phone Name, Kayden MONDRAGON Primary Care Provider [phone] Pritesh Torres Unavailable Unavailable Reason for Visit * Reason Onset Date Comments Med Refill 10/13/2024 Encounter Details Date Type Department Care Team (Late st Contact Info) Description 10/13/2024 Refill [facility] 230 [place], [place] [phone] Nahomi Magana, ANP [address] [place], [place] [phone] Gastroesophageal reflux disease, unspecified whether esophagitis present [...] AM EST Office Visit [facility] [address] [place] [address] 6[address] Name, MD Kayden [address] [place] [address] 72025 documented as of this encounter Visit Diagnoses Diagnosis Gastroesophageal reflux disease, unspecified whether esophagitis present documented in this encounter Additional Health Concerns Assessment Noted Time PHQ-9 Depression Total Score: 10 024 3:44 PM EDT documented as of this encounter Care Teams Networking Administrator Relationship Specialty Start Date End Date NameKayden MD [address] [place] [address] 16141 PCP - General Family Medicine 02/02/22 Pritesh Torres FNP [address] [place] [address] 11197 Nurse Practitioner Family Medicine 10/15/23 documented as of this encounter
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
--- OUTSIDE RECORDS SUMMARY | 2025-07-30 07:46 | XMS_ITS | Encounter Summary ---
Author Organization [employer] Address [address] [facility] [address] [place] [address] Care Team Providers Care Electro Mechanical Technician Name Role Phone Name, Kayden MONDRAGON Primary Care Provider [phone] Pritesh Torres Unavailable Unavailable Encounter Details Date Type Department Care Team ([facility] st Contact Info) Description 07/19/2025 Orders Only [facility] MEDIC[facility] [address] [place], [place] [phone] Jen Sanders MD [address] [place], [place] [phone] Social History Tobacco Use Types Packs/Day Years [...] Description 09/29/2025 9:45 AM EST Office Visit [facility] [address] [place] [address] Name, MD Kayden [address] [place] [address] documented as of this encounter Visit Diagnoses Not on filedocumented in this encounter Additional Health Concerns Assessment Noted Time PHQ-9 Depression Total Score: 12 025 10:01 AM EDT documented as of this encounter Care Teams Electro Mechanical Technician Relationship Specialty Start Date End Date NameKayden MD [address] [place] [phone] PCP - General Family Medicine 02/02/22 Pritesh oTrres FNP [address] [place] [phone] Nurse Practitioner Family Medicine 10/15/23 documented as of this encounter
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
--- OUTSIDE RECORDS SUMMARY | 2025-07-30 07:46 | XMS_ITS | Encounter Summary ---
Author Organization [employer] Address [address] [facility] [address]t [place] [address] Care Team Providers Care Elementary Education Teacher Name Role Phone Name, Kayden MONDRAGON Primary Care Provider [phone] Pritesh Torres Unavailable Unavailable Reason for Visit * Reason Comments Med Refill Encounter Details Date Type Department Care Team (Late st Contact Info) Description 07/27/2024 Refill [facility] MEDICINE [address] [place], [place] [phone] Nahomi Magana, ANP [address] [place], [place] [phone] Gastroesophageal reflux disease, unspecified whether esophagitis present [...] Description 09/29/2025 9:45 AM EST Office Visit [facility] MED[facility] [address] [place] [address] Name, MD Kayden [address] [place] [address] documented as of this encounter Visit Diagnoses Diagnosis Gastroesophageal reflux disease, unspecified whether esophagitis present documented in this encounter Additional Health Concerns Assessment Noted Time PHQ-9 Depression Total Score: 10 024 3:44 PM EDT documented as of this encounter Care Teams Elementary Education Teacher Relationship Specialty Start Date End Date Name, MD Kayden [address] [place] [address] PCP - General Family Medicine 02/02/22 Pritesh Torres FNP [address] [place] [address] Nurse Practitioner Family Medicine 10/15/23 documented as of this encounter
--- OUTSIDE RECORDS SUMMARY | 2025-07-30 07:46 | XMS_ITS | Encounter Summary ---
Author Organization [facility] Address [address] [facility] 7t [place] [address] Care Team Providers Care Meterman Name Role Phone Name, Kayden MONDRAGON Primary Care Provider [phone] Pritesh Torres Unavailable Unavailable Reason for Visit * Reason Onset Date Comments Call Back Request 07/28/2025 Encounter Details Date Type Department Care Team ([facility] st Contact Info) Description 07/28/2025 Telephone [facility] MEDICINE [address] [place] [address] Name, MD Kayden [address] [place], [place] [phone] Call Back Request Social History Tobacco Use Types Packs/Day [...] Telephone Encounter - Gracie Cohen RN - 07/28/2025 3:56 PM EDT Call returned to pt. Pt reports that [facility] sent a form to medical records for pcp to sign. Reviewed forms policy with pt. Pt reports agreement with plan. * Telephone Encounter - Becca Reyes - 07/28/2025 1:06 PM EDT Tc from pt stating that [facility] sent over a letgter to provider for pt to start services and pt is requesting a call back Contact pt at [phone] (zimbabwean) documented in this encounter Plan of Treatment Upcoming Encounters Date Type Department Care Team (Late st Contact Info) Description 09/29/2025 9:45 AM EST Office Visit [facility] MED[facility]INE [address] [place] [address] Name, MD Kayden [address] [place] [address] documented as of this encounter Visit Diagnoses Not on filedocumented in this encounter Additional Health Concerns Assessment Noted Time PHQ-9 Depression Total Score: 12 025 10:01 AM EDT documented as of this encounter Care Teams Meterman Relationship Specialty Start Date End Date Name, MD Kayden [address] [place] [address] PCP - General Family Medicine 02/02/22 Pritesh Torres FNP [address] [place] [address] Nurse Practitioner Family Medicine 10/15/23 documented as of this encounter
--- OUTSIDE RECORDS SUMMARY | 2025-07-30 07:46 | XMS_ITS | Encounter Summary ---
Author Organization [employer] Address 75 [facility] 7t [place] [address] Care Team Providers Care Civil Transportation Engineer Name Role Phone Name, Kayden MONDRAGON Primary Care Provider [phone] Pritesh Torres Unavailable Unavailable Reason for Visit * Reason Comments Med Refill Encounter Details Date Type Department Care Team (Late st Contact Info) Description 08/24/2024 Refill [facility] MEDICINE [address] [place], [place] [phone] Name, MD Kayden [address] [place], [place] [phone] Lichen sclerosus of vulva Social History Tobacco [...] 9:45 AM EST Office Visit [facility] MEDICINE [address] [place] [address] Name, MD Kayden [address] [place] [address] documented as of this encounter Visit Diagnoses Diagnosis Lichen sclerosus of vulva documented in this encounter Additional Health Concerns Assessment Noted Time PHQ-9 Depression Total Score: 10 024 3:44 PM EDT documented as of this encounter Care Teams Civil Transportation Engineer Relationship Specialty Start Date End Date Name, MD Kayden [address] [place] [address] PCP - General Family Medicine 02/02/22 Pritesh Torres FNP [address] [place] [address] Nurse Practitioner Family Medicine 10/15/23 documented as of this encounter
--- NOTE | 2025-07-30 07:51 | A.OFFVIS_ITS ---
Vital Signs 07/30/25 07:52 Height 6 ft Weight 373 lb BMI 50.6 Intake Visit Reasons: vaginal itching Loan Representative Required: Yes Loan Representative Language: Luggage Liner Services: Loan Representative Present (in person) Loan Representative Name: Tory SALINAS Information Interpreted: non-clinical & clinical Infantry Unit Leader: Infantry Unit Leader Present (Tory SALINAS) Accompanied by: Self / Same As Patient Allergies grape Allergy (Severe, Verified 07/30/25 08:02) Anaphylaxis latex Allergy (Severe, Verified 07/30/25 08:02) Anaphylaxis celecoxib Adverse Reaction (Severe, Verified 07/30/25 08:02) Anaphylaxis Iodinated Contrast Media Adverse Reaction (Severe, Verified 07/30/25 08:02) Anaphylaxis shellfish derived Adverse Reaction (Severe, Verified 07/30/25 08:02) Anaphylaxis Post menopausal: Yes HPI Comments Details: Presenting complaining of vulvovaginal itching with no foul odor or any other concerns PFSH Medical History GERD (gastroesophageal reflux disease) Anxiety Bipolar 1 disorder PTSD (post-traumatic stress disorder) Depression Rheumatoid arthritis Fibromyalgia Sleep apnea Gallstones Hyperthyroidism Surgical History Hx of bariatric surgery H/O colonoscopy History of surgery History of partial hysterectomy Hx of mastectomy Hx of section Family History Mother No problems noted. Father Cancer Maternal Grandmother Diabetes Social History Household Members: Spouse Are you a primary childcare center administrator to a significant other at home: Yes Do you presently have visiting nurse or other home services: Yes (TELEGRAPH REPEATER TECHNICIAN) Alcohol intake: current Alcohol intake frequency: a few times a month Alcohol type: wine Patient Tobacco Use Status: Former Tobacco user Review of Systems Const All systems reviewed & are unremarkable except as noted in HPI and below Physical Exam Vital Signs: BMI result Body Mass Index 50.6 General: Yes no CVA tenderness External Female Exam: normal external appearance and normal appearance of the urethra Speculum Exam - Vagina: normal appearance of the vagina, normal palpation, no lesions and no masses Speculum Exam - Cervix: normal appearance of the cervix, normal palpation, no lesions, no masses and nontender Bimanual exam- vagina & uterus: normal bimanual exam, normal palpation, uterine size normal, normal palpation, uterine shape normal, No Cervical tenderness present and non-tender Bimanual Exam- Adnexa, other: normal adnexae Back/Spine/Pelvis Back: no CVA tenderness Assessment & Plan Assessment & Plan (1) Vulvovaginitis: Code(s): N76.0 - Acute vaginitis Category: Medical Plan: GC/CT, Bacterial Vaginosis panel taken, Terazol 0.8% q.h.s. for 3 days was sent to the patient's pharmacy. The patient was instructed to call if symptoms don't improve in 48 hours. Medications: Refilled terconazole 0.8% 1 appful vaginal BEDTIME 20 grams 0RF 3 days Coding Level of Care Code Est Pt Level 3 (26709) Diagnoses Vulvovaginitis N76.0
[2025-07-30 07:52] VITALS: BMI 50.6
== END 2025-07-30 08:23 | disposition home or self-care (01) ==
LOC: HO.HWS 07:43
PROVIDERS: PCP Internal Medicine Geriatric Medicine; Visit Provider Obstetrics & Gynecology
DX: N76.0 Acute vaginitis (principal)
CPT/HCPCS: 99213

== ENCOUNTER 2025-07-30 07:43 | Outpatient (REF) | payer MEDICAID, SELFPAY ==
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
--- OUTSIDE RECORDS SUMMARY | 2025-07-30 08:56 | XMS_ITS | Encounter Summary ---
Author Organization [facility] Address [facility] [place] [address] Care Team Providers Care Bean Roaster Name Role Phone Alanna Go MD Primary Care Provider Un available Aaron Steele MD Primary Care Provider [phone] [facility], Pcp Primary Care Provider Unavailabl e Encounter Details Date Type Department Care Team Description 06/18/2018 Release of Information Medical Records [address] [place] [id number] Abstract, Provider Social History Tobacco Use Types [...] on filedocumented in this encounter Care Teams Bean Roaster Relationship Specialty Start Date End Date Alanna Go MD PCP - General Internal Medicine 06/13/1808/26 Aaron Steele MD [address] [place] [address] PCP - General Internal Medicine 08/27/19 03/18/23 Claire Altman [address] [place] [phone] PCP - General Internal Medicine 03/19/23 documented as of this encounter
--- OUTSIDE RECORDS SUMMARY | 2025-07-30 08:56 | XMS_ITS | Encounter Summary ---
Author Organization [facility] Address [address] [place] [address] Care Team Providers Care Pigment Pusher Name Role Phone Aaron Steele MD Primary Care Provider [phone] [facility], [facility] Primary Care Provider Unavailabl e Reason for Visit * Reason Onset Date Comments refill request 02/11/2021 Encounter Details Date Type Department Care Team Description 02/11/2021 Refill Adult Medicine - [address] [address] Aaron Steele MD [address] [place] [address] refill request Social History Tobacco Use Types [...] have Coronavirus / COVID-19? No / Unsure 01/23/2021 8:39 AM EDT documented as of this encounter Miscellaneous Notes * Telephone Encounter - Trena Wilder M.A. - 02/13/2021 2:51 PM EDT Script hand faxed. * Telephone Encounter - Edelmira Landeros M.A. - 02/13/2021 10:44 AM EDT Date of last office visit was 01/23/21 Controlled substance contract and last issue date of medication reviewed. Patient is due for medication. Lab Results Component Value Date URBENZO NONE DETECTED 08/18/2020 UROPIATES NONE DETECTED 08/18/2020 URBARBITUATE NONE DETECTED 08/18/2020 PAINAMPHETAM NONE DETECTED 08/18/2020 PAINCOCAINE NONE DETECTED 08/18/2020 PAINCANNABIN NONE DETECTED 08/18/2020 documented in this encounter Plan of Treatment Not on file documented as of this encounter Visit Diagnoses Not on filedocumented in this encounter Care Teams Pigment Pusher Relationship Specialty Start Date End Date Aaron Steele MD [address] [place] [address] PCP - General Internal Medicine 08/27/19 03/18/23 [facility], Pcp [address] [place] [address] PCP - General Internal Medicine 03/19/23 documented as of this encounter
--- OUTSIDE RECORDS SUMMARY | 2025-07-30 08:56 | XMS_ITS | Encounter Summary ---
Author Organization [facility] Address [address] [place] [address] Care Team Providers Care Dramatic Reader Name Role Phone Alanna Go MD Primary Care Provider Un available Aaron Steele MD Primary Care Provider [phone] [facility], Pcp Primary Care Provider Unavailabl e Encounter Details Date Type Department Care Team Description 05/06/2019 Refill Adult Medicine [facility] [address] [place] [address] Nithin Perry MD [address] [place] [address] Social History Tobacco Use Types Packs/Day Years [...] MG tablet [Nithin Perry MD] Preferred pharmacy: [id number] [place], [place] - [address] [place] [address]. AT [facility] Comment: Medication renewals requested in [...] on filedocumented in this encounter Care Teams Dramatic Reader Relationship Specialty Start Date End Date Alanna Go MD PCP - General Internal Medicine 06/13/1808/26 Aaron Steele MD [address] [place] [address] PCP - General Internal Medicine 08/27/19 03/18/23 [facility], Pcp [address] [place] [address] PCP - General Internal Medicine 03/19/23 documented as of this encounter
--- OUTSIDE RECORDS SUMMARY | 2025-07-30 08:56 | XMS_ITS | Encounter Summary ---
Author Organization [facility] Address [facility] [place] [address] Care Team Providers Care Steel Layer Name Role Phone Alanna Go MD Primary Care Provider Un available Aaron Steele MD Primary Care Provider [phone] [facility], Pcp Primary Care [facility] Encounter Details Date Type Department Care Team Description 02/19/2019 Hospital Medical Records [address] [place] [address] Desilets, Josh Gómez MD Social History Tobacco [...] on filedocumented in this encounter Care Teams Steel Layer Relationship Specialty Start Date End Date Alanna Go MD PCP - General Internal Medicine 06/13/1808/26 Aaron Steele MD [address] [place] [address] PCP - General Internal Medicine 08/27/19 03/18/23 [facility], Pcp [address] [place] [address] PCP - General Internal Medicine 03/19/23 documented as of this encounter
--- OUTSIDE RECORDS SUMMARY | 2025-07-30 08:56 | XMS_ITS | Encounter Summary ---
Author Organization [facility] Address [facility] [place] [address] Care Team Providers Care Director Of Events Name Role Phone Aaron Steele MD Primary Care Provider [phone] [facility], Pcp Primary Care Provider [facility] Encounter Details Date Type Department Care Team Description 09/26/2020 [facility] Medical Records [address] [place] [address] Abstract, Provider Social History Tobacco Use Types [...] on filedocumented in this encounter Care Teams Director Of Events Relationship Specialty Start Date End Date Aaron Steele MD [address] [place] [address] PCP - General Internal Medicine 08/27/19 03/18/23 [facility], Pcp [address] [place] [address] PCP - General Internal Medicine 03/19/23 documented as of this encounter
--- OUTSIDE RECORDS SUMMARY | 2025-07-30 08:56 | XMS_ITS | Encounter Summary ---
Author Organization [employer] [facility] Address [facility] [place] [address] Care Team Providers Care Appeals Manager Name Role Phone Alanna Go MD Primary Care Provider Un available Aaron Steele MD Primary Care Provider [phone] [facility], Pcp Primary Care Provider Unavailabl e Reason for Visit * Reason Onset Date Comments Faxed Order 03/20/2019 Encounter Details Date Type Department Care Team Description 03/20/2019 Telephone Adult Medicine [address] [address] Alanna Go MD Faxed Order Social History [...] sign , date and fax back to [phone] * Telephone Encounter - Irvinsha Henrik - 03/20/2019 2:07 PM EDT Please sign orders for Silvia, placed in Dr. Bassem [place] incoming documented in this encounter Plan of Treatment Not on file documented as of this encounter Visit Diagnoses Not on filedocumented in this encounter Care Teams Appeals Manager Relationship Specialty Start Date End Date Alanna Go MD PCP - General Internal Medicine 06/13/1808/26 Aaron Steele MD [address] [place] [address] PCP - General Internal Medicine 08/27/19 03/18/23 [facility], [address] [address] PCP - General Internal Medicine 03/19/23 documented as of this encounter
--- OUTSIDE RECORDS SUMMARY | 2025-07-30 08:56 | XMS_ITS | Encounter Summary ---
Author Organization [facility] Address [address] [place] [address] Care Team Providers Care Director Of Clinical Applications Name Role Phone Alanna Go MD Primary Care Provider Un available Aaron Steele MD Primary Care Provider [facility], Pcp Primary Care Provider Unavailabl e Encounter Details Date Type Department Care Team Description 04/15/2019 Home Health Certification Medical Records [address] [place] [address] Home, [facility] [address] [facility] [address] [place] [address] Social History Tobacco Use Types Packs/Day Years [...] in this encounter Care Teams Director Of Clinical Applications Relationship Specialty Start Date End Date Alanna Go MD PCP - General Internal Medicine 06/13/1808/26 Aaron Steele MD [address] [place] [address] PCP - General Internal Medicine 08/27/19 03/18/23 Community, [address] [address] PCP - General Internal Medicine 03/19/23 documented as of this encounter
--- OUTSIDE RECORDS SUMMARY | 2025-07-30 08:56 | XMS_ITS | Encounter Summary ---
Author Organization [facility] Address [address] [place] [address] Care Team Providers Care Surgical Aides Teacher Name Role Phone Aaron Steele MD Primary Care Provider [phone] [facility], [facility] Primary Care Provider Unavailabl e Encounter Details Date Type Department Care Team Description 04/01/2021 Refill Adult Medicine - [address] [address] Aaron Steele MD [address] [place] [address] Social History Tobacco Use Types Packs/Day Years [...] on filedocumented in this encounter Care Teams Surgical Aides Teacher Relationship Specialty Start Date End Date Aaron Steele MD [address] [place] [address] PCP - General Internal Medicine 08/27/19 03/18/23 [facility], [address] [address] PCP - General Internal Medicine 03/19/23 documented as of this encounter
--- OUTSIDE RECORDS SUMMARY | 2025-07-30 08:56 | XMS_ITS | Encounter Summary ---
Author Organization [facility] Address [facility]9 [place] [address] Care Team Providers Care Presser All Around Name Role Phone Aaron Steele MD Primary Care Provider [phone] [facility], Pcp Primary Care Provider [facility] e Encounter Details Date Type Department Care Team Description 08/30/2020 [facility] Medical Records [address] [place] [address] Abstract, Provider Social History Tobacco Use Types [...] on filedocumented in this encounter Care Teams Presser All Around Relationship Specialty Start Date End Date Aaron Steele MD [address] [place] [address] PCP - General Internal Medicine 08/27/19 03/18/23 [facility], Pcp [address] [place] [address] PCP - General Internal Medicine 03/19/23 documented as of this encounter
--- OUTSIDE RECORDS SUMMARY | 2025-07-30 08:56 | XMS_ITS | Encounter Summary ---
Author Organization [facility] Address [employer] [place] [address] Care Team Providers Care Respiratory Care Technician Name Role Phone Alanna Go MD Primary Care Provider Un available Aaron Steele MD Primary Care Provider [facility], Pcp Primary Care Provider Unavailabl e Encounter Details Date Type Department Care Team Description 04/28/2019 Packaging Materials Inspector Report Medical Records [address] [place] [address] Social History Tobacco Use Types Packs/Day Years [...] on filedocumented in this encounter Care Teams Respiratory Care Technician Relationship Specialty Start Date End Date Alanna Go MD PCP - General Internal Medicine 06/13/1808/26 Aaron Steele MD [address] [place] [address] PCP - General Internal Medicine 08/27/19 03/18/23 [facility], Pcp [address] [place] [address] PCP - General Internal Medicine 03/19/23 documented as of this encounter
--- OUTSIDE RECORDS SUMMARY | 2025-07-30 08:56 | XMS_ITS | Encounter Summary ---
Author Organization [facility] Address [address] [place] [address] Care Team Providers Care Eeo Officer Name Role Phone Alanna Go MD Primary Care Provider Un available Aaron Steele MD Primary Care Provider [phone] [facility], Pcp Primary Care Provider [facility] e Encounter Details Date Type Department Care Team Description 04/09/2019 Infection Prevention Specialist Report Medical Records [address] [place] [address] Rehab., [place] Social History Tobacco Use Types Packs/Day Years [...] on filedocumented in this encounter Care Teams Eeo Officer Relationship Specialty Start Date End Date Alanna Go MD PCP - General Internal Medicine 06/13/1808/26 Aaron Steele MD [address] [place] [address] PCP - General Internal Medicine 08/27/19 03/18/23 [facility], Pcp [address] [place] [address] PCP - General Internal Medicine 03/19/23 documented as of this encounter
--- OUTSIDE RECORDS SUMMARY | 2025-07-30 08:56 | XMS_ITS | Encounter Summary ---
Author Organization [facility] Address [facility] [place] [address] Care Team Providers Care Founder And Ceo Name Role Phone Alanna Go MD Primary Care Provider Un available Aaron Steele MD Primary Care Provider [phone] [facility], Pcp Primary Care Provider Unavailabl e Encounter Details Date Type Department Care Team Description 05/08/2019 [facility] Medical Records [address] [place] [address] Abstract, Provider Social History Tobacco Use Types [...] on filedocumented in this encounter Care Teams Founder And Ceo Relationship Specialty Start Date End Date Alanna Go MD PCP - General Internal Medicine 06/13/1808/26 Aaron Steele MD [address] [place] [address] PCP - General Internal Medicine 08/27/19 03/18/23 [facility], Pcp [address] [place] [address] PCP - General Internal Medicine 03/19/23 documented as of this encounter
--- OUTSIDE RECORDS SUMMARY | 2025-07-30 08:56 | XMS_ITS | Encounter Summary ---
Author Organization [facility] Address [address] [place] [address] Care Team Providers Care Central Office Equipment Installer Name Role Phone Aaron Steele MD Primary Care Provider [phone] [facility], [facility] Primary Care Provider Unavailabl e Encounter Details Date Type Department Care Team Description 01/04/2021 Refill Adult Medicine - [address] [id number] Aaron Steele MD [address] [place] [address] Social History Tobacco Use Types Packs/Day Years [...] encounter Miscellaneous Notes * Telephone Encounter - Abigail Viveros M.A. - 01/04/2021 7:37 AM EST Controlled substance contract and last issue date of medication reviewed. Patient is due for medication. Lab Results Component Value Date URBENZO NONE DETECTED 08/18/2020 UROPIATES NONE DETECTED 08/18/2020 URBARBITUATE NONE DETECTED 08/18/2020 PAINAMPHETAM NONE DETECTED 08/18/2020 PAINCOCAINE NONE DETECTED 08/18/2020 PAINCANNABIN NONE DETECTED 08/18/2020 Patient's MassPAT report was printed to be reviewed by the signing provider. Send to scanning if stamped to do so. 12/05/2020 1 12/05/2020 LORAZEPAM 1 MG TABLET 28.0 28 [place] SKA [id number] [facility] 0/0 Medicaid ID 12/04/2020 1 08/08/2020 GABAPENTIN 100 MG CAPSULE 150.0 30 JA KRAIG [id number] [facility] (3046) 3/3 MedicaidID 10/31/2020 1 10/31/2020 LORAZEPAM 1 MG TABLET 28.0 28 [place] SKA [id number] [facility] (3046) 0/0 Medicaid ID 10/31/2020 1 08/08/2020 GABAPENTIN 100 MG CAPSULE 150.0 30 JA KRAIG [id number] [facility] (3046) 2/3 Medicaid[place] 10/01/2020 1 08/08/2020 GABAPENTIN 100 MG CAPSULE 150.0 30 JA KRAIG [id number] [facility] (3046) 1/3 MedicaidID 09/12/2020 1 09/12/2020 LORAZEPAM 1 MG TABLET 28.0 28 [place] SKA [id number] [facility] (3046) 0/0 [place] 09/09/2020 1 09/09/2020 OXYCODONE HCL 5 MG TABLET 14.0 2 AL DE [id number] [facility] (3046) 0/0 52.5 MME [place] 09/03/2020 1 08/08/2020 GABAPENTIN 100 MG CAPSULE 150.0 30 JA KRAIG [id number] [facility] (3046) 0/3 MedicaidMA 08/15/2020 2 08/15/2020 LORAZEPAM 1 MG TABLET 28.0 28 [place] SKA [id number] [facility] (3046) 0/0 [place] documented in this encounter Plan of Treatment Not on file documented as of this encounter Visit Diagnoses Not on filedocumented in this encounter Care Teams Central Office Equipment Installer Relationship Specialty Start Date End Date Aaron Steele MD [address] [place] [address] PCP - General Internal Medicine 08/27/19 03/18/23 [facility], Pcp [address] [place] [address] PCP - General Internal Medicine 03/19/23 documented as of this encounter
--- OUTSIDE RECORDS SUMMARY | 2025-07-30 08:57 | XMS_ITS | Encounter Summary ---
Author Organization [facility] Address [address] [place] [address] Care Team Providers Care Senior User Experience Architect Name Role Phone Aaron Steele MD Primary Care Provider [facility], Pcp Primary Care Provider Unavailabl e Encounter Details Date Type Department Care Team Description 11/06/2019 Telephone General Surgery - [address] [place] [address] Trell Hart MD [address] [place] [address] Social History Tobacco Use Types Packs/Day Years [...] filedocumented in this encounter Care Teams Senior User Experience Architect Relationship Specialty Start Date End Date Aaron Steele MD [address] [place] [address] PCP - General Internal Medicine 08/27/19 03/18/23 [facility], Pcp [address] [place] [address] PCP - General Internal Medicine 03/19/23 documented as of this encounter
--- OUTSIDE RECORDS SUMMARY | 2025-07-30 08:57 | XMS_ITS | Encounter Summary ---
Author Organization [facility] Address [address] [place] [address] Care Team Providers Care Radio Time Salesperson Name Role Phone Aaron Steele MD Primary Care Provider [phone] [facility], Pcp Primary Care Provider Unavailabl e Encounter Details Date Type Department Care Team Description 02/01/2020 Pt. Non Urgent Medical Question Adult Medicine [address] [address] Aaorn Steele MD [address] [place] [address] Social History Tobacco Use Types Packs/Day Years [...] on filedocumented in this encounter Care Teams Radio Time Salesperson Relationship Specialty Start Date End Date Aaron Steele MD [address] [place] [address] PCP - General Internal Medicine 08/27/19 03/18/23 [facility], Pcp [address] [place] [address] PCP - General Internal Medicine 03/19/23 documented as of this encounter
--- OUTSIDE RECORDS SUMMARY | 2025-07-30 08:57 | XMS_ITS | Encounter Summary ---
Author Organization [facility] Address [facility]9 [place] [address] Care Team Providers Care Sales Department Clerk Name Role Phone Aaron Steele MD Primary Care Provider [phone] [facility], Pcp Primary Care Provider [facility] e Encounter Details Date Type Department Care Team Description 12/08/2019 Release of Information Medical Records [address] [place] [address] Abstract, Provider Social History Tobacco Use Types [...] on filedocumented in this encounter Care Teams Sales Department Clerk Relationship Specialty Start Date End Date Aaron Steele MD [address] [place] [address] PCP - General Internal Medicine 08/27/19 03/18/23 [facility], Pcp [address] [place] [address] PCP - General Internal Medicine 03/19/23 documented as of this encounter
--- OUTSIDE RECORDS SUMMARY | 2025-07-30 08:57 | XMS_ITS | Encounter Summary ---
Author Organization [facility] Address [facility]9 [place] [address] Care Team Providers Care Glass Smoother Name Role Phone Alanna Go MD Primary Care Provider Un available Aaron Steele MD Primary Care Provider [phone] [facility], Pcp Primary Care Provider Unavailabl e Reason for Visit * Reason Onset Date Comments Advice 12/29/2018 Encounter Details Date Type Department Care Team Description 12/29/2018 Pt. Non Urgent Medical Question Adult Urgent Care - [address] [address] Robe Garcia MD Social History Tobacco Use [...] filedocumented in this encounter Care Teams Glass Smoother Relationship Specialty Start Date End Date Alanna Go MD PCP - General Internal Medicine 06/13/1808/26 Aaron Steele MD [address] [place] [address] PCP - General Internal Medicine 08/27/19 03/18/[address] [address] PCP - General Internal Medicine 03/19/23 documented as of this encounter
--- OUTSIDE RECORDS SUMMARY | 2025-07-30 08:57 | XMS_ITS | Encounter Summary ---
Author Organization [facility] Address [facility]9 [place] [address] Care Team Providers Care Senior Mobile Application Developer Name Role Phone Aaron Steele MD Primary Care Provider [phone] [facility], Pcp Primary Care Provider [facility] e Encounter Details Date Type Department Care Team Description 03/30/2020 [facility] Medical Records [address] [place] [address] Abstract, Provider Social History Tobacco Use Types [...] filedocumented in this encounter Care Teams Senior Mobile Application Developer Relationship Specialty Start Date End Date Aaron Steele MD [address] [place] [address] PCP - General Internal Medicine 08/27/19 03/18/23 [facility], Pcp [address] [place] [address] PCP - General Internal Medicine 03/19/23 documented as of this encounter
--- OUTSIDE RECORDS SUMMARY | 2025-07-30 08:57 | XMS_ITS | Encounter Summary ---
Author Organization [facility] Address [address] [place] [address] Care Team Providers Care Architecture Instructor Name Role Phone Alanna Go MD Primary Care Provider Un available Aaron Steele MD Primary Care Provider [phone] [facility], Pcp Primary Care Provider Unavailabl e Encounter Details Date Type Department Care Team Description 12/29/2018 Pt. Non Urgent Medical Question Adult Urgent Care - [address] [address] Robe Garcia MD Social History Tobacco Use [...] on filedocumented in this encounter Care Teams Architecture Instructor Relationship Specialty Start Date End Date Alanna Go MD PCP - General Internal Medicine 06/13/1808/26 Aaron Steele MD [address] [place] [address] PCP - General Internal Medicine 08/27/19 03/18/23 [facility], [address] [address] PCP - General Internal Medicine 03/19/23 documented as of this encounter
--- OUTSIDE RECORDS SUMMARY | 2025-07-30 08:57 | XMS_ITS | Encounter Summary ---
Author Organization [facility] Address [address] [place] [address] Care Team Providers Care Composite Engineer Name Role Phone Alanna Go MD Primary Care Provider Un available Aaron Steele MD Primary Care Provider [phone] [facility], Pcp Primary Care Provider Unavailabl e Encounter Details Date Type Department Care Team Description 12/24/2018 Telephone Adult Medicine [address] [address] Robe Garcia MD Social History Tobacco Use [...] Robe Garcia MD LAB Performing Organization Address [facility] Co de Phone Number [facility] * FREE THYROXINE (T4) (08/04/2019 9:55 AM EDT) FREE T4 (FREE THYROXINE) 1.00 0.70 - 1.80 ng/dL 08/04/2019 1:52 PM EDT [facility] 08/04/2019 9:55 AM EDT 08/04/2019 9:56 AM EDT Robe Garcia MD LAB Performing Organization Address [facility] [[email or web address] de Phone Number [facility] * TSH (08/04/2019 9:55 AM EDT) TSH 0.71 0.40 - 4.00 uIU/ml 08/04/2019 1:52 PM EDT [facility] 08/04/2019 9:55 AM EDT 08/04/2019 9:56 AM EDT Robe Garcia MD LAB Performing Organization Address [facility] Co de Phone Number [email or web address] documented in this encounter Visit Diagnoses Diagnosis Graves disease- Primary Toxic diffuse goiter without mention of thyrotoxic crisis or storm documented in this encounter Care Teams Composite Engineer Relationship Specialty Start Date End Date Alanna Go MD PCP - General Internal Medicine 06/13/1808/26 Aaron Steele MD [address] [place] [address] PCP - General Internal Medicine 08/27/19 03/18/23 [facility], Pcp [address] [place] [address] PCP - General Internal Medicine 03/19/23 documented as of this encounter
--- OUTSIDE RECORDS SUMMARY | 2025-07-30 08:57 | XMS_ITS | Encounter Summary ---
Author Organization [facility] Address [facility] [place] [address] Care Team Providers Care Sewing Machine Maintenance Mechanic Name Role Phone Aaron Steele MD Primary Care Provider [facility], Pcp Primary Care Provider [facility] e Encounter Details Date Type Department Care Team Description 07/11/2021 Volumetric Weigher Report Medical Records [address] [place] [address] Abstract, Provider Social History Tobacco Use Types [...] on filedocumented in this encounter Care Teams Sewing Machine Maintenance Mechanic Relationship Specialty Start Date End Date Aaron Steeel MD [address] [place] [address] PCP - General Internal Medicine 08/27/19 03/18/23 [facility], Pcp [address] [place] [address] PCP - General Internal Medicine 03/19/23 documented as of this encounter
--- OUTSIDE RECORDS SUMMARY | 2025-07-30 08:57 | XMS_ITS | Encounter Summary ---
Author Organization [facility] Address [address] [place] [address] Care Team Providers Care Meat Processor Name Role Phone Alanna Go MD Primary Care Provider Un available Aaron Steele MD Primary Care Provider [phone] [facility], Pcp Primary Care Provider Unavailabl e Encounter Details Date Type Department Care Team Description 09/25/2018 Orders Only Genetic & Disease Counseling - [address] [address] Luda Sarah PA-C Family history of malignant [...] counseling documented in this encounter Care Teams Meat Processor Relationship Specialty Start Date End Date Alanna Go MD PCP - General Internal Medicine 06/13/1808/26 Aaron Steele MD [address] [place] [address] PCP - General Internal Medicine 08/27/19 03/18/[address] [address] PCP - General Internal Medicine 03/19/23 documented as of this encounter
--- OUTSIDE RECORDS SUMMARY | 2025-07-30 08:57 | XMS_ITS | Encounter Summary ---
Author Organization [facility] Address [address] [place] [address] Care Team Providers Care Senior Informatica Etl Developer Name Role Phone Aaron Steele MD Primary Care Provider [phone] [facility], [facility] Primary Care Provider Unavailabl e Encounter Details Date Type Department Care Team Description 06/13/2020 Telephone OBGYN - [place] [address] [place], [place] [phone] Brandon Uribe MD [address] [place], [place] [phone] Social History Tobacco Use Types Packs/Day Years [...] salpingo-oophorectomy has been scheduled on 09/09/[address] [facility] [address] Uribe. Patient has been notified [...] filedocumented in this encounter Care Teams Senior Informatica Etl Developer Relationship Specialty Start Date End Date Aaron Steele MD [address] [place] [address] PCP - General Internal Medicine 08/27/19 03/18/23 [facility], [address] [address] PCP - General Internal Medicine 03/19/23 documented as of this encounter
--- OUTSIDE RECORDS SUMMARY | 2025-07-30 08:57 | XMS_ITS | Encounter Summary ---
Author Organization [facility] Address [address] [place] [address] Care Team Providers Care Field Crop Farmer Name Role Phone Aaron Steele MD Primary Care Provider [phone] [facility], [facility] Primary Care Provider Unavailabl e Encounter Details Date Type Department Care Team Description 07/31/2021 Pt. Non Urgent Medical Question Adult Medicine - [address] [address] Tracee Coe PA-C [address] [place] [address] Social History Tobacco Use Types Packs/Day Years [...] on filedocumented in this encounter Care Teams Field Crop Farmer Relationship Specialty Start Date End Date Aaron Steele MD [address] [place] [address] PCP - General Internal Medicine 08/27/19 03/18/23 [facility], Pcp [address] [place] [address] PCP - General Internal Medicine 03/19/23 documented as of this encounter
--- OUTSIDE RECORDS SUMMARY | 2025-07-30 08:57 | XMS_ITS | Encounter Summary ---
Author Organization [facility] Address [address] [place] [address] Care Team Providers Care Diesel Truck Crane Operator Name Role Phone Aaron Steele MD Primary Care Provider [phone] [facility], [facility] Primary Care Provider Unavailabl e Reason for Visit * Reason Onset Date Comments Orders Call 06/16/2021 mri testing. Encounter Details Date Type Department Care Team Description 06/16/2021 Telephone Adult Medicine - [place] [address] [place] [address] Tracee Coe PA-C [address] [place] [address] Orders Call (mri testing.) Social History Tobacco [...] Saritha Healy to have her test at [facility]. Thanks you. * Telephone Encounter [...] Saritha Healy to have her test at [facility], she won't fit in the mri sanner here in [place]. Thanks. Jr, Mri Department. * Telephone Encounter - Deena Parr - 06/16/2021 10:32 AM EDT Left message for pt to call office back. Ext [phone] or route to B side. * Telephone [...] giddiness documented in this encounter Care Teams Diesel Truck Crane Operator Relationship Specialty Start Date End Date Aaron Steele MD [address] [place] [address] PCP - General Internal Medicine 08/27/19 03/18/23 [facility], [address] [address] PCP - General Internal Medicine 03/19/23 documented as of this encounter
--- OUTSIDE RECORDS SUMMARY | 2025-07-30 08:57 | XMS_ITS | Encounter Summary ---
Author Organization [facility] Address [facility] [place] [address] Care Team Providers Care Field Director Name Role Phone Aaron Steele MD Primary Care Provider [phone] [facility], Pcp Primary Care Provider Unavailabl e Reason for Visit * Reason Onset Date Comments refill request 04/21/2020 Encounter Details Date Type Department Care Team Description 04/21/2020 Refill Respiratory and Diabetes Medicaid/ACO Pharmacist [address] [place] [address] Alanna Go MD refill request Social History [...] filedocumented in this encounter Care Teams Field Director Relationship Specialty Start Date End Date Aaron Steele MD [address] [place] [address] PCP - General Internal Medicine 08/27/19 03/18/23 [facility], Pcp [address] [place] [address] PCP - General Internal Medicine 03/19/23 documented as of this encounter
--- OUTSIDE RECORDS SUMMARY | 2025-07-30 08:57 | XMS_ITS | Encounter Summary ---
Author Organization [facility] Address [address] [place] [address] Care Team Providers Care Storage Manager Name Role Phone Aaron Steele MD Primary Care Provider [phone] [facility], [facility] Primary Care Provider Unavailabl e Reason for Visit * Reason Onset Date Comments refill request 12/26/2021 Encounter Details Date Type Department Care Team Description 12/26/2021 Refill Adult Medicine [address] [address] Aaron Steele MD [address] [place] [address] refill request Social History Tobacco Use Types [...] encounter Miscellaneous Notes * Telephone Encounter - Diana Dangelo C.M.A. - 12/28/2021 9:49 AM EST UDS not done as informed above FYI to pcp * Telephone Encounter - Abigail Viveros M.A. - 12/27/2021 10:01 AM EST Labs still pending * Telephone Encounter - Simi Florian M.A. - 12/26/2021 11:32 AM EST Pt was notified to complete a random urine drug screen in our [facility] by 12/27/2021. The patient was also instructed that failure to complete this urine drug screen, as requested, would jeopardize their Controlled Substance Contract with [facility]. The patient expressed understanding of the instructions and confirmed that they will arrive by that date. * Telephone Encounter - Aaron Steele MD - 12/26/2021 11:27 AM EST Needs uds * Telephone Encounter - Edelmira Landeros M.A. - 12/26/2021 11:02 AM EST Date of last office visit was 06/30/21 Controlled substance contract and last issue date of medication reviewed. Patient is due for medication. Lab Results Component Value Date URBENZO NONE DETECTED 05/22/2021 UROPIATES NONE DETECTED 05/22/2021 UROXYCODONE NONE DETECTED 05/22/2021 URBARBITUATE NONE DETECTED 05/22/2021 PAINAMPHETAM NONE DETECTED 05/22/2021 PAINCOCAINE NONE DETECTED 05/22/2021 PAINCANNABIN NONE DETECTED 05/22/2021 documented in this encounter Plan of Treatment Scheduled Orders Name Type Priority Associated Diagnoses Orde r Schedule CHG DRUG SCREENING OPIATES 1 OR MORE Lab Routine Encounter for long-term (current) use of medications Expected: 12/26/2021, Expires: 12/26/2022 DRUG OF ABUSE SCREEN Lab Routine Encounter for long-term (current) use of medications Expected: 12/26/2021, Expires: 12/26/2022 OXYCODONE, URINE Lab Routine Encounter for long-term (current) use of medications Expected: 12/26/2021, Expires: 12/26/2022 CHG DRUG SCREENING CANNABINOIDS NATURAL Lab Routine Encounter for long-term (current) use of medications Expected: 12/26/2021, Expires: 12/26/2022 CHG DRUG SCREENING COCAINE Lab Routine Encounter for long-term (current) use of medications Expected: 12/26/2021, Expires: 12/26/2022 CHG DRUG SCREEN QUANT AMPHETAMINES 3 OR 4 Lab Routine Encounter for long-term (current) use of medications Expected: 12/26/2021, Expires: 12/26/2022 CHG DRUG/SUBSTANCE DEFINITIVE QUAL/QUANT NOS 1-3 (BARBITUATES) Lab Routine Encounter for long-term (current) use of medications Expected: 12/26/2021, Expires: 12/26/2022 CHG DRUG SCREENING BENZODIAZEPINES 1-12 Lab Routine Encounter for long-term (current) use of medications Expected: 12/26/2021, Expires: 12/26/2022 documented as of this encounter Visit Diagnoses Diagnosis Encounter for long-term (current) use of medications- Primary Encounter for long-term (current) use of other medications documented in this encounter Care Teams Storage Manager Relationship Specialty Start Date End Date Aaron Steele MD [address] [place] [address] PCP - General Internal Medicine 08/27/19 03/18/[address] [address] PCP - General Internal Medicine 03/19/23 documented as of this encounter
--- OUTSIDE RECORDS SUMMARY | 2025-07-30 08:57 | XMS_ITS | Encounter Summary ---
Author Organization [facility] Address [address] [place] [address] Care Team Providers Care Technology Integration Specialist Name Role Phone Aaron Steele MD Primary Care Provider [phone] [facility], Pcp Primary Care Provider Unavailabl e Encounter Details Date Type Department Care Team Description 12/11/2021 Telephone Adult Medicine [address] [address] Aaron Steele MD [address] [place] [address] Social History Tobacco Use Types Packs/Day Years [...] on filedocumented in this encounter Care Teams Technology Integration Specialist Relationship Specialty Start Date End Date Aaron Steele MD [address] [place] [address] PCP - General Internal Medicine 08/27/19 03/18/23 [facility], Pcp [address] [place] [address] PCP - General Internal Medicine 03/19/23 documented as of this encounter
--- OUTSIDE RECORDS SUMMARY | 2025-07-30 08:57 | XMS_ITS | Encounter Summary ---
Author Organization [facility] Address [facility] [place] [address] Care Team Providers Care Equine Internship Name Role Phone Aaron Steele MD Primary Care Provider [facility], Pcp Primary Care Provider Unavailabl e Encounter Details Date Type Department Care Team Description 2019 Refill Adult Medicine [address] [address] Alanna Go MD Social History Tobacco Use [...] on filedocumented in this encounter Care Teams Equine Internship Relationship Specialty Start Date End Date Aaron Steele MD [address] [place] [address] PCP - General Internal Medicine 08/27/19 03/18/23 [facility], Pcp [address] [place] [address] PCP - General Internal Medicine 03/19/23 documented as of this encounter
--- OUTSIDE RECORDS SUMMARY | 2025-07-30 08:57 | XMS_ITS | Encounter Summary ---
Author Organization [facility] Address [address] [place] [address] Care Team Providers Care Application Support Engineer Name Role Phone Aaron Steele MD Primary Care Provider [phone] [facility], [facility] Primary Care Provider Unavailabl e Reason for Visit * Reason Onset Date Comments Medication 01/05/2020 Encounter Details Date Type Department Care Team Description 01/05/2020 Telephone Adult Medicine [address] [address] Aaron Steele MD [address] [place] [address] Medication Social History Tobacco Use Types Packs/Day [...] on filedocumented in this encounter Care Teams Application Support Engineer Relationship Specialty Start Date End Date Aaron Steele MD [address] [place] [address] PCP - General Internal Medicine 08/27/19 03/18/23 [facility], [address] [address] PCP - General Internal Medicine 03/19/23 documented as of this encounter
--- OUTSIDE RECORDS SUMMARY | 2025-07-30 08:57 | XMS_ITS | Encounter Summary ---
Author Organization [facility] Address [facility] [place] [address] Care Team Providers Care Gravel Screener Name Role Phone Aaron Steele MD Primary Care Provider [phone] [facility], Pcp Primary Care Provider [facility] Encounter Details Date Type Department Care Team Description 10/12/2019 Orders Only Medical Records [address] [place] [address] Alanna Go MD Social History Tobacco Use [...] on filedocumented in this encounter Care Teams Gravel Screener Relationship Specialty Start Date End Date Aaron Steele MD [address] [place] [address] PCP - General Internal Medicine 08/27/19 03/18/23 [facility], Pcp [address] [place] [address] PCP - General Internal Medicine 03/19/23 documented as of this encounter
--- OUTSIDE RECORDS SUMMARY | 2025-07-30 08:57 | XMS_ITS | Encounter Summary ---
Author Organization [facility] Address [facility] [place] [address] Care Team Providers Care Tester Electronic Scale Name Role Phone Alanna Go MD Primary Care Provider Un available Aaron Steele MD Primary Care Provider [phone] Counts Include [facility], Pcp Primary Care Provider Unavailabl e Encounter Details Date Type Department Care Team Description 10/23/2018 [facility] Medical Records [address] [place] [address] Abstract, Provider Social History Tobacco Use Types [...] on filedocumented in this encounter Care Teams Tester Electronic Scale Relationship Specialty Start Date End Date Alanna Go MD PCP - General Internal Medicine 06/13/1808/26 Aaron Steele MD [address] [place] [address] PCP - General Internal Medicine 08/27/19 03/18/23 [facility], Pcp [address] [place] [address] PCP - General Internal Medicine 03/19/23 documented as of this encounter
--- OUTSIDE RECORDS SUMMARY | 2025-07-30 08:57 | XMS_ITS | Encounter Summary ---
Author Organization [facility] Address [address] [place] [address] Care Team Providers Care Materials Management Supervisor Name Role Phone Aaron Steele MD Primary Care Provider [phone] [facility], Pcp Primary Care Provider [facility] Encounter Details Date Type Department Care Team Description 12/02/2019 Pt. Non Urgent Medical Question Rheumatology - [address] [address] Trell Deshpande MD Social History Tobacco Use [...] on filedocumented in this encounter Care Teams Materials Management Supervisor Relationship Specialty Start Date End Date Aaron Steele MD [address] [place] [address] PCP - General Internal Medicine 08/27/19 03/18/23 Claire Altman [address] [place] [address] PCP - General Internal Medicine 03/19/23 documented as of this encounter
--- OUTSIDE RECORDS SUMMARY | 2025-07-30 08:57 | XMS_ITS | Encounter Summary ---
Author Organization [facility] Address [address] [place] [address] Care Team Providers Care Manager Sterile Name Role Phone Alanna Go MD Primary Care Provider Un available Aaron Steele MD Primary Care Provider [phone] [facility], Pcp Primary Care Provider Unavailabl e Encounter Details Date Type Department Care Team Description 03/07/2019 Hospital Medical Records [address] [place] [address] Morris Stephenson MD [address] [place] [phone] Social History Tobacco Use Types Packs/Day Years [...] on filedocumented in this encounter Care Teams Manager Sterile Relationship Specialty Start Date End Date Alanna Go MD PCP - General Internal Medicine 06/13/1808/26 Aaron Steele MD [address] [place] [address] PCP - General Internal Medicine 08/27/19 03/18/23 [facility], [address] [address] PCP - General Internal Medicine 03/19/23 documented as of this encounter
--- OUTSIDE RECORDS SUMMARY | 2025-07-30 08:57 | XMS_ITS | Encounter Summary ---
Author Organization [facility] Address [facility] [place] [address] Care Team Providers Care Manager Event Name Role Phone Alanna Go MD Primary Care Provider Un available Aaron Steele MD Primary Care Provider [phone] [facility], Pcp Primary Care Provider [facility] e Encounter Details Date Type Department Care Team Description 01/09/2019 Deliverer Outside Report Medical Records [address] [place] [address] Dessumma healthJosh MD Social History Tobacco Use Types Packs/Day [...] filedocumented in this encounter Care Teams Manager Event Relationship Specialty Start Date End Date Alanna Go MD PCP - General Internal Medicine 06/13/1808/26 Aaron Steele MD [address] [place] [address] PCP - General Internal Medicine 08/27/19 03/18/23 [facility], Pcp [address] [place] [address] PCP - General Internal Medicine 03/19/23 documented as of this encounter
--- OUTSIDE RECORDS SUMMARY | 2025-07-30 08:57 | XMS_ITS | Encounter Summary ---
Author Organization [facility] Address [address] [place] [address] Care Team Providers Care Steamer Blocker Name Role Phone Alanna Go MD Primary Care Provider Un available Aaron Steele MD Primary Care Provider [phone] [facility], Pcp Primary Care Provider [facility] e Encounter Details Date Type Department Care Team Description 03/10/2019 Orders Only Medical Records [address] [place] [address] Trell Hart MD [address] [place] [address] Social History Tobacco Use Types Packs/Day Years [...] on filedocumented in this encounter Care Teams Steamer Blocker Relationship Specialty Start Date End Date Alanna Go MD PCP - General Internal Medicine 06/13/1808/26 Aaron Steele MD [address] [place] [address] PCP - General Internal Medicine 08/27/19 03/18/23 [facility], Pcp [address] [place] [address] PCP - General Internal Medicine 03/19/23 documented as of this encounter
--- OUTSIDE RECORDS SUMMARY | 2025-07-30 08:57 | XMS_ITS | Encounter Summary ---
Author Organization [facility] Address [address] [place] [address] Care Team Providers Care Table Maker Name Role Phone Alanna Go MD Primary Care Provider Un available Aaron Steele MD Primary Care Provider [phone] [facility], Pcp Primary Care Provider Unavailabl e Encounter Details Date Type Department Care Team Description 08/20/2019 Refill Adult Urgent Care - [address] [address] Alanna Go MD Social History Tobacco Use Types Packs/Day Years Used Date Smoking Tobacco: Former Cigarettes 6 - 2004 Smokeless Tobacco: Never Comments:quit 15 years ago Alcohol Use Standard Drinks/Week Comments Yes 0 (1 standard drink = 0.6 oz pur e alcohol) social Sex Assigned at Date Recorded Not on file Job Start Date Occupation Industry Not on file Not on file Not on file documented as of this encounter Miscellaneous Notes * Telephone Encounter - Hardik Mckeon PA-C - 08/21/2019 12:51 PM EDT Pt did not fill script from 06/12/19 until 08/04/19, request is too soon. Also, needs UDS and appt with new PCP. * Telephone Encounter - Cady Ruth C.M.A. - 08/21/2019 11:52 AM EDT Last seen by ??oz on 08/04/19 Script written on 4/3/19 was not filled until 04/18/2019 per [facility]pat Script written on 05/06/19 does not appear on masspat Script written on 06/12/19 was not filled until 08/04/19 Please review and advise, pt does not have an upcoming appt and needs a new PCP Overdue UDS Lab Results Component Value Date URBENZO NEGATIVE 06/16/2018 UROPIATES NEGATIVE 06/16/2018 URBARBITUATE NEGATIVE 06/16/2018 URAMPHETAMIN NEGATIVE 06/16/2018 URCOCAINE NEGATIVE 06/16/2018 URMARIJUANA NEGATIVE 06/16/2018 * Telephone Encounter - Arianne Montejo - 08/21/2019 11:44 AM EDT Medications declined were filled 08/04/2019 90 day * Telephone Encounter - Arianne Montejo - 08/21/2019 11:42 AM EDTFrom: Saritha Healy To: Alanna Go MD Sent: 08/20/2019 6:56 PM EDT Subject: Medication Renewal Request Original authorizing provider: MD Saritha Mccrary would like a refill of the following medications: fluticasone 50 MCG/ACT nasal spray [Alanna Go MD] hydrochlorothiazide (HYDRODIURIL) 12.5 MG tablet [Alanna Go MD] lorazepam (ATIVAN) 1 MG tablet [Alanna Go MD] ALBUTEROL SULFATE 108 (90 Base) MCG/ACT Aero Soln [Alanna Go MD] fluticasone (FLOVENT HFA) 110 MCG/ACT inhaler [Alanna Go MD] montelukast (SINGULAIR) 10 MG tablet [Alanna Go MD] ferrous sulfate 325 (65 Fe) MG tablet [Alanna Go MD] omeprazole (PRILOSEC) 40 MG capsule [Alanna Go MD] methimazole (TAPAZOLE) 5 MG tablet [Alanna Go MD] Preferred pharmacy: [id number] - [place], [place] - [address] AT [facility] Comment: Medication renewals requested in this message routed to other providers: Artificial Tear Ointment (REFRESH LACRI-LUBE) Ointment [Trell Deshpande MD] sulfaSALAzine (AZULFIDINE) 500 MG EC tablet [Trell Deshpande MD] documented in this encounter Plan of Treatment Not on file documented as of this encounter Visit Diagnoses Not on filedocumented in this encounter Care Teams Table Maker Relationship Specialty Start Date End Date Alanna Go MD PCP - General Internal Medicine 06/13/1808/26 Aaron Steele MD [address] [place] [address] PCP - General Internal Medicine 08/27/19 03/18/23 [facility], Pcp [address] [place] [address] PCP - General Internal Medicine 03/19/23 documented as of this encounter
--- OUTSIDE RECORDS SUMMARY | 2025-07-30 08:57 | XMS_ITS | Encounter Summary ---
Author Organization [facility] Address [address] [place] [address] Care Team Providers Care Model And Mold Maker Name Role Phone Alanna Go MD Primary Care Provider Un available Aaron Steele MD Primary Care Provider Replaced By [facility], Pcp Primary Care Provider Unavailabl e Encounter Details Date Type Department Care Team Description 02/06/2019 Pt. Non Urgent Medic al Question Adult Medicine [address] [address] Alanna Go MD Social History Tobacco Use [...] on filedocumented in this encounter Care Teams Model And Mold Maker Relationship Specialty Start Date End Date Alanna Go MD PCP - General Internal Medicine 06/13/1808/26 Aaron Steele MD [address] [place] [address] PCP - General Internal Medicine 08/27/19 03/18/23 Replaced By [facility], [address] [address] PCP - General Internal Medicine 03/19/23 documented as of this encounter
--- OUTSIDE RECORDS SUMMARY | 2025-07-30 08:57 | XMS_ITS | Encounter Summary ---
Author Organization [facility] Address [facility]9 [place] [address] Care Team Providers Care Vending Route Servicer Name Role Phone Alanna Go MD Primary Care Provider Un available Aaron Steele MD Primary Care Provider [phone] [facility], Pcp Primary Care Provider Unavailabl e Encounter Details Date Type Department Care Team Description 02/17/2019 Release of Information Medical Records [address] [place] [address] Abstract, Provider Social History Tobacco Use Types [...] on filedocumented in this encounter Care Teams Vending Route Servicer Relationship Specialty Start Date End Date Alanna Go MD PCP - General Internal Medicine 06/13/1808/26 Aaron Steele MD [address] [place] [address] PCP - General Internal Medicine 08/27/19 03/18/23 [facility], Pcp [address] [place] [address] PCP - General Internal Medicine 03/19/23 documented as of this encounter
--- OUTSIDE RECORDS SUMMARY | 2025-07-30 08:57 | XMS_ITS | Encounter Summary ---
Author Organization [facility] Address [facility] [place] [address] Care Team Providers Care Mill Roll Rewinder Name Role Phone Alanna Go MD Primary Care Provider Un available Aaron Steele MD Primary Care Provider [phone] [facility], Pcp Primary Care Provider Unavailabl e Reason for Visit * Reason Onset Date Comments APPOINTMENT 07/30/2019 Encounter Details Date Type Department Care Team Description 07/30/2019 Pt. Non Urgent Medic al Question Adult Medicine [address] [address] Alanna Go MD Social History Tobacco Use [...] on filedocumented in this encounter Care Teams Mill Roll Rewinder Relationship Specialty Start Date End Date Alanna Go MD PCP - General Internal Medicine 06/13/1808/26 Aaron Steele MD [address] [place] [id number] PCP - General Internal Medicine 08/27/19 03/18/23 [facility], [address] [address] PCP - General Internal Medicine 03/19/23 documented as of this encounter
--- OUTSIDE RECORDS SUMMARY | 2025-07-30 08:57 | XMS_ITS | Encounter Summary ---
Author Organization [facility] Address [address] [place] [address] Care Team Providers Care Language Interpreter Name Role Phone Alanna Go MD Primary Care Provider Un available Aaron Steele MD Primary Care Provider [phone] [facility], Pcp Primary Care Provider Unavailabl e Encounter Details Date Type Department Care Team Description 02/04/2019 Pt. Non Urgent Medic al Question Adult Medicine [address] [address] Alanna Go MD Social History Tobacco Use [...] para q me den mas horas d SPEECH PATHOLOGY ASSISTANT pues las necesito por mi cirugia adem??scomo usted ya sabe mi esposo es ciego y nesecito que la persona que nos ayuda katiana m??s tiempo puessolo tengo hugh hora al marie cassandra por shelley atenci??n Hello Dr. I need a letter to give me more hours SPEECH PATHOLOGY ASSISTANT because I need them for my surgery as well as you know my is blind and I need the person who helps us this longer because I only have one hour a day thanks for your Attention documented in this encounter Plan of Treatment Not on file documented as of this encounter Visit Diagnoses Not on filedocumented in this encounter Care Teams Language Interpreter Relationship Specialty Start Date End Date Alanna Go MD PCP - General Internal Medicine 06/13/1808/26 Aaron Steele MD [address] [place] [id number] PCP - General Internal Medicine 08/27/19 03/18/23 [facility], [address] [address] PCP - General Internal Medicine 03/19/23 documented as of this encounter
--- OUTSIDE RECORDS SUMMARY | 2025-07-30 08:57 | XMS_ITS | Encounter Summary ---
Author Organization [facility] Address [facility] [place] [address] Care Team Providers Care Perioperative Assistant Name Role Phone Aaron Steele MD Primary Care Provider [facility], Pcp [facility] Encounter Details Date Type Department Care Team Description 11/25/2019 Pt. Non Urgent Medical Question Rheumatology - [address] [address] Trell Deshpande MD Social History Tobacco Use [...] Miscellaneous Notes * Telephone Encounter - Sole eMlgozaPJose F - 11/25/2019 1:59 PM ESTFrom: Saritha Healy To: Trell Deshpande MD Sent: 11/25/2019 12:51 PM EST Subject: Question regarding THYROID BLOOD TEST (TSH) I have a fibromyalgia documented in this encounter Plan of Treatment Not on file documented as of this encounter Visit Diagnoses Not on filedocumented in this encounter Care Teams Perioperative Assistant Relationship Specialty Start Date End Date Aaron Steele MD [address] [place] [id number] PCP - General Internal Medicine 08/27/19 03/18/23 [facility], Pcp [address] [place] [address] PCP - General Internal Medicine 03/19/23 documented as of this encounter
--- OUTSIDE RECORDS SUMMARY | 2025-07-30 08:57 | XMS_ITS | Encounter Summary ---
Author Organization [facility] Address [address] [place] [address] Care Team Providers Care Community Health Specialist Name Role Phone Aaron Steele MD Primary Care Provider [phone] [facility], Pcp Primary Care Provider Unavailabl e Encounter Details Date Type Department Care Team Description 12/01/2019 Pt. Non Urgent Medical Question Adult Medicine - [address] [address] Aaron Steele MD [address] [place] [id number] Social History Tobacco Use Types Packs/Day Years [...] on filedocumented in this encounter Care Teams Community Health Specialist Relationship Specialty Start Date End Date Aaron Steele MD [address] [place] [address] PCP - General Internal Medicine 08/27/19 03/18/23 [facility], Pcp [address] [place] [address] PCP - General Internal Medicine 03/19/23 documented as of this encounter
--- OUTSIDE RECORDS SUMMARY | 2025-07-30 08:57 | XMS_ITS | Encounter Summary ---
Author Organization [facility] Address [address] [place] [address] Care Team Providers Care Body Specialist Name Role Phone Aaron Steele MD Primary Care Provider [facility], [facility] Primary Care Provider Unavailabl e Reason for Visit * Reason Comments E-prescribe Rx Request Encounter Details Date Type Department Care Team Description 02/06/2022 Refill Endocrinology - [address] [address] Karo Jesus PA-C [address] [place] [address] E-prescribe Rx Request Social History Tobacco Use [...] N/A Patients current insurance carrier is: [place] / Plan: MEDICAID PCC / Product Type: MEDICAID [id number] documented in this encounter Plan of Treatment Not on file documented as of this encounter Visit Diagnoses Not on filedocumented in this encounter Care Teams Body Specialist Relationship Specialty Start Date End Date Aaron Steele MD [address] [place] [address] PCP - General Internal Medicine 08/27/19 03/18/23 [facility], Pcp [address] [place] [address] PCP - General Internal Medicine 03/19/23 documented as of this encounter
--- OUTSIDE RECORDS SUMMARY | 2025-07-30 08:57 | XMS_ITS | Encounter Summary ---
Author Organization [facility] Address [address] [place] [address] Care Team Providers Care Arboriculturist Name Role Phone Alanna Go MD Primary Care Provider Un available Aaron Steele MD Primary Care Provider [phone] [facility], Pcp Primary Care Provider Unavailabl e Encounter Details Date Type Department Care Team Description 10/17/2018 [facility] Controlled Substance Contract Medical Records [address] [place] [id number] Abstract, Provider Social History Tobacco Use Types [...] on filedocumented in this encounter Care Teams Arboriculturist Relationship Specialty Start Date End Date Alanna Go MD PCP - General Internal Medicine 06/13/1808/26 Aaron Steele MD [address] [place] [address] PCP - General Internal Medicine 08/27/19 03/18/23 [facility], Pcp [address] [place] [address] PCP - General Internal Medicine 03/19/23 documented as of this encounter
--- OUTSIDE RECORDS SUMMARY | 2025-07-30 08:57 | XMS_ITS | Encounter Summary ---
Author Organization [facility] Address [facility] [place] [address] Care Team Providers Care Information Assurance Analyst Name Role Phone Alanna Go MD Primary Care Provider Un available Aaron Steele MD Primary Care Provider [phone] [facility], Pcp Primary Care Provider Unavailabl e Encounter Details Date Type Department Care Team Description 10/11/2018 Release of Information Medical Records [address] [place] [id number] Abstract, Provider Social History Tobacco Use Types [...] on filedocumented in this encounter Care Teams Information Assurance Analyst Relationship Specialty Start Date End Date Alanna Go MD PCP - General Internal Medicine 06/13/1808/26 Aaron Steele MD [address] [place] [address] PCP - General Internal Medicine 08/27/19 03/18/23 [facility], Pcp [address] [place] [address] PCP - General Internal Medicine 03/19/23 documented as of this encounter
[2025-07-30 10:17] LABS: Bacterial Vaginosis PCR NEGATIVE (Negative); Candida Group PCR DETECTED (Not Detect); Candida glab krusei PCR NOT DETECTED (Not Detect); Trichomonas vaginalis PCR NOT DETECTED (Not Detect)
[2025-07-30 10:50] LABS: CT PCR NOT DETECTED (Not Detect.); NG PCR NOT DETECTED (Not Detect.)
== END 2025-07-30 07:44 | disposition home or self-care (01) ==
LOC: HO.LNP 07:43
PROVIDERS: PCP Internal Medicine Geriatric Medicine; Visit Provider Obstetrics & Gynecology
DX: N76.0 Acute vaginitis (principal); Z20.2 Contact with and (suspected) exposure to infections with a predominantly sexual mode of transmission
CPT/HCPCS: 81515; 87491; 87591; 99212

== ENCOUNTER 2025-08-25 10:39 | Outpatient (AMB) | payer MEDICAID, SELFPAY ==
--- NOTE | 2025-08-25 10:50 | A.OFFVIS_ITS ---
Vital Signs 08/25/25 10:54 Height 6 ft Weight 367 lb BMI 49.8 BP 117/61 Blood Pressure Location Lt brachial Position Sitting Pulse 85 Pulse Oximetry (%) 98 Oxygen Delivery Method Room Air Intake Visit Reasons: abdominal pain Intake Note: Patient new consult for abdominal pain. Patient cc: rectal itchy with some blood and constipation on and off, abdominal pain, acid reflux, Business Initiatives Manager Required: No Accompanied by: Self / Same As Patient Allergies grape Allergy (Severe, Verified 08/25/25 10:49) Anaphylaxis latex Allergy (Severe, Verified 08/25/25 10:49) Anaphylaxis celecoxib Adverse Reaction (Severe, Verified 08/25/25 10:49) Anaphylaxis Iodinated Contrast Media Adverse Reaction (Severe, Verified 08/25/25 10:49) Anaphylaxis shellfish derived Adverse Reaction (Severe, Verified 08/25/25 10:49) Anaphylaxis Medication List - Last Reconciled 08/25/25 by Rachel Son CNP albuterol sulfate 0.63 mg inhalation Q6H PRN buspirone 7.5 mg PO Q12H cetirizine 10 mg PO BID diclofenac sodium 1% 2 - 3 grams topical BID PRN diphenhydramine HCl (Allergy (diphenhydramine)) 50 mg (2 x 25 mg) PO Q6H epinephrine IM DIRECTED fluconazole 150 mg PO ONCE 1 day fluticasone propion-salmeterol 115-21 mcg/actuation (Advair HFA) 2 puffs inhalation BID PRN fluticasone propionate 50 mcg/actuation 1 spray intranasal PRN fluticasone propionate 50 mcg/actuation (Flovent Diskus) 2 inhalations inhalation BID hydrochlorothiazide 25 mg PO DAILY ketotifen fumarate 0.025%(0.035%) 1 drp ophthalmic (eye) BID lactulose 20 grams PO DAILY PRN lorazepam 1 mg PO DAILY PRN losartan 25 mg PO DAILY montelukast 10 mg PO BEDTIME omeprazole 40 mg PO DAILY ondansetron HCl 4 mg PO Q6H PRN terconazole 0.8% 1 appful vaginal BEDTIME 3 days thiamine HCl (vitamin B1) 50 mg PO DAILY tirzepatide (weight loss) (Zepbound) 2.5 mg subcut QWEEK vitamin A palmitate 3,000 mcg PO DAILY HPI HPI abdominal pain: Details: Patient is a 54-year-old female with PMH of anxiety,bipolar, depression, PTSD, sjogren's syndrome. Referred by PCP for further evaluation of abdominal pain. Patient presents for evaluation of chronic epigastric pain, described as a recurrent, central abdominal discomfort radiating to the back, ongoing for ~4 years. The pain was absent for 6 weeks but recurred recently, with an acute flare noted last Saturday, described as severe and involving both the anterior abdomen and back, though without accompanying nausea, vomiting, or fever. Sympto ms include episodic nocturnal regurgitation and burning in the throat, with episodes primarily occurring at night, sometimes associated with late or high- fat meals. Previously managed with omeprazole for >12 years with partial benefit, but recently reporting breakthrough symptoms. Cardiac etiology was previously considered; patient underwent a full cardiac workup including stress testing and multiple cardiology visits, with no cardiac cause identified and was cleared by cardiology, no further follow-up required per pt. She reports constipation episodically (2?3x/month) requiring lactulose as needed and occasional hard stools; fiber intake is moderate with daily salads, fruits, and water, though some juice consumption persists. Hydration also consists of water (4x16oz bottles/day). She also reports persistent, severe rectal pruritus for ~3 years, sometimes with scratching-induced excoriations and bleeding, unresponsive to topical hydrocortisone 2.5% and multiple OTC preparations. Pruritus is described as primarily internal and occasionally burning. Contributory history includes Sj?gren's syndrome, which may contribute to mucocutaneous dryness. History notable for sleeve gastrectomy (1866-1496) and cholecystectomy (2022). No history of GI malignancy or symptoms suggestive of malabsorption. Additional comorbidities include asthma and hypercholesterolemia (on lifestyle management). She has a history of BRCA positivity, resulting in colonoscopy screening every 5 years; last colonoscopy approx 4 years ago reportedly normal. Patient denies: fever/chills, n/v, appetite changes, dysphasia, unintentional wt loss or melena/hematochezia. Social hx: -ETOH use, social approx 1x/month -marijuana gummies nightly, denies other recreational drug use -former smoker, cessation - family hx as below -denies personal hx of CA -denies significant cardiopulmonary history -tolerated anesthesia in the past without difficulty. [facility] Medical History (Updated 08/25/25 @ 13:22 by Rachel Son CNP) Hepatic granuloma Rectal itching Constipation Epigastric pain Acid reflux disease with ulcer Colon cancer screening GERD (gastroesophageal reflux disease) Anxiety Bipolar 1 disorder PTSD (post-traumatic stress disorder) Depression Rheumatoid arthritis Fibromyalgia Sleep apnea Gallstones Hyperthyroidism Surgical History Hx of bariatric surgery H/O colonoscopy History of surgery History of partial hysterectomy Hx of mastectomy Hx of section Family History Mother No problems noted. Father Cancer Maternal Grandmother Diabetes Social History Household Members: Spouse Are you a primary certified social workers in health care to a significant other at home: Yes Do you presently have visiting nurse or other home services: Yes ([employer]) Alcohol intake: current Alcohol intake frequency: a few times a month Alcohol type: wine Patient Tobacco Use Status: Former Tobacco user Review of Systems Const Reports as per HPI ENT Reports as per HPI Card Reports as per HPI Resp Reports as per HPI GI Reports as per HPI Reports as per HPI Physical Exam Vital Signs: Last Vital Signs Pulse 85 08/25/25 10:54 BP 117/61 08/25/25 10:54 Pulse Ox 98 08/25/25 10:54 Oxygen Delivery Method Room Air 08/25/25 10:54 BMI result Body Mass Index 49.8 Const General: healthy appearing, no acute distress and well developed Nutritional Appearance: obese Orientation/consciousness: patient oriented x3 HEENT Head: Yes normal to inspection, Yes normocephalic and Yes atraumatic Face and sinus: Yes normal facial exam Eyes General: appearance normal, both eyes and all related structures Neck Neck: Yes normal visual inspection Resp Effort & Inspection: normal respiratory effort, able to speak in complete sentences, no tracheal deviation and symmetric chest movement Cardio Jugular venous distension: no JVD GI Inspection: Yes normal to inspection, No distended, Yes obesity and Yes striae Palpation (GI): Soft to palpation, not firm, nontender and No hepatosplenomegaly present Auscultation: normal bowel sounds Neuro General: patient oriented x3 Gait exam (Neuro): Normal gait present Psych Appearance: grossly normal Mental Status: mental status grossly normal Speech and movement: Normal speech and movement present Affect: normal affect Attitude: cooperative Thought process: Normal thought process present Thought content: Normal thought content present Insight: Good insight present (Psych) Judgement: Good judgement present (Psych) Results Reviewed Results Reviewed: Date of Service: 07/15/25 Procedure(s): CT abdomen pelvis w IV con Accession Number(s): [id number] cc: Jen Sanders MD; Name,Kayden ~ Report Number: [id number]: Total DLP = 1497.00 mGy-cm Reason for Exam: abdominal pain EXAMINATION: CT ABDOMEN AND PELVIS WITH CONTRAST CLINICAL INFORMATION: Abdominal pain COMPARISON: CT chest 07/22/2023 and abdomen ultrasound February 27, 2024 TECHNIQUE: Multidetector volumetric images were obtained from the superior aspect of the liver through the pubic symphysis following administration 85 mL of Omnipaque 350 intravenous contrast. Sagittal and coronal reformatted images were obtained on the technologist's workstation. Oral contrast: Present This CT examination was performed using dose optimization techniques as appropriate, variously including the following: *Automated exposure control *Adjustment of mA and/or kV according to patient size (this includes techniques or standardized protocols for targeted exams where dose is matched to indication/reason for exam; i.e. extremities or head) *Use of iterative reconstruction technique DLP: 1497 mGY*cm FINDINGS: LUNG BASES: There is a bilobed nodule in the medial base of the left lower lobe with a central calcification in the posterior nodular component that measures 9 x 14 mm, previously 9 x 13 mm. Small septal lines are noted between the nodule and pleura. There is a 4 mm calcified nodule in the anterior segment of the right lower lobe. No change. LIVER, GALLBLADDER, AND BILIARY TREE: There is a single punctate calcification in the right hepatic lobe, probably calcified granuloma. The gallbladder is surgically absent. There are clips in the gallbladder fossa. PANCREAS: Unremarkable. SPLEEN: Unremarkable. ADRENAL GLANDS: Unremarkable. KIDNEYS AND URETERS: Punctate 1 mm stone is present in the lower pole right kidney as well as the left kidney. BLADDER: Decompressed and grossly normal. GASTROINTESTINAL TRACT: Postsurgical changes are present in the lower body and gastric antrum of the stomach. The appendix is within normal limits. ABDOMINAL WALL: Supraumbilical hernia passes through the dehiscence in the medial on the 3 cm wide. The hernia sac contains adipose tissue. Hernia sac measured 2.8 x 4.5 cm (AP by cc). LYMPH NODES: External iliac lymph nodes measure 10-11 mm, one on each side. There are shotty inguinal nodes. VASCULAR: Unremarkable. PELVIC VISCERA: There is minimal elongated uterus. It measures 14 cm long axis. Ovaries are not clearly identified. OSSEOUS STRUCTURES: There is moderate degenerative change at L4-5 with vacuum phenomenon, mild disc space narrowing, degenerative endplate irregularity, sclerosis anteriorly where there are osteophytes. CT/CT abdomen pelvis w IV con IMPRESSION: Stable pulmonary nodules are probably related to granulomatous disease. There is also evidence for granuloma in the right hepatic lobe. Borderline external iliac lymph nodes and shotty inguinal nodes are probably reactive in nature. Supraumbilical hernia contains adipose tissue. Hernia sac measures 2.8 x 4.5 cm. Punctate lower pole 1 mm stones are present, one in each kidney. Fleischner guidelines were followed. Electronically signed by: Suman Hensley MD 07/15/2025 04:34 PM EDT RP Assessment & Plan Assessment & Plan (1) Colon cancer screening: Code(s): Z12.11 - Encounter for screening for malignant neoplasm of colon Category: Medical Plan: Last colonoscopy ~4 years ago, reportedly normal; interval screening every 5 years per BRCA status ( per pt understanding). Colonoscopy and EGD ordered to complete by next due date (technically next year but to be completed soon for both screening and diagnostic purposes, per BRCA mutation status and GI symptoms). Medications: -prescriptions for laxative tablets and PEG sent to pharmacy; instructions on clear liquid diet given. -Understands weight loss medications will need to be held days prior to procedure. Nurse to review med holds per protocol. Patient educated on scheduling process, procedure preparation, including avoiding certain foods and ensuring clear liquid intake Advised on necessity for ride post-procedure due to sedation. (2) GERD (gastroesophageal reflux disease): Code(s): K21.9 - Gastro-esophageal reflux disease without esophagitis Category: Medical Qualifiers: Esophagitis presence: esophagitis presence not specified Qualified Code(s): K21.9 - Gastro-esophageal reflux disease without esophagitis Plan: Chronic GERD/recurrent epigastric pain post-sleeve gastrectomy and cholecystectomy, with persistent nocturnal symptoms despite long-term PPI; negative structural disease on CT A/P. Additional Testing: - Schedule EGD concurrent with screening colonoscopy to assess for erosive esophagitis, gastritis, ulceration, or other post-surgical findings. Medication Management: - Switch omeprazole to pantoprazole 40 mg daily, taken fasting 30 min prior to breakfast. Lifestyle Recommendations: - Avoid late/high-fat meals before lying down; remain upright >= 2 hours postprandially; minimize juice and carbonated beverages; maintain hydration with water. Follow-Up: - Reassess in 8 weeks regarding symptom response to pantoprazole; sooner if symptom worsening or alarm features. (3) Constipation: Code(s): K59.00 - Constipation, unspecified Category: Medical Qualifiers: Constipation type: unspecified constipation type Qualified Code(s): K59.00 - Constipation, unspecified Plan: Episodic hard stools/straining (2?3x/month), responsive to lactulose PRN, no daily need; adequate fiber and water intake; no evidence of obstruction or alarm features. Additional Testing: - None at this time unless change in pattern or alarm symptoms. Medication Management: - Continue lactulose 30 mL PRN (avoid daily use if stools become loose); continue dietary fiber; Metamucil as tolerated. Lifestyle Recommendations: - Maintain >=64 oz water/day, regular fiber intake (salads, fruits, vegetables); minimize juice intake; regular physical activity as tolerated. Follow-Up: - Monitor stool pattern; discuss during scheduled GI follow-up. (4) Rectal itching: Code(s): L29.0 - Pruritus ani Category: Medical Plan: Persistent internal anal itching, likely multifactorial. No clear external cause or breakdown, small skin tag noted, possible internal hemorrhoids vs. irritation from wipes or Sj?gren's dryness. Refractory to topical treatments. Additional Testing: - Direct visualization by colonoscopy to evaluate for internal hemorrhoids, fissures, or other anorectal disease. Medication Management: - Continue hydrocortisone 2.5% with new applicator for improved internal delivery; use after BM and at bedtime ?2 weeks, not to exceed 4 weeks total. - Continue zinc oxide barrier as needed. Lifestyle Recommendations: - Avoid moist wipes with irritants; use water-based cleansing or bidet at home; minimize scratching; avoid further OTC treatments. Follow-Up: - Reassess symptoms at next GI visit; modify management if no improvement after achieving optimal delivery or if new findings on colonoscopy. 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 Normal LFTs 12/2024. Additional Testing: - None indicated at this time; no further GI workup required unless new hepatic symptoms develop. Medication Management: - None required. Lifestyle Recommendations: - Continue routine health maintenance; no specific restrictions. Follow-Up: - Continue routine surveillance with PCP; notify GI if new hepatic symptoms arise. Plan Patient to follow-up with PCP for review of non-GI findings on CT (pulmonary nodules, lymphadenopathy, nephrolithiasis, hypercholesterolemia). Follow-up in 8 weeks or sooner as needed Time: I spent a total of 45 minutes on the date of encounter which includes: Preparing to see the patient (reviewed previous documentation, test results and medical history) Performing a medically appropriate exam and/or evaluation Ordering medications, tests, and procedures Documenting clinical information in the health record Orders: Referrals GI Procedure Notification K21.9 - Gastro-esophageal reflux disease without esophagitis, R10.13 - Epigastric pain, Z12.11 - Encounter for screening for malignant neoplasm of colon Medications: New pantoprazole Take 1 tablet daily. Best taken on an empty stomach, 30 minutes before food 40 mg PO QAM 90 tabs 1RF simethicone (Gas Relief (simethicone)) per colonoscopy prep instructions 125 mg PO ONCE 4 caps 0RF abdominal distention hydrocortisone 2.5% Apply sparingly, up to four times daily 1 appl [place] BID-QID PRN 30 grams 0RF hemorrhoids bisacodyl Take per colonoscopy instructions 5 mg PO ONCE 4 tabs 0RF peg 3350-electrolytes 236-22.74-6.74 -5.86 gram until fecal effluent is clear 240 mL PO ONCE 4,000 mL 0RF Coding Level of Care Code New Pt New Pt Level 4 (25334) Patient Type New Diagnoses Colon cancer screening Z12.11 Gastroesophageal reflux disease, unspecified whether esophagitis present K21.9 Esophagitis presence: esophagitis presence not specified Constipation, unspecified constipation type K59.00 Constipation type: unspecified constipation type Rectal itching L29.0 Hepatic granuloma K75.3
[2025-08-25 10:54] VITALS: BP 117/61; PULSE 85; O2SAT 98; BMI 49.8
--- OUTSIDE RECORDS SUMMARY | 2025-08-25 12:42 | XMS_ITS | Encounter Summary ---
Author Organization [employer] Address [address] [facility] [address] [place] [address] Care Team Providers Care Salesperson Men'S Hats Name Role Phone Name, Kayden MONDRAGON Primary Care Provider [phone] Pritesh Torres Unavailable Unavailable Reason for Visit * Reason Comments Med Refill Encounter Details Date Type Department Care Team (Late st Contact Info) Description 02/21/2025 Refill [facility] [address] [place], [place] [phone] Saritha Villatoro MD [address] [place], [place] [phone] Social History Tobacco Use Types Packs/Day Years [...] 9:45 AM EST Office Visit [facility] [address] [place] [address] Name, MD Kayden [address] [place] [address] documented as of this encounter Visit Diagnoses Not on filedocumented in this encounter Additional Health Concerns Assessment Noted Time PHQ-9 Depression Total Score: 10 024 3:44 PM EDT documented as of this encounter Care Teams Salesperson Men'S Hats Relationship Specialty Start Date End Date NameKayden MD [address] [place] [address] PCP - General Family Medicine 02/02/22 Pritesh Torres FNP [address] [place] [address] Nurse Practitioner Family Medicine 10/15/23 documented as of this encounter
--- OUTSIDE RECORDS SUMMARY | 2025-08-25 12:42 | XMS_ITS | Encounter Summary ---
Author Organization [employer] Address [address] [facility] 7t [place] [address] Care Team Providers Care Vp Construction Name Role Phone Name, Kayden MONDRAGON Primary Care Provider [phone] Pritesh Torres Unavailable Unavailable Reason for Visit * Reason Comments Med Refill Encounter Details Date Type Department Care Team (Late st Contact Info) Description 07/27/2024 Refill [facility] [address] [place], [place] [phone] Nahomi Magana, ANP [address] [place], [place] [phone] Gastroesophageal reflux disease, unspecified whether esophagitis present [...] Description 09/29/2025 9:45 AM EST Office Visit [facility] [address] [place] [phone] Name, MD Kayden [address] [place] [address] documented as of this encounter Visit Diagnoses Diagnosis Gastroesophageal reflux disease, unspecified whether esophagitis present documented in this encounter Additional Health Concerns Assessment Noted Time PHQ-9 Depression Total Score: 10 024 3:44 PM EDT documented as of this encounter Care Teams Vp Construction Relationship Specialty Start Date End Date Name, MD Kayden [address] [place] [phone] PCP - General Family Medicine 02/02/22 Pritesh Torres FNP [address] [place] [address] Nurse Practitioner Family Medicine 10/15/23 documented as of this encounter
--- OUTSIDE RECORDS SUMMARY | 2025-08-25 12:42 | XMS_ITS | Encounter Summary ---
Author Organization [employer] Address [address] [facility] 7[address] [place] [address] Care Team Providers Care First Aid Officer Name Role Phone Name, Kayden MONDRAGON Primary Care Provider [phone] Pritesh Torres Unavailable Unavailable Reason for Visit * Reason Onset Date Comments ER Follow-up 02/22/2025 Encounter Details Date Type Department Care Team (Late st Contact Info) Description 02/22/2025 Telephone [facility] [address] [place], [place] [phone] Name, MD Kayden [address] [place], [place] [phone] ER Follow-up Social History Tobacco Use Types [...] negative. Advised pt to go to [facility], urgent care or ED for evaluation. Pt reports they cannot come to [facility] due to transportation and distance. Strongly advised pt to go to ED orurgent care near her for evaluation. Pt verbalized understanding. Message forwarded to PCP as an FYI. ED notes, labs, and diagnostics [place] [facility] [place] in medical records bin for scanning. * Telephone Encounter - Ayse Yeboah - 02/22/2025 9:02 AM EDT Patient calling to report ED visit on : Date: 02/20 Hospital: [facility] Seen for: Viral Upper Respiratory Illness Symptomatic No *if yes message should go to Triage Patient advised will forward to team nurse for follow up Pt requesting medicine to control cough. documented in this encounter Plan of Treatment Upcoming Encounters Date Type Department Care Team (Late st Contact Info) Description 09/29/2025 9:45 AM EST Office Visit [facility] [address] [place] [address] Name, MD Kayden [address] [place] [address] documented as of this encounter Visit Diagnoses Not on filedocumented in this encounter Additional Health Concerns Assessment Noted Time PHQ-9 Depression Total Score: 10 024 3:44 PM EDT documented as of this encounter Care Teams First Aid Officer Relationship Specialty Start Date End Date Name, MD Kayden [address] [place] [phone] PCP - General Family Medicine 02/02/22 Pritesh Torres FNP [address] [place] [address] Nurse Practitioner Family Medicine 10/15/23 documented as of this encounter
--- OUTSIDE RECORDS SUMMARY | 2025-08-25 12:42 | XMS_ITS | Encounter Summary ---
Author Organization [employer] Address [address] [facility] 7t [place] [address] Care Team Providers Care Ems Director Name Role Phone Name, Kayden MONDRAGON Primary Care Provider [phone] Pritesh Torres Unavailable Unavailable Encounter Details Date Type Department Care Team ([facility] st Contact Info) Description 10/08/2022 Abstract [facility] [address] [place], [place] [phone] Provider, MD Uvaldo Social History Tobacco Use [...] 9:45 AM EST Office Visit [facility] [address] [place] [address] Name, MD Kayden [address] [place] [address] documented as of this encounter Visit Diagnoses Not on filedocumented in this encounter Care Teams Ems Director Relationship Specialty Start Date End Date Name, MD Kayden [address] [place] [address] PCP - General Family Medicine 02/02/22 Pritesh Torres FNP [address] [place] [address] Nurse Practitioner Family Medicine 10/15/23 documented as of this encounter
--- OUTSIDE RECORDS SUMMARY | 2025-08-25 12:42 | XMS_ITS | Encounter Summary ---
Author Organization [employer] Address [address] [facility] [address] [place] [address] Care Team Providers Care Physician Relations Representative Name Role Phone Name, Kayden MONDRAGON Primary Care Provider [phone] Pritesh Torres Unavailable Unavailable Encounter Details Date Type Department Care Team ([facility] st Contact Info) Description 07/19/2025 Orders Only [facility] [address] [place], [place] [phone] Jen Sanders MD [address] [place], [place] [phone] Social History Tobacco Use Types Packs/Day Years [...] Description 09/29/2025 9:45 AM EST Office Visit [facility] [address] [place] [address] Name, MD Kayden [address] [place] [address] documented as of this encounter Visit Diagnoses Not on filedocumented in this encounter Additional Health Concerns Assessment Noted Time PHQ-9 Depression Total Score: 12 025 10:01 AM EDT documented as of this encounter Care Teams Physician Relations Representative Relationship Specialty Start Date End Date NameKayden MD [address] [place] [phone] PCP - General Family Medicine 02/02/22 Pritesh Torres FNP [address] [place] [address] Nurse Practitioner Family Medicine 10/15/23 documented as of this encounter
--- OUTSIDE RECORDS SUMMARY | 2025-08-25 12:42 | XMS_ITS | Encounter Summary ---
Author Organization [employer] Address 75 [facility] 7t [place] [address] Care Team Providers Care Animated Cartoons Painter Name Role Phone Name, Kayden MONDRAGON Primary Care Provider [phone] Pritesh Torres Unavailable Unavailable Reason for Visit * Reason Comments Med Refill Encounter Details Date Type Department Care Team (Late st Contact Info) Description 04/03/2025 Refill [facility] MEDICINE 230 [place], [place] [phone] Saritha Villatoro MD 230 [place], [place] [phone] Social History Tobacco Use Types Packs/Day Years [...] Description 09/29/2025 9:45 AM EST Office Visit [facility] MEDICINE [address] [place] [address]908 Name, MD Kayden [address] [place] [address] documented as of this encounter Visit Diagnoses Not on filedocumented in this encounter Additional Health Concerns Assessment Noted Time PHQ-9 Depression Total Score: 10 024 3:44 PM EDT documented as of this encounter Care Teams Animated Cartoons Painter Relationship Specialty Start Date End Date NameKayden MD [address] [place] [address] 93721 PCP - General Family Medicine 02/02/22 Pritesh Torres FNP [address] [place] [address] 75373 Nurse Practitioner Family Medicine 10/15/23 documented as of this encounter
--- OUTSIDE RECORDS SUMMARY | 2025-08-25 12:42 | XMS_ITS | Encounter Summary ---
Author Organization [employer] Address 75 [facility] 7t [place] [address] Care Team Providers Care Cured Meats Supervisor Name Role Phone Name, Kayden MONDRAGON Primary Care Provider [phone] Pritesh Torres Unavailable Unavailable Reason for Visit * Reason Comments Med Refill Encounter Details Date Type Department Care Team (Late st Contact Info) Description 03/19/2025 Refill [facility] MEDICINE 230 [place], [place] [phone] Saritha Villatoro MD 230 [place], [place] [phone] Social History Tobacco Use Types Packs/Day Years [...] Description 09/29/2025 9:45 AM EST Office Visit [facility] MEDICINE [address] [place] [address] 17936 Name, MD Kayden [address] [place] [address] documented as of this encounter Visit Diagnoses Not on filedocumented in this encounter Additional Health Concerns Assessment Noted Time PHQ-9 Depression Total Score: 10 024 3:44 PM EDT documented as of this encounter Care Teams Cured Meats Supervisor Relationship Specialty Start Date End Date NameKayden MD [address] [place] [address] 78682 PCP - General Family Medicine 02/02/22 Pritesh Torres FNP [address] [place] [address] 14510 Nurse Practitioner Family Medicine 10/15/23 documented as of this encounter
--- OUTSIDE RECORDS SUMMARY | 2025-08-25 12:42 | XMS_ITS | Encounter Summary ---
Author Organization [employer] Address 75 [facility] 7t [place] [address] Care Team Providers Care Loft Worker Pile Driving Name Role Phone Name, Kayden MONDRAGON Primary Care Provider [phone] Pritesh Torres Unavailable Unavailable Reason for Visit * Reason Comments Med Refill Encounter Details Date Type Department Care Team (Late st Contact Info) Description 03/05/2025 Refill [facility] MEDICINE 230 [place], [place] [phone] Saritha Villatoro MD 230 [place], [place] [phone] Social History Tobacco Use Types Packs/Day Years [...] Description 09/29/2025 9:45 AM EST Office Visit [facility] MEDICINE [address] [place] [address] Name, MD Kayden [address] [place] [address] documented as of this encounter Visit Diagnoses Not on filedocumented in this encounter Additional Health Concerns Assessment Noted Time PHQ-9 Depression Total Score: 10 024 3:44 PM EDT documented as of this encounter Care Teams Loft Worker Pile Driving Relationship Specialty Start Date End Date NameKayden MD [address] [place] [address] 99483 PCP - General Family Medicine 02/02/22 Pritesh Torres FNP [address] [place] [address] 29498 Nurse Practitioner Family Medicine 10/15/23 documented as of this encounter
--- OUTSIDE RECORDS SUMMARY | 2025-08-25 12:42 | XMS_ITS | Encounter Summary ---
Author Organization [employer] Address 75 [facility] 7t [place] [address] Care Team Providers Care Human Resources File Clerk Name Role Phone Name, Kayden MONDRAGON Primary Care Provider Pritesh Torres Unavailable Unavailable Reason for Visit * Reason Onset Date Comments Med Refill 04/16/2024 Encounter Details Date Type Department Care Team (Late st Contact Info) Description 04/16/2024 Refill [facility] MEDICINE 230 [place], [place] [phone] Name, MD Kayden 230 [place], [place] [phone] Gastroesophageal reflux disease, unspecified whether esophagitis present [...] Description 09/29/2025 9:45 AM EST Office Visit [facility] MEDICINE [address] [place] [address] 324[address] Name, MD Kayden [address] [place] [address] documented as of this encounter Visit Diagnoses Diagnosis Gastroesophageal reflux disease, unspecified whether esophagitis present documented in this encounter Additional Health Concerns Assessment Noted Time PHQ-9 Depression Total Score: 10 024 3:44 PM EDT documented as of this encounter Care Teams Human Resources File Clerk Relationship Specialty Start Date End Date NameKayden MD [address] [place] [address] 43517 PCP - General Family Medicine 02/02/22 Pritesh Torres FNP [address] [place] [address] 09491 Nurse Practitioner Family Medicine 10/15/23 documented as of this encounter
--- OUTSIDE RECORDS SUMMARY | 2025-08-25 12:42 | XMS_ITS | Encounter Summary ---
Author Organization [employer] Address 75 [facility] 7t [place] [address] Care Team Providers Care Store Stock Associate Name Role Phone Name, Kayden MONDRAGON Primary Care Provider [phone] Pritesh Torres Unavailable Unavailable Encounter Details Date Type Department Care Team (Late st Contact Info) Description 12/22/2024 Orders Only [facility] 230 [place] [address] Provider, MD Uvaldo Social History Tobacco Use [...] 9:45 AM EST Office Visit [facility] MEDICINE [address] [place] [address] 0[address] Name, MD Kayden [address] [place] [address] 9[address] documented as of this encounter Procedures Procedure [...] documented as of this encounter Care Teams Store Stock Associate Relationship Specialty Start Date End Date Name, MD Kayden [address] [place] [address] 90323 PCP - General Family Medicine 02/02/22 Pritesh Torres FNP [address] [place] [address] 67423 Nurse Practitioner Family Medicine 10/15/23 documented as of this encounter
--- OUTSIDE RECORDS SUMMARY | 2025-08-25 12:42 | XMS_ITS | Encounter Summary ---
Author Organization [employer] Address 75 [facility] 7t [place] [address] Care Team Providers Care Lens Block Gauger Name Role Phone Name, Kayden MONDRAGON Primary Care Provider [phone] Pritesh Torres Unavailable Unavailable Reason for Visit * Reason Comments Med Refill Encounter Details Date Type Department Care Team ([facility] Contact Info) Description 02/17/2023 Refill [facility] MEDICINE [address] [place] [address] Kayden Muller MD [address] [place] [address] [phone] Gastroesophageal reflux disease, unspecified whether esophagitis present [...] Description 09/29/2025 9:45 AM EST Office Visit [facility] MEDICINE [address] [place] [address] [phone] Kayden [place] [address] documented as of this encounter Visit Diagnoses Diagnosis Gastroesophageal reflux disease, unspecified whether esophagitis present documented in this encounter Additional Health Concerns Assessment Noted Time PHQ-9 Depression Total Score: 7 02/08/20 23 9:28 AM EDT documented as of this encounter Care Teams Lens Block Gauger Relationship Specialty Start Date End Date Name, MD Kayden [address] [place] [address] 6[address]20 PCP - General Family Medicine 02/02/22 Pritesh Torres FNP [address] [place] [address] 16251 Nurse Practitioner Family Medicine 10/15/23 documented as of this encounter
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
--- OUTSIDE RECORDS SUMMARY | 2025-08-25 12:42 | XMS_ITS | Encounter Summary ---
Author Organization [employer] Address 75 [facility] 7t [place] [address] Care Team Providers Care Helmet Hat Brim Cutter Name Role Phone Name, Kayden MONDRAGON Primary Care Provider [phone] Pritesh Torres Unavailable Unavailable Reason for Visit * Reason Comments Med Refill Encounter Details Date Type Department Care Team (Late st Contact Info) Description 08/24/2024 Refill [facility] MEDICINE 230 [place], [place] [phone] Name, MD Kayden 230 [place], [place] [phone] Lichen sclerosus of vulva Social History Tobacco [...] 9:45 AM EST Office Visit [facility] MEDICINE [address] [place] [address] 90287 Name, MD Kayden [address] [place] [address] 389[address] documented as of this encounter Visit Diagnoses Diagnosis Lichen sclerosus of vulva documented in this encounter Additional Health Concerns Assessment Noted Time PHQ-9 Depression Total Score: 10 024 3:44 PM EDT documented as of this encounter Care Teams Helmet Hat Brim Cutter Relationship Specialty Start Date End Date Name, MD Kayden [address] [place] [address] 00304 PCP - General Family Medicine 02/02/22 Pritesh Torres FNP [address] [place] [address] 60175 Nurse Practitioner Family Medicine 10/15/23 documented as of this encounter
--- OUTSIDE RECORDS SUMMARY | 2025-08-25 12:42 | XMS_ITS | Encounter Summary ---
Author Organization [employer] Address 75 [facility] 7t [place] [address] Care Team Providers Care Under Water Assistant Name Role Phone Name, Kayden MONDRAGON Primary Care Provider [phone] Pritesh Torres Unavailable Unavailable Reason for Visit * Reason Onset Date Comments Med Refill 10/13/2024 Encounter Details Date Type Department Care Team (Late st Contact Info) Description 10/13/[address] [facility] MEDICINE 230 [place], [place] [phone] Nahomi Magana, ANP 230 [place], [place] [phone] Gastroesophageal reflux disease, unspecified whether esophagitis present [...] Description 09/29/2025 9:45 AM EST Office Visit [facility] MEDICINE [address] [place] [address] 65092 Name, MD Kayden [address] [place] [address] 04396 documented as of this encounter Visit Diagnoses Diagnosis Gastroesophageal reflux disease, unspecified whether esophagitis present documented in this encounter Additional Health Concerns Assessment Noted Time PHQ-9 Depression Total Score: 10 024 3:44 PM EDT documented as of this encounter Care Teams Under Water Assistant Relationship Specialty Start Date End Date NameKayden MD [address] [place] [address] 26915 PCP - General Family Medicine 02/02/22 Prtiesh Torres FNP [address] [place] [address] 30538 Nurse Practitioner Family Medicine 10/15/23 documented as of this encounter
--- OUTSIDE RECORDS SUMMARY | 2025-08-25 12:42 | XMS_ITS | Encounter Summary ---
Author Organization [employer] Address 75 [facility] 7t [place] [address] Care Team Providers Care Mission Planner Name Role Phone Name, Kayden MONDRAGON Primary Care Provider [phone] Pritesh Torres Unavailable Unavailable Reason for Visit * Reason Comments Med Refill Encounter Details Date Type Department Care Team (Late st Contact Info) Description 02/07/2025 Refill [facility] MEDICINE 230 [place], [place] [phone] Saritha Villatoro MD 230 [place], [place] [phone] Social History Tobacco Use Types Packs/Day Years [...] Description 09/29/2025 9:45 AM EST Office Visit [facility] MEDICINE [address] [place] [address] [phone] Name, MD Kayden [address] [place] [address]25 documented as of this encounter Visit Diagnoses Not on filedocumented in this encounter Additional Health Concerns Assessment Noted Time PHQ-9 Depression Total Score: 10 024 3:44 PM EDT documented as of this encounter Care Teams Mission Planner Relationship Specialty Start Date End Date NameKayden MD [address] [place] [address] 85658 PCP - General Family Medicine 02/02/22 Pritesh Torres FNP [address] [place] [address] 24298 Nurse Practitioner Family Medicine 10/15/23 documented as of this encounter
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
== END 2025-08-25 11:46 | disposition home or self-care (01) ==
LOC: HO.HGI 10:39
PROVIDERS: PCP Internal Medicine Geriatric Medicine; Visit Provider Nurse Practitioner Family
DX: K21.9 Gastro-esophageal reflux disease without esophagitis (principal); K59.00 Constipation, unspecified; L29.0 Pruritus ani; K75.3 Granulomatous hepatitis, not elsewhere classified
CPT/HCPCS: 99204

== ENCOUNTER → 2025-08-25 10:39 | Outpatient (BNVA) | payer MEDICAID, SELFPAY | PROVIDERS: PCP Internal Medicine Geriatric Medicine; Visit Provider Nurse Practitioner Family | DX: Z12.11 Encounter for screening for malignant neoplasm of colon (principal); K59.00 Constipation, unspecified; K21.9 Gastro-esophageal reflux disease without esophagitis; K75.3 Granulomatous hepatitis, not elsewhere classified; L29.0 Pruritus ani | CPT/HCPCS: 99212 ==

== ENCOUNTER 2025-10-19 08:31 | Outpatient (REF) | payer MEDICAID, SELFPAY ==
[2025-10-19 13:25] LABS: MANUAL DIFF FLAG NO
[2025-10-19 13:34] LABS: Appearance Urine Turbid; Glucose Urine UA Negative (Negative); PH 6.0 (5.0-9.0); Specific Gravity - Urine 1.020 (1.005-1.025)
[2025-10-19 14:04] LABS: Hematocrit 39.7 % (37.0-47.0); Hemoglobin 12.2 g/dl (12.0-16.0); Imm Gran Abs Auto 0.00 X10*3/uL (0.00-0.03); Imm Gran Pct Auto 0.0 % (0.0-0.4); Lymphocytes Absolute Auto 1.8 X10*3/uL (1.2-4.9); Mean Corpuscular HGB Conc 30.7 g/dl (31.0-35.0); Mean Corpuscular Hemoglobin 25.5 pg (27.0-33.0); Mean Corpuscular Volume 83.1 fL (80.0-98.0); NRBC Abs Auto 0.000 X10*3/uL (0.0-0.012); NRBC Pct Auto 0.0 /100WBC (0.0-0.2); Platelet Count 246 X10*3/uL (160-400); Red Blood Count 4.78 X10*6/uL (4.20-5.50); White Blood Count 5.3 X10*3/uL (4.8-10.8)
[2025-10-19 14:27] LABS: Alanine Aminotransferase 18 U/L (0-31); Albumin Level 4.0 g/dL (3.5-5.0); Alkaline Phosphatase 93 U/L (39-117); Anion Gap 8 (12-20); Aspartate Amino Transferase 23 U/L (5-31); Blood Urea Nitrogen 10 mg/dL (9-16); Calcium 9.1 mg/dL (8.4-10.2); Carbon Dioxide 34 mmol/L (22-29); Chloride 102 mmol/L (96-108); Estimated Glomerular Filt Rate > 60; Potassium 3.0 mmol/L (3.3-5.1); Sodium 141 mmol/L (135-145); Total Protein 8.6 g/dL (6.5-8.0)
[2025-10-19 14:35] LABS: Erythrocyte Sedimentation Rate 53 MM/HR (0-20)
[2025-10-19 14:42] LABS: Protein/Creatinine Ratio, Ur 0.04 (<0.2); Total Protein Urine Random 13 mg/dL (<12)
[2025-10-19 14:47] LABS: Thyroid Stimulating Hormone 0.07 uIU/mL (0.32-4.0)
[2025-10-20 22:28] LABS: Thyroglobulin Antibodies <1 IU/mL (< or = 1)
[2025-10-21 08:59] LABS: Antibody to SS-A Antigen >8.0 POS AI (<1.0 NEG); Antibody to SS-B Antigen <1.0 NEG AI (<1.0 NEG); Proteinase 3 PR3 Antibodies <1.0 AI; SM/Ribonucleoprotein Ab <1.0 NEG AI (<1.0 NEG); Smith Protein <1.0 NEG AI (<1.0 NEG)
[2025-10-21 22:33] LABS: Anti Nuclear Antibody Pattern Nuclear, Speckled; Anti Nuclear Antibody Screen POSITIVE (NEGATIVE); Anti Nuclear Antibody Titer 1:1280 titer
== END 2025-10-19 08:32 | disposition home or self-care (01) ==
LOC: HO.HKASLDS 08:31
PROVIDERS: PCP Internal Medicine Geriatric Medicine; Visit Provider Student in an Organized Health Care Education/Training Program
DX: J98.4 Other disorders of lung (principal); R76.0 Raised antibody titer; R91.8 Other nonspecific abnormal finding of lung field; M79.7 Fibromyalgia; M79.641 Pain in right hand; M79.642 Pain in left hand; M79.671 Pain in right foot; M79.672 Pain in left foot; Z01.84 Encounter for antibody response examination
CPT/HCPCS: 36415; 80053; 81001; 82164; 82550; 82552; 82570; 84156; 84182; 84443; 85025; 85652; 86021; 86038; 86039; 86140; 86160; 86200; 86225; 86235; 86255; 86376; 86431; 86800

== ENCOUNTER 2025-10-19 08:31 | Outpatient (AMB) | payer MEDICAID, SELFPAY ==
[2025-10-19 08:33] VITALS: BP 112/68; PULSE 86; O2SAT 99; BMI 48.9
--- NOTE | 2025-10-19 08:33 | MHC.OFFVIS ---
Vital Signs 10/19/25 08:33 Height 6 ft Weight 360 lb 14.347 oz BMI 48.9 BP 112/68 Blood Pressure Location Lt brachial Position Sitting Pulse 86 Pulse Source Pulse Oximeter Pulse Oximetry (%) 99 Oxygen Delivery Method Room Air Intake Visit Reasons: SS Intake Note: Patient is a new patient, externally referred by Dr. Kayden Muller for SS with myopathy. She also has RA. 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 She states she has numbness and tingling in the feet and hands b/l. 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 no active synovitis noted in the hands ever, She endorses dry eyes dry mouth and vaginal dryness. She reports that she had seen management aide, Dr. Marr who had diagnosed her with rheumatoid arthritis, Sjogren's disease and fibromyalgia. She also sees Dr. Kimble at [facility] she gets intermittent steroid injections in her knees and lower back however she dislikes these injections. she has never been on any medication for her rheumatoid arthritis or Sjogren's disease. In terms of her fibromyalgia she tried to take gabapentin but she did not like how the medication made her feel. For her fibromyalgia she drinks TS and takes cannabis gummies. She had previously reported elevated RF and elevated CRP. In terms of her imaging, her CT chest reveals that she has a calcified granuloma in her lung with multiple pulmonary nodules. She also has a granuloma in her liver. She has not seen a courtesy booth cashier. ROS: NO PHOTOSENSITIVITY no oral ulcers, she endorses Raynaud's, no skin rashes no miscarriage no blood clot no bloody diarrhea no recurrent chronic sinusitis, infections, uveitis PHYSICAL EXAM General: Comfortable CVS: RRR Respiratory: clear to auscultation bilaterally. Good respiratory effort Skin: No lesions seen MSK: Patient is able to make a fist bilaterally. No tenderness in the MCPs PIPs of the hands. No active synovitis noted. She has limited range of motion of the shoulders, pain on abduction beyond 90 degrees of the shoulders. She has limited range of motion of the hips. She has pain in bilateral hip bursa. She has limited flexion-extension of the knees. No active synovitis noted. MTP squeeze test of the feet negative. PFSH Medical History (Updated 10/19/25 @ 10:14 by Ira Manzo MD) Hepatic granuloma Rectal itching Constipation Epigastric pain Acid reflux disease with ulcer Colon cancer screening GERD (gastroesophageal reflux disease) Anxiety Bipolar 1 disorder PTSD (post-traumatic stress disorder) Depression Rheumatoid arthritis Fibromyalgia Sleep apnea Gallstones Hyperthyroidism Surgical History Hx of bariatric surgery H/O colonoscopy History of surgery History of partial hysterectomy Hx of mastectomy Hx of section Family History Mother No problems noted. 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) Alcohol intake: current Alcohol intake frequency: a few times a month Alcohol type: wine Patient Tobacco Use Status: Former Tobacco user Substance Use Type: Marijuana Physical Exam Vital Signs: Last Vital Signs Pulse 86 10/19/25 08:33 BP 112/68 10/19/25 08:33 Pulse Ox 99 10/19/25 08:33 Oxygen Delivery Method Room Air 10/19/25 08:33 BMI result Body Mass Index 48.9 Assessment & Plan Assessment & Plan (1) Fibromyalgia: Code(s): M79.7 - Fibromyalgia Category: Medical (2) Polyarthralgia: Code(s): M25.50 - Pain in unspecified joint Category: Medical (3) Lung granuloma: Code(s): J98.4 - Other disorders of lung Category: Medical (4) Pulmonary nodules/lesions, multiple: Code(s): R91.8 - Other nonspecific abnormal finding of lung field Category: Medical Plan This is a 54-year-old female who is being referred to me for the evaluation of joint pain. Patient had a prior RF positive and elevated CRP. She also has a reported history of rheumatoid arthritis and Sjogren syndrome. Based on patient's history, and physical exam inflammatory arthritis like rheumatoid arthritis is very less likely as I do not see any signs of active synovitis on exam. Patient endorses some dry eyes and dry mouth along with vaginal dryness. I will rule out Sjogren's syndrome by conducting blood tests including PATRIZIA, PATRIZIA subsets, C3, C4 I will also check for inflammatory markers ESR, CRP, CCP, RF. I will also do creatinine kinase level and check thyroid function tests. Patient also demonstrates she has lung granuloma and liver granuloma, she denies having TB in the past or any fungal pneumonias in the past. I will check a Aj level,ANCA and subsets(although clinical history does not suggest anca vasculitis) as well as refer her to pulmonology to rule out sarcoidosis and to further evaluate her lung granuloma. I will also do pulmonary function tests in this patient. I will also get x-rays of bilateral hands knees shoulders and feet to look for any stigmata of inflammatory arthritis I will follow up with this patient in 4 weeks as currently she is going to go on vacation and will return on November 26. Follow up on November 29 Orders: Orders Complete Blood Count Auto Diff Today R76.0 - Raised antibody titer Comprehensive Met. Panel Today R76.0 - Raised antibody titer Complement C4 Today R76.0 - Raised antibody titer Protein Creatinine Ratio, Ur Today R76.0 - Raised antibody titer DNA Double Stranded-Crithidia Today R76.0 - Raised antibody titer Sjogren's Antibodies Today R76.0 - Raised antibody titer Rheumatoid Factor Today R76.0 - Raised antibody titer Scleroderma 12 Panel Today R76.0 - Raised antibody titer Thyroid Stimulating Hormone Today R76.0 - Raised antibody titer Thyroglobulin Antibodies Today R76.0 - Raised antibody titer XR Hand Joaquín 2V Today M25.50 - Pain in unspecified joint, M79.7 - Fibromyalgia XR Foot Joaquín 2V Today M25.50 - Pain in unspecified joint, M79.7 - Fibromyalgia XR Knee Joaquín 1or 2V Today M25.50 - Pain in unspecified joint Angiotensin Converting Enzyme Today M25.50 - Pain in unspecified joint CK, Total+Isoenzymes, Serum Today M25.50 - Pain in unspecified joint ANCA Vasculitides Today J98.4 - Other disorders of lung, R91.8 - Other nonspecific abnormal finding of lung field PFT pulmonary function test Today J98.4 - Other disorders of lung Erythrocyte Sedimentation Rate Today R76.0 - Raised antibody titer C Reactive Protein Today R76.0 - Raised antibody titer Complement C3 Today R76.0 - Raised antibody titer UA ClnCatch+Micro w/rflx Cult Today R76.0 - Raised antibody titer PATRIZIA Reflex Titer and Pattern Today R76.0 - Raised antibody titer Anti DNA DS Antibody Today R76.0 - Raised antibody titer Sm Sm/VALVE TESTER Antibodies Today R76.0 - Raised antibody titer Cyclic Citrullinated Peptide Today R76.0 - Raised antibody titer Scleroderma 70 Antibody Today R76.0 - Raised antibody titer Anti-Centromere B Antibodies Today R76.0 - Raised antibody titer Thyroid Peroxidase Antibodies Today R76.0 - Raised antibody titer XR Shoulder Joaquín min 2V Today M25.50 - Pain in unspecified joint Creatine Kinase Total Today M25.50 - Pain in unspecified joint Referrals Pulmonology Referral J98.4 - Other disorders of lung Coding Level of Care Code New Pt Level 4 (56557) Diagnoses Fibromyalgia M79.7 Polyarthralgia M25.50 Lung granuloma J98.4 Pulmonary nodules/lesions, multiple R91.8
== END 2025-10-19 10:26 | disposition home or self-care (01) ==
LOC: HO.RHES 08:31
PROVIDERS: PCP Internal Medicine Geriatric Medicine; Visit Provider Student in an Organized Health Care Education/Training Program
DX: M79.7 Fibromyalgia (principal); M25.50 Pain in unspecified joint; J98.4 Other disorders of lung; R91.8 Other nonspecific abnormal finding of lung field
CPT/HCPCS: 99204

== ENCOUNTER 2025-10-20 10:58 | Outpatient (AMB) | payer MEDICAID, SELFPAY ==
--- NOTE | 2025-10-20 11:03 | A.OFFVIS_ITS ---
Vital Signs 10/20/25 11:04 Height 6 ft Weight 351 lb BMI 47.6 BP 100/64 Blood Pressure Location Rt brachial Position Left Lateral Pulse 83 Pulse Oximetry (%) 97 Oxygen Delivery Method Room Air Intake Visit Reasons: 8w Intake Note: Patient 8 weeks follow up for abdominal pain. Patient cc: upper abdominal pain, constipation due medication, poor appetite and denies any other GI issues. 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 Accompanied by: Self / Same As Patient Allergies grape Allergy (Severe, Verified 10/20/25 11:03) Anaphylaxis latex Allergy (Severe, Verified 10/20/25 11:03) Anaphylaxis celecoxib Adverse Reaction (Severe, Verified 10/20/25 11:03) Anaphylaxis Iodinated Contrast Media Adverse Reaction (Severe, Verified 10/20/25 11:03) Anaphylaxis shellfish derived Adverse Reaction (Severe, Verified 10/20/25 11:03) Anaphylaxis Medication List - Last Reconciled 10/20/25 by Rachel Son CNP albuterol sulfate 0.63 mg inhalation Q6H PRN bisacodyl 5 mg PO ONCE buspirone 7.5 mg PO Q12H cetirizine 10 mg PO BID diclofenac sodium 1% 2 - 3 grams topical BID PRN diphenhydramine HCl (Allergy (diphenhydramine)) 50 mg (2 x 25 mg) PO Q6H epinephrine IM DIRECTED fluconazole 150 mg PO ONCE 1 day fluticasone propion-salmeterol 115-21 mcg/actuation (Advair HFA) 2 puffs inhalation BID PRN fluticasone propionate 50 mcg/actuation 1 spray intranasal PRN fluticasone propionate 50 mcg/actuation (Flovent Diskus) 2 inhalations inhalation BID hydrochlorothiazide 25 mg PO DAILY hydrocortisone 2.5% 1 appl [place] BID-QID PRN ketotifen fumarate 0.025%(0.035%) 1 drp ophthalmic (eye) BID lorazepam 1 mg PO DAILY PRN losartan 25 mg PO DAILY montelukast 10 mg PO BEDTIME omeprazole 40 mg PO DAILY ondansetron HCl 4 mg PO Q6H PRN peg 3350-electrolytes 236-22.74-6.74 -5.86 gram 240 mL PO ONCE sennosides (senna) 8.6 mg PO BEDTIME simethicone (Gas Relief Extra Strength) 500 mg (4 x 125 mg) PO ONCE terconazole 0.8% 1 appful vaginal BEDTIME 3 days thiamine HCl (vitamin B1) 50 mg PO DAILY tirzepatide (weight loss) (Zepbound) 2.5 mg subcut QWEEK vitamin A palmitate 3,000 mcg PO DAILY HPI HPI 8w: Details: Patient is a 54-year-old female with PMH of anxiety,bipolar, depression, PTSD, sjogren's syndrome. Follow-up on her gastrointestinal issues, including acid reflux and constipation. For her acid reflux, she was previously switched from omeprazole to pantoprazole 40 mg, but the pantoprazole caused stomach pain. She has since discontinued pantoprazole and resumed taking omeprazole, which is providing her with relief. Regarding her constipation, she has discontinued lactulose because she found it to be too sweet. She now takes Senna daily and uses Dulcolax if she has not had a bowel movement for about five days. With the current regimen, she reports that her stools are formed, easy to pass, and she feels like she is emptying completely, with no blood noted. Her previously reported rectal itching, which was treated with hydrocortisone an d zinc oxide, has resolved. She is scheduled for a screening colonoscopy and an upper endoscopy on November 30. [facility] Medical History (Updated 10/19/25 @ 10:14 by Ira Manzo MD) Hepatic granuloma Rectal itching Constipation Epigastric pain Acid reflux disease with ulcer Colon cancer screening GERD (gastroesophageal reflux disease) Anxiety Bipolar 1 disorder PTSD (post-traumatic stress disorder) Depression Rheumatoid arthritis Fibromyalgia Sleep apnea Gallstones Hyperthyroidism Surgical History Hx of bariatric surgery H/O colonoscopy History of surgery History of partial hysterectomy Hx of mastectomy Hx of section Family History Mother No problems noted. 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) Alcohol intake: current Alcohol intake frequency: a few times a month Alcohol type: wine Patient Tobacco Use Status: Former Tobacco user Substance Use Type: Marijuana Review of Systems Const Reports as per HPI ENT Reports as per HPI Card Reports as per [facility] Resp Reports as per HPI GI Reports as per [facility] Reports as per HPI Physical Exam Vital Signs: Last Vital Signs Pulse 83 10/20/25 11:04 BP 100/64 10/20/25 11:04 Pulse Ox 97 10/20/25 11:04 Oxygen Delivery Method Room Air 10/20/25 11:04 BMI result Body Mass Index 47.6 Const General: healthy appearing, no acute distress and well developed Nutritional Appearance: obese Orientation/consciousness: patient oriented x3 HEENT Head: Yes normal to inspection, Yes normocephalic and Yes atraumatic Face and sinus: Yes normal facial exam Eyes General: appearance normal, both eyes and all related structures Neck Neck: Yes normal visual inspection Resp Effort & Inspection: normal respiratory effort, able to speak in complete sentences, no tracheal deviation and symmetric chest movement Cardio Jugular venous distension: no JVD GI Inspection: Yes obesity Neuro General: patient oriented x3 Gait exam (Neuro): Normal gait present Psych Appearance: grossly normal Mental Status: mental status grossly normal Speech and movement: Normal speech and movement present Affect: normal affect Attitude: cooperative Thought process: Normal thought process present Thought content: Normal thought content present Insight: Good insight present (Psych) Judgement: Good judgement present (Psych) Assessment & Plan Assessment & Plan (1) GERD (gastroesophageal reflux disease): Code(s): K21.9 - Gastro-esophageal reflux disease without esophagitis Category: Medical Qualifiers: Esophagitis presence: esophagitis presence not specified Qualified Code(s): K21.9 - Gastro-esophageal reflux disease without esophagitis Plan: Pantoprazole was discontinued due to associated stomach pain. - The patient will continue taking omeprazole, which is providing relief from her reflux symptoms. - An upper endoscopy is planned for November 30 for further evaluation. (2) Constipation: Code(s): K59.00 - Constipation, unspecified Category: Medical Qualifiers: Constipation type: unspecified constipation type Qualified Code(s): K59.00 - Constipation, unspecified Plan: Lactulose has been discontinued due to its taste. - The patient will continue with daily Senna. - The patient was advised against regular use of Dulcolax due to its stimulant nature and the risk of dependency. - Continue to encourage fiber intake and adequate hydration with water. (3) Rectal itching: Code(s): L29.0 - Pruritus ani Category: Medical Plan: The patient reports that the rectal itching has resolved. - No further intervention is required at this time. Plan Follow-up after endoscopy or sooner as needed Time: I spent a total of 15 minutes on the date of encounter which includes: Preparing to see the patient (reviewed previous documentation, test results and medical history) Performing a medically appropriate exam and/or evaluation Ordering medications, tests, and procedures Documenting clinical information in the health record Coding Level of Care Code Established Pt Est Pt Level 2 (25713) Patient Type Established Diagnoses Gastroesophageal reflux disease, unspecified whether esophagitis present K21.9 Esophagitis presence: esophagitis presence not specified Constipation, unspecified constipation type K59.00 Constipation type: unspecified constipation type Rectal itching L29.0
[2025-10-20 11:04] VITALS: BP 100/64; PULSE 83; O2SAT 97; BMI 47.6
== END 2025-10-20 12:05 | disposition home or self-care (01) ==
LOC: HO.HGI 10:59
PROVIDERS: PCP Internal Medicine Geriatric Medicine; Visit Provider Nurse Practitioner Family
DX: K21.9 Gastro-esophageal reflux disease without esophagitis (principal); K59.00 Constipation, unspecified; L29.0 Pruritus ani
CPT/HCPCS: 99212

== ENCOUNTER → 2025-10-20 10:58 | Outpatient (BNVA) | payer MEDICAID, SELFPAY | PROVIDERS: PCP Internal Medicine Geriatric Medicine; Visit Provider Nurse Practitioner Family | DX: K21.9 Gastro-esophageal reflux disease without esophagitis (principal); K59.00 Constipation, unspecified; L29.0 Pruritus ani; R10.9 Unspecified abdominal pain; Z79.899 Other long term (current) drug therapy | CPT/HCPCS: 99212 ==